=== PATIENT | female | born 1970 | race African-American/Black ===

== ENCOUNTER 2016-06-16 07:35 | Emergency (ER) | payer OTHER ==
[2016-06-16 07:47] VITALS: TEMP 98.5; BMI 29.7
[2016-06-16 08:53] LABS: BASOPHIL 0.6 % (0-2.0); EOSINOPHIL 6.8 % (0-4.5); MCH 28.5 pg (25.7-33.7); MCHC 32.6 g/dl (32.0-36.0); MEAN CELL VOLUME 87.4 fl (80-96); MEAN PLT VOLUME 9.8 fl (7.5-11.1); NEUTROPHILS 62.7 % (42.8-82.8); PLATELET COUNT 265 K/MM3 (134-434); RDW 14.1 % (11.6-15.6); WHITE BLOOD COUNT 5.2 K/mm3 (4.0-10.0)
[2016-06-16 09:22] LABS: URINE APPEARANCE CLEAR; URINE BILIRUBIN NEGATIVE (NEGATIVE); URINE BLOOD NEGATIVE (NEGATIVE); URINE COLOR STRAW; URINE GLUCOSE (UA) NEGATIVE (NEGATIVE); URINE KETONE NEGATIVE (NEGATIVE); URINE LEUK ESTERASE NEGATIVE (NEGATIVE); URINE NITRITE NEGATIVE (NEGATIVE); URINE PROTEIN NEGATIVE (NEGATIVE); URINE UROBILINOGEN NEGATIVE E.U./dl (0.2-1.0)
--- NOTE | 2016-06-16 09:42 | PDOC ---
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 States pain mostly located to R side w/ some swelling to R hand and R ankle. No sensory changes, focal weakness, PISANO, dizziness, visual changes, uri sxs, n/v/f/c, CP, SOB, change in BM or dysuria. Patient states around the time of her DVT diagnosis, she was told initially that she might have lupus based on blood results, but then later on told that she does not have lupus. States between 2005 and now, she has been healthy otherwise. Patient follows up with an outside PMD. Patient appears mildly uncomfortable, moving slowly in ED secondary to body aches. Stable vitals. Has minimal swelling to dorsum of right hand and right ankle. No signs of infection at this time. Unclear etiology of symptoms at this time, possibly rheumatological. Will get basic labs and rule out DVT to right leg Timing/Duration: other (this am) Severity: moderate Associated Symptoms: denies: chest pain, cough, diaphoresis, fever/chills, headaches, nausea/vomiting, shortness of breath, weakness Past History - Past Medical History Allergies/Adverse Reactions: Allergies Allergy/AdvReac Type Severity Reaction Status Date / Time aspirin Allergy Intermediate swelling/hi Verified 06/16/16 08:19 ves Sulfa (Sulfonamide Allergy Intermediate swelling/hi Verified 06/16/16 08:19 Antibiotics) ves Home Medications: Ambulatory Orders Budesonide/Formeterol Fumarate [SYMBICORT 80/4.5mcg -] 1 inh PO PRN PRN Montelukast Na [Singulair -] 10 mg PO HS 09/17/13 Tramadol HCl 50 mg PO Q6H #30 tablet MDD 200 mg 06/16/16 Asthma: Yes - Surgical History Abdominal Surgery: Yes (hysterectomy) - Psycho/Social/Smoking Cessation Hx Anxiety: No Suicidal Ideation: No Smoking Status: No Smoking History: Never smoked Have you smoked in the past 12 months: No Number of Cigarettes Smoked Daily: 0 Hx Alcohol Use: No Drug/Substance Use Hx: No Substance Use Type: None Review of Systems - Review of Systems Constitutional: No: Chills, Fever Respiratory: No: Cough, Shortness of Breath Cardiac (ROS): No: Chest Pain, Lightheadedness, Palpitations ABD/GI: No: Constipated, Diarrhea, Nausea, Vomiting : No: Dysuria *Physical Exam - Vital Signs Last Vital Signs Temp Pulse Resp BP Pulse Ox 98.5 F 83 18 133/84 99 06/16/16 07:44 06/16/16 07:44 06/16/16 07:44 06/16/16 07:44 06/16/16 07:44 - Physical Exam General Appearance: Yes: Appropriately Dressed, Mild Distress HEENT: positive: Normal Voice Neck: positive: Supple Respiratory/Chest: negative: Respiratory Distress Extremity: positive: Other (minimal swelling over dorsum of R hand and R ankle w / diffuse ttp to RLE) Integumentary: positive: Dry, Warm Neurologic: positive: Fully Oriented, Alert, Normal Mood/Affect ED Treatment Course - LABORATORY CBC & Chemistry Diagram: 06/16/16 08:35 06/16/16 11:25 - ADDITIONAL ORDERS Additional order review: Laboratory Results 06/16/16 06/16/16 09:10 08:35 Sodium Cancelled Potassium Cancelled Chloride Cancelled Carbon Dioxide Cancelled Anion Gap Cancelled BUN Cancelled Creatinine Cancelled Creat Clearance w eGFR Cancelled Random Glucose Cancelled Calcium Cancelled Total Bilirubin Cancelled AST Cancelled ALT Cancelled Alkaline Phosphatase Cancelled Total Protein Cancelled Albumin Cancelled Urine HCG, Qual Negative 06/16/16 08:35 RBC 4.38 MCV 87.4 MCHC 32.6 RDW 14.1 MPV 9.8 Neutrophils % 62.7 Lymphocytes % 22.6 D Monocytes % 7.3 Eosinophils % 6.8 H D Basophils % 0.6 - RADIOLOGY Radiology Studies Ordered: Category Date Time Status DUPLEX VASCUL US-1 LEG [US] Stat Ultrasound 06/16/16 08:39 Ordered Medical Decision Making - Medical Decision Making 06/16/16 11:47 45-year-old female history of DVT while on OCPs in 2005, not currently on anticoagulants, was diagnosed with lupus at some point, but then told she did not have lupus as per patient, and was in usual state of health until this morning when she woke up with diffuse body aches with pain and swelling to multiple joints. Denies fever, fatigue, rash or any other acute medical complaints at this time. Stable in ED w/ minimal swelling to R wrist/hand and R ankle, no e/o infxn at this time, rest of exam unremarkable. ?rheumatological source, will get labs and r/o DVT to RLE. Pain control in ED (allergic to nsaids ) 06/16/16 12:42 Labs and US neg. Pt stable for discharge w/ pain control and PMD and rheumatology referral *DC/Admit/Observation/Transfer Diagnosis at time of Disposition: Body aches Arthralgia Qualifiers: Joint pain location: ankle Laterality: right Qualified Code(s): M25.571 - Pain in right ankle and joints of right foot - Discharge Dispostion Disposition: HOME Condition at time of disposition: Good - Prescriptions Prescriptions: Tramadol HCl 50 mg PO Q6H #30 tablet MDD 200 mg - Referrals Referrals: Beti Jasso MD [Primary Care Provider] - Tien Wallis MD [Staff Physician] - - Patient Instructions Additional Instructions: The cause of your symptoms are unclear at this time. You will need further evaluation by a water resource manager - Post Discharge Activity Work/School Note: Back to Work
[2016-06-16] MEDS ORDERED: ACETAMINOPHEN 325 MG TABLET (FP) PO ONE (10:34)
[2016-06-16] MEDS ORDERED: ACETAMINOPHEN 325 MG TABLET (FP) ONE (11:28)
[2016-06-16 12:04] LABS: ALBUMIN 3.8 g/dl (3.4-5.0); ALK PHOS 66 U/L (45-117); ANION GAP 10 (8-16); BILIRUBIN,TOTAL 0.2 mg/dL (0.2-1.0); CALCIUM 9.3 mg/dL (8.5-10.1); CO2 25 mmol/L (21-32); CREATININE 0.9 mg/dL (0.55-1.02); GLUCOSE,RANDOM 74 mg/dL (74-106); SGOT/AST 24 U/L (15-37); SGPT/ALT 24 U/L (12-78); TOT PROT 7.6 g/dl (6.4-8.2)
[2016-06-16] MEDS ORDERED: traMADol HCL 50 MG TABLET PO ONE (12:37)
[2016-06-16] MEDS ORDERED: traMADol HCL 50 MG TABLET ONE (12:41)
[2016-06-16 12:54] VITALS: BP 131/74; PULSE 70
== END 2016-06-16 12:54 | disposition home or self-care (01) ==
LOC: JER 07:35
DX: M25.571 Pain in right ankle and joints of right foot (principal)
CPT/HCPCS: 36415; 80053; 81003; 84703; 85025; 93971-TC; 99282-25

== ENCOUNTER 2016-07-30 11:40 | Emergency (ER) | payer OTHER ==
[2016-07-30 11:59] VITALS: BP 134/90; PULSE 87; TEMP 97.7; BMI 31.3
[2016-07-30] MEDS ORDERED: ALBUTEROL SO4 2.5/IPRATROPIUM 0.5 INH SOL 3 ML VIAL.NEB. NEB ONE ×2 (13:15→13:18)
[2016-07-30] MEDS ORDERED: predniSONE 20 MG TABLET (UD) PO ONE (13:15)
[2016-07-30] MEDS ORDERED: predniSONE 20 MG TABLET (UD) ONE (13:17)
--- NOTE | 2016-07-30 13:32 | PDOC ---
History of Present Illness - General Chief Complaint: Asthma Stated Complaint: SOB Time Seen by Provider: 07/30/16 13:04 History Source: Patient Exam Limitations: No Limitations - History of Present Illness Initial Comments: 07/30/16 13:28 46 yr female with c/o wheezing coughing for 4 days exacerbated by her seasonal allergies. Pt denies fever, no chest pain. Pt taking flonase, symbicort, claritin and albuterol nebs at home with no relief. Pt denies productive cough. Pt able to speak full sentences no distress. Severity: reports: moderate Possible Cause: Yes: frequent episodes Associated Symptoms: reports: cough, nasal congestion, wheezing Past History - Past Medical History Allergies/Adverse Reactions: Allergies Allergy/AdvReac Type Severity Reaction Status Date / Time aspirin Allergy Intermediate swelling/hi Verified 07/30/16 11:53 ves Sulfa (Sulfonamide Allergy Intermediate swelling/hi Verified 07/30/16 11:53 Antibiotics) ves Home Medications: Ambulatory Orders Budesonide/Formeterol Fumarate [SYMBICORT 80/4.5mcg -] 1 inh PO PRN PRN Montelukast Na [Singulair -] 10 mg PO HS 09/17/13 Azithromycin [Zithromax 250mg Tablets -] 250 mg PO UTDICT #6 tab 07/30/16 Prednisone [Deltasone -] 40 mg PO DAILY #10 tablet 07/30/16 Asthma: Yes - Surgical History Abdominal Surgery: Yes (hysterectomy) - Psycho/Social/Smoking Cessation Hx Anxiety: No Suicidal Ideation: No Smoking Status: No Smoking History: Former smoker Have you smoked in the past 12 months: No Number of Cigarettes Smoked Daily: 0 Information on smoking cessation initiated: No Hx Alcohol Use: No Drug/Substance Use Hx: No Substance Use Type: None Respiratory Specific PMHX - Complaint Specific PMHX Angina: No Bronchitis: Yes Pneumonia: No Pulmonary Embolus: No TB (Tuberculosis): No Review of Systems - Review of Systems Able to Perform ROS?: Yes Is the patient limited Slovak proficient: No Constitutional: No: Symptoms Reported HEENTM: Yes: Symptoms Reported Respiratory: Yes: Symptoms reported *Physical Exam - Vital Signs Last Vital Signs Temp Pulse Resp BP Pulse Ox 97.7 F 87 24 134/90 100 07/30/16 11:53 07/30/16 11:53 07/30/16 11:53 07/30/16 11:53 07/30/16 11:53 - Physical Exam General Appearance: Yes: Nourished, Appropriately Dressed HEENT: positive: EOMI, HARLAN, Nasal Congestion Neck: positive: Supple. negative: Tender Respiratory/Chest: positive: Wheezing. negative: Chest Tender Cardiovascular: positive: Regular Rhythm, Regular Rate Gastrointestinal/Abdominal: positive: Soft Musculoskeletal: positive: Normal Inspection Extremity: positive: Normal Capillary Refill, Normal Inspection, Normal Range of Motion Integumentary: positive: Normal Color, Dry, Warm Neurologic: positive: Fully Oriented, Alert, Normal Mood/Affect, Normal Response , Motor Strength 08/01 ED Treatment Course - RADIOLOGY Radiology Studies Ordered: Category Date Time Status CHEST PA & LAT [RAD] Stat Radiology 07/30/16 13:19 Ordered - Medications Given in the ED: ED Medications Discontinued Medications Generic Name Dose Route Start Last Admin Trade Name Freq PRN Reason Stop Dose Admin Albuterol/Ipratropium 1 amp 07/30/16 13:15 07/30/16 13:20 Duoneb - NEB 07/30/16 13:16 1 amp ONCE ONE Administration Prednisone 60 mg 07/30/16 13:15 07/30/16 13:20 Deltasone - PO 07/30/16 13:16 60 mg ONCE ONE Administration Medical Decision Making - Medical Decision Making 07/30/16 13:32 cc: cough nasal congestion wheezing afebrile pulse ox 100% will give prednsione 60mg , duoneb , CXR and re-eval *DC/Admit/Observation/Transfer Diagnosis at time of Disposition: Bronchitis, Asthma attack - Discharge Dispostion Disposition: HOME Condition at time of disposition: Good - Prescriptions Prescriptions: Prednisone [Deltasone -] 40 mg PO DAILY #10 tablet Azithromycin [Zithromax 250mg Tablets -] 250 mg PO UTDICT #6 tab - Patient Instructions Additional Instructions: drink at least 3 liters of water a day next dose prednisone tomorrow morning take the antibiotic Zpack for bronchitis follow with your doctor in 1-2 days for follow up Return to ER if any worsening symptoms continue to take claritin and use nasocort spray avoid being outside as the pollen counts are very high making allergies and asthma worse
== END 2016-07-30 14:12 | disposition home or self-care (01) ==
LOC: JERFT 11:40
PROC: 3E0F7GC Introduction of Other Therapeutic Substance into Respiratory Tract, Via Natural or Artificial Opening (ICD-10-PCS; principal; 2016-07-30)
DX: J40 Bronchitis, not specified as acute or chronic (principal); Z87.891 Personal history of nicotine dependence
CPT/HCPCS: 71020-TC; 94640; 99281-25

== ENCOUNTER 2018-01-19 02:03 | Inpatient (IN) | payer OTHER ==
--- NOTE | 2018-01-19 02:51 | PDOC ---
History of Present Illness - General Stated Complaint: NAUSEA/VOMITING Time Seen by Provider: 01/19/18 02:43 - History of Present Illness Initial Comments: 01/19/18 03:33 The patient is a 47 year old female with a history of asthma who presents for evaluation of headache, dizziness, nausea, and vomiting. The patient is accompanied by family who assist in providing the history. They note that the patient awoke this morning just prior to presentation to the ED complaining of severe room-spinning dizziness with associated pounding headache, nausea, and multiple episodes of non-bilious, non-bloody vomiting. She denies similar symptoms in the past and notes that her symptoms worsen with movement of her head. She denies fevers, chills, SOB, chest pain, abdominal pain, numbness, tingling, weakness, or changes with urination or bowel movements. tPA Exclusion Checklist 0-3hr - Time Elapsed Date last known well: 01/18/18 Time last known well: 22:00 Elaspsed time: 1 Day(s) and 21 Hour(s) and 53 Minutes - Thrombolytic Therapy Candidate Is the patient eligible for Thrombolytic Therapy?: No - Ineligibility reason(s) Reasons No tPA given: Outside of window - delayed arrival NIH Stroke Scale - Last Known Well Date/Time & Onset Date Last Known Well: 01/18/18 Time Last Known Well: 22:00 - Initial Evaluation Level of consciousness: Alert Ask patient the month and their age: Answers both correctly Ask patient to open & close eyes; make fist and let go: Obeys both correctly Best gaze (horizontal eye movement): Normal Visual field testing: No visual field loss Facial paresis (Show teeth/raise eyebrows/close eyes tight): Normal symmetrical movement Motor Function: Left Arm: Normal Motor Function: Right Arm: Normal (extends arm 90 (or 45) degrees for 10 seconds without drift Motor Function: Left Leg: Normal (extends leg 30 degrees for 5 seconds without drift) Motor Function: Right Leg: Normal (extends leg 30 degrees for 5 seconds without drift) Limb Ataxia: No ataxia Sensory(Use pinprick test arms,legs,trunk,face/side to side): Normal Best language (Describe picture, name items, read sentences): No Aphasia Dysarthria (read several words): Normal articulation Extinction and Inattention: No abnormality - Total Score NIH Stroke Scale Score: 0 Past History - Past Medical History Allergies/Adverse Reactions: Allergies Allergy/AdvReac Type Severity Reaction Status Date / Time aspirin Allergy Intermediate swelling/hi Verified 01/19/18 02:25 ves Sulfa (Sulfonamide Allergy Intermediate swelling/hi Verified 01/19/18 02:25 Antibiotics) ves Home Medications: Ambulatory Orders Clopidogrel Bisulfate [Plavix -] 25 mg PO DAILY 01/19/18 Cyclobenzaprine HCl [Flexeril -] 10 mg PO HS 01/19/18 Asthma: Yes - Surgical History Abdominal Surgery: Yes (hysterectomy) - Suicide/Smoking/Psychosocial Hx Smoking Status: No Smoking History: Never smoked Have you smoked in the past 12 months: No Number of Cigarettes Smoked Daily: 0 Information on smoking cessation initiated: No Hx Alcohol Use: No Drug/Substance Use Hx: No Substance Use Type: None Review of Systems - Review of Systems Comments:: 01/19/18 03:36 Constitutional: No fevers, chills, fatigue, malaise HEENT: No Rhinorrhea, nasal congestion, visual changes Cardiovascular: No chest pain, syncope, palpitations, lightheadedness Respiratory: No Cough, SOB, Hemoptysis, Gastrointestinal: Nausea, vomiting. No Abdominal pain, Constipation, Diarrhea, Melena Genitourinary: No Dysuria, Frequency, Urgency, Hesitancy, Hematuria, Flank pain Musculoskeletal: No Myalgia, arthralgia Skin: No rashes, itching, bruising, pallor Neurologic: Headache, dizziness. No Numbness, Weakness, or Tingling Psychiatric: No Hallucinations. No SI or HI *Physical Exam - Vital Signs Last Vital Signs Temp Pulse Resp BP Pulse Ox 99.1 F 128 H 18 105/72 98 01/19/18 02:25 01/19/18 02:25 01/19/18 02:25 01/19/18 02:25 01/19/18 02:25 - Physical Exam Comments: 01/19/18 03:37 General Appearance: Nourished. In Mild Apparent Distress HEENT: EOMI, HARLAN. Nystagmus noted on exam. No Pharyngeal Erythema, Tonsillar Exudate, Tonsillar Erythema Neck: No Cervical Lymphadenopathy Respiratory/Chest: Lungs Clear, Normal Breath Sounds. No Crackles, Rales, Rhonchi, Wheezing Cardiovascular: Regular Rhythm, Regular Rate. No Murmur, Gallops, Rubs Gastrointestinal/Abdominal: Normal Bowel Sounds, Soft. No Guarding, Rebound, Tenderness Musculoskeletal: No CVA Tenderness Extremity: Normal Capillary Refill Integumentary: Normal Color, Dry, Warm Neurologic: demand manager II-XII NML intact, Fully Oriented, Alert, Normal Mood/Affect, Normal Response, Motor Strength 5/5. Normal Finger to Nose and Heel to [place] ED Treatment Course - LABORATORY CBC & Chemistry Diagram: 01/20/18 05:30 01/20/18 05:30 Medical Decision Making - Medical Decision Making 01/19/18 03:38 The patient is a 47 year old female with a history of asthma who presents for evaluation of headache, dizziness, nausea, and vomiting. Differential includes but is not limited to: Vertigo, Intracranial process, Infectious, Metabolic derangement. Given the patient's history and physical exam, we will obtain a cbc, cmp, troponin, ekg, head ct to evaluate further for possible etiologies. We will treat with iv fluids, reglan, valium, meclazine, tylenol and continue to monitor and reassess while here in the ED. 01/19/18 06:53 CBC demonstrates an elevated wbc. cmp, troponin is unremarkable. Head CT demonstrates a chronic lacunar infarct. Given the patient's history of an occluded left vetebral artery and new onset dizziness, we believe she requires admission for further work up and management. We discussed the case with Dr. Asher with neurology who will come evaluate the patient. We discussed the case with the admitting team who accepted the patient for admission. *DC/Admit/Observation/Transfer Diagnosis at time of Disposition: TIA (transient ischemic attack) - Discharge Dispostion Condition at time of disposition: Stable Decision to Admit order: Yes - Referrals - Patient Instructions - Post Discharge Activity
[2018-01-19] MEDS ORDERED: SODIUM CHLORIDE 1,000 ML IV STA (02:59)
[2018-01-19] MEDS ORDERED: MECLIZINE HCL 25 MG TABLET (FP) PO ONE (02:59)
[2018-01-19] MEDS ORDERED: METOCLOPRAMIDE HCL INJECTION 10 MG/2 ML VIAL IVPUSH ONE (03:00)
[2018-01-19] MEDS ORDERED: ACETAMINOPHEN 1000 MG/100 ML VIAL (NON FORMULARY) IVPB ONE (03:00)
[2018-01-19] MEDS ORDERED: diazePAM 2 MG TABLET PO ONE (03:17)
[2018-01-19] MEDS ORDERED: MECLIZINE HCL 25 MG TABLET (FP) ONE (03:18)
[2018-01-19] MEDS ORDERED: METOCLOPRAMIDE HCL INJECTION 10 MG/2 ML VIAL ONE (03:18)
[2018-01-19] MEDS ORDERED: diazePAM 2 MG TABLET ONE (03:18)
[2018-01-19] MEDS ORDERED: ACETAMINOPHEN INJECTION 100 ML IVPB ONE (03:18)
--- NOTE | 2018-01-19 03:18 | PDOC ---
Attending Attestation - Resident Resident Name: Rodolfo Pelayo - ED Attending Attestation I have performed the following: I have examined & evaluated the patient, The case was reviewed & discussed with the resident, I agree w/resident's findings & plan, Exceptions are as noted - HPI HPI: 01/19/18 02:14 47yo F hx asthma, vertebral artery stenosis? 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 Pt states symptoms woke her up as she felt nauseous. Last known normal 10pm when pt went to sleep. Dizziness is positional, worse with head movement No hx similar sxs. Pt is a poor historian. States she was admitted to [facility] a few weeks go after an episode of decreased vision. She followed up with her neurologist and had an MRI on 01/13. Does not know the results. Denies fevers, chills, cp, sob, palpitations, abd pain, n/v/d, urinary sxs, focal weakness/numbness, blurry vision. - Physicial Exam PE: 01/19/18 05:41 agree with resident exam - Medical Decision Making 01/19/18 05:41 47yo F hx vertebral artery occlusion (appears chronic on review of recent MRI) on plavix presents to the ED with sudden onset headache, N/V, vertiginous sxs. In light of vertebral artery stenosis, concern for central etiology of vertigo, ie posterior circulation stroke. LKN was 10pm, 4 hours prior to presentation to ED. Pt also on plavix and thus not a TPA candidate. CTH read by imaging customer service correspondence clerk with chronic appearing lacunar infarct in brainstem, but no acute findings. Dr. Asher (who pt has seen before) has been consulted, awaiting a call back. MRI/ MRA ordered. Vitals remarkable for fever to 101.3 and tachcyardia to 120s. Pt with no focal infectious symptoms, has no stiff neck, no evidence of meningismus, is not altered - low likelihood for meningitis. Pt also on plavix and not an LP candidate. 01/19/18 05:[address] Barker (by Dr. Pelayo), pt accepted for admission Case discussed in detail with admitting physician including history, physical exam and ancillary studies. Admitting physician has assumed care for the patient, will follow all pending diagnostics and will complete the evaluation and treatment. 01/19/18 06:[address] Asher by Dr. Pelayo. He will be here within the hour to evaluate pt. Heart Score/ECG Review #1 01/19/18 05:49 Twelve-lead EKG was performed and reviewed by me. Sinus tachycardia, rate 127. Normal axis. No ST elevations or T-wave inversions. +PVCs
[2018-01-19 04:59] LABS: BASO % 0.3 % (0-2.0); EOS % 0.2 % (0-4.5); HEMOGLOBIN 11.1 GM/dL (10.7-15.3); LYMPH % 5.5 % (8-40); MCH 26.5 pg (25.7-33.7); MCHC 31.7 g/dl (32.0-36.0); MEAN CELL VOLUME 83.6 fl (80-96); MEAN PLT VOLUME 9.3 fl (7.5-11.1); MONO % 0.4 % (3.8-10.2); NEUT % 93.6 % (42.8-82.8); PLATELET COUNT 170 K/MM3 (134-434); RBC 4.19 M/mm3 (3.60-5.2); RDW 14.9 % (11.6-15.6); WHITE BLOOD COUNT 2.1 K/mm3 (4.0-10.0)
[2018-01-19 05:21] LABS: ALBUMIN 3.1 g/dl (3.4-5.0); ALK PHOS 93 U/L (45-117); ANION GAP 7 MMOL/L (8-16); BILIRUBIN,TOTAL 0.4 mg/dL (0.2-1); BLOOD UREA NITROGEN 12 mg/dL (7-18); CALCIUM 7.9 mg/dL (8.5-10.1); CHLORIDE 109 mmol/L (98-107); CO2 22 mmol/L (21-32); CREATININE 1.1 mg/dL (0.55-1.3); GLUCOSE,RANDOM 103 mg/dL (74-106); POTASSIUM 3.9 mmol/L (3.5-5.1); SGOT/AST 64 U/L (15-37); SGPT/ALT 57 U/L (13-61); SODIUM 138 mmol/L (136-145); TOT PROT 6.6 g/dl (6.4-8.2)
[2018-01-19 05:55] LABS: INR 1.11 (0.83-1.09); PROTHROMBIN TIME (PATIENT) 13.1 SEC (9.7-13.0)
[2018-01-19 06:03] LABS: CHOLESTEROL 125 mg/dL (50-200); HDL CHOLESTEROL 52 mg/dL (40-60); TRIGLYCERIDES 62 mg/dL (0-150)
[2018-01-19] MEDS ORDERED: MECLIZINE HCL 12.5 MG TABLET PO PRN (06:20)
[2018-01-19] MEDS ORDERED: ACETAMINOPHEN 325 MG TABLET (FP) PO ONE (06:21)
--- NOTE | 2018-01-19 06:37 | HP ---
CHIEF COMPLAINT: nausea and dizziness PCP: HISTORY OF PRESENT ILLNESS: Patient is a 47 year old female with a past medical history of asthma, vertebral artery stenosis and DVT on plavix who presents for nausea and dizziness. At 9 pm last night she accidently took one of her daughters gabapentin pills. She also started taking miclinone for acne. Her symptoms began at about 11 pm last night, she felt very nauseous and dizzy. She reports she has not felt this before. One year ago in december she was diagnosed with Vertebral artery stenosis at [facility]. She was following up with Dr. Asher, but he stopped taking her insurance. She has not seen a neurologist recently. She also reports she was told she had cysts in her brain, she is unsure as to why. 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 She currently complains of still feeling dizzy and her head hurting. Patient reports she has not been sick recently. ER course was notable for: (1) meclizine (2) (3) Recent Travel: PAST MEDICAL HISTORY: pre diabetic, asthma, vertebral artery stenosis PAST SURGICAL HISTORY: Social History: Smoking: Alcohol: Drugs: Family History: Allergies aspirin Allergy (Intermediate, Verified 01/19/18 02:25) swelling/hives Sulfa (Sulfonamide Antibiotics) Allergy (Intermediate, Verified 01/19/18 02:25) swelling/hives HOME MEDICATIONS: Home Medications Medication Instructions Recorded Clopidogrel Bisulfate [Plavix -] 25 mg PO DAILY 01/19/18 Cyclobenzaprine HCl [Flexeril -] 10 mg PO HS 01/19/18 REVIEW OF SYSTEMS CONSTITUTIONAL: Absent: fever, chills, diaphoresis, generalized weakness, malaise, loss of appetite, weight change HEENT: Absent: rhinorrhea, nasal congestion, throat pain, throat swelling, difficulty swallowing, mouth swelling, ear pain, eye pain, visual changes CARDIOVASCULAR: Absent: chest pain, syncope, palpitations, irregular heart rate, lightheadedness , peripheral edema RESPIRATORY: Absent: cough, shortness of breath, dyspnea with exertion, orthopnea, wheezing, stridor, hemoptysis GASTROINTESTINAL: Absent: abdominal pain, abdominal distension, nausea, vomiting, diarrhea, constipation, melena, hematochezia GENITOURINARY: Absent: dysuria, frequency, urgency, hesitancy, hematuria, flank pain, genital pain MUSCULOSKELETAL: Absent: myalgia, arthralgia, joint swelling, back pain, neck pain SKIN: Absent: rash, itching, pallor HEMATOLOGIC/IMMUNOLOGIC: Absent: easy bleeding, easy bruising, lymphadenopathy, frequent infections ENDOCRINE: Absent: unexplained weight gain, unexplained weight loss, heat intolerance, cold intolerance NEUROLOGIC: dizziness, headache Absent: , focal weakness or paresthesias,unsteady gait, seizure, mental status changes, bladder or bowel incontinence PSYCHIATRIC: Absent: anxiety, depression, suicidal or homicidal ideation, hallucinations. PHYSICAL EXAMINATION Vital Signs - 24 hr 01/19/18 01/19/18 02:25 04:00 Temperature 99.1 F 101.3 F H Pulse Rate 128 H Respiratory 18 Rate Blood Pressure 105/72 O2 Sat by Pulse 98 Oximetry (%) GENERAL: Awake, alert, and fully oriented, in no acute distress. HEAD: Normal with no signs of trauma. EYES: Pupils equal, round and reactive to light, extraocular movements intact, sclera anicteric, conjunctiva clear. EARS, NOSE, THROAT: Ears normal, nares patent, oropharynx clear without exudates. Moist mucous membranes. NECK: Normal range of motion, supple without lymphadenopathy, JVD, or masses. LUNGS: Breath sounds equal, clear to auscultation bilaterally. No wheezes, and no crackles. No accessory muscle use. HEART: tachycardic ABDOMEN: Soft, nontender, not distended, normoactive bowel sounds, no guarding, no rebound, no masses. Midline scar MUSCULOSKELETAL: Normal range of motion at all joints. No CVA tenderness. LOWER EXTREMITIES: 2+ pulses, warm, well-perfused. No calf tenderness. No peripheral edema. NEUROLOGICAL: Cranial nerves II-XII intact. Normal speech. patient has a positive [place] with nystagmus when looking to the left, gait not observed PSYCHIATRIC: Cooperative. Good eye contact. Appropriate mood and affect. SKIN: Warm, dry, normal turgor, no rashes or lesions noted, normal capillary refill. CBC, BMP 01/19/18 04:37 01/19/18 04:37 ASSESSMENT/PLAN: Patient is a 47 year old female with a past medical history of asthma, vertebral artery stenosis and DVT on plavix who presents for vertigo. #Dizziness - liklely 2/2 to interosseous calcifications vertigo vs vertebral artery stenosis - begin meclizine 12.5 mg TID prn - acetaminophen 650 mg for headache - f/u neuro consult, ED reached out to Dr. 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 Head CT shows old lacunar infarct and old cerebellar infarct - continue Clopidogrel 75 mg - question of hypercoagulability, f/u ESR, CRP, MARGARITO, factor 5 #nausea/vomiting r/o sbo - hx of hysterectmy and Csection - f/u abd xray - continue LR @ 100 #MSK pain - continue flexaril 10 mg at night #sepsis: unknown source - leukopenia - fever - sinus tachycardia - f/u peripheral smear - f/u blood cx, f/u urine cx, f/u flu swab - LR 1L bolus, LR @ 100 #asthma: stable - no acute exacerbation Visit type - Emergency Visit Emergency Visit: Yes Care time: The patient presented to the Emergency Department on the above date and was hospitalized for further evaluation of their emergent condition. - New Patient This patient is new to me today: Yes Date on this admission: 01/19/18 - Critical Care Critical Care patient: No
[2018-01-19] MEDS ORDERED: LACTATED RINGERS SOLUTION 1,000 ML/1,000 ML INFUS.BAG IV SCH ×2 (06:45→10:59)
[2018-01-19] MEDS ORDERED: ACETAMINOPHEN 325 MG TABLET (FP) ONE (06:48)
[2018-01-19 06:52] LABS: ANISOCYTOSIS 1+; MACROCYTOSIS 0; PLATELET ESTIMATE NORMAL
--- NOTE | 2018-01-19 07:02 | PN ---
Teaching Attending Note Name of Resident: Caron Barker ATTENDING PHYSICIAN STATEMENT I saw and evaluated the patient. I reviewed the resident's note and discussed the case with the resident. I agree with the resident's findings and plan as documented. SUBJECTIVE: Seen and examined; she is a 47 y/o AAF with a PMH of vertebral A. stenosis, dysfunctional uterine bleeding, asthma who presents with nausea/vomitting and dizziness. She is hemodynamically stable but was slightly febrile on presentation. She had sx like this aprox. 1 month ago; she was diagnosed with V. A. Stenosis at [facility] last year and has been on plavix for this. Denies any history of neurologic issues or clotting issues. She was aparently worked up for this issue with a MRI that was done 01/13 which showed on MRA no flow in the L with patent R flow. She was woken by the aforementioned sx tonight and thus came to the ER. CT negative for acute findings but did show old stroke near brain stem. WBC found to be slightly low. No fall or LOC today. Vague abdominal pain PMH: Dysfunctional uterine bleeding, asthma PSH: No nsgy procedures FH: Denies clotting issues or neuro issues Social: Denies EtOH or illicit drug abuse OBJECTIVE: VSS, all labs and imaging reviewed NAD, AAOx3, resting comfortably in bed +L-sided Roscoe-Halpike, CN2-12 grossly intact, no focal neuro deficits, normal motion and sensorium. Normal muscle tone. No meningeal signs. RRR s1/2 no mgr Lungs CTAB with sym expansion NT ND +BS ASSESSMENT AND PLAN: 1) Dizziness, recurring -Likely with multiple components; I suspect that with the rotational component ( told to ER but denied to me) with +Joaquina-Halpike I am suspecting some BPV on top of the known vertebral A. stenosis. These should be treated separately. 2) Vertebral A. 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 Reconcile home meds -Given her history of stoke with now a no-flow in the VA, I suspect maybe some underlying disease driving the process. Check a rheum screening pannel and a factor V Leiden screen. 5) Leukopenia -WBC 2 range (lower limit normal is 4); unclear cause -Followup infectious workup 6) Nausea/Vomitting -Could have lead to fluid depletion -PRN management. 7) Fever -Unclear source; check blood cultures. Check UA. Benign abdominal exam and lung exam is nonrevealing. No meningeal signs. -Followup flu swab; monitor clinically. If persists can cover with abx 8) Sinus Tachycardia -Bolus 2L total NS and LR@100; monitor on tele, EKG NSR. -Could be fluid depletion from nausea and vomitting vs. infective process. If doesn't resolve consider alternative etiologies 9) Chronic Asthma -No acute exacerbation -Continue home meds and PRNs 10) Obesity -General Internist regarding weight loss prior to DC 11) Elevated CK -Trend Full Code
[2018-01-19] MEDS ORDERED: LACTATED RINGERS SOLUTION 1000 ML INFUS.BAG IV ONE (07:18)
[2018-01-19 08:44] LABS: URINE APPEARANCE CLEAR; URINE BILIRUBIN NEGATIVE (<2.0 mg/dL); URINE COLOR LTYELLOW; URINE GLUCOSE (UA) NEGATIVE (NEGATIVE); URINE KETONE NEGATIVE (NEGATIVE); URINE LEUK ESTERASE NEGATIVE (NEGATIVE); URINE NITRITE NEGATIVE (NEGATIVE); URINE PROTEIN NEGATIVE (NEGATIVE); URINE UROBILINOGEN NEGATIVE mg/dL (0.2-1.0)
[2018-01-19] MEDS ORDERED: CLOPIDOGREL BISULFATE 75 MG TABLET (FP) PO SCH (10:00)
[2018-01-19] MEDS ORDERED: MECLIZINE HCL 12.5 MG TABLET ONE (10:22)
--- NOTE | 2018-01-19 10:40 | CON.NEURO ---
Consult Consult Specialty:: [facility] Referred by:: ED Reason for Consultation:: PISANO - History of Present Illness History of Present Illness: 47 years old woman with PMh PISANO Anxiety ASA allergy and VA stenosis I so the patient in the emergency room at the request of the emergency room physician. Recently patient was referred for an MRI and MRA of the brain at [facility] which confirmed the presence of left vertebral artery stenosis that was detected in 2008. Patient is allergic again to aspirin patient is on Plavix. Neurologically patient NIH stroke scale was 0. - History Source History Provided By: Patient Limitations to Obtaining History: No Limitations - Past Medical History ...LMP: 04/12/13 - Alcohol/Substance Use Hx Alcohol Use: No - Smoking History Smoking history: Never smoked Have you smoked in the past 12 months: No Aproximately how many cigarettes per day: 0 Home Medications - Allergies Allergies/Adverse Reactions: Allergies Allergy/AdvReac Type Severity Reaction Status Date / Time aspirin Allergy Intermediate swelling/hi Verified 01/19/18 02:25 ves Sulfa (Sulfonamide Allergy Intermediate swelling/hi Verified 01/19/18 02:25 Antibiotics) ves - Home Medications Home Medications: Ambulatory Orders Clopidogrel Bisulfate [Plavix -] 25 mg PO DAILY 01/19/18 Cyclobenzaprine HCl [Flexeril -] 10 mg PO HS 01/19/18 Family Disease History - Family Disease History Family History: Denies Review of Systems - Review of Systems Constitutional: reports: No Symptoms Eyes: reports: No Symptoms Gastrointestinal: reports: Constipation, Diarrhea, Indigestion, Nausea Neurological: reports: Headache, Incoordination, Numbness, Parasthesia Physical Exam-Neuro Vital Signs: Vital Signs Temperature 99.8 F H 01/19/18 08:55 Pulse Rate 92 H 01/19/18 07:06 Respiratory Rate 18 01/19/18 07:06 Blood Pressure 117/68 01/19/18 07:06 O2 Sat by Pulse Oximetry (%) 99 01/19/18 07:06 Constitutional: Yes: Well Nourished Neck: Yes: WNL Labs: CBC, BMP 01/19/18 04:37 01/19/18 04:37 INR, PTT INR 1.11 (0.83-1.09) H 01/19/18 05:27 - Neuro Exam Level Of Consciousness: Yes: Oriented to Person, Oriented to Place, Oriented to Time Eyes: Yes: PERRLA Speech: WNL Dominant Hand: Right Cranial Nerves II-XII Intact: Yes Gag: Present Response to light touch: Normal Response to pain prick: Normal Response to temperature: Normal Problem List - Problems (1) TIA (transient ischemic attack) Assessment/Plan: patient was seen recently in my office Patient was complaining of episodes of loss of consciousness patient was being sent for questionable seizure workup CAT scan from today shows no evidence of acute stroke. This patient had an MRI MRA of the brain which showed no acute pathology. Patient is allergic to aspirin. Patient is on Plavix. No evidence of brainstem stroke acute on today's exam. Neurologically patient can go home Seizure precautions Continue Plavix Garland-3 fish oil Tight cholesterol control We'll arrange for EEG as an outpatient. Thank you for referring this patient Code(s): G45.9 - TRANSIENT CEREBRAL ISCHEMIC ATTACK, UNSPECIFIED
[2018-01-19] MEDS ORDERED: ONDANSETRON 4 MG/2 ML VIAL IVPUSH PRN (11:00)
--- NOTE | 2018-01-19 11:05 | PN ---
Progress Note, Physician Chief Complaint: Sepsis Dizziness History of Present Illness: Dizziness improved, described as light headedness when she gets up. Has Had similar episode 1 month ago but not as bad. C/O headache right now No recent travel No recent sick contacts Recently started on minocycline for acne Took her daughter's Gabapentin yesterday States she recieved a call from [facility] yesterday and was told that she has Polymyalgia Rheumatica? Takes Amitriptyline 25 mg po daily for Fibromylagia? Cultures pending WBC [id number] lactic acid-influenza swab negative-PERHAPS VIRAL SYNDROME? CT head from today, MRI/MRA from 01/13/18-negative - Current Medication List Current Medications: Active Medications Clopidogrel Bisulfate (Plavix -) 75 mg PO DAILY JOHNNY Last Admin: 01/19/18 10:00 Dose: 75 mg Cyclobenzaprine HCl (Flexeril -) 10 mg PO HS JOHNNY Lactated Ringer's (Lactated Ringers Solution) 1,000 ml in 1,000 mls @ 125 mls/ hr IV ASDIR JOHNNY Meclizine HCl (Antivert -) 12.5 mg PO Q8H PRN PRN Reason: VERTIGO Last Admin: 01/19/18 10:27 Dose: 12.5 mg Ondansetron HCl (Zofran Injection) 4 mg IVPUSH Q4H PRN PRN Reason: NAUSEA AND/OR VOMITING - Objective Vital Signs: Vital Signs Temperature 99.8 F H 01/19/18 08:55 Pulse Rate 92 H 01/19/18 07:06 Respiratory Rate 18 01/19/18 07:06 Blood Pressure 117/68 01/19/18 07:06 O2 Sat by Pulse Oximetry (%) 99 01/19/18 07:06 Constitutional: Yes: Well Nourished, No Distress, Calm Cardiovascular: Yes: Regular Rate and Rhythm Respiratory: Yes: Regular Gastrointestinal: Yes: Normal Bowel Sounds, Soft, Abdomen, Obese Musculoskeletal: Yes: Muscle Weakness Extremities: Yes: WNL Edema: No Peripheral Pulses WNL: Yes Neurological: Yes: Alert, Oriented Psychiatric: Yes: Alert, Oriented Labs: CBC, BMP 01/19/18 04:37 01/19/18 04:37 INR, PTT INR 1.11 (0.83-1.09) H 01/19/18 05:27 Problem List - Problems (1) Dizziness Assessment/Plan: -Orthostatic vitals -IVF -Cardiology consult -echo and carotid -CT head, MRI/MRA brain negative Code(s): R42 - DIZZINESS AND GIDDINESS (2) Sepsis Assessment/Plan: -IVF -Repeat LA in AM -Acetaminophen for fever >100.0F -ID consult -Will hold IV abx for now and monitor -Cultures pending -CXR ordered Code(s): A41.9 - SEPSIS, UNSPECIFIED ORGANISM (3) Elevated lactic acid level Assessment/Plan: -IVF -Repeat LA in AM -ID consult Code(s): R79.89 - OTHER SPECIFIED ABNORMAL FINDINGS OF BLOOD CHEMISTRY Assessment/Plan see problem list
[2018-01-19] MEDS ORDERED: ACETAMINOPHEN 325 MG TABLET (FP) PO PRN ×2 (11:41)
--- NOTE | 2018-01-19 12:27 | CON.CARD ---
Consult Consult Specialty:: Cardiology Referred by:: Magui Griffith Reason for Consultation:: dizziness - History of Present Illness Chief Complaint: dizziness, nausea, vomiting History of Present Illness: 47 year old woman with pmh vertebral artery stenosis, asthma, admitted with dizziness, nausea, vomiting, fever. pt seen and examined today in nad. feeling better currently. Pt is known to Dr. Asher as outpatient and known to have vertebral artery stenosis. Denies any chest pain, sob, palpitations, syncope. no pnd, orthopnea, or LE edema. - History Source History Provided By: Patient, Medical Record Limitations to Obtaining History: No Limitations - Past Medical History Cardio/Vascular: Yes: Other (vertebral artery stenosis) Pulmonary: Yes: Asthma ...LMP: 04/12/13 - Alcohol/Substance Use Hx Alcohol Use: No - Smoking History Smoking history: Never smoked Have you smoked in the past 12 months: No Aproximately how many cigarettes per day: 0 - Social History History of Recent Travel: No Home Medications - Allergies Allergies/Adverse Reactions: Allergies Allergy/AdvReac Type Severity Reaction Status Date / Time aspirin Allergy Intermediate swelling/hi Verified 01/19/18 02:25 ves Sulfa (Sulfonamide Allergy Intermediate swelling/hi Verified 01/19/18 02:25 Antibiotics) ves - Home Medications Home Medications: Ambulatory Orders Clopidogrel Bisulfate [Plavix -] 25 mg PO DAILY 01/19/18 Cyclobenzaprine HCl [Flexeril -] 10 mg PO HS 01/19/18 Family Disease History - Family Disease History Family History: Denies Review of Systems - Review of Systems Constitutional: reports: Fever, Malaise. denies: No Symptoms, Chills, Diaphoresis, Lethargy, Loss of Appetite, Night Sweats, Unintentional Wgt. Loss, Weakness, Other Eyes: denies: No Symptoms, Blind Spots, Blurred Vision, Double Vision, Eye Pain , Floaters, Photophobia, Recent Change in Vision, Other HENT: denies: No Symptoms, Difficult Swallowing, Ear Discharge, Ear Pain, Epistaxis, Gingival Bleeding, Hearing Loss, Mouth Swelling, Nasal Congestion, Ocular Prosthesis, Throat Pain, Toothache, Ringing in Ears, Other Neck: denies: No Symptoms, Decreased ROM, Lumps, Pain on Movement, Stiffness, Swollen Glands, Tenderness, Other Cardiovascular: denies: No Symptoms, Chest Pain, Edema, Palpitations, Shortness of Breath, Other Respiratory: denies: No Symptoms, Cough, Exercise Intolerance, Hemoptysis, Orthopnea, PND, Snoring, SOB, SOB on Exertion, Wheezing, Other Gastrointestinal: reports: Nausea, Vomiting. denies: No Symptoms, Abdominal Pain, Bloating, Constipation, Diarrhea, Dysphagia, Indigestion, Melena, Rectal Bleeding, Vomiting Blood, Other Genitourinary: denies: No Symptoms, Burning, Discharge, Dysuria, Flank Pain, Frequency, Hematuria, Incontinence, Lesions, Menses, Pain, Testicular Mass, Testicular Pain, Testicular Swelling, Urgency, Vaginal Bleeding, Other Breasts: denies: No Symptoms Reported, See HPI, Breast Implants, Discharge from Nipple, Lumps, Pain, Skin Changes, Other Musculoskeletal: denies: No Symptoms, Back Pain, Crepitus, Decreased ROM, Extremity Pain, Joint Pain, Joint Swelling, Muscle Pain, Muscle Cramps, Muscle Weakness, Other Integumentary: denies: No Symptoms, Blister, Bruising, Change in Color, Eczema, Erythema, Incision, Lesions, Lump, Pallor, Pruritis, Rash, Wound, Other Neurological: reports: Dizziness. denies: No Symptoms, Change in LOC, Change in Speech, Confusion, Headache, Incoordination, Numbness, Parasthesia, Pre- Existing Deficit, Seizure, Syncope, Tremors, Unsteady Gait, Weakness, Other Endocrine: denies: No Symptoms, Excessive Sweating, Flushing, Increased Hunger, Increased Thirst, Intolerance to Cold, Intolerance to Heat, Unexplained Weight Gain, Unexplained Weight Loss, Other Hematology/Lymphatic: denies: No Symptoms, Easily Bruised, Excessive Bleeding, Swollen Glands, Other Psychiatric: denies: No Symptoms, Altered Sleep Pattern, Anxiety, Depression, Hallucinations, Panic, Paranoia, Suicidal, Other Vital Signs: Vital Signs Temperature 99.8 F H 01/19/18 08:55 Pulse Rate 92 H 01/19/18 07:06 Respiratory Rate 18 01/19/18 07:06 Blood Pressure 117/68 01/19/18 07:06 O2 Sat by Pulse Oximetry (%) 99 01/19/18 07:06 Constitutional: Yes: Well Nourished, No Distress, Calm Eyes: Yes: WNL, Conjunctiva Clear, EOM Intact HENT: Yes: WNL, Atraumatic, Normocephalic Neck: Yes: WNL, Supple, Trachea Midline Respiratory: Yes: WNL, Regular, CTA Bilaterally. No: Rales, Rhonchi, SOB, Wheezes Gastrointestinal: Yes: WNL, Normal Bowel Sounds, Soft. No: Distention, Tenderness Renal/: Yes: WNL Cardiovascular: Yes: Regular Rate and Rhythm. No: Bradycardia, Tachycardia, Pulse Irregular, Gallop, Rub, Varicosities JVD: No Carotid Bruit: No PMI: Non-Displaced Heart Sounds: Yes: S1, S2. No: Split S2, S3, S4, Clicks, Gallop, Rub, Bruit Murmur: No: Systolic Murmur, Diastolic Murmur Musculoskeletal: Yes: WNL Extremities: Yes: WNL Edema: No Peripheral Pulses WNL: Yes Neurological: Yes: Alert, Oriented Psychiatric: Yes: Alert, Oriented - Other Data Labs, Other Data: CBC, BMP 01/19/18 04:37 01/19/18 04:37 INR, PTT INR 1.11 (0.83-1.09) H 01/19/18 05:27 Troponin, BNP 01/19/18 04:37 Troponin I < 0.02 Troponin, BNP 01/19/18 04:37 Troponin I < 0.02 not available currently in chart, reported as sinus tach 127bpm and pvcs with no sig ST abnl Imaging - Results Chest X-ray: Report Reviewed, Image Reviewed EKG: Report Reviewed Assessment/Plan 47 year old woman with pmh vertebral artery stenosis, asthma, admitted with dizziness, nausea, vomiting, fever. pt seen and examined today in nad. feeling better currently. Pt is known to Dr. Asher as outpatient and known to have vertebral artery stenosis. Dizziness-does not appear to be cardiac in origin -recent MRI/MRA showed occlusion of L vertebral but no acute pathology -currently febrile with low wbc, elevated lactate and esr/crp possible viral etiology possible sepsis -possible vertigo in setting of febrile illness -IVF hydration as needed -neurology saw pt -can check orthostatic bp -fup echo and carotid dopplers already ordered
--- NOTE | 2018-01-19 12:50 | EKG ---
Test Reason : Blood Pressure : / mmHG Vent. Rate : 127 BPM Atrial Rate : 127 BPM P-R Int : 158 ms QRS Dur : 074 ms QT Int : 282 ms P-R-T Axes : 055 077 004 degrees QTc Int : 409 ms SINUS TACHYCARDIA WITH PREMATURE VENTRICULAR OR ABERRANTLY CONDUCTED COMPLEXES CANNOT RULE OUT INFERIOR INFARCT , AGE UNDETERMINED NONSPECIFIC ST AND T WAVE ABNORMALITY ABNORMAL ECG Confirmed by MD RINA, DILLAN ([id number]) on 01/19/2018 12:49:52 PM Referred By: Confirmed By:DILLAN FLYNN MD
--- NOTE | 2018-01-19 16:49 | CON.ID ---
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 history of VA stenosis follows with Dr Asher has not had any more shaking chills but continues with headache no neck pain lights are bothering her eyes HIV negative 3 months ago - History Source History Provided By: Patient, Medical Record Limitations to Obtaining History: No Limitations - Past Medical History Cardio/Vascular: Yes: Other (vertebral artery stenosis) Pulmonary: Yes: Asthma ...LMP: 04/12/13 - Alcohol/Substance Use Hx Alcohol Use: No - Smoking History Smoking history: Never smoked Have you smoked in the past 12 months: No Aproximately how many cigarettes per day: 0 - Social History History of Recent Travel: No Home Medications - Allergies Allergies/Adverse Reactions: Allergies Allergy/AdvReac Type Severity Reaction Status Date / Time aspirin Allergy Intermediate swelling/hi Verified 01/19/18 02:25 ves Sulfa (Sulfonamide Allergy Intermediate swelling/hi Verified 01/19/18 02:25 Antibiotics) ves - Home Medications Home Medications: Ambulatory Orders Clopidogrel Bisulfate [Plavix -] 25 mg PO DAILY 01/19/18 Cyclobenzaprine HCl [Flexeril -] 10 mg PO HS 01/19/18 Physical Exam Vital Signs: Vital Signs Temperature 98.8 F 01/19/18 14:33 Pulse Rate 88 01/19/18 13:55 Respiratory Rate 18 01/19/18 12:22 Blood Pressure 113/74 01/19/18 13:55 O2 Sat by Pulse Oximetry (%) 99 01/19/18 07:06 Constitutional: Yes: Well Nourished, No Distress, Calm Eyes: Yes: Conjunctiva Clear, EOM Intact HENT: Yes: Atraumatic, Normocephalic. No: Pharyngeal Erythema, Thrush Neck: Yes: Supple, Trachea Midline. No: Rigid Cardiovascular: Yes: Regular Rate and Rhythm Respiratory: Yes: Regular, CTA Bilaterally Gastrointestinal: Yes: Normal Bowel Sounds, Soft ...Rectal Exam: Yes: Deferred Renal/: No: CVA Tenderness - Left, CVA Tenderness - Right Musculoskeletal: Yes: WNL Extremities: Yes: WNL Edema: No Peripheral Pulses WNL: Yes Integumentary: No: Rash Neurological: Yes: Alert, Oriented Labs: CBC, BMP 01/19/18 04:37 01/19/18 04:37 Microbiology 01/19/18 08:22 Urine For Antigen Detection Legionella Antigen - Final negative 01/19/18 08:22 Urine For Antigen Detection Streptococcus pneumoniae Antigen (M - Final-negative 01/19/18 08:18 Nasopharyngeal Swab Influenza Types A,B Antigen - Final- negative 01/19/18 08:18 Nasopharyngeal Swab - Final blood cultures pending UA negative Imaging - Results Chest X-ray: Report Reviewed, Image Reviewed Cat Scan: Report Reviewed Problem List - Problems (1) Fever Code(s): R50.9 - FEVER, UNSPECIFIED (2) Elevated lactic acid level Code(s): R79.89 - OTHER SPECIFIED ABNORMAL FINDINGS OF BLOOD CHEMISTRY Assessment/Plan concern for sepsis stat repeat labs and lactic acid empiric rocephin/vancomycin continue IVF orders d/w nurse in ED would have neurology re-evaluate given continued headache
[2018-01-19] MEDS ORDERED: CEFTRIAXONE 2 GM/100 ML BAG IVPB ONE (17:32)
[2018-01-19] MEDS: SODIUM CHLORIDE 1,000 ML IV SCH (17:43)
[2018-01-19] MEDS: traMADol HCL 50 MG TABLET PO PRN (17:48)
[2018-01-19] MEDS ORDERED: traMADol HCL 50 MG TABLET ONE (17:48)
[2018-01-19] MEDS: CEFTRIAXONE 2 GM in DEXTROSE 5%-WATER 100 ML IVPB SCH (17:51)
[2018-01-19 18:22] LABS: HEMATOCRIT 34.7 % (32.4-45.2); MCH 26.2 pg (25.7-33.7); MCHC 31.7 g/dl (32.0-36.0); MEAN CELL VOLUME 82.5 fl (80-96); MEAN PLT VOLUME 9.6 fl (7.5-11.1); PLATELET COUNT 192 K/MM3 (134-434); RBC 4.21 M/mm3 (3.60-5.2); RDW 15.2 % (11.6-15.6)
[2018-01-19 18:26] LABS: WHITE BLOOD COUNT 1.6 K/mm3 (4.0-10.0)
[2018-01-19] MEDS: VANCOMYCIN 1,250 MG in DEXTROSE 5%-WATER - 250 ML IVPB SCH (18:46)
[2018-01-19 18:48] LABS: ALBUMIN 3.1 g/dl (3.4-5.0); ALK PHOS 82 U/L (45-117); ANION GAP 4 MMOL/L (8-16); BILIRUBIN,TOTAL 0.5 mg/dL (0.2-1); BLOOD UREA NITROGEN 8 mg/dL (7-18); CALCIUM 8.5 mg/dL (8.5-10.1); CHLORIDE 112 mmol/L (98-107); CO2 24 mmol/L (21-32); CREATININE 0.8 mg/dL (0.55-1.3); GLUCOSE,RANDOM 92 mg/dL (74-106); POTASSIUM 3.8 mmol/L (3.5-5.1); SGOT/AST 42 U/L (15-37); SGPT/ALT 54 U/L (13-61); SODIUM 141 mmol/L (136-145); TOT PROT 6.8 g/dl (6.4-8.2)
[2018-01-19] MEDS: PIPERACILLIN/TAZOB 3.375 GM 3.375 GM in DEXTROSE 5%-WATER - 50 ML IVPB SCH (20:03)
[2018-01-19] MEDS ORDERED: PIPERACILLIN/TAZOB 3.375 GM 3.375 GM/50 ML BAG IVPB ONE (20:05)
[2018-01-19] MEDS: CYCLOBENZAPRINE HCL 10 MG TABLET (FP) PO SCH (22:05)
[2018-01-19] MEDS: AMITRIPTYLINE HCL 25 MG TABLET (FP) PO SCH (22:05)
[2018-01-19 23:31] VITALS: BMI 24.2
[2018-01-20] MEDS ORDERED: DEXTROSE 5%-WATER - 50 ML IVPB ONE (01:02)
[2018-01-20] MEDS ORDERED: PIPERACILLIN/TAZOBACTAM 3.375 GM VIAL IVPB ONE (01:02)
[2018-01-20] MEDS: PIPERACILLIN/TAZOB 3.375 GM 3.375 GM in DEXTROSE 5%-WATER - 50 ML IVPB SCH (01:08)
[2018-01-20] MEDS: VANCOMYCIN 1,250 MG in DEXTROSE 5%-WATER - 250 ML IVPB SCH ×2 (04:01→16:00)
[2018-01-20 06:18] LABS: BASO % 0.9 % (0-2.0); EOS % 5.2 % (0-4.5); HEMATOCRIT 35.5 % (32.4-45.2); LYMPH % 52.1 % (8-40); MCH 25.9 pg (25.7-33.7); MEAN CELL VOLUME 83.7 fl (80-96); MEAN PLT VOLUME 9.8 fl (7.5-11.1); MONO % 5.9 % (3.8-10.2); NEUT % 35.9 % (42.8-82.8); PLATELET COUNT 164 K/MM3 (134-434); RBC 4.24 M/mm3 (3.60-5.2)
[2018-01-20 07:42] LABS: ALBUMIN 2.9 g/dl (3.4-5.0); ALK PHOS 74 U/L (45-117); ANION GAP 6 MMOL/L (8-16); BILIRUBIN,TOTAL 0.4 mg/dL (0.2-1); BLOOD UREA NITROGEN 11 mg/dL (7-18); CALCIUM 7.9 mg/dL (8.5-10.1); CHLORIDE 111 mmol/L (98-107); CO2 23 mmol/L (21-32); CREATININE 0.9 mg/dL (0.55-1.3); GLUCOSE,RANDOM 109 mg/dL (74-106); POTASSIUM 4.2 mmol/L (3.5-5.1); SGOT/AST 34 U/L (15-37); SGPT/ALT 46 U/L (13-61); SODIUM 140 mmol/L (136-145); TOT PROT 6.5 g/dl (6.4-8.2)
[2018-01-20] MEDS ORDERED: DEXTROSE 5%-WATER 100 ML IVPB ONE (07:54)
[2018-01-20] MEDS: traMADol HCL 50 MG TABLET PO PRN (08:01)
--- NOTE | 2018-01-20 08:39 | PN ---
Progress Note, Physician History of Present Illness: events noted and chart reviewed patient was seen on telemetry patient was admitted to telemetry 34 questionable ischemic event! When I came this morning patient was in the bathroom patient still on the IV antibiotic I discussed the case with infectious disease specialist patient with a low white cell count complains of headache photophobia and claims that the headache as 9 out of 10 patient was in the process of eating breakfast patient lactic acid was high on admission now it normal. Patient claims that the headache is worse than the neck pain patient with no sign of meningitis. 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 I discussed the spinal tap with the patient and she agreed to go ahead with that - Current Medication List Current Medications: Active Medications Acetaminophen (Tylenol -) 650 mg PO Q4H PRN PRN Reason: PAIN LEVEL 1-5 Last Admin: 01/19/18 22:06 Dose: 650 mg Acetaminophen (Tylenol -) 650 mg PO Q4H PRN PRN Reason: FEVER Amitriptyline HCl (Elavil -) 25 mg PO HS JOHNNY Last Admin: 01/19/18 22:05 Dose: 25 mg Cyclobenzaprine HCl (Flexeril -) 10 mg PO HS JOHNNY Last Admin: 01/19/18 22:05 Dose: 10 mg Sodium Chloride (Normal Saline -) 1,000 mls @ 125 mls/hr IV ASDIR JOHNNY Last Admin: 01/19/18 17:43 Dose: 125 mls/hr Ceftriaxone Sodium 2 gm/ (Dextrose) 100 mls @ 100 mls/hr IVPB DAILY JOHNNY; Protocol Last Admin: 01/19/18 17:51 Dose: 100 mls/hr Vancomycin HCl 1,250 mg/ (Dextrose) 250 mls @ 166.667 mls/hr IVPB Q12H JOHNNY; Protocol Last Admin: 01/20/18 04:01 Dose: 166.667 mls/hr Loratadine (Claritin -) 10 mg PO DAILY JOHNNY Meclizine HCl (Antivert -) 12.5 mg PO Q8H PRN PRN Reason: VERTIGO Last Admin: 01/19/18 10:27 Dose: 12.5 mg Ondansetron HCl (Zofran Injection) 4 mg IVPUSH Q4H PRN PRN Reason: NAUSEA AND/OR VOMITING - Objective Vital Signs: Vital Signs Temperature 98.1 F 01/20/18 05:00 Pulse Rate 89 01/20/18 05:00 Respiratory Rate 19 01/20/18 05:00 Blood Pressure 110/63 01/20/18 05:00 O2 Sat by Pulse Oximetry (%) 97 01/20/18 06:00 Constitutional: Yes: Well Nourished Eyes: Yes: WNL HENT: Yes: WNL Neurological: Yes: Alert, Oriented, Babinski negative ...Motor Strength: WNL Labs: CBC, BMP 01/20/18 05:30 01/20/18 05:30 INR, PTT INR 1.11 (0.83-1.09) H 01/19/18 05:27 Problem List - Problems (1) Sepsis Assessment/Plan: headache and neck pain in the presence of photophobia low white count and temperature upon admission with a high lactic acid Questionable sepsis questionable viral syndrome Source is not clear yet We'll proceed with a spinal tap Hold off Plavix Stop tramadol Continue Reglan Trial of Fioricet Bedrest Move out of telemetry Case was discussed with the registered nurse. Code(s): A41.9 - SEPSIS, UNSPECIFIED ORGANISM
[2018-01-20] MEDS: ACETAMINOPHEN/CAFFEINE/BUTALBITAL 1 TAB PO PRN (09:15)
[2018-01-20] MEDS: LORATADINE 10 MG TABLET PO SCH (09:16)
[2018-01-20] MEDS: CEFTRIAXONE 2 GM in DEXTROSE 5%-WATER 100 ML IVPB SCH (09:17)
--- NOTE | 2018-01-20 10:38 | EKG ---
Test Reason : Blood Pressure : / mmHG Vent. Rate : 090 BPM Atrial Rate : 090 BPM P-R Int : 190 ms QRS Dur : 080 ms QT Int : 356 ms P-R-T Axes : 067 085 049 degrees QTc Int : 435 ms NORMAL SINUS RHYTHM NORMAL ECG WHEN COMPARED WITH ECG OF 19-JAN-2018 03:55, NONSPECIFIC T WAVE ABNORMALITY, IMPROVED IN INFERIOR LEADS NONSPECIFIC T WAVE ABNORMALITY NO LONGER EVIDENT IN ANTERIOR LEADS Confirmed by NATALEE WATERMAN, JAMIE ([id number]) on 01/20/2018 10:37:27 AM Referred By: Confirmed By:JAMIE ALBRIGHT MD
--- NOTE | 2018-01-20 11:42 | PROC ---
Lumbar Puncture Indication: Headache Risks and Benefits Explained: Yes Consent on Chart: Yes Sterile Technique: Yes Skin prep: Betadine Position: Sitting Site: L3-L4 Local Anesthesia: 2% Lidocaine w/ epi Opening Pressure(mmHg): nA CSF Color, Appearance: Clear Sterile Dressing Applied: Yes Remarks: Tolerated well Bed rest four hours flat
--- NOTE | 2018-01-20 12:33 | ECHO ---
Version: 1 Name: SKYLAR TERRAZAS Exam: Adult Echocardiogram Study Date: 01/20/2018, 8:53 AM Age: 47 Years MMode/2D Measurements & Calculations IVSd: 0.99 cm LVIDs: 2.10 cm LVIDd: 4.0 cm LVPWd: 0.89 cm ACS: 1.98 cm Ao root diam: 3.1 cm LA dimension: 3.1 cm Doppler Measurements & Calculations MV E max boris: 99.8 cm/sec Med E/e': 23.8 MV A max boris: 122.2 cm/sec Med Peak E' Boris: 4.2 cm/sec MV E/A: 0.82 Lat E/e': 23.8 Lat Peak E' Boris: 4.2 cm/sec Ao max P.8 mmHg Ao mean P.6 mmHg Ao V2 max: 148.6 cm/sec TR max brois: 265.5 cm/sec TR max P.2 mmHg Procedure A two-dimensional transthoracic echocardiogram with color flow and Doppler was performed. Left Ventricle The left ventricular size, thickness and function are normal. The left ventricular ejection fraction is normal. The left ventricular wall motion is normal. Right Ventricle The right ventricle is normal in size and function. Atria Normal left and right atrial size and function. 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 Mitral Valve There is mild mitral valve thickening. There is no mitral valve stenosis. There is trace to mild dev ral regurgitation. Tricuspid Valve There is mild tricuspid valve thickening. There is no tricuspid stenosis. There is mild tricuspid regurgitation. Right ventricular systolic pressure is elevated at 30-40mmHg. Aortic Valve The aortic valve is not well visualized. No hemodynamically significant valvular aortic stenosis. No aortic regurgitation is present. Pulmonic Valve The pulmonic valve is not well visualized. Great Vessels The aortic root is normal size. Pericardium/Pleura There is no pericardial effusion. Summary Statements The left ventricular size, thickness and function are normal The left ventricular ejection fraction is normal. The left ventricular wall motion is normal. There is trace to mild mitral regurgitation. The atrial septum is aneurysmal without evidence of shunting There is mild tricuspid valve thickening. There is mild tricuspid regurgitation. Right ventricular systolic pressure is elevated at 30-40mmHg. MD Abhi Amaya 01/20/2018, 12:33 PM Ordering Physician: Magui Griffith Referring Physician: Saulo Manning Performed By: Elaine Combs
[2018-01-20 15:01] LABS: CSF APPEARANCE CLEAR; CSF COLOR XANTHOCHROMIC
[2018-01-20 15:02] LABS: CSF WBC 0
--- NOTE | 2018-01-20 16:10 | PN ---
Progress Note, Physician History of Present Illness: seen and examined today. c/o headache. had LP today. - Current Medication List Current Medications: Active Medications Acetaminophen (Tylenol -) 650 mg PO Q4H PRN PRN Reason: PAIN LEVEL 1-5 Last Admin: 01/19/18 22:06 Dose: 650 mg Acetaminophen/Butalbital/Caffeine (Fioricet -) 1 tablet PO Q6H PRN PRN Reason: FEVER Stop: 01/23/18 08:36 Last Admin: 01/20/18 09:15 Dose: 1 tablet Amitriptyline HCl (Elavil -) 25 mg PO HS JOHNNY Last Admin: 01/19/18 22:05 Dose: 25 mg Cyclobenzaprine HCl (Flexeril -) 10 mg PO HS JOHNNY Last Admin: 01/19/18 22:05 Dose: 10 mg Sodium Chloride (Normal Saline -) 1,000 mls @ 125 mls/hr IV ASDIR JOHNNY Last Admin: 01/19/18 17:43 Dose: 125 mls/hr Ceftriaxone Sodium 2 gm/ (Dextrose) 100 mls @ 100 mls/hr IVPB DAILY J[facility]NN[facility]; Protocol Last Admin: 01/20/18 09:17 Dose: 100 mls/hr Vancomycin HCl 1,250 mg/ (Dextrose) 250 mls @ 166.667 mls/hr IVPB Q12H JOHNNY; Protocol Last Admin: 01/20/18 16:00 Dose: 166.667 mls/hr Loratadine (Claritin -) 10 mg PO DAILY JOHNNY Last Admin: 01/20/18 09:16 Dose: 10 mg Meclizine HCl (Antivert -) 12.5 mg PO Q8H PRN PRN Reason: VERTIGO Last Admin: 01/19/18 10:27 Dose: 12.5 mg Ondansetron HCl (Zofran Injection) 4 mg IVPUSH Q4H PRN PRN Reason: NAUSEA AND/OR VOMITING - Objective Vital Signs: Vital Signs Temperature 98.2 F 01/20/18 14:00 Pulse Rate 68 01/20/18 14:00 Respiratory Rate 18 01/20/18 14:00 Blood Pressure 112/72 01/20/18 14:00 O2 Sat by Pulse Oximetry (%) 97 01/20/18 08:44 Constitutional: Yes: No Distress, Moderate Distress Eyes: Yes: Conjunctiva Clear, EOM Intact HENT: Yes: Atraumatic, Normocephalic Neck: Yes: Supple, Trachea Midline Cardiovascular: Yes: Regular Rate and Rhythm, S1, S2. No: Bradycardia, Tachycardia, Pulse Irregular, Bruit, JVD, Gallop, Murmur, Rub, S3, S4, Varicosities Respiratory: Yes: Regular, CTA Bilaterally. No: Rales, Rhonchi, Wheezes Gastrointestinal: Yes: Normal Bowel Sounds, Soft Edema: No Peripheral Pulses WNL: Yes Integumentary: Yes: WNL Neurological: Yes: Alert, Oriented Psychiatric: Yes: Alert, Oriented Labs: CBC, BMP 01/20/18 05:30 01/20/18 05:30 INR, PTT INR 1.11 (0.83-1.09) H 01/19/18 05:27 - ....Imaging Chest X-ray: Report Reviewed, Image Reviewed EKG: Report Reviewed, Image Reviewed Other: Report Reviewed, Image Reviewed (tele-nsr, sinus tach, no arrhythmias) Assessment/Plan 47 year old woman with pmh vertebral artery stenosis, asthma, admitted with dizziness, nausea, vomiting, fever. pt seen and examined today in nad. feeling better currently. Pt is known to Dr. Asher as outpatient and known to have vertebral artery stenosis. Dizziness-does not appear to be cardiac in origin -recent MRI/MRA showed occlusion of L vertebral but no acute pathology -currently febrile with low wbc, elevated lactate and esr/crp possible viral etiology possible sepsis -possible vertigo in setting of febrile illness -IVF hydration as needed -fup LP -echo showed normal LV systolic function and no sig valvular abnl -carotid doppler showed no stenosis -no arrhythmias on tele No additional inpatient cardiac work up needed at this time. Can dc tele. Please call with any additional questions.
[2018-01-20] MEDS: SODIUM CHLORIDE 1,000 ML IV SCH (18:21)
--- NOTE | 2018-01-20 18:30 | PN ---
Progress Note (short form) - Note Progress Note: doing better no further fevers lactic acid normal had persistent headache - neuro did LP this am, no wbcs eating dinner feels better Vital Signs Period Temp Pulse Resp BP Sys/Mckenzie Pulse Ox Last 24 Hr 97.8 F-98.9 F 68-91 16-19 110-125/63-82 97-97 alert NAD cor-rrr lungs clear abd soft,nt ext no edema CBC, BMP 01/20/18 05:30 01/20/18 05:30 Microbiology 01/20/18 11:00 Cerebral Spinal Fluid - Lumbar Puncture Gram Stain - Final 01/19/18 08:22 Urine - Urine Clean Catch Urine Culture - Final 01/19/18 07:40 Blood - Peripheral Venous Blood Culture - Preliminary NO GROWTH OBTAINED AFTER 24 HOURS, INCUBATION TO CONTINUE FOR 4 DAYS. 01/19/18 07:45 Blood - Peripheral Venous Blood Culture - Preliminary NO GROWTH OBTAINED AFTER 24 HOURS, INCUBATION TO CONTINUE FOR 4 DAYS. 01/19/18 08:22 Urine For Antigen Detection Legionella Antigen - Final 01/19/18 08:22 Urine For Antigen Detection Streptococcus pneumoniae Antigen (M - Final 01/19/18 08:18 Nasopharyngeal Swab Influenza Types A,B Antigen - Final 01/19/18 08:18 Nasopharyngeal Swab - Final a/p fevers leukopenia ?viral syndrome d/c vancomycin continue rocephin another 24 hours Problem List - Problems (1) Fever Code(s): R50.9 - FEVER, UNSPECIFIED (2) Elevated lactic acid level Code(s): R79.89 - OTHER SPECIFIED ABNORMAL FINDINGS OF BLOOD CHEMISTRY
--- NOTE | 2018-01-20 18:56 | PN ---
Progress Note, Physician Chief Complaint: Sepsis Dizziness History of Present Illness: Dizziness improved, described as light headedness when she gets up. Has Had similar episode 1 month ago but not as bad. C/O headache right now No recent travel No recent sick contacts Recently started on minocycline for acne Took her daughter's Gabapentin yesterday States she recieved a call from [facility] yesterday and was told that she has Polymyalgia Rheumatica? Takes Amitriptyline 25 mg po daily for Fibromylagia? Cultures pending WBC [id number] lactic acid-influenza swab negative-PERHAPS VIRAL SYNDROME? CT head from today, MRI/MRA from 01/13/18-negative 01/20/18: Had spinal tap today by Neurology, pending results WBC 1.6 Seen by ID On IV abx Started on fioricet for headaches Other cultres: Microbiology 01/20/18 11:00 Cerebral Spinal Fluid - Lumbar Puncture Gram Stain - Final- no WBC Culture pending 01/19/18 08:22 Urine - Urine Clean Catch Urine Culture - Final-negative 01/19/18 07:40 Blood - Peripheral Venous Blood Culture - Preliminary NO GROWTH OBTAINED AFTER 24 HOURS, INCUBATION TO CONTINUE FOR 4 DAYS. 01/19/18 07:45 Blood - Peripheral Venous Blood Culture - Preliminary NO GROWTH OBTAINED AFTER 24 HOURS, INCUBATION TO CONTINUE FOR 4 DAYS. 01/19/18 08:22 Urine For Antigen Detection Legionella Antigen - Final- negative 01/19/18 08:22 Urine For Antigen Detection Streptococcus pneumoniae Antigen (M - Final-negative 01/19/18 08:18 Nasopharyngeal Swab Influenza Types A,B Antigen - Final- Negative 01/19/18 08:18 Nasopharyngeal Swab - Final - Current Medication List Current Medications: Active Medications Acetaminophen (Tylenol -) 650 mg PO Q4H PRN PRN Reason: PAIN LEVEL 1-5 Last Admin: 01/19/18 22:06 Dose: 650 mg Acetaminophen/Butalbital/Caffeine (Fioricet -) 1 tablet PO Q6H PRN PRN Reason: FEVER Stop: 01/23/18 08:36 Last Admin: 01/20/18 09:15 Dose: 1 tablet Amitriptyline HCl (Elavil -) 25 mg PO HS JOHNNY Last Admin: 01/19/18 22:05 Dose: 25 mg Cyclobenzaprine HCl (Flexeril -) 10 mg PO HS JOHNNY Last Admin: 01/19/18 22:05 Dose: 10 mg Sodium Chloride (Normal Saline -) 1,000 mls @ 125 mls/hr IV ASDIR JOHNNY Last Admin: 01/20/18 18:21 Dose: 125 mls/hr Ceftriaxone Sodium 2 gm/ (Dextrose) 100 mls @ 100 mls/hr IVPB DAILY JOHNNY; Protocol Last Admin: 01/20/18 09:17 Dose: 100 mls/hr Loratadine (Claritin -) 10 mg PO DAILY JOHNNY Last Admin: 01/20/18 09:16 Dose: 10 mg Meclizine HCl (Antivert -) 12.5 mg PO Q8H PRN PRN Reason: VERTIGO Last Admin: 01/19/18 10:27 Dose: 12.5 mg Ondansetron HCl (Zofran Injection) 4 mg IVPUSH Q4H PRN PRN Reason: NAUSEA AND/OR VOMITING - Objective Vital Signs: Vital Signs Temperature 98.2 F 01/20/18 14:00 Pulse Rate 68 01/20/18 14:00 Respiratory Rate 18 01/20/18 14:00 Blood Pressure 112/72 01/20/18 14:00 O2 Sat by Pulse Oximetry (%) 97 01/20/18 08:44 Constitutional: Yes: Well Nourished, No Distress, Calm Cardiovascular: Yes: Regular Rate and Rhythm Respiratory: Yes: Regular Gastrointestinal: Yes: Normal Bowel Sounds, Soft Musculoskeletal: Yes: WNL Extremities: Yes: WNL Edema: No Peripheral Pulses WNL: Yes Neurological: Yes: Alert, Oriented Psychiatric: Yes: Alert, Oriented Labs: CBC, BMP 01/20/18 05:30 01/20/18 05:30 INR, PTT INR 1.11 (0.83-1.09) H 01/19/18 05:27 Problem List - Problems (1) Dizziness Assessment/Plan: -Orthostatic vitals -IVF -Cardiology consult -echo and carotid unremarkable -CT head, MRI/MRA brain negative Code(s): R42 - DIZZINESS AND GIDDINESS (2) Sepsis Assessment/Plan: -IVF -Repeat LA normal -Acetaminophen for fever >100.0F -ID consult -on IV abx -Cultures pending -CXR unremarkable -Spinal tap today, await cultures Code(s): A41.9 - SEPSIS, UNSPECIFIED ORGANISM (3) Elevated lactic acid level Assessment/Plan: -IVF -Repeat LA normal -ID consult Code(s): R79.89 - OTHER SPECIFIED ABNORMAL FINDINGS OF BLOOD CHEMISTRY (4) Leukopenia Assessment/Plan: -Repeat labs in AM -Viral syndrome -CSF culture pending -ID on board -Hematology consult Code(s): D72.819 - DECREASED WHITE BLOOD CELL COUNT, UNSPECIFIED (5) Headache Assessment/Plan: -Started on Fioricet, feels better Code(s): R51 - HEADACHE Assessment/Plan see problem list
[2018-01-20] MEDS: AMITRIPTYLINE HCL 25 MG TABLET (FP) PO SCH (21:23)
[2018-01-20] MEDS: CYCLOBENZAPRINE HCL 10 MG TABLET (FP) PO SCH (21:23)
[2018-01-21] MEDS: SODIUM CHLORIDE 1,000 ML IV SCH ×3 (01:00→16:35)
[2018-01-21] MEDS: ACETAMINOPHEN/CAFFEINE/BUTALBITAL 1 TAB PO PRN ×2 (02:10→20:48)
[2018-01-21 06:10] LABS: BASO % 1.2 % (0-2.0); EOS % 12.7 % (0-4.5); HEMOGLOBIN 11.3 GM/dL (10.7-15.3); LYMPH % 57.9 % (8-40); MCH 26.2 pg (25.7-33.7); MCHC 31.5 g/dl (32.0-36.0); MEAN CELL VOLUME 83.3 fl (80-96); MEAN PLT VOLUME 9.4 fl (7.5-11.1); MONO % 2.8 % (3.8-10.2); NEUT % 25.4 % (42.8-82.8); PLATELET COUNT 171 K/MM3 (134-434); RBC 4.32 M/mm3 (3.60-5.2); RDW 14.6 % (11.6-15.6); WHITE BLOOD COUNT 2.6 K/mm3 (4.0-10.0)
[2018-01-21 07:07] LABS: ALBUMIN 3.1 g/dl (3.4-5.0); ALK PHOS 75 U/L (45-117); ANION GAP 7 MMOL/L (8-16); BILIRUBIN,TOTAL 0.4 mg/dL (0.2-1); BLOOD UREA NITROGEN 11 mg/dL (7-18); CALCIUM 8.3 mg/dL (8.5-10.1); CHLORIDE 109 mmol/L (98-107); CO2 27 mmol/L (21-32); CREATININE 0.9 mg/dL (0.55-1.3); GLUCOSE,RANDOM 79 mg/dL (74-106); POTASSIUM 4.3 mmol/L (3.5-5.1); SGOT/AST 29 U/L (15-37); SGPT/ALT 42 U/L (13-61); SODIUM 143 mmol/L (136-145); TOT PROT 6.9 g/dl (6.4-8.2)
[2018-01-21 08:14] LABS: GLUCOSE,CSF 63 mg/dL (40-70)
[2018-01-21] MEDS ORDERED: DEXTROSE 5%-WATER 100 ML IVPB ONE (08:33)
[2018-01-21] MEDS: LORATADINE 10 MG TABLET PO SCH (08:59)
[2018-01-21] MEDS: CEFTRIAXONE 2 GM in DEXTROSE 5%-WATER 100 ML IVPB SCH (09:00)
--- NOTE | 2018-01-21 11:24 | PN ---
Progress Note, Physician Chief Complaint: patient complaining of headache s/p spinal tap yesterday followed by ID and neurology - Current Medication List Current Medications: Active Medications Acetaminophen (Tylenol -) 650 mg PO Q4H PRN PRN Reason: PAIN LEVEL 1-5 Last Admin: 01/19/18 22:06 Dose: 650 mg Acetaminophen/Butalbital/Caffeine (Fioricet -) 1 tablet PO Q6H PRN PRN Reason: FEVER Stop: 01/23/18 08:36 Last Admin: 01/21/18 02:10 Dose: 1 tablet Amitriptyline HCl (Elavil -) 25 mg PO HS JOHNNY Last Admin: 01/20/18 21:23 Dose: 25 mg Cyclobenzaprine HCl (Flexeril -) 10 mg PO HS [facility] Last Admin: 01/20/18 21:23 Dose: 10 mg Sodium Chloride (Normal Saline -) 1,000 mls @ 125 mls/hr IV ASDIR JOHNNY Last Admin: 01/21/18 09:02 Dose: 125 mls/hr Ceftriaxone Sodium 2 gm/ (Dextrose) 100 mls @ 100 mls/hr IVPB DAILY [facility]; Protocol Last Admin: 01/21/18 09:00 Dose: 100 mls/hr Loratadine (Claritin -) 10 mg PO DAILY JOHNNY Last Admin: 01/21/18 08:59 Dose: 10 mg Meclizine HCl (Antivert -) 12.5 mg PO Q8H PRN PRN Reason: VERTIGO Last Admin: 01/19/18 10:27 Dose: 12.5 mg Ondansetron HCl (Zofran Injection) 4 mg IVPUSH Q4H PRN PRN Reason: NAUSEA AND/OR VOMITING - Objective Vital Signs: Vital Signs Temperature 97.5 F L 01/21/18 08:10 Pulse Rate 70 01/21/18 08:10 Respiratory Rate 20 01/21/18 08:10 Blood Pressure 108/77 01/21/18 08:10 O2 Sat by Pulse Oximetry (%) 98 01/21/18 07:54 Constitutional: Yes: Mild Distress Neck: Yes: Trachea Midline Cardiovascular: Yes: Regular Rate and Rhythm, S1, S2 Respiratory: Yes: CTA Bilaterally Gastrointestinal: Yes: Normal Bowel Sounds, Soft Labs: CBC, BMP 01/21/18 05:30 01/21/18 05:30 INR, PTT INR 1.11 (0.83-1.09) H 01/19/18 05:27 Problem List - Problems (1) Headache Assessment/Plan: s/p spinal tap- no wbc, no culture, many rbcs on fiorcet ID and neurology on board possible viral syndrome wbc count low but trending upwards iv rocephin for now lactic acid high 4.8 now has normalized can dc telemetry meclizine and zofran prn Code(s): R51 - HEADACHE (2) Dizziness Assessment/Plan: meclizine prn ct head no acute hemorrhage or acute ischemic changes Code(s): R42 - DIZZINESS AND GIDDINESS (3) Elevated lactic acid level Assessment/Plan: possible viral syndrome now normalized Code(s): R79.89 - OTHER SPECIFIED ABNORMAL FINDINGS OF BLOOD CHEMISTRY (4) Leukopenia Assessment/Plan: heme eval possible secondary to viral syndrome , still low but improving trending upwards Code(s): D72.819 - DECREASED WHITE BLOOD CELL COUNT, UNSPECIFIED
--- NOTE | 2018-01-21 11:38 | CONSULT ---
Consult Consult Specialty:: Heme/Onc Referred by:: MIGUELITO Griffith Reason for Consultation:: Leukopenia - History of Present Illness Chief Complaint: fever History of Present Illness: 47F with PMH of vertebral artery stenosis on plavix, dysfunctional uterine bleeding, asthma who presented with nausea vomiting and fever. States she was in her usual state of health until Thursday night when she woke up to use the restroom and started to having shaking chills and per her daughter her face was pale. Patient also endorses blue nails and lips with shortness of breath. She has been on amitryptiline since september of this year and was recently started on minocycline. She was febrile on presentation. On presentation WBC count was 2.1 and MCV was 836.. Neutrophils were 93.6%. WBC went down to 1.6 now 2.6 with 25% neutrophils. now ANC 0.7 Lymphocytosis to 58% and eosinophilia to 12.7% Patient showed me paper work from her clinci showing her diagnosis of polymyalgia rheumatica. She endorses in 2003 she had a DVT in her leg and she was seen by a "blood doctor" and they thought she had lupus at the time but that was ruled out per patient. - History Source History Provided By: Patient, Medical Record Limitations to Obtaining History: No Limitations - Past Medical History Cardio/Vascular: Yes: Other (vertebral artery stenosis on plavix) Pulmonary: Yes: Asthma ...LMP: 04/12/13 Additional Medical History: dysfunctional uterine bleeding. - Past Surgical History Additional Surgical History: partial hysterectomy per patient - Alcohol/Substance Use Hx Alcohol Use: No - Smoking History Smoking history: Never smoked Have you smoked in the past 12 months: No Aproximately how many cigarettes per day: 0 - Social History History of Recent Travel: No Home Medications - Allergies Allergies/Adverse Reactions: Allergies Allergy/AdvReac Type Severity Reaction Status Date / Time aspirin Allergy Intermediate swelling/hi Verified 01/19/18 02:25 ves Sulfa (Sulfonamide Allergy Intermediate swelling/hi Verified 01/19/18 02:25 Antibiotics) ves - Home Medications Home Medications: Ambulatory Orders Clopidogrel Bisulfate [Plavix -] 25 mg PO DAILY 01/19/18 Cyclobenzaprine HCl [Flexeril -] 10 mg PO HS 01/19/18 Family Disease History - Family Disease History Family Disease History: CA: Father (glioblastoma in brain) Review of Systems - Review of Systems Constitutional: reports: Chills, Fever Eyes: denies: No Symptoms, Blind Spots, Blurred Vision, Double Vision, Eye Pain , Floaters, Photophobia, Recent Change in Vision, Other HENT: denies: No Symptoms, Difficult Swallowing, Ear Discharge, Ear Pain, Epistaxis, Gingival Bleeding, Hearing Loss, Mouth Swelling, Nasal Congestion, Ocular Prosthesis, Throat Pain, Toothache, Ringing in Ears, Other Neck: denies: No Symptoms, Decreased ROM, Lumps, Pain on Movement, Stiffness, Swollen Glands, Tenderness, Other Cardiovascular: reports: Other (chest soreness) Respiratory: reports: SOB Gastrointestinal: denies: No Symptoms, Abdominal Pain, Bloating, Constipation, Diarrhea, Dysphagia, Indigestion, Melena, Nausea, Rectal Bleeding, Vomiting, Vomiting Blood, Other Genitourinary: denies: No Symptoms, Burning, Discharge, Dysuria, Flank Pain, Frequency, Hematuria, Incontinence, Lesions, Menses, Pain, Testicular Mass, Testicular Pain, Testicular Swelling, Urgency, Vaginal Bleeding, Other Breasts: denies: No Symptoms Reported, See HPI, Breast Implants, Discharge from Nipple, Lumps, Pain, Skin Changes, Other Hematology/Lymphatic: denies: No Symptoms, Easily Bruised, Excessive Bleeding, Swollen Glands, Other Physical Exam Vital Signs: Vital Signs Temperature 97.5 F L 01/21/18 08:10 Pulse Rate 70 01/21/18 08:10 Respiratory Rate 20 01/21/18 08:10 Blood Pressure 108/77 01/21/18 08:10 O2 Sat by Pulse Oximetry (%) 98 01/21/18 07:54 Constitutional: Yes: No Distress, Calm Eyes: Yes: EOM Intact, PERRL HENT: Yes: Atraumatic Neck: Yes: Supple. No: Lymphadenopathy Cardiovascular: Yes: Regular Rate and Rhythm, S1, S2 Respiratory: Yes: Regular, CTA Bilaterally Gastrointestinal: Yes: Normal Bowel Sounds, Soft, Abdomen, Obese Breast(s): Yes: WNL. No: Breast Implants, Dimpling, Discharge from Nipple, Mass , Nipple Inversion Extremities: Yes: Other (no lymphadenopathy) Neurological: Yes: Alert, Oriented, Cran Nerves II-XII Intact Psychiatric: Yes: Alert, Oriented Labs: CBC, BMP 01/21/18 05:30 01/21/18 05:30 Imaging - Results Chest X-ray: Report Reviewed, Image Reviewed X-ray: Report Reviewed, Image Reviewed (abdominal) Ultrasound: Report Reviewed (carotid) MRI: Report Reviewed, Image Reviewed (on previous admission last week) Assessment/Plan 47F with history of asthma DUB DVT Acne and vertebral artery stenosis presents to the ED with feevr chills nausea and vomiting which have since resolved complicated by leukopneia and neutropenia. Problem List: Neutropenia leukopenia eosinoiphilia Lymphocytosis Fever Asthma Dysfunctional uterine bleeding Obesity vertebral artery stenosis Plan: This is most likely secondary to a viral syndrome. seems like WBC count starting to recover Could be from from amitryptiline which has been known to cause agranulocytosis and luekopenia could also be from recent start of minocycline which has been known to cause neutropenia and pancytopenia Will send Cytogenic, FISH, and flow cytometry-Drawn and sent to pathology by me Continue trending CBC with diff Case discussed with Dr. Alonso
--- NOTE | 2018-01-21 13:45 | PN ---
Progress Note, Physician History of Present Illness: events noted Chart reviewed Patient was seen by hematology Neurologically stable Noble is helping Off tramadol CSF results noted - Current Medication List Current Medications: Active Medications Acetaminophen (Tylenol -) 650 mg PO Q4H PRN PRN Reason: PAIN LEVEL 1-5 Last Admin: 01/19/18 22:06 Dose: 650 mg Acetaminophen/Butalbital/Caffeine (Fioricet -) 1 tablet PO Q6H PRN PRN Reason: FEVER Stop: 01/23/18 08:36 Last Admin: 01/21/18 02:10 Dose: 1 tablet Amitriptyline HCl (Elavil -) 25 mg PO HS JOHNNY Last Admin: 01/20/18 21:23 Dose: 25 mg Cyclobenzaprine HCl (Flexeril -) 10 mg PO HS JOHNNY Last Admin: 01/20/18 21:23 Dose: 10 mg Sodium Chloride (Normal Saline -) 1,000 mls @ 125 mls/hr IV ASDIR JOHNNY Last Admin: 01/21/18 09:02 Dose: 125 mls/hr Ceftriaxone Sodium 2 gm/ (Dextrose) 100 mls @ 100 mls/hr IVPB DAILY [facility]; Protocol Last Admin: 01/21/18 09:00 Dose: 100 mls/hr Loratadine (Claritin -) 10 mg PO DAILY [facility] Last Admin: 01/21/18 08:59 Dose: 10 mg Meclizine HCl (Antivert -) 12.5 mg PO Q8H PRN PRN Reason: VERTIGO Last Admin: 01/19/18 10:27 Dose: 12.5 mg Ondansetron HCl (Zofran Injection) 4 mg IVPUSH Q4H PRN PRN Reason: NAUSEA AND/OR VOMITING Pantoprazole Sodium (Protonix -) 40 mg PO DAILY [facility] - Objective Vital Signs: Vital Signs Temperature 97.5 F L 01/21/18 08:10 Pulse Rate 70 01/21/18 08:10 Respiratory Rate 20 01/21/18 08:10 Blood Pressure 108/77 01/21/18 08:10 O2 Sat by Pulse Oximetry (%) 98 01/21/18 07:54 Constitutional: Yes: Well Nourished Eyes: Yes: WNL HENT: Yes: WNL Neurological: Yes: Alert, Oriented, Babinski negative ...Motor Strength: WNL Labs: CBC, BMP 01/21/18 05:30 01/21/18 05:30 INR, PTT INR 1.11 (0.83-1.09) H 01/19/18 05:27 Problem List - Problems (1) Sepsis Assessment/Plan: viral syndrome with headache and photophobia 1. Neurologically patient can be discharged 22. EEG as an outpatient 3. Seizure precaution 4. Resume Plavix 55. Follow-up with the inspector screen printing. Code(s): A41.9 - SEPSIS, UNSPECIFIED ORGANISM
[2018-01-21] MEDS: PANTOPRAZOLE 40 MG TABLET (FP) PO SCH (14:56)
--- NOTE | 2018-01-21 17:17 | PN ---
Progress Note (short form) - Note Progress Note: less headache sitting up at bedside no fever since admission Vital Signs Period Temp Pulse Resp BP Sys/Mckenzie Pulse Ox Last 24 Hr 97.5 F-98.1 F 70-88 18-20 108-149/65-83 97-98 cor-rrr lungs clear abd soft,nt ext no edema CBC, BMP 01/21/18 05:30 01/21/18 05:30 Microbiology 01/20/18 11:00 Cerebral Spinal Fluid - Lumbar Puncture Gram Stain - Final 01/20/18 11:00 Cerebral Spinal Fluid - Lumbar Puncture CSF Culture - Preliminary 01/19/18 07:45 Blood - Peripheral Venous Blood Culture - Preliminary NO GROWTH OBTAINED AFTER 48 HOURS, INCUBATION TO CONTINUE FOR 3 DAYS. 01/19/18 07:40 Blood - Peripheral Venous Blood Culture - Preliminary NO GROWTH OBTAINED AFTER 48 HOURS, INCUBATION TO CONTINUE FOR 3 DAYS. 01/19/18 08:22 Urine - Urine Clean Catch Urine Culture - Final 01/19/18 08:22 Urine For Antigen Detection Legionella Antigen - Final 01/19/18 08:22 Urine For Antigen Detection Streptococcus pneumoniae Antigen (M - Final 01/19/18 08:18 Nasopharyngeal Swab Influenza Types A,B Antigen - Final 01/19/18 08:18 Nasopharyngeal Swab - Final a/p fevers leukopenia ?viral syndrome check monospot f/u cbc in am hiv negative d/c rocephin Problem List - Problems (1) Fever Code(s): R50.9 - FEVER, UNSPECIFIED (2) Elevated lactic acid level Code(s): R79.89 - OTHER SPECIFIED ABNORMAL FINDINGS OF BLOOD CHEMISTRY
[2018-01-21 17:40] LABS: SERUM IRON SATURATION 28 % (15-55); TOTAL IRON BINDING CAPACITY 232 ug/dL (250-450); UIBC 168 ug/dL (131-425)
[2018-01-21] MEDS: CYCLOBENZAPRINE HCL 10 MG TABLET (FP) PO SCH (21:16)
[2018-01-21] MEDS: AMITRIPTYLINE HCL 25 MG TABLET (FP) PO SCH (21:16)
--- NOTE | 2018-01-21 23:28 | CONSULT ---
Consult - text type - Consultation Consultation Note: Patient seen and examined The patient is a 47 year old female with a history of asthma who presents for evaluation of headache, dizziness, nausea, and vomiting. They note that the patient woke this morning complaining of severe room-spinning dizziness with associated pounding headache, nausea, and multiple episodes of non-bilious, non- bloody vomiting. She denies similar symptoms in the past and notes that her symptoms worsen with movement of her head. She denies fevers, chills, SOB, chest pain, abdominal pain, numbness, tingling, weakness, or changes with urination or bowel movements. she had taken her daughters neurontin pills. Currently her symptoms have resolved and wants to go home PMH prediabetes vertebral artery stenosis ??? polymyalgiavs fibromyalgia acne Allergies/Adverse Reactions: Allergies Allergy/AdvReac Type Severity Reaction Status Date / Time aspirin Allergy Intermediate swelling/hi Verified 01/19/18 02:25 ves Sulfa (Sulfonamide Allergy Intermediate swelling/hi Verified 01/19/18 02:25 Antibiotics) ves Home Medications: Ambulatory Orders Clopidogrel Bisulfate [Plavix -] 25 mg PO DAILY 01/19/18 Cyclobenzaprine HCl [Flexeril -] 10 mg PO HS 01/19/18 Asthma: Yes - Surgical History Abdominal Surgery: Yes (hysterectomy) - Suicide/Smoking/Psychosocial Hx Smoking History: Never smoked - Vital Signs Last Vital Signs Temp Pulse Resp BP Pulse Ox 98 F 72 18 110/69 98 01/22/18 02:00 01/22/18 02:00 01/22/18 02:00 01/22/18 02:00 01/21/18 21:00 Cor: RSR, No murmurs, No gallops Lungs: Clear to P&A Abd: Soft, Normal bowel sounds, No organomegaly Ext:No significant edema Abnormal Lab Results 01/19/18 01/20/18 01/21/18 07:10 05:30 05:30 WBC 2.6 L MCHC 31.5 L Absolute Neuts (auto) 0.7 L Neutrophils % 25.4 L D Lymphocytes % 57.9 H Monocytes % 2.8 L Eosinophils % 12.7 H D Chloride Anion Gap Calcium TIBC 232 L Albumin MARGARITO Screen Positive H 01/21/18 05:30 WBC MCHC Absolute Neuts (auto) Neutrophils % Lymphocytes % Monocytes % Eosinophils % Chloride 109 H Anion Gap 7 L Calcium 8.3 L TIBC Albumin 3.1 L MARGARITO Screen Active Medications Generic Name Dose Route Start Last Admin Trade Name Freq PRN Reason Stop Dose Admin Acetaminophen 650 mg 01/19/18 11:41 01/19/18 22:06 Tylenol - PO 650 mg Q4H PRN Administration PAIN LEVEL 1-5 Acetaminophen/Butalbital/Caffeine 1 tablet 01/20/18 08:36 01/21/18 20:48 Fioricet - PO 01/23/18 08:36 1 tablet Q6H PRN Administration FEVER Amitriptyline HCl 25 mg 01/19/18 22:00 01/21/18 21:16 Elavil - PO 25 mg HS JOHNNY Administration Cyclobenzaprine HCl 10 mg 01/19/18 22:00 01/21/18 21:16 Flexeril - PO 10 mg HS JOHNNY Administration Sodium Chloride 1,000 mls @ 125 mls/hr 01/19/18 16:45 01/21/18 16:35 Normal Saline - IV Not Given ASDIR JOHNNY Loratadine 10 mg 01/20/18 10:00 01/21/18 08:59 Claritin - PO 10 mg DAILY JOHNNY Administration Meclizine HCl 12.5 mg 01/19/18 06:20 01/19/18 10:27 Antivert - PO 12.5 mg Q8H PRN Administration VERTIGO Ondansetron HCl 4 mg 01/19/18 11:00 Zofran Injection IVPUSH Q4H PRN NAUSEA AND/OR VOMITING Pantoprazole Sodium 40 mg 01/21/18 12:00 01/21/18 14:56 Protonix - PO Not Given DAILY JOHNNY A/P The patient is a 47 year old female with a history of asthma who presents for evaluation of headache, dizziness, nausea, and vomiting. HAd a fever in ER. h/o vertebral artery stenosis Being evaluated for polymyalgia vs fibromyalgia by her PMD as outpatient Leukopenia: ? viral syndrome ? autoimmune ? benign etnic ANC 700 HIV-/B12/ TSH--nl + MARGARITO Will check flowcytometry/cytogenetics/FISH will need close f/u of CBC as outpatient and further w/u based on CBC.
[2018-01-22 06:12] VITALS: TEMP 98.1
[2018-01-22 07:15] LABS: BASO % 0.9 % (0-2.0); EOS % 10.6 % (0-4.5); HEMATOCRIT 35.7 % (32.4-45.2); HEMOGLOBIN 11.3 GM/dL (10.7-15.3); LYMPH % 52.3 % (8-40); MCH 26.4 pg (25.7-33.7); MCHC 31.7 g/dl (32.0-36.0); MEAN CELL VOLUME 83.2 fl (80-96); MEAN PLT VOLUME 9.7 fl (7.5-11.1); MONO % 1.8 % (3.8-10.2); NEUT % 34.4 % (42.8-82.8); PLATELET COUNT 173 K/MM3 (134-434); RBC 4.29 M/mm3 (3.60-5.2); RDW 14.5 % (11.6-15.6); WHITE BLOOD COUNT 3.2 K/mm3 (4.0-10.0)
[2018-01-22 07:50] VITALS: BP 107/66; PULSE 75
[2018-01-22] MEDS: LORATADINE 10 MG TABLET PO SCH (09:17)
[2018-01-22] MEDS: ACETAMINOPHEN/CAFFEINE/BUTALBITAL 1 TAB PO PRN (09:17)
[2018-01-22] MEDS: PANTOPRAZOLE 40 MG TABLET (FP) PO SCH (09:18)
[2018-01-22] MEDS: SODIUM CHLORIDE 1,000 ML IV SCH (09:19)
--- NOTE | 2018-01-22 10:24 | DS ---
Physical Examination Vital Signs: Vital Signs Temperature 98.1 F 01/22/18 07:48 Pulse Rate 75 01/22/18 07:48 Respiratory Rate 18 01/22/18 07:50 Blood Pressure 107/66 01/22/18 07:48 O2 Sat by Pulse Oximetry (%) 98 01/22/18 07:50 Constitutional: Yes: Calm Neck: Yes: Trachea Midline Cardiovascular: Yes: Regular Rate and Rhythm, S1, S2 Respiratory: Yes: CTA Bilaterally Gastrointestinal: Yes: Normal Bowel Sounds, Soft Edema: No Neurological: Yes: Alert, Oriented Labs: CBC, BMP 01/22/18 05:30 01/21/18 05:30 Discharge Summary Reason For Visit: TRANSIENT ISCHEMIC ATTACK Current Active Problems Dizziness (Acute) Elevated lactic acid level (Acute) Fever (Acute) Headache (Acute) Leukopenia (Acute) Sepsis (Acute) TIA (transient ischemic attack) (Acute) Procedures: Principal: spinal tap. head ct and carotid doppler negative. echo normal LVF no valvular abnormality Hospital Course: Patient is a 47 year old female with a past medical history of asthma, vertebral artery stenosis and DVT on plavix who presents for nausea and dizziness. At 9 pm last night she accidently took one of her daughters gabapentin pills. She also started taking miclinone for acne. Her symptoms began at about 11 pm last night, she felt very nauseous and dizzy. She reports she has not felt this before. One year ago in december she was diagnosed with Vertebral artery stenosis at [facility]. She was following up with Dr. Asher, but he stopped taking her insurance. She has not seen a neurologist recently. She also reports she was told she had cysts in her brain, she is unsure as to why. 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 She currently complains of still feeling dizzy and her head hurting. Patient reports she has not been sick recently. ER course was notable for: (1) meclizine in hospital seen by Neurology: patient got Lumbar tap done - no wbc no growth started on fiorcet seen by cardiology- negative work up leukopenia trending upwards- needs FU of cbc as outpatient Condition: Stable - Instructions Referrals: Kalina Nuñez [Primary Care Provider] - 2 Weeks Celeste Daily MD [Staff Physician] - 2 Weeks (for blood work cbc) Disposition: HOME - Home Medications Comprehensive Discharge Medication List: Ambulatory Orders Clopidogrel Bisulfate [Plavix -] 25 mg PO DAILY 01/19/18 Cyclobenzaprine HCl [Flexeril -] 10 mg PO HS 01/19/18
--- NOTE | 2018-01-22 10:29 | PN ---
Progress Note (short form) - Note Progress Note: TO WHOM IT MAY CONCERN Ms Jayla Christensen has been in hospital from 01/19-01/22 for her complaints of headache and dizziness Problem List - Problems (1) Headache Code(s): R51 - HEADACHE (2) Dizziness Code(s): R42 - DIZZINESS AND GIDDINESS (3) Elevated lactic acid level Code(s): R79.89 - OTHER SPECIFIED ABNORMAL FINDINGS OF BLOOD CHEMISTRY (4) Leukopenia Code(s): D72.819 - DECREASED WHITE BLOOD CELL COUNT, UNSPECIFIED
--- NOTE | 2018-01-27 12:35 | PATH ---
Surgical Pathology Report Patient Name: SKYLAR TERRAZAS [facility]. Rec. #: [id number] /Age/Gender: 1970 (Age: 47) / F Account: [id number] Location: 4 W TELEMETRY U Taken: 01/21/2018 Received: 01/21/2018 Reported: 01/27/2018 Physicians: Mildred Buchanan M.D. Specimen(s) Received 2 GREEN TOP TUBES Clinical History 47 yr old female with fever, chills, nausea, vomiting, joint pain and swelling Leukopenia/pancytopenia Final Diagnosis COMPREHENSIVE FLOW PANEL performed and interpreted at [place], [place] ([id number]) shows the following: INTERPRETATION: GRANULOCYTOPENIA WITH NO DISCRETE ATYPICAL IMMUNOPHENOTYPIC FINDINGS SEEN. MYELODYSPLASIA FISH PANEL performed and interpreted at [place], [place] ([id number]) shows the following: INTERPRETATION: NO EVIDENCE OF DELETION 5q OR MONOSOMY 5 IS PRESENT. NO EVIDENCE OF DELETION 7q OR MONOSOMY 7 IS PRESENT. NO EVIDENCE OF TRISOMY 8 (+8) IS PRESENT. NO EVIDENCE OF DELETION 13q14.2 IS PRESENT. NO EVIDENCE OF REARRANGEMENT OF 11q23. NO EVIDENCE OF A DELETION OF THE p53 (17P13) LOCUS. NO EVIDENCE OF DELETION 20q12 IS PRESENT COMMENTS: The study is negative or many of the most common recurrent genetic abnormalities in Myelodysplastic Syndrome. Correlation with pending cytogenetics ([id number]) is recommended. See [facility] reports ([id number] and [id number]) for additional details. Electronically Signed Tae Khan M.D. Addendum Reported: 01/28/2018 Addendum Diagnosis CYTOGENETIC KARYOTYPE ANALYSIS performed and interpreted at [facility] ([id number]) shows the following: RESULTS: Tissue Culture Failure INTERPRETATION: This unstimulated peripheral blood specimen did not produce any analyzable metaphase cells and, therefore, chromosome analysis is not possible. A bone marrow aspirate, when clinically appropriate, is recommended. See [facility] report for additional details ([id number]). Tae Khan M.D. Gross Description Received are 2 green top tubes of blood which are sent to [facility]. 01/21/2018
== END 2018-01-22 11:08 | disposition home or self-care (01) | DRG 710 ==
LOC: JER 02:03 → JERBED 05:50 → UNDOADMOB 06:29 → JERBED 06:29 → OBSVTOIN 07:12 → J4W 21:28
PROVIDERS: ADMIT Internal Medicine; ATTEND Family Medicine
PROC: 00JU3ZZ Inspection of Spinal Canal, Percutaneous Approach (ICD-10-PCS; principal; 2018-01-20)
DX: B34.9 Viral infection, unspecified (principal); J45.909 Unspecified asthma, uncomplicated; G45.9 Transient cerebral ischemic attack, unspecified; R73.03 Prediabetes; R42 Dizziness and giddiness; R11.2 Nausea with vomiting, unspecified; E66.9 Obesity, unspecified; F41.9 Anxiety disorder, unspecified; R79.89 Other specified abnormal findings of blood chemistry; R51 Headache; N93.8 Other specified abnormal uterine and vaginal bleeding; L70.9 Acne, unspecified; Z68.33 Body mass index [BMI] 33.0-33.9, adult; M35.3 Polymyalgia rheumatica; I77.1 Stricture of artery; D70.9 Neutropenia, unspecified; D72.1 Eosinophilia
CPT/HCPCS: 36415; 70450-TC; 71045-TC-FY; 74019-TC-FY; 80053; 81003; 81241; 82465; 82550; 82553; 82607; 82728; 82945; 83540; 83550; 83605; 83718; 83721; 84157; 84439; 84443; 84478; 84484; 85025; 85027; 85610; 85651; 86038; 86140; 86308; 86431; 86850; 86900; 86901; 87040; 87070; 87086; 87205; 87389; 87802; 87804; 87899; 88300-TC; 93005; 93010; 93306-TC; 93880-TC; 99285-25; G0378; J0131; J7030

== ENCOUNTER 2018-02-07 16:41 | Inpatient (IN) | payer OTHER ==
[2018-02-07 16:51] VITALS: BMI 33.0
--- NOTE | 2018-02-07 17:10 | PDOC ---
History of Present Illness - General Chief Complaint: Pain Stated Complaint: CHEST PAIN Time Seen by Provider: 02/07/18 17:10 - History of Present Illness Initial Comments: 02/07/18 17:19 The patient is a 47 year old female with a history of Asthma, Dizziness, who presents for evaluation of chest pain. The patient reports a 3 day history of burning epigastric and substernal chest pain worse with lying flat and associated with some shortness of breath. She reports intermittent palpitations as well as worsening symptoms today prompting her presentation to the ED for further evaluation. She otherwise denies fevers, chills, nausea, vomiting, abdominal pain, or changes with urination or bowel movements. She denies similar symptoms in the past as well and does not know of any relieving factors. Past History - Past Medical History Allergies/Adverse Reactions: Allergies Allergy/AdvReac Type Severity Reaction Status Date / Time aspirin Allergy Intermediate swelling/hi Verified 02/07/18 16:52 ves Sulfa (Sulfonamide Allergy Intermediate swelling/hi Verified 02/07/18 16:52 Antibiotics) ves Home Medications: Ambulatory Orders Clopidogrel Bisulfate [Plavix -] 75 mg PO DAILY 01/19/18 Asthma: Yes COPD: No - Surgical History Abdominal Surgery: Yes (hysterectomy) - Suicide/Smoking/Psychosocial Hx Smoking Status: No Smoking History: Never smoked Have you smoked in the past 12 months: No Number of Cigarettes Smoked Daily: 0 Hx Alcohol Use: No Drug/Substance Use Hx: No Substance Use Type: None Review of Systems - Review of Systems Comments:: 02/07/18 17:22 Constitutional: No fevers, chills, fatigue, malaise HEENT: No Rhinorrhea, nasal congestion, visual changes Cardiovascular: Chest pain, Palpitations. No syncope, lightheadedness Respiratory: SOB. No Cough, Hemoptysis, Gastrointestinal: No Abdominal pain, Nausea, Vomiting, Constipation, Diarrhea, Melena Genitourinary: No Dysuria, Frequency, Urgency, Hesitancy, Hematuria, Flank pain Musculoskeletal: No Myalgia, arthralgia Skin: No rashes, itching, bruising, pallor Neurologic: No Headache, Dizziness, Numbness, Weakness, or Tingling Psychiatric: No Hallucinations. No SI or HI *Physical Exam - Vital Signs Last Vital Signs Temp Pulse Resp BP Pulse Ox 98.2 F 103 H 20 135/69 99 02/07/18 16:45 02/07/18 16:45 02/07/18 16:45 02/07/18 16:45 02/07/18 16:45 - Physical Exam Comments: 02/07/18 17:22 General Appearance: Nourished. No Apparent Distress HEENT: No Pharyngeal Erythema, Tonsillar Exudate, Tonsillar Erythema Neck: No Cervical Lymphadenopathy Respiratory/Chest: Lungs Clear, Normal Breath Sounds. No Crackles, Rales, Rhonchi, Wheezing Cardiovascular: Regular Rhythm, Tachycardic Rate. No Murmur, Gallops, Rubs Gastrointestinal/Abdominal: Normal Bowel Sounds, Soft. No Guarding, Rebound, Tenderness Musculoskeletal: No CVA Tenderness Extremity: Normal Capillary Refill Integumentary: Normal Color, Dry, Warm Neurologic: Fully Oriented, Alert, Normal Mood/Affect, Normal Response, Heart Score/ECG Review #1 ECG reviewed & interpreted by me at: 17:23 General ECG Interpretation: Sinus Rhythm, Normal Intervals, No acute ischemic changes 02/07/18 17:23 Sinus tachycardia Frequent PVCs Bigeminy Noted #2 ECG reviewed & interpreted by me at: 23:04 General ECG Interpretation: Sinus Rhythm, Normal Rate, Normal Intervals, No acute ischemic changes ED Treatment Course - LABORATORY CBC & Chemistry Diagram: 02/07/18 17:53 02/07/18 17:53 Medical Decision Making - Medical Decision Making 02/07/18 17:23 The patient is a 47 year old female with a history of Asthma, Dizziness, who presents for evaluation of chest pain. Differential includes but is not limited to: ACS, Arrhythmia, Gastritis, GERD, Thyroid dysfunction, Infectious, Metabolic Derangement. Given the patient's history and physical exam, we will obtain a cbc, cmp, troponin, tsh, chest plain film, ekg to evaluate further. We will treat the patient with iv fluids, pepcid, maalox in the meantime and continue to monitor and reassess while here in the ED. 02/07/18 19:20 CBC, cmp, troponin, tsh are unremarkable. Chest plain film is unremarkable. d- dimer is elevated to 880s. We will obtain a CTA to evaluate for PE and continue to monitor and reassess while here in the ED. 02/07/18 23:34 CTA is unremarkable as preliminarily read by our balloon tester radiologist. The patient reports continued symptoms including continued chest pain and dizziness. Given the patient was in bigeminy on initial presentation to the ED with persistent symptoms, we believe she requires observation admission for further monitor and management. *DC/Admit/Observation/Transfer Diagnosis at time of Disposition: Dizziness, Bigeminy - Discharge Dispostion Condition at time of disposition: Stable Decision to Admit order: Yes - Referrals Referrals: Jesenia Biswas MD [Primary Care Provider] - - Patient Instructions - Post Discharge Activity
[2018-02-07] MEDS ORDERED: SODIUM CHLORIDE 1,000 ML IV STA (17:16)
[2018-02-07] MEDS ORDERED: MAG HYDROX/AL HYDROX/SIMETH 30 ML UNIT-DOSE CUP PO ONE (17:17)
--- NOTE | 2018-02-07 17:17 | PDOC ---
Attending Attestation - Resident Resident Name: Rodolfo Pelayo - ED Attending Attestation I have performed the following: I have examined & evaluated the patient, The case was reviewed & discussed with the resident, I agree w/resident's findings & plan, Exceptions are as noted - Physicial Exam PE: 02/07/18 18:02 GENERAL: The patient is awake, alert, and fully oriented, Nontoxic - in no acute distress. HEAD: Normocephalic, atraumatic. EYES: extraocular movements intact, sclera anicteric, conjunctiva clear. ENT: Normal voice, Moist mucous membranes. NECK: Normal range of motion, supple LUNGS: Breath sounds equal, clear to auscultation bilaterally. No wheezes, no rhonchi, no rales. HEART: slightly tachy, no mrg ABDOMEN: Soft, nontender, normoactive bowel sounds. No guarding, no rebound. . No CVA tenderness EXTREMITIES: Normal range of motion, no edema. neg homans and neg calf tenderness NEUROLOGICAL: No facial assymetry, Normal speech, movinga ll 4 extremities spontaneously and symmetrically PSYCH: Normal mood, normal affect. SKIN: Warm, Dry, normal turgor, - Medical Decision Making 02/07/18 17:13 47y F of asthma, occluded vertebral artery, remote dvt (off ac), presents with complainting of burning cp worse when she is in reclined associated with palpitations and sob. Worsened today so presented for evaluation. worsened with reclined position. ddx - metabolic derangement, acs, pe, anemia will ck labs, inc trop, dimer ekg noted for bigeminy will give gentle fluids willreassess <Mahin,Link - Last Filed: 02/07/18 18:02> - HPI HPI: 02/07/18 18:18 The patient is a 47 year old female, with a significant past medical history of asthma, occluded vertebral artery, remote DVT (not on any anticoagulants), who presents to the emergency department with, 3 days of burning chest pain. She describes her chest pain as intermittent and worse today with associated mild palpitations, shortness of breath, and 1 episode of soft diarrhea. Patient endorses drinking approximately 7-8 bottles of water daily. She denies recent fevers, chills, headache or dizziness. She denies recent nausea, vomit, or constipation. She denies recent dysuria, frequency, urgency or hematuria. Allergies: Aspirin, Sulfa Past surgical history: Partial hysterectomy. Social history: Nonsmoker. Denies EtOH use and recreational drug use. <Kimberly Borja - Last Filed: 02/07/18 18:18> Heart Score/ECG Review - ECG Impressions Comment:: 02/07/18 17:18 Twelve-lead EKG was performed and reviewed by me. There is normal sinus rhythm with a rate 110 Frequent PVCs in a pattern of bigeminy No ST elevations or depression suggestive of acute ischemia when compared with her prior EKG the bigeminy is new <Link Stockton - Last Filed: 02/07/18 18:02> Attestations - Attestations 02/07/18 18:18 Documentation prepared by Kimberly Borja, acting as certified medical records coder for Link Stockton MD. <Kimberly Borja - Last Filed: 02/07/18 18:18>
[2018-02-07] MEDS ORDERED: MAG HYDROX/AL HYDROX/SIMETH 30 ML UNIT-DOSE CUP ONE (17:23)
[2018-02-07] MEDS ORDERED: FAMOTIDINE 20 MG/50 ML IVPB 20 MG/50 ML MG IVPB ONE ×2 (17:24→17:30)
[2018-02-07] MEDS ORDERED: SODIUM CHLORIDE 500 ML IV STA (18:04)
[2018-02-07 18:23] LABS: EOS % 4.8 % (0-4.5); HEMATOCRIT 38.5 % (32.4-45.2); HEMOGLOBIN 12.5 GM/dL (10.7-15.3); LYMPH % 38.8 % (8-40); MCHC 32.4 g/dl (32.0-36.0); MEAN CELL VOLUME 83.4 fl (80-96); MEAN PLT VOLUME 10.1 fl (7.5-11.1); MONO % 8.2 % (3.8-10.2); NEUT % 47.2 % (42.8-82.8); PLATELET COUNT 267 K/MM3 (134-434); RBC 4.62 M/mm3 (3.60-5.2); RDW 14.5 % (11.6-15.6); WHITE BLOOD COUNT 5.4 K/mm3 (4.0-10.0)
[2018-02-07 18:43] LABS: N-TERMINAL BNP 10.7 pg/ml (5-125)
[2018-02-07 18:57] LABS: ALBUMIN 3.8 g/dl (3.4-5.0); ALK PHOS 84 U/L (45-117); ANION GAP 9 MMOL/L (8-16); BILIRUBIN,TOTAL 0.2 mg/dL (0.2-1); BLOOD UREA NITROGEN 11 mg/dL (7-18); CALCIUM 8.8 mg/dL (8.5-10.1); CHLORIDE 106 mmol/L (98-107); CO2 23 mmol/L (21-32); CREATININE 0.9 mg/dL (0.55-1.3); GLUCOSE,RANDOM 79 mg/dL (74-106); SGPT/ALT 31 U/L (13-61); SODIUM 138 mmol/L (136-145); TOT PROT 7.9 g/dl (6.4-8.2)
[2018-02-07 18:58] LABS: POTASSIUM 4.5 mmol/L (3.5-5.1); SGOT/AST 31 U/L (15-37)
--- NOTE | 2018-02-07 19:41 | PDOC ---
*Physical Exam - Vital Signs Last Vital Signs Temp Pulse Resp BP Pulse Ox 98.2 F 103 H 20 135/69 99 02/07/18 16:45 02/07/18 16:45 02/07/18 16:45 02/07/18 16:45 02/07/18 16:45 ED Treatment Course - LABORATORY CBC & Chemistry Diagram: 02/07/18 17:53 02/07/18 17:53 - ADDITIONAL ORDERS Additional order review: Laboratory Results 02/07/18 02/07/18 02/07/18 18:51 17:53 17:53 D-Dimer 887 H Sodium 138 Potassium 4.5 Chloride 106 Carbon Dioxide 23 Anion Gap 9 BUN 11 Creatinine 0.9 Creat Clearance w eGFR > 60 Random Glucose 79 Calcium 8.8 Total Bilirubin 0.2 AST 31 ALT 31 Alkaline Phosphatase 84 Creatine Kinase 388 H Creatine Kinase Index 0.2 CK-MB (CK-2) < 1.0 Troponin I < 0.02 B-Natriuretic Peptide 10.7 Total Protein 7.9 Albumin 3.8 Lipase 193 TSH 1.22 02/07/18 17:53 RBC 4.62 MCV 83.4 MCHC 32.4 RDW 14.5 MPV 10.1 Neutrophils % 47.2 D Lymphocytes % 38.8 D Monocytes % 8.2 D Eosinophils % 4.8 H Basophils % 1.0 - RADIOLOGY Radiology Studies Ordered: Category Date Time Status CHEST CTA [CT] Stat CT Scan 02/07/18 19:14 Ordered - Medications Given in the ED: ED Medications Discontinued Medications Generic Name Dose Route Start Last Admin Trade Name Freq PRN Reason Stop Dose Admin Al Hydroxide/Mg Hydroxide 30 ml 02/07/18 17:17 02/07/18 17:38 Mylanta Oral Suspension - PO 02/07/18 17:18 30 ml ONCE ONE Administration Famotidine/Sodium Chloride 20 mg in 50 mls @ 100 mls/hr 02/07/18 17:30 18:04 Pepcid 20 Mg Premixed Ivpb - IVPB 02/07/18 17:59 100 mls/hr ONCE ONE Administration Sodium Chloride 1,000 mls @ 1,000 mls/hr 02/07/18 17:16 02/07/18 18:30 Normal Saline - IV 02/07/18 18:15 1,000 mls/hr ASDIR STA Administration Medical Decision Making - Medical Decision Making 02/07/18 19:40 I received pt on signout. She has elevated d-dimer, with CP presentation, and she has a hx of DVT for which she is on plavix. Pt will be sent for a CTA of the chest to r/o PE. 02/07/18 19:42 Pt has a very abnormal EKG; Sinus tachy with bigeminy pattern. She will be admitted to the telemetry unit. 02/07/18 20:12 I spoke to patient; she was here last week for nausea headache. She had a fever and a WBC that plummeted to 1.6 then slowly came up. Pt had an extensive workup, LP was normal; flu and legionealla, and strep pneumo cultures normal; She has a known hx of left vertebral artery complete occlusion. She was found to have a +MARGARITO. Today as well as last time TSH normal. Carorid doppler, CXR and Abd XR normal last week. 02/07/18 20:15 Today we're awaiting a CTA chest. 02/07/18 20:18 Pt states that she was at the grocery store today ane she felt like she was going to pass out. She came to the ER and she was tachycardic and in bigeminly. That resolved with fluid. She will require admission. 02/07/18 20:24 [address] a 20 guage IV to get the CTA study. However, multiple attempts by nurses and residents failed. If we are unable to place a larger IV then we will order a chest CT with IV contrast. 02/07/18 22:57 Patient Name: SKYLAR TERRAZAS THIS IS A PRELIMINARY REPORT FROM IMAGING CLINICAL TEAM MANAGER DATE OF SERVICE: 2018-02-07 21:46:44 IMAGES: [id number] EXAM: CHEST CTA HISTORY: Chest pain. Rule out PE. History of DVT COMPARISON: None. FINDINGS: There is no evidence of pulmonary embolism The thoracic aorta is normal in course and caliber without dissection The heart is not enlarged. There is no pericardial effusion The tracheobronchial tree is patent No airspace consolidation, infiltrates or pleural effusions There is a 2.3 cm hepatic cyst. Imaged portions of the upper abdomen are otherwise unremarkable One or more of the following dose reduction techniques were used: automated exposure control, adjustment of the mA and/or kV according to patient size, use of iterative reconstructive technique. THIS DOCUMENT HAS BEEN ELECTRONICALLY SIGNED 02/08/18 00:53 *DC/Admit/Observation/Transfer Diagnosis at time of Disposition: Dizziness, Bigeminy - Discharge Dispostion Condition at time of disposition: Stable - Referrals - Patient Instructions - Post Discharge Activity
[2018-02-07] MEDS ORDERED: ALBUTEROL SO4 2.5/IPRATROPIUM 0.5 INH SOL 3 ML VIAL.NEB. NEB ONE ×4 (22:48→23:17)
--- NOTE | 2018-02-07 23:18 | PN ---
Teaching Attending Note Name of Resident: Eagle Elizalde ATTENDING PHYSICIAN STATEMENT I saw and evaluated the patient. I reviewed the resident's note and discussed the case with the resident. I agree with the resident's findings and plan as documented. 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 The patient reports a 3 day history of burning epigastric and substernal chest pain worse with lying flat and associated with some SOB. She reports intermittent palpitations as well as worsening symptoms today. Has been on Augmentin, prescribed for 1 month duration by her Space Control Supervisor hank Falk. She denies fevers, chills, nausea, vomiting, or changes with urination or bowel movements. She denies similar symptoms in the past as well and does not know of any relieving factors. OBJECTIVE: Alert and obese; apprehensive, not orthostatic Vital Signs Period Temp Pulse Resp BP Sys/Mckenzie Pulse Ox Last 24 Hr 98.1 F-98.2 F 100-103 19-20 124-135/69-89 96-99 HEENT: No Jaundice, eye redness or discharge, PERRLA, EOMI. Normocephalic, atraumatic. External ears are normal and hearing is grossly intact. No nasal discharge. Neck: Supple, nontender. No palpable adenopathy or thyromegaly. No JVD Chest: Good effort. Clear to auscultation and percussion. Heart: Regular. No S3, rub or murmur Abdomen: Not distended, soft, nontender and no HSM. No rebound or guarding. Normoactive bowel sounds. Ext: Peripheral pulses intact. No leg edema. Skin: Warm and dry. No petechiae, rash or ecchymosis. Neuro: Alert. Oriented x3. CN 2-12 grossly intact. Sensation grossly intact in all four extremities and DTR are symmetric. Home Medications Medication Instructions Recorded Clopidogrel Bisulfate [Plavix -] 75 mg PO DAILY 01/19/18 Abnormal Lab Results 02/07/18 02/07/18 02/07/18 17:53 17:53 18:51 Eosinophils % 4.8 H D-Dimer 887 H Creatine Kinase 388 H Ur Specific [place] Ur Leukocyte Esterase 02/07/18 23:10 Eosinophils % D-Dimer Creatine Kinase Ur Specific [place] 1.058 H Ur Leukocyte Esterase 1+ H ASSESSMENT AND PLAN: 1. Chest pain/Dizziness - No PE on chest CTA and no acute pathology on CXR. Initial EKG showed tachycardia with bigeminy, but reverted to NSR with no ST-T wave changes after IV fluid. Initial troponin is negative. Will admit to telemetry to rule out ACS, get ECHO, urine toxicology, fasting lipids, TSH, phosphate/ magnesium levels, consult cardiology for stress test and possibly cardiac catheterization. If the latter is negative, then an outpatient EGD will be arranged. Asked to discontinue Augmentin. Dizziness may be related to vertebral artery stenosis and it has been recently investigated with MRI/MRA. Consult neurology and implement fall precautions. If dizziness persists, may benefit from outpatient holter monitoring. 2. Obesity - Will provide patient all the necessary assistance , counseling and positive reinforcement to facilitate weight loss. Consult emergency worker. 3. DVT prophylaxis - Lovenox 40 mg SQ q 24 hours. 4. Advance directives - Full code
[2018-02-07 23:25] LABS: URINE APPEARANCE CLEAR; URINE BILIRUBIN NEGATIVE (<2.0 mg/dL); URINE COLOR LTYELLOW; URINE GLUCOSE (UA) NEGATIVE (NEGATIVE); URINE KETONE NEGATIVE (NEGATIVE); URINE LEUK ESTERASE 1+ (NEGATIVE); URINE NITRITE NEGATIVE (NEGATIVE); URINE PROTEIN NEGATIVE (NEGATIVE); URINE UROBILINOGEN NEGATIVE mg/dL (0.2-1.0)
[2018-02-07 23:29] LABS: EPI CELLS MANY /HPF (FEW); URINE BACTERIA RARE /hpf (NONE SEEN); URINE MUCUS RARE
--- NOTE | 2018-02-08 01:40 | HP ---
CHIEF COMPLAINT: Chest pain PCP: Dr. Biswas HISTORY OF PRESENT ILLNESS: Patient is a 47 year old female with history of asthma, right lower extremity DVT, vertebral artery stenosis, old CVA, presents with complaint of burning retrosternal chest pain progressively worsening over the past three days. She states the pain began with sudden onset as she was sitting down in waiting room of her doctor's office. Burning was localized mid center of her chest, without movement or radiation. She endorses the burning was initially intermittent, however today has progressed to being continuous throughout the day. Endorses complaint of increased belching associated with the chest pain. Patient admits that drinking water has been mildly palliative. Denies clear provocative symptoms. At noon today she endorses lightheadedness lasting 15 minutes while at grocery store where she had to support herself holding on to the shopping cart. This episode was associated with palpitations. She denies fall, loss of consciousness, trauma to head or any part of body. Denies fevers, chills, abdominal pain, nausea, vomiting, diarrhea, constipation. Endorses two pillow orthopnea that has been ongoing since her recent discharge in 01/20/2018. ER course was notable for: (1) EKG: sinus tachycardia at 110bpm with PVCs in bigeminy pattern. Resolved to normal sinus rhythm at 85bpm with IV fluid hydration. (2) D-Dimer 887. CTA preliminary reading negative for pulmonary embolism, aortic dissection, pericardial effusion (3) Famotidine 20mg IV, Mylanta 30mL PO, Duonebs X2 amps Recent Travel: denies PAST MEDICAL HISTORY: asthma, right lower extremity DVT, vertebral artery stenosis, old CVA PAST SURGICAL HISTORY: 2x c-sections 1995, 2007, partial hysterectomy 2013 Social History: Smoking: former smoker of approx 8 cigarettes/ day for 1 years. Quit 1995. Alcohol: admits that she drank 1/5 bottle of anatoly on weekends with friend. Last drink was in 2017. Drugs: denies illicit drug use Family History: Father at 63 y/o due to glioblastoma Mother massed away in her sleep at 58 y/o due to [place] Allergies aspirin Allergy (Intermediate, Verified 02/07/18 16:52) swelling/hives Sulfa (Sulfonamide Antibiotics) Allergy (Intermediate, Verified 02/07/18 16:52) swelling/hives HOME MEDICATIONS: Home Medications Medication Instructions Recorded Clopidogrel Bisulfate [Plavix -] 75 mg PO DAILY 01/19/18 REVIEW OF SYSTEMS CONSTITUTIONAL: Absent: fever, chills, diaphoresis, generalized weakness, malaise, loss of appetite, weight change HEENT: Absent: rhinorrhea, nasal congestion, throat pain, throat swelling, difficulty swallowing, mouth swelling, ear pain, eye pain, visual changes CARDIOVASCULAR: Admits: chest pain, palpitations, lightheadedness. Absent: syncope, irregular heart rate, peripheral edema RESPIRATORY: Admits: orthopnea. Absent: cough, shortness of breath, dyspnea with exertion, wheezing, stridor, hemoptysis GASTROINTESTINAL: Absent: abdominal pain, abdominal distension, nausea, vomiting, diarrhea, constipation, melena, hematochezia GENITOURINARY: Absent: dysuria, frequency, urgency, hesitancy, hematuria, flank pain, genital pain MUSCULOSKELETAL: Absent: myalgia, arthralgia, joint swelling, back pain, neck pain SKIN: Absent: rash, itching, pallor HEMATOLOGIC/IMMUNOLOGIC: Absent: easy bleeding, easy bruising, lymphadenopathy, frequent infections ENDOCRINE: Absent: unexplained weight gain, unexplained weight loss, heat intolerance, cold intolerance NEUROLOGIC: Absent: headache, focal weakness or paresthesias, dizziness, unsteady gait, seizure, mental status changes, bladder or bowel incontinence PSYCHIATRIC: Absent: anxiety, depression, suicidal or homicidal ideation, hallucinations. PHYSICAL EXAMINATION Vital Signs - 24 hr 02/07/18 02/07/18 16:45 22:56 Temperature 98.2 F 98.1 F Pulse Rate 103 H Pulse Rate [ 100 H Apical] Respiratory 20 19 Rate Blood Pressure 135/69 Blood Pressure 124/89 [Right Arm] O2 Sat by Pulse 99 96 Oximetry (%) GENERAL: -[place] female, appears stated age. Awake, alert, and fully oriented, in no acute distress. HEAD: Normal with no signs of trauma. EYES: Pupils equal, round and reactive to light, extraocular movements intact without nystagmus, sclera anicteric, conjunctiva clear. EARS, NOSE, THROAT: Ears normal, nares patent, oropharynx clear without exudates. Moist mucous membranes. NECK: Normal range of motion, supple without lymphadenopathy, JVD, or masses. LUNGS: Breath sounds equal, clear to auscultation bilaterally. No wheezes, and no crackles. No accessory muscle use. HEART: Regular rate and rhythm, normal S1 and S2 without murmur, rub or gallop. CHEST: Pain not reproducible with palpation. ABDOMEN: Obese. Soft, nondistended, nontender to light and deep palpation X4 quadrants. Normoactive bowel sounds X4 quadrants. No guarding, no rebound tenderness. No hepatomegaly or splenomegaly appreciated. MUSCULOSKELETAL: Normal range of motion at all joints b/l upper and lower extremities. No bony deformities or tenderness. UPPER EXTREMITIES: 2+ radial pulses b/l, warm, well-perfused. LOWER EXTREMITIES: 2+ dorsalis pedis pulses b/l, warm, well-perfused. No peripheral edema b/l. NEUROLOGICAL: Cranial nerves II-XII intact. Normal speech. PSYCHIATRIC: Cooperative. Good eye contact. Appropriate mood and affect upon my encounter. SKIN: Warm, dry, normal turgor, no rashes or lesions noted, normal capillary refill. Laboratory Results - last 24 hr 02/07/18 02/07/18 02/07/18 17:53 17:53 17:53 WBC 5.4 RBC 4.62 Hgb 12.5 Hct 38.5 MCV 83.4 MCH 27.0 MCHC 32.4 RDW 14.5 Plt Count 267 D MPV 10.1 Absolute Neuts (auto) 2.5 Neutrophils % 47.2 D Lymphocytes % 38.8 D Monocytes % 8.2 D Eosinophils % 4.8 H Basophils % 1.0 Nucleated RBC % 0 D-Dimer Sodium 138 Potassium 4.5 Chloride 106 Carbon Dioxide 23 Anion Gap 9 BUN 11 Creatinine 0.9 Creat Clearance w eGFR > 60 Random Glucose 79 Calcium 8.8 Total Bilirubin 0.2 AST 31 ALT 31 Alkaline Phosphatase 84 Creatine Kinase 388 H Creatine Kinase Index 0.2 CK-MB (CK-2) < 1.0 Troponin I < 0.02 B-Natriuretic Peptide 10.7 Total Protein 7.9 Albumin 3.8 Lipase 193 TSH 1.22 Urine Color Urine Appearance Urine pH Ur Specific [place] Urine Protein Urine Glucose (UA) Urine Ketones Urine Blood Urine Nitrite Urine Bilirubin Urine Urobilinogen Ur Leukocyte Esterase Urine WBC (Auto) Urine RBC (Auto) Ur Epithelial Cells Urine Bacteria Urine Mucus Urine HCG, Qual 02/07/18 02/07/18 02/07/18 18:51 23:05 23:10 WBC RBC Hgb Hct MCV MCH MCHC RDW Plt Count MPV Absolute Neuts (auto) Neutrophils % Lymphocytes % Monocytes % Eosinophils % Basophils % Nucleated RBC % D-Dimer 887 H Sodium Potassium Chloride Carbon Dioxide Anion Gap BUN Creatinine Creat Clearance w eGFR Random Glucose Calcium Total Bilirubin AST ALT Alkaline Phosphatase Creatine Kinase 320 H Creatine Kinase Index 0.3 CK-MB (CK-2) < 1.0 Troponin I < 0.02 B-Natriuretic Peptide Total Protein Albumin Lipase TSH Urine Color Ltyellow Urine Appearance Clear Urine pH 6.0 Ur Specific [place] 1.058 H Urine Protein Negative Urine Glucose (UA) Negative Urine Ketones Negative Urine Blood Negative Urine Nitrite Negative Urine Bilirubin Negative Urine Urobilinogen Negative Ur Leukocyte Esterase 1+ H Urine WBC (Auto) 1 Urine RBC (Auto) 11 Ur Epithelial Cells Many Urine Bacteria Rare Urine Mucus Rare Urine HCG, Qual Cancelled ASSESSMENT/PLAN: Patient is a 47 year old female with history of asthma, right lower extremity DVT, vertebral artery stenosis, old CVA, presents with complaint of burning retrosternal chest pain progressively worsening over the past three days. Chest pain -Progressively worsening over the past three days, described as burning in nature. -EKG showed sinus tachycardia at 110bpm with PVCs in bigeminy pattern. Resolved to normal sinus rhythm at 85bpm with IV fluid hydration. -Troponin 0.02 x2 -CTA negative for pulmonary embolism upon preliminary read. Follow official reading. -Cardiac ECHO from prior admission (01/20/2018) shows LV size, thickness, function, and ejection fraction normal. Atrial septum aneurysmal, without evidence of shunting. Mild mitral and tricuspid regurgitation. Elevated right ventricular systolic pressure at 30-40mmHg. -Cardiac monitoring -Repeat troponin, ECG, cardiac ECHO -Cardiology consult Dr. Feliciano. Patient will likely require stress test. -F/U urine toxicology -Consider outpatient GI workup, if cardiac etiology of her chest pain not identified. Vertebral artery stenosis -May be contributing factor to her lightheadedness. -Fall precautions -Continue Plavix 75mg PO daily Asthma -Currently saturating 96% room air. Not in acute exacerbation. -Duonebs Q4H PRN Hepatic cyst -Noted incidentally upon CTA preliminary reading, 2.3cm. -Patient may follow up as outpatient with GI Obesity -BMI 33.1 -Counselled regarding healthy diet and exercise. 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 Will encourage judicious oral hydration -Within normal limits. Follow CMP -Regular diet Prophylaxis -Lovenox 40mg subq daily Disposition -Observe in Telemetry floor Visit type - Emergency Visit Emergency Visit: Yes ED Registration Date: 02/07/18 Care time: The patient presented to the Emergency Department on the above date and was hospitalized for further evaluation of their emergent condition. - New Patient This patient is new to me today: Yes Date on this admission: 02/08/18 - Critical Care Critical Care patient: No
[2018-02-08] MEDS ORDERED: ALBUTEROL SO4 2.5/IPRATROPIUM 0.5 INH SOL 3 ML VIAL.NEB. NEB ONE ×2 (02:46→15:26)
[2018-02-08] MEDS: ALBUTEROL SO4 2.5/IPRATROPIUM 0.5 INH SOL 3 ML VIAL.NEB. NEB PRN ×2 (02:53→15:40)
[2018-02-08] MEDS ORDERED: ACETAMINOPHEN 325 MG TABLET (FP) PO ONE (03:40)
[2018-02-08] MEDS ORDERED: ACETAMINOPHEN 325 MG TABLET (FP) ONE (03:43)
[2018-02-08 05:53] LABS: HEMATOCRIT 34.8 % (32.4-45.2); MCH 26.3 pg (25.7-33.7); MCHC 31.5 g/dl (32.0-36.0); MEAN CELL VOLUME 83.3 fl (80-96); MEAN PLT VOLUME 10.1 fl (7.5-11.1); PLATELET COUNT 222 K/MM3 (134-434); RBC 4.18 M/mm3 (3.60-5.2); RDW 14.4 % (11.6-15.6); WHITE BLOOD COUNT 5.6 K/mm3 (4.0-10.0)
[2018-02-08 06:27] LABS: ALBUMIN 3.4 g/dl (3.4-5.0); ALK PHOS 74 U/L (45-117); ANION GAP 8 MMOL/L (8-16); BILIRUBIN,TOTAL 0.2 mg/dL (0.2-1); BLOOD UREA NITROGEN 8 mg/dL (7-18); CALCIUM 8.5 mg/dL (8.5-10.1); CHLORIDE 108 mmol/L (98-107); CHOLESTEROL 129 mg/dL (50-200); CO2 22 mmol/L (21-32); CREATININE 0.8 mg/dL (0.55-1.3); GLUCOSE,RANDOM 81 mg/dL (74-106); HDL CHOLESTEROL 46 mg/dL (40-60); MAGNESIUM 2.3 mg/dL (1.8-2.4); PHOSPHOROUS 3.7 mg/dL (2.5-4.9); POTASSIUM 4.2 mmol/L (3.5-5.1); SGOT/AST 22 U/L (15-37); SGPT/ALT 26 U/L (13-61); SODIUM 138 mmol/L (136-145); TOT PROT 7.1 g/dl (6.4-8.2); TRIGLYCERIDES 61 mg/dL (0-150)
[2018-02-08] MEDS: ENOXAPARIN NA (PORCINE) 40 MG/0.4 ML DISP.SYRIN SQ SCH (10:07)
[2018-02-08] MEDS: CLOPIDOGREL BISULFATE 75 MG TABLET (FP) PO SCH (10:08)
--- NOTE | 2018-02-08 10:44 | EKG ---
Test Reason : Blood Pressure : / mmHG Vent. Rate : 083 BPM Atrial Rate : 083 BPM P-R Int : 192 ms QRS Dur : 080 ms QT Int : 366 ms P-R-T Axes : 050 063 036 degrees QTc Int : 430 ms NORMAL SINUS RHYTHM CANNOT RULE OUT ANTERIOR INFARCT , AGE UNDETERMINED ABNORMAL ECG WHEN COMPARED WITH ECG OF 07-FEB-2018 20:52, NO SIGNIFICANT CHANGE WAS FOUND Confirmed by ROSA MILLER MD ([id number]) on 02/08/2018 10:44:29 AM Referred By: Confirmed By:ROSA MILLER MD
--- NOTE | 2018-02-08 10:46 | EKG ---
Test Reason : Blood Pressure : / mmHG Vent. Rate : 085 BPM Atrial Rate : 085 BPM P-R Int : 176 ms QRS Dur : 076 ms QT Int : 352 ms P-R-T Axes : 072 082 065 degrees QTc Int : 418 ms NORMAL SINUS RHYTHM NORMAL ECG WHEN COMPARED WITH ECG OF 07-FEB-2018 16:49, PREMATURE VENTRICULAR COMPLEXES ARE NO LONGER PRESENT Confirmed by ROSA MILLER MD ([id number]) on 02/08/2018 10:45:57 AM Referred By: Confirmed By:ROSA MILLER MD
--- NOTE | 2018-02-08 10:47 | EKG ---
Test Reason : Blood Pressure : / mmHG Vent. Rate : 110 BPM Atrial Rate : 110 BPM P-R Int : 164 ms QRS Dur : 082 ms QT Int : 336 ms P-R-T Axes : 067 076 044 degrees QTc Int : 454 ms SINUS TACHYCARDIA WITH FREQUENT PREMATURE VENTRICULAR COMPLEXES IN A PATTERN OF BIGEMINY OTHERWISE NORMAL ECG WHEN COMPARED WITH ECG OF 19-JAN-2018 20:47, PREMATURE VENTRICULAR COMPLEXES ARE NOW PRESENT T WAVE VARIATION Confirmed by ANGELA WATERMAN, ROSA ([id number]) on 02/08/2018 10:46:47 AM Referred By: Confirmed By:ROSA MILLER MD
--- NOTE | 2018-02-08 14:09 | PN ---
Physical Exam: SUBJECTIVE: Patient seen and examined. Pt. feels like her pain has gotten worse and alisha she feels like she is coming down with the cold. Chest pain non- reproducible, localized. Pt. endorses palpitations and belching. OBJECTIVE: Vital Signs Period Temp Pulse Resp BP Sys/Mckenzie Pulse Ox Last 24 Hr 98.1 F-98.2 F 92-103 19-20 123-135/63-89 96-99 GENERAL: The patient is awake, alert, and fully oriented, in no acute distress. EYES: Sclera anicteric, conjunctiva clear. No ptosis. ENT: Ears normal, nares patent, moist mucous membranes. LUNGS: Breath sounds equal, clear to auscultation bilaterally, no wheezes, no crackles, no accessory muscle use. HEART: Regular rate and rhythm, S1, S2 without murmur. ABDOMEN: Soft, obese nontender, nondistended, normoactive bowel sounds, no guarding, no rebound EXTREMITIES: 2+ dorsal pedal pulses, warm, well-perfused, no calf tenderness no edema. NEUROLOGICAL: Normal speech, gait not observed. PSYCH: Normal mood, normal affect. SKIN: Warm, dry, normal turgor, no rashes or lesions noted Laboratory Results - last 24 hr 02/07/18 02/07/18 02/07/18 17:53 17:53 17:53 WBC 5.4 RBC 4.62 Hgb 12.5 Hct 38.5 MCV 83.4 MCH 27.0 MCHC 32.4 RDW 14.5 Plt Count 267 D MPV 10.1 Absolute Neuts (auto) 2.5 Neutrophils % 47.2 D Lymphocytes % 38.8 D Monocytes % 8.2 D Eosinophils % 4.8 H Basophils % 1.0 Nucleated RBC % 0 D-Dimer Sodium 138 Potassium 4.5 Chloride 106 Carbon Dioxide 23 Anion Gap 9 BUN 11 Creatinine 0.9 Creat Clearance w eGFR > 60 Random Glucose 79 Calcium 8.8 Phosphorus Magnesium Total Bilirubin 0.2 AST 31 ALT 31 Alkaline Phosphatase 84 Creatine Kinase 388 H Creatine Kinase Index 0.2 CK-MB (CK-2) < 1.0 Troponin I < 0.02 B-Natriuretic Peptide 10.7 Total Protein 7.9 Albumin 3.8 Triglycerides Cholesterol Total LDL Cholesterol HDL Cholesterol Lipase 193 TSH 1.22 Urine Color Urine Appearance Urine pH Ur Specific [place] Urine Protein Urine Glucose (UA) Urine Ketones Urine Blood Urine Nitrite Urine Bilirubin Urine Urobilinogen Ur Leukocyte Esterase Urine WBC (Auto) Urine RBC (Auto) Ur Epithelial Cells Urine Bacteria Urine Mucus Urine HCG, Qual 02/07/18 02/07/18 02/07/18 18:51 23:05 23:10 WBC RBC Hgb Hct MCV MCH MCHC RDW Plt Count MPV Absolute Neuts (auto) Neutrophils % Lymphocytes % Monocytes % Eosinophils % Basophils % Nucleated RBC % D-Dimer 887 H Sodium Potassium Chloride Carbon Dioxide Anion Gap BUN Creatinine Creat Clearance w eGFR Random Glucose Calcium Phosphorus Magnesium Total Bilirubin AST ALT Alkaline Phosphatase Creatine Kinase 320 H Creatine Kinase Index 0.3 CK-MB (CK-2) < 1.0 Troponin I < 0.02 B-Natriuretic Peptide Total Protein Albumin Triglycerides Cholesterol Total LDL Cholesterol HDL Cholesterol Lipase TSH Urine Color Ltyellow Urine Appearance Clear Urine pH 6.0 Ur Specific [place] 1.058 H Urine Protein Negative Urine Glucose (UA) Negative Urine Ketones Negative Urine Blood Negative Urine Nitrite Negative Urine Bilirubin Negative Urine Urobilinogen Negative Ur Leukocyte Esterase 1+ H Urine WBC (Auto) 1 Urine RBC (Auto) 11 Ur Epithelial Cells Many Urine Bacteria Rare Urine Mucus Rare Urine HCG, Qual Cancelled 02/08/18 02/08/18 05:00 05:00 WBC 5.6 RBC 4.18 Hgb 11.0 Hct 34.8 MCV 83.3 MCH 26.3 MCHC 31.5 L RDW 14.4 Plt Count 222 MPV 10.1 Absolute Neuts (auto) Neutrophils % Lymphocytes % Monocytes % Eosinophils % Basophils % Nucleated RBC % D-Dimer Sodium 138 Potassium 4.2 Chloride 108 H Carbon Dioxide 22 Anion Gap 8 BUN 8 Creatinine 0.8 Creat Clearance w eGFR > 60 Random Glucose 81 Calcium 8.5 Phosphorus 3.7 Magnesium 2.3 Total Bilirubin 0.2 AST 22 ALT 26 Alkaline Phosphatase 74 Creatine Kinase Creatine Kinase Index CK-MB (CK-2) Troponin I < 0.02 B-Natriuretic Peptide Total Protein 7.1 Albumin 3.4 Triglycerides 61 Cholesterol 129 Total LDL Cholesterol 78 HDL Cholesterol 46 Lipase TSH Urine Color Urine Appearance Urine pH Ur Specific Ru[place] Urine Protein Urine Glucose (UA) Urine Ketones Urine Blood Urine Nitrite Urine Bilirubin Urine Urobilinogen Ur Leukocyte Esterase Urine WBC (Auto) Urine RBC (Auto) Ur Epithelial Cells Urine Bacteria Urine Mucus Urine HCG, Qual Active Medications Current Medications Albuterol/Ipratropium (Duoneb -) 1 amp NEB Q4H PRN PRN Reason: SHORTNESS OF BREATH Last Admin: 02/08/18 02:53 Dose: 1 amp Clopidogrel Bisulfate (Plavix -) 75 mg PO DAILY [facility] Last Admin: 02/08/18 10:08 Dose: 75 mg Enoxaparin Sodium (Lovenox -) 40 mg SQ DAILY [facility] [place] Last Admin: 02/08/18 10:07 Dose: 40 mg Home Medications Medication Instructions Recorded Clopidogrel Bisulfate [Plavix -] 75 mg PO DAILY 01/19/18 Acetaminophen/Caffeine/Butalb 1 tab PO Q6H 02/08/18 [Fioricet -] Amitriptyline HCl 1 tab PO DAILY 02/08/18 Amoxicillin/Potassium Clav 1 tab PO DAILY 02/08/18 [Augmentin 875-125 Tablet] Cyclobenzaprine HCl [Flexeril -] 1 tab PO DAILY 02/08/18 Pantoprazole Sodium [Protonix] 1 tab PO DAILY 02/08/18 ASSESSMENT/PLAN: Patient is a 47 year old female with history of asthma, right lower extremity DVT, vertebral artery stenosis, old CVA, presents with complaint of burning retrosternal chest pain progressively worsening over the past three days. #Cardiology -R/o ACS Progressively worsening over the past three days, described as burning in nature. EKG showed sinus tachycardia at 110bpm with PVCs in bigeminy pattern. Resolved to normal sinus rhythm at 85bpm with IV fluid hydration. Troponin - x3 CTA - for PE Cardiac ECHO from prior admission (01/20/2018) shows LV size, thickness, function, and ejection fraction normal. Atrial septum aneurysmal, without evidence of shunting. Mild mitral and tricuspid regurgitation. Elevated right ventricular systolic pressure at 30-40mmHg. Rpt. Echo 02/08/18: Completely Normal, EF 65-70% Cardiac monitoring Repeat troponin, ECG, cardiac ECHO Cardiology consult (Dr. Feliciano) appreciated: will consider stress test if neurological work up - UTox - TSH: 1.22 #Neurology -Vertebral artery stenosis-stable? May be contributing factor to her lightheadedness. Fall precautions Continue Plavix 75mg PO daily F/u Neurology (Dr. Geiger) #Infectious Disease -Facial Acne/cellulitis- stable c/w Augmentin 875mg PO Daily Day 02/26 #Pulmonology -Asthma-stable Currently saturating 96% room air. Not in acute exacerbation. Duonebs Q4H PRN c/w Pulmicort CTA - for PE #Gastroenterology -Hepatic cyst- stable Noted incidentally upon CTA: 2.3cm. F/u outpatient with GI -GERD? outpatient w/u for chest pain 2/2 GI etiology if cardiac w/u negative -Obesity BMI 33.1 Counselled regarding healthy diet and exercise. 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 Encourage PO intake -Monitor electrolytes -Regular diet #DVT Ppx. -Lovenox 40mg SQ daily #Disposition -Observe in Telemetry floor Visit type - Emergency Visit Emergency Visit: Yes ED Registration Date: 02/07/18 Care time: The patient presented to the Emergency Department on the above date and was hospitalized for further evaluation of their emergent condition. - New Patient This patient is new to me today: Yes Date on this admission: 02/08/18 - Critical Care Critical Care patient: No - Discharge Referral Referred to [facility] Med P.C.: No
--- NOTE | 2018-02-08 14:51 | ECHO ---
Name: SKYLAR TERRAZAS Exam:Adult Echocardiogram Study Date: 02/08/2018 12:11 PM Age: 47 yrs Reason For Study: chest pain Height: 66 in Weight: 205 lb BSA: 2.0 m2 MMode/2D Measurements & Calculations IVSd: 0.90 cm Ao root diam: 3.1 cm LVIDd: 4.0 cm LA dimension: 2.6 cm LVIDs: 2.3 cm ACS: 1.9 cm LVPWd: 0.89 cm IVSs: 1.3 cm LVPWs: 1.2 cm EDV(Teich): 70.0 ml ESV(Teich): 18.2 ml Doppler Measurements & Calculations MV E max boris: 64.2 cm/sec Ao V2 max: 115.4 cm/sec MV A max boris: 73.9 cm/sec Ao max P.3 mmHg MV E/A: 0.87 Ao V2 mean: 90.1 cm/sec Ao mean P.5 mmHg Ao V2 VTI: 22.8 cm TR max boris: 213.8 cm/sec PI end-d boris: 99.1 cm/sec TR max P.3 mmHg Med Peak E' Boris: 7.6 cm/sec Med E/e': 8.4 Lat Peak E' Boris: 5.1 cm/sec Lat E/e': 12.7 Procedure A complete two-dimensional transthoracic echocardiogram was performed (2D, M-mode, Doppler and color flow Doppler). Left Ventricle The left ventricle is normal in size. Left ventricular systolic function is normal. Ejection Fraction = 65- 70%. No regional wall motion abnormalities noted. Right Ventricle The right ventricle is normal size. The right ventricular systolic function is normal. Atria The left atrial size is normal. Right atrial size is normal. Mitral Valve The mitral valve is normal in structure and function. There is no mitral regurgitation noted. Tricuspid Valve The tricuspid valve is normal in structure and function. No tricuspid regurgitation. Aortic Valve The aortic valve is normal in structure and function. No aortic regurgitation is present. Pulmonic Valve The pulmonic valve is not well visualized. Great Vessels The aortic root is normal size. Pericardium/Pleura There is no pericardial effusion. Interpretation Summary The left ventricle is normal in size. Left ventricular systolic function is normal. No regional wall motion abnormalities noted. Ejection Fraction = 65-70%. The right ventricular systolic function is normal. The left atrial size is normal. Right atrial size is normal. No significant valvular regurgitations There is no pericardial effusion. Madi Bonner MD 02/08/2018 02:50 PM
--- NOTE | 2018-02-08 15:58 | CON.CARD ---
Consult Consult Specialty:: Cardiology Referred by:: Palmer Reason for Consultation:: Dizziness - History of Present Illness Chief Complaint: Dizziness/sob History of Present Illness: 47 year old female with a pmhx of asthma, RLE DVT, vertebral artery stenosis, and old cva presenting with dizziness and sob. Says since recent discharge she has been dizzy whenever she gets up and walks. Also noted sob as well. Last 3- 4 days has had some mild central chest burning which has been persistent. Non radiating. Worsening palpitations this afternoon while shopping which lasted 15 minutes and associated with dizziness/lightheadedness. No falls or LOC. EKG: initial sinus with ventricular bigeminy. Repeat ekgs unremarkable after IVF's. CTA: no PE or dissection BNP normal CXR: unremarkable Echocardiogram unremarkable. - History Source History Provided By: Patient, Medical Record - Past Medical History Cardio/Vascular: Yes: Other (vertebral artery stenosis on plavix) Pulmonary: Yes: Asthma ...LMP: 04/12/13 Additional Medical History: dysfunctional uterine bleeding. - Alcohol/Substance Use Hx Alcohol Use: No - Smoking History Smoking history: Never smoked Have you smoked in the past 12 months: No Aproximately how many cigarettes per day: 0 - Social History History of Recent Travel: No Home Medications - Allergies Allergies/Adverse Reactions: Allergies Allergy/AdvReac Type Severity Reaction Status Date / Time aspirin Allergy Intermediate swelling/hi Verified 02/07/18 16:52 ves Sulfa (Sulfonamide Allergy Intermediate swelling/hi Verified 02/07/18 16:52 Antibiotics) ves - Home Medications Home Medications: Ambulatory Orders Clopidogrel Bisulfate [Plavix -] 75 mg PO DAILY 01/19/18 Acetaminophen/Caffeine/Butalb [Fioricet -] 1 tab PO Q6H 02/08/18 Albuterol Sulfate Inhaler - [Ventolin HFA Inhaler -] 2 puff IH Q6H 02/08/18 Amitriptyline HCl 1 tab PO DAILY 02/08/18 Amoxicillin/Potassium Clav [Augmentin 875-125 Tablet] 1 tab PO DAILY 02/08/18 Budesonide [Pulmicort Flexhaler] 2 puff IH BID 02/08/18 Cyclobenzaprine HCl [Flexeril -] 1 tab PO DAILY 02/08/18 Pantoprazole Sodium [Protonix] 1 tab PO DAILY 02/08/18 Family Disease History - Family Disease History Family Disease History: CA: Father (glioblastoma in brain) Vital Signs: Vital Signs Temperature 97.9 F 02/08/18 15:26 Pulse Rate 98 H 02/08/18 15:26 Respiratory Rate 19 02/07/18 22:56 Blood Pressure 116/77 02/08/18 15:26 O2 Sat by Pulse Oximetry (%) 100 02/08/18 15:26 Constitutional: Yes: No Distress Neck: Yes: Supple Respiratory: Yes: CTA Bilaterally Gastrointestinal: Yes: Soft Cardiovascular: Yes: Regular Rate and Rhythm JVD: No Carotid Bruit: No PMI: Non-Displaced Heart Sounds: Yes: S1, S2 Murmur: No: Systolic Murmur Edema: No - Other Data Labs, Other Data: CBC, BMP 02/08/18 05:00 02/08/18 05:00 Troponin, BNP 02/07/18 02/07/18 02/07/18 17:53 17:53 23:05 Troponin I < 0.02 < 0.02 B-Natriuretic Peptide 10.7 02/08/18 05:00 Troponin I < 0.02 B-Natriuretic Peptide Troponin, BNP 02/07/18 02/07/18 02/07/18 17:53 17:53 23:05 Troponin I < 0.02 < 0.02 B-Natriuretic Peptide 10.7 02/08/18 05:00 Troponin I < 0.02 B-Natriuretic Peptide Imaging - Results Chest X-ray: Report Reviewed EKG: Image Reviewed Assessment/Plan 47 year old female with a pmhx of asthma, RLE DVT, vertebral artery stenosis, and old cva presenting with dizziness and sob. Says since recent discharge she has been dizzy whenever she gets up and walks. Also noted sob as well. Last 3- 4 days has had some mild central chest burning which has been persistent. Non radiating. Worsening palpitations this afternoon while shopping which lasted 15 minutes and associated with dizziness/lightheadedness. No falls or LOC. EKG: initial sinus with ventricular bigeminy. Repeat ekgs unremarkable after IVF's. CTA: no PE or dissection BNP normal CXR: unremarkable Echocardiogram unremarkable. 1) Chest pain/sob/palpitations -May have been correlated to Ventricular bigeminy. TSH normal. Troponins neg. Lytes unremarkable CT no pe or dissection. -Admitted to [facility]. Monitor for degree of pvc's and if symptoms recur and correlate. -Echo unremarkable with no structural issues. F/u neurology regarding her vertebral stenosis. -Consider nuclear stress test if no other etiology noted.
[2018-02-08] MEDS ORDERED: AMOX TR/POT CLAV 875MG/125MG TABLETS (FP) ONE (16:55)
[2018-02-08] MEDS: AMOX TR/POT CLAV 875MG/125MG TABLETS (FP) PO SCH (17:10)
--- NOTE | 2018-02-08 18:17 | CON.NEURO ---
Consult Consult Specialty:: [place] Referred by:: ER - History of Present Illness History of Present Illness: 47 AA woman with PMH asthma, right lower extremity DVT, vertebral artery stenosis, old CVA presented again with cc of feeling dizzy Patient was also complaining of SOB and chest tighteners No fall No LOC no CP I sa wteh patient in [facility] ER Dizziness upon standing Lengthy conversation about her VA stenosis - History Source History Provided By: Patient Limitations to Obtaining History: No Limitations - Past Medical History Cardio/Vascular: Yes: Other (vertebral artery stenosis on plavix) Pulmonary: Yes: Asthma ...LMP: 04/12/13 Additional Medical History: dysfunctional uterine bleeding. - Alcohol/Substance Use Hx Alcohol Use: No - Smoking History Smoking history: Never smoked Have you smoked in the past 12 months: No Aproximately how many cigarettes per day: 0 - Social History History of Recent Travel: No Home Medications - Allergies Allergies/Adverse Reactions: Allergies Allergy/AdvReac Type Severity Reaction Status Date / Time aspirin Allergy Intermediate swelling/hi Verified 02/07/18 16:52 ves Sulfa (Sulfonamide Allergy Intermediate swelling/hi Verified 02/07/18 16:52 Antibiotics) ves - Home Medications Home Medications: Ambulatory Orders Clopidogrel Bisulfate [Plavix -] 75 mg PO DAILY 01/19/18 Acetaminophen/Caffeine/Butalb [Fioricet -] 1 tab PO Q6H 02/08/18 Albuterol Sulfate Inhaler - [Ventolin HFA Inhaler -] 2 puff IH Q6H 02/08/18 Amitriptyline HCl 1 tab PO DAILY 02/08/18 Amoxicillin/Potassium Clav [Augmentin 875-125 Tablet] 1 tab PO DAILY 02/08/18 Budesonide [Pulmicort Flexhaler] 2 puff IH BID 02/08/18 Cyclobenzaprine HCl [Flexeril -] 1 tab PO DAILY 02/08/18 Pantoprazole Sodium [Protonix] 1 tab PO DAILY 02/08/18 Family Disease History - Family Disease History Family Disease History: CA: Father (glioblastoma in brain) Review of Systems - Review of Systems Constitutional: reports: No Symptoms Eyes: reports: No Symptoms Neurological: reports: Headache, Incoordination, Numbness, Parasthesia Physical Exam-Neuro Vital Signs: Vital Signs Temperature 97.9 F 02/08/18 15:26 Pulse Rate 98 H 02/08/18 15:26 Respiratory Rate 19 02/07/18 22:56 Blood Pressure 116/77 02/08/18 15:26 O2 Sat by Pulse Oximetry (%) 100 02/08/18 15:26 Constitutional: Yes: Well Nourished, Pallor Neck: Yes: WNL Labs: CBC, BMP 02/08/18 05:00 02/08/18 05:00 - Neuro Exam Level Of Consciousness: Yes: Oriented to Person, Oriented to Place, Oriented to Time Eyes: Yes: PERRLA Speech: WNL Dominant Hand: Right Cranial Nerves II-XII Intact: Yes Gag: Present DTR's: 1+ Left Bicep, 1+ Right Bicep, 1+ Left Brachioradialis, 1+ Right Brachioradialis Response to pain prick: Normal Response to temperature: Normal Response to vibration: Normal Motor Strength: 4/5: Left Arm, Right Arm, Left Leg, Right Leg Gait: Deferred Problem List - Problems (1) Dizziness Assessment/Plan: ??? BPPV No evidence of TIA Doubt the VA stensis is cause of patient symptoms 1 .Neuro checks 2 .Neuro can go home 3. Meclizine 25mg po q12 4. Continue Plavix 6. Pls no order MRI or MRA Code(s): R42 - DIZZINESS AND GIDDINESS
[2018-02-08] MEDS ORDERED: ACETAMINOPHEN/CAFFEINE/BUTALBITAL 1 TAB ONE (18:56)
[2018-02-08] MEDS: ACETAMINOPHEN/CAFFEINE/BUTALBITAL 1 TAB PO SCH (18:58)
--- NOTE | 2018-02-08 19:38 | PN ---
Teaching Attending Note Name of Resident: Caesar Lacy ATTENDING PHYSICIAN STATEMENT I saw and evaluated the patient. I reviewed the resident's note and discussed the case with the resident. I agree with the resident's findings and plan as documented. SUBJECTIVE: Patient is feeling better now, no palpitations at this time. OBJECTIVE: Vital Signs Temperature 97.9 F 02/08/18 15:26 Pulse Rate 98 H 02/08/18 15:26 Respiratory Rate 19 02/07/18 22:56 Blood Pressure 116/77 02/08/18 15:26 O2 Sat by Pulse Oximetry (%) 100 02/08/18 15:26 GENERAL: The patient is awake, alert, and fully oriented, in no acute distress. EYES: Sclera anicteric, conjunctiva clear. ENT: Ears normal, moist mucous membranes. LUNGS: Breath sounds equal, clear to auscultation bilaterally, no wheezes, no crackles, no accessory muscle use. HEART: Regular rate and rhythm, S1, S2 without murmur. ABDOMEN: Soft, obese nontender, nondistended, normoactive bowel sounds, no guarding, no rebound EXTREMITIES: 2+ dorsal pedal pulses, warm, well-perfused, no calf tenderness no edema. NEUROLOGICAL: Normal speech, gait not observed. PSYCH: Normal mood, normal affect. SKIN: Warm, dry, normal turgor, no rashes or lesions noted CBCD WBC 5.6 K/mm3 (4.0-10.0) 02/08/18 05:00 RBC 4.18 M/mm3 (3.60-5.2) 02/08/18 05:00 Hgb 11.0 GM/dL (10.7-15.3) 02/08/18 05:00 Hct 34.8 % (32.4-45.2) 02/08/18 05:00 MCV 83.3 fl (80-96) 02/08/18 05:00 MCHC 31.5 g/dl (32.0-36.0) L 02/08/18 05:00 RDW 14.4 % (11.6-15.6) 02/08/18 05:00 Plt Count 222 K/MM3 (134-434) 02/08/18 05:00 MPV 10.1 fl (7.5-11.1) 02/08/18 05:00 CMP Sodium 138 mmol/L (136-145) 02/08/18 05:00 Potassium 4.2 mmol/L (3.5-5.1) 02/08/18 05:00 Chloride 108 mmol/L (98-107) H 02/08/18 05:00 Carbon Dioxide 22 mmol/L (21-32) 02/08/18 05:00 Anion Gap 8 MMOL/L (8-16) 02/08/18 05:00 BUN 8 mg/dL (7-18) 02/08/18 05:00 Creatinine 0.8 mg/dL (0.55-1.3) 02/08/18 05:00 Creat Clearance w eGFR > 60 (>60) 02/08/18 05:00 Random Glucose 81 mg/dL (74-106) 02/08/18 05:00 Calcium 8.5 mg/dL (8.5-10.1) 02/08/18 05:00 Total Bilirubin 0.2 mg/dL (0.2-1) 02/08/18 05:00 AST 22 U/L (15-37) 02/08/18 05:00 ALT 26 U/L (13-61) 02/08/18 05:00 Alkaline Phosphatase 74 U/L (45-117) 02/08/18 05:00 Total Protein 7.1 g/dl (6.4-8.2) 02/08/18 05:00 Albumin 3.4 g/dl (3.4-5.0) 02/08/18 05:00 CARDIAC ENZYMES Creatine Kinase 320 IU/L (26-192) H 02/07/18 23:05 Troponin I < 0.02 ng/ml (0.00-0.05) 02/08/18 05:00 Current Medications Generic Name Dose Route Start Last Admin Trade Name Freq PRN Reason Stop Dose Admin Acetaminophen/Butalbital/Caffeine 1 tablet 02/08/18 18:00 02/08/18 18:58 Fioricet - PO 1 tablet QID JOHNNY Administration Albuterol/Ipratropium 1 amp 02/08/18 01:58 02/08/18 15:40 Duoneb - NEB 1 amp Q4H PRN Administration SHORTNESS OF BREATH Amitriptyline HCl 25 mg 02/09/18 22:00 Elavil - PO HS JOHNNY Amoxicillin/Clavulanate Potassium 1 tab 02/08/18 16:15 02/08/18 17:10 Augmentin - 875mg Tablet PO Not Given DAILY@0800 [facility] Clopidogrel Bisulfate 75 mg 02/08/18 10:00 02/08/18 10:08 Plavix - PO 75 mg DAILY [facility] Administration Cyclobenzaprine HCl 10 mg 02/09/18 10:00 Flexeril - PO DAILY [facility] Enoxaparin Sodium 40 mg 02/08/18 10:00 02/08/18 10:07 Lovenox - SQ 40 mg DAILY [facility] Administration Mometasone Furoate 1 puff 02/08/18 22:00 Asmanex 220mcg - IH [facility] Pantoprazole Sodium 40 mg 02/09/18 10:00 Protonix - PO DAILY [facility] Home Medications Medication Instructions Recorded Clopidogrel Bisulfate [Plavix -] 75 mg PO DAILY 01/19/18 Acetaminophen/Caffeine/Butalb 1 tab PO Q6H 02/08/18 [Fioricet -] Albuterol Sulfate Inhaler - 2 puff IH Q6H 02/08/18 [Ventolin HFA Inhaler -] Amitriptyline HCl 1 tab PO DAILY 02/08/18 Amoxicillin/Potassium Clav 1 tab PO DAILY 02/08/18 [Augmentin 875-125 Tablet] Budesonide [Pulmicort Flexhaler] 2 puff IH BID 02/08/18 Cyclobenzaprine HCl [Flexeril -] 1 tab PO DAILY 02/08/18 Pantoprazole Sodium [Protonix] 1 tab PO DAILY 02/08/18 CTA: NO PE or dissection EKG: initial sinus with ventricular bigeminy. Repeat ekgs unremarkable after IVF's Echocardiogram unremarkable. ASSESSMENT AND PLAN: Patient is a 47 year old female with a pmhx of asthma, RLE DVT, vertebral artery stenosis, and old cva presenting with dizziness and sob. # Chest pain/sob/palpitations: possible Ventricular bigeminy. TSH normal. Troponins neg. Lytes unremarkable, frequent PVCs on tele. start bblocker Lopressor 12.5mg bid and titrate up as BP tolerates for PVC suppression then evaluate if symptoms improve Consider nuclear stress test if symptoms do not improve with suppression of PVCs # Dizziness : No evidence of TIA , as per neurologist the cause is not due to VA stenosis. # Obesity weight loss recommended DVT prophylaxis - Lovenox 40 mg SQ q 24 hours. Advance directives - Full code
[2018-02-09] MEDS: ACETAMINOPHEN/CAFFEINE/BUTALBITAL 1 TAB PO SCH ×6 (01:09→22:02)
[2018-02-09] MEDS: MOMETASONE FUROATE 220 MCG/IH INHALER IH SCH ×2 (01:15→23:30)
[2018-02-09 06:41] LABS: HEMATOCRIT 36.9 % (32.4-45.2); HEMOGLOBIN 11.7 GM/dL (10.7-15.3); MCH 26.1 pg (25.7-33.7); MCHC 31.6 g/dl (32.0-36.0); MEAN CELL VOLUME 82.8 fl (80-96); MEAN PLT VOLUME 10.2 fl (7.5-11.1); PLATELET COUNT 224 K/MM3 (134-434); RBC 4.46 M/mm3 (3.60-5.2); RDW 14.4 % (11.6-15.6); WHITE BLOOD COUNT 4.9 K/mm3 (4.0-10.0)
[2018-02-09 06:57] LABS: ANION GAP 8 MMOL/L (8-16); BLOOD UREA NITROGEN 11 mg/dL (7-18); CALCIUM 8.9 mg/dL (8.5-10.1); CHLORIDE 105 mmol/L (98-107); CO2 25 mmol/L (21-32); GLUCOSE,RANDOM 75 mg/dL (74-106); MAGNESIUM 2.2 mg/dL (1.8-2.4); PHOSPHOROUS 4.9 mg/dL (2.5-4.9); POTASSIUM 4.4 mmol/L (3.5-5.1); SODIUM 138 mmol/L (136-145)
[2018-02-09] MEDS: AMOX TR/POT CLAV 875MG/125MG TABLETS (FP) PO SCH (08:44)
[2018-02-09] MEDS ORDERED: PANTOPRAZOLE 40 MG TABLET (FP) PO SCH (10:00)
[2018-02-09] MEDS: ENOXAPARIN NA (PORCINE) 40 MG/0.4 ML DISP.SYRIN SQ SCH (10:19)
[2018-02-09] MEDS: CLOPIDOGREL BISULFATE 75 MG TABLET (FP) PO SCH (10:19)
[2018-02-09] MEDS: CYCLOBENZAPRINE HCL 10 MG TABLET (FP) PO SCH (10:20)
--- NOTE | 2018-02-09 10:44 | PN ---
Progress Note, Physician History of Present Illness: seen and examined today in [facility]. continues to feel dizziness when standing and walking. as well as frequent palpitations. - Current Medication List Current Medications: Active Medications Acetaminophen/Butalbital/Caffeine (Fioricet -) 1 tablet PO QID [facility] Last Admin: 02/09/18 10:19 Dose: 1 tablet Albuterol/Ipratropium (Duoneb -) 1 amp NEB Q4H PRN PRN Reason: SHORTNESS OF BREATH Last Admin: 02/08/18 15:40 Dose: 1 amp Amitriptyline HCl (Elavil -) 25 mg PO HS [facility] Amoxicillin/Clavulanate Potassium (Augmentin - 875mg Tablet) 1 tab PO DAILY@ 0800 [facility] Last Admin: 02/09/18 08:44 Dose: 1 tab Clopidogrel Bisulfate (Plavix -) 75 mg PO DAILY [facility] Last Admin: 02/09/18 10:19 Dose: 75 mg Cyclobenzaprine HCl (Flexeril -) 10 mg PO DAILY [facility] Last Admin: 02/09/18 10:20 Dose: 10 mg Enoxaparin Sodium (Lovenox -) 40 mg SQ DAILY [facility] Last Admin: 02/09/18 10:19 Dose: 40 mg Metoprolol Tartrate (Lopressor -) 12.5 mg PO BID [facility] Mometasone Furoate (Asmanex 220mcg -) 1 puff IH HS [facility] Last Admin: 02/09/18 01:15 Dose: Not Given Pantoprazole Sodium (Protonix -) 40 mg PO DAILY [facility] Last Admin: 02/09/18 10:19 Dose: 40 mg - Objective Vital Signs: Vital Signs Temperature 98.2 F 02/09/18 08:07 Pulse Rate 97 H 02/09/18 08:07 Respiratory Rate 20 02/09/18 10:00 Blood Pressure 139/65 02/09/18 08:07 O2 Sat by Pulse Oximetry (%) 97 02/09/18 10:00 Constitutional: Yes: No Distress, Calm Eyes: Yes: Conjunctiva Clear, EOM Intact HENT: Yes: Atraumatic, Normocephalic Neck: Yes: Supple, Trachea Midline Cardiovascular: Yes: Regular Rate and Rhythm, S1, S2. No: Bradycardia, Tachycardia, Pulse Irregular, Bruit, JVD, Gallop, Murmur, Rub, S3, S4, Varicosities Respiratory: Yes: Regular, CTA Bilaterally. No: Rales, Rhonchi, Wheezes Gastrointestinal: Yes: Normal Bowel Sounds, Soft. No: Distention, Tenderness Extremities: Yes: WNL Edema: No Peripheral Pulses WNL: Yes Peripheral Pulses: Left Doralis Pedis: 2+, Right Dorsalis Pedis: 2+ Neurological: Yes: Alert, Oriented Psychiatric: Yes: Alert, Oriented Labs: CBC, BMP 02/09/18 05:30 02/09/18 05:30 - ....Imaging Chest X-ray: Report Reviewed, Image Reviewed EKG: Report Reviewed, Image Reviewed Other: Report Reviewed, Image Reviewed (tele-nsr, frequent pvcs) Assessment/Plan 47 year old female with a pmhx of asthma, RLE DVT, vertebral artery stenosis, and old cva presenting with dizziness and sob. Says since recent discharge she has been dizzy whenever she gets up and walks. Also noted sob as well. Last 3- 4 days has had some mild central chest burning which has been persistent. Non radiating. Worsening palpitations this afternoon while shopping which lasted 15 minutes and associated with dizziness/lightheadedness. No falls or LOC. EKG: initial sinus with ventricular bigeminy. Repeat ekgs unremarkable after IVF's. CTA: no PE or dissection BNP normal CXR: unremarkable Echocardiogram unremarkable. 1) Chest pain/sob/palpitations -May have been correlated to Ventricular bigeminy. TSH normal. Troponins neg. -Lytes unremarkable -CT no pe or dissection. -frequent PVCs on tele -start bblocker Lopressor 12.5mg bid and titrate up as BP tolerates for PVC suppression then evaluate if symptoms improve -Echo unremarkable with no structural issues. -F/u neurology -Consider nuclear stress test if symptoms do not improve with suppression of PVCs
[2018-02-09] MEDS: METOPROLOL TARTRATE 25 MG TABLET (FP) PO SCH ×3 (10:58→22:07)
[2018-02-09 11:43] LABS: COCAINE, UR NEGATIVE ng/ml (CUTOFF=300); METHADONE, UR NEGATIVE ng/ml (CUTOFF=300); OPIATES, URI NEGATIVE ng/ml (CUTOFF=300); PHENCYCLIDINE,URINE NEGATIVE ng/ml (CUTOFF=25); URINE AMPHETAMINES NEGATIVE ng/ml (CUTOFF=500); URINE BENZODIAZEPINES NEGATIVE ng/ml (CUTOFF=200)
[2018-02-09 11:48] LABS: URINE BARBITURATES POSITIVE ng/ml (CUTOFF=200)
[2018-02-09] MEDS: RANITIDINE HCL 150 MG TABLET (FP) PO SCH ×2 (14:29→16:35)
--- NOTE | 2018-02-09 16:19 | PN ---
Physical Exam: SUBJECTIVE: Patient seen and examined. Pt. did not receive any albuterol treatments overnight. Pt. says that the Fiorcet did not help too much with headache. Pt. complaining of orthopnea and relief of symptoms after bed elevation. OBJECTIVE: Vital Signs Period Temp Pulse Resp BP Sys/Mckenzie Pulse Ox Last 24 Hr 97.5 F-98.6 F 64-97 18-20 95-139/52-76 97-98 GENERAL: The patient is awake, alert, and fully oriented, in mild distress 2/2 headache. EYES: Sclera anicteric, conjunctiva clear. No ptosis. ENT: Ears normal, nares patent, moist mucous membranes. LUNGS: Breath sounds equal, clear to auscultation bilaterally, no wheezes, no crackles, no accessory muscle use. HEART: Regular rate and rhythm, S1, S2 without murmur. ABDOMEN: Soft, obese tender to palpation in epigastrium, nondistended, normoactive bowel sounds, no guarding, no rebound EXTREMITIES: 2+ dorsal pedal pulses, warm, well-perfused, no calf tenderness no edema. NEUROLOGICAL: Normal speech, gait not observed. PSYCH: Normal mood, normal affect. SKIN: Warm, dry, normal turgor Laboratory Results - last 24 hr 02/09/18 02/09/18 02/09/18 05:30 05:30 10:25 WBC 4.9 RBC 4.46 Hgb 11.7 Hct 36.9 MCV 82.8 MCH 26.1 MCHC 31.6 L RDW 14.4 Plt Count 224 MPV 10.2 Sodium 138 Potassium 4.4 Chloride 105 Carbon Dioxide 25 Anion Gap 8 BUN 11 Creatinine 1.0 Creat Clearance w eGFR 59.69 Random Glucose 75 Calcium 8.9 Phosphorus 4.9 Magnesium 2.2 Opiates Screen Negative Methadone Screen Negative Barbiturate Screen Positive A* Phencyclidine Screen Negative Ur Amphetamines Screen Negative MDMA (Ecstasy) Screen Negative Benzodiazepines Screen Negative Cocaine Screen Negative U Marijuana (THC) Screen Negative Active Medications Current Medications Acetaminophen/Butalbital/Caffeine (Fioricet -) 1 tablet PO QID JOHNNY Last Admin: 02/09/18 14:29 Dose: Not Given Albuterol/Ipratropium (Duoneb -) 1 amp NEB Q4H PRN PRN Reason: SHORTNESS OF BREATH Last Admin: 02/08/18 15:40 Dose: 1 amp Amitriptyline HCl (Elavil -) 25 mg PO HS [facility] Amoxicillin/Clavulanate Potassium (Augmentin - 875mg Tablet) 1 tab PO DAILY@ 0800 [facility] Last Admin: 02/09/18 08:44 Dose: 1 tab Clopidogrel Bisulfate (Plavix -) 75 mg PO DAILY [facility] Last Admin: 02/09/18 10:19 Dose: 75 mg Cyclobenzaprine HCl (Flexeril -) 10 mg PO DAILY [facility] Last Admin: 02/09/18 10:20 Dose: 10 mg Enoxaparin Sodium (Lovenox -) 40 mg SQ DAILY [facility] Last Admin: 02/09/18 10:19 Dose: 40 mg Metoprolol Tartrate (Lopressor -) 12.5 mg PO BID [facility] Last Admin: 02/09/18 10:58 Dose: 12.5 mg Mometasone Furoate (Asmanex 220mcg -) 1 puff IH [facility] Last Admin: 02/09/18 01:15 Dose: Not Given Pantoprazole Sodium (Protonix -) 40 mg PO DAILY [facility] Last Admin: 02/09/18 10:19 Dose: 40 mg Ranitidine HCl (Zantac -) 300 mg PO DAILY [facility] Last Admin: 02/09/18 14:29 Dose: Not Given Home Medications Medication Instructions Recorded Clopidogrel Bisulfate [Plavix -] 75 mg PO DAILY 01/19/18 Acetaminophen/Caffeine/Butalb 1 tab PO Q6H 02/08/18 [Fioricet -] Albuterol Sulfate Inhaler - 2 puff IH Q6H 02/08/18 [Ventolin HFA Inhaler -] Amitriptyline HCl 1 tab PO DAILY 02/08/18 Amoxicillin/Potassium Clav 1 tab PO DAILY 02/08/18 [Augmentin 875-125 Tablet] Budesonide [Pulmicort Flexhaler] 2 puff IH BID 02/08/18 Cyclobenzaprine HCl [Flexeril -] 1 tab PO DAILY 02/08/18 Pantoprazole Sodium [Protonix] 1 tab PO DAILY 02/08/18 ASSESSMENT/PLAN: Patient is a 47 year old female with history of asthma, right lower extremity DVT, vertebral artery stenosis, old CVA, presents with complaint of burning retrosternal chest pain progressively worsening over the past three days. #Cardiology -Symptomatic PVCs start Lopressor 12.5mg BID- as this is a selective BB, should not cause asthma exacerbation. Can titrate as needed to resolve symptoms. -R/o ACS Progressively worsening over the past three days, described as burning in nature. EKG showed sinus tachycardia at 110bpm with PVCs in bigeminy pattern. Resolved to normal sinus rhythm at 85bpm with IV fluid hydration. Troponin - x3 CTA - for PE Cardiac ECHO from prior admission (01/20/2018) shows LV size, thickness, function, and ejection fraction normal. Atrial septum aneurysmal, without evidence of shunting. Mild mitral and tricuspid regurgitation. Elevated right ventricular systolic pressure at 30-40mmHg. Rpt. Echo 02/08/18: Completely Normal, EF: 65-70% Cardiac monitoring: showed Bigeminy, PVCs and Missed beats. Cardiology consult (Dr. Feliciano) appreciated: will consider stress test if neurological work up and GI workup negative UTox - TSH: 1.22 #Neurology -Vertebral artery stenosis-stable? Fall precautions Continue Plavix 75mg PO daily Neurology ([facility]) consult appreciated c/w Fiorcet Daily Not a contributing factor to her lightheadedness Does NOT recommend MRI or MRA Can discharge from neurological perspective #Infectious Disease -Facial Acne/cellulitis- stable c/w Augmentin 875mg PO Daily Day 02/26 #Pulmonology -Asthma-stable Currently saturating 96% room air. Not in acute exacerbation. Duonebs Q4H PRN c/w Pulmicort CTA - for PE #Gastroenterology -Hepatic cyst- stable Noted incidentally upon CTA: 2.3cm. F/u outpatient with GI -GERD outpatient w/u for chest pain 2/2 GI etiology if cardiac w/u negative starte Zantac 300mg PO Daily -Obesity BMI 33.1 Counselled regarding healthy diet and exercise. coding specialist evaluation #F/E/N -No IV fluids indicated. Encourage PO intake -Monitor electrolytes -Regular diet #DVT Ppx. -Lovenox 40mg SQ daily #Disposition -Observe in Telemetry floor Visit type - Emergency Visit Emergency Visit: Yes ED Registration Date: 02/09/18 Care time: The patient presented to the Emergency Department on the above date and was hospitalized for further evaluation of their emergent condition. - New Patient This patient is new to me today: No - Critical Care Critical Care patient: No - Discharge Referral Referred to [facility] No
--- NOTE | 2018-02-09 20:26 | PN ---
Teaching Attending Note Name of Resident: Caesar Lacy ATTENDING PHYSICIAN STATEMENT I saw and evaluated the patient. I reviewed the resident's note and discussed the case with the resident. I agree with the resident's findings and plan as documented. SUBJECTIVE: Patient feels better , started on Lopressor today due to having PVC and Bigeminy on the monitor. OBJECTIVE: Vital Signs Temperature 97.8 F 02/09/18 17:00 Pulse Rate 80 02/09/18 17:00 Respiratory Rate 20 02/09/18 17:00 Blood Pressure 105/72 02/09/18 17:00 O2 Sat by Pulse Oximetry (%) 97 02/09/18 10:00 GENERAL: The patient is awake, alert, and fully oriented, in no acute distress. EYES: Sclera anicteric, conjunctiva clear. ENT: Ears normal, moist mucous membranes. LUNGS: Breath sounds equal, clear to auscultation bilaterally, no wheezes, no crackles, no accessory muscle use. HEART: Regular rate and rhythm, S1, S2 without murmur. ABDOMEN: Soft, obese nontender, nondistended, normoactive bowel sounds, no guarding, no rebound EXTREMITIES: 2+ dorsal pedal pulses, warm, well-perfused, no calf tenderness no edema. NEUROLOGICAL: Normal speech, gait not observed. PSYCH: Normal mood, normal affect. SKIN: Warm, dry, normal turgor, no rashes or lesions noted CBCD WBC 4.9 K/mm3 (4.0-10.0) 02/09/18 05:30 RBC 4.46 M/mm3 (3.60-5.2) 02/09/18 05:30 Hgb 11.7 GM/dL (10.7-15.3) 02/09/18 05:30 Hct 36.9 % (32.4-45.2) 02/09/18 05:30 MCV 82.8 fl (80-96) 02/09/18 05:30 MCHC 31.6 g/dl (32.0-36.0) L 02/09/18 05:30 RDW 14.4 % (11.6-15.6) 02/09/18 05:30 Plt Count 224 K/MM3 (134-434) 02/09/18 05:30 MPV 10.2 fl (7.5-11.1) 02/09/18 05:30 CMP Sodium 138 mmol/L (136-145) 02/09/18 05:30 Potassium 4.4 mmol/L (3.5-5.1) 02/09/18 05:30 Chloride 105 mmol/L (98-107) 02/09/18 05:30 Carbon Dioxide 25 mmol/L (21-32) 02/09/18 05:30 Anion Gap 8 MMOL/L (8-16) 02/09/18 05:30 BUN 11 mg/dL (7-18) 02/09/18 05:30 Creatinine 1.0 mg/dL (0.55-1.3) 02/09/18 05:30 Creat Clearance w eGFR 59.69 (>60) 02/09/18 05:30 Random Glucose 75 mg/dL (74-106) 02/09/18 05:30 Calcium 8.9 mg/dL (8.5-10.1) 02/09/18 05:30 Total Bilirubin 0.2 mg/dL (0.2-1) 02/08/18 05:00 AST 22 U/L (15-37) 02/08/18 05:00 ALT 26 U/L (13-61) 02/08/18 05:00 Alkaline Phosphatase 74 U/L (45-117) 02/08/18 05:00 Total Protein 7.1 g/dl (6.4-8.2) 02/08/18 05:00 Albumin 3.4 g/dl (3.4-5.0) 02/08/18 05:00 CARDIAC ENZYMES Creatine Kinase 320 IU/L (26-192) H 02/07/18 23:05 Troponin I < 0.02 ng/ml (0.00-0.05) 02/08/18 05:00 Current Medications Generic Name Dose Route Start Last Admin Trade Name Freq PRN Reason Stop Dose Admin Acetaminophen/Butalbital/Caffeine 1 tablet 02/08/18 18:00 02/09/18 16:35 Fioricet - PO 1 tablet QID JOHNNY Administration Albuterol/Ipratropium 1 amp 02/08/18 01:58 02/08/18 15:40 Duoneb - NEB 1 amp Q4H PRN Administration SHORTNESS OF BREATH Amitriptyline HCl 25 mg 02/09/18 22:00 Elavil - PO HS JOHNNY Amoxicillin/Clavulanate Potassium 1 tab 02/08/18 16:15 02/09/18 08:44 Augmentin - 875mg Tablet PO 1 tab DAILY@0800 JOHNNY Administration Clopidogrel Bisulfate 75 mg 02/08/18 10:00 02/09/18 10:19 Plavix - PO 75 mg DAILY JOHNNY Administration Cyclobenzaprine HCl 10 mg 02/09/18 10:00 02/09/18 10:20 Flexeril - PO 10 mg DAILY JOHNNY Administration Enoxaparin Sodium 40 mg 02/08/18 10:00 02/09/18 10:19 Lovenox - SQ 40 mg DAILY JOHNNY Administration Metoprolol Tartrate 12.5 mg 02/09/18 10:45 02/09/18 10:58 Lopressor - PO 12.5 mg BID JOHNNY Administration Mometasone Furoate 1 puff 02/08/18 22:00 02/09/18 01:15 Asmanex 220mcg - IH Not Given HS JOHNNY Ranitidine HCl 300 mg 02/09/18 12:15 02/09/18 16:35 Zantac - PO 300 mg DAILY JOHNNY Administration Home Medications Medication Instructions Recorded Clopidogrel Bisulfate [Plavix -] 75 mg PO DAILY 01/19/18 Acetaminophen/Caffeine/Butalb 1 tab PO Q6H 02/08/18 [Fioricet -] Albuterol Sulfate Inhaler - 2 puff IH Q6H 02/08/18 [Ventolin HFA Inhaler -] Amitriptyline HCl 1 tab PO DAILY 02/08/18 Amoxicillin/Potassium Clav 1 tab PO DAILY 02/08/18 [Augmentin 875-125 Tablet] Budesonide [Pulmicort Flexhaler] 2 puff IH BID 02/08/18 Cyclobenzaprine HCl [Flexeril -] 1 tab PO DAILY 02/08/18 Pantoprazole Sodium [Protonix] 1 tab PO DAILY 02/08/18 CTA: NO PE or dissection EKG: initial sinus with ventricular bigeminy. Repeat ekgs unremarkable after IVF's Echocardiogram unremarkable. ASSESSMENT AND PLAN: Patient is a 47 year old female with a pmhx of asthma, RLE DVT, vertebral artery stenosis, and old cva presenting with dizziness and sob. # Chest pain/sob/palpitations: possible Ventricular bigeminy. TSH normal. per Cardio, patient was started on Lopressor as per split leather mosser. Troponins neg. Lopressor 12.5mg bid and titrate up as BP tolerates for PVC suppression then evaluate if symptoms improve; Consider nuclear stress test if symptoms do not improve with suppression of PVCs. # Dizziness : No evidence of TIA , as per neurologist the cause is not due to VA stenosis. # Obesity weight loss recommended DVT prophylaxis - Lovenox 40 mg SQ q 24 hours. Advance directives - Full code
[2018-02-09] MEDS: ALBUTEROL SO4 2.5/IPRATROPIUM 0.5 INH SOL 3 ML VIAL.NEB. NEB PRN (21:39)
[2018-02-09] MEDS ORDERED: AMITRIPTYLINE HCL 25 MG TABLET (FP) PO SCH (22:00)
[2018-02-10 07:20] LABS: HEMATOCRIT 35.9 % (32.4-45.2); HEMOGLOBIN 11.4 GM/dL (10.7-15.3); MCH 26.5 pg (25.7-33.7); MCHC 31.8 g/dl (32.0-36.0); MEAN CELL VOLUME 83.2 fl (80-96); PLATELET COUNT 230 K/MM3 (134-434); RBC 4.32 M/mm3 (3.60-5.2); RDW 14.4 % (11.6-15.6); WHITE BLOOD COUNT 4.7 K/mm3 (4.0-10.0)
[2018-02-10 08:15] LABS: ANION GAP 9 MMOL/L (8-16); BLOOD UREA NITROGEN 13 mg/dL (7-18); CALCIUM 8.4 mg/dL (8.5-10.1); CHLORIDE 108 mmol/L (98-107); CO2 22 mmol/L (21-32); CREATININE 0.9 mg/dL (0.55-1.3); GLUCOSE,RANDOM 72 mg/dL (74-106); MAGNESIUM 1.9 mg/dL (1.8-2.4); PHOSPHOROUS 4.1 mg/dL (2.5-4.9); POTASSIUM 4.3 mmol/L (3.5-5.1); SODIUM 139 mmol/L (136-145)
[2018-02-10] MEDS: CLOPIDOGREL BISULFATE 75 MG TABLET (FP) PO SCH (09:01)
[2018-02-10] MEDS: METOPROLOL TARTRATE 25 MG TABLET (FP) PO SCH (09:01)
[2018-02-10] MEDS: ENOXAPARIN NA (PORCINE) 40 MG/0.4 ML DISP.SYRIN SQ SCH (09:01)
[2018-02-10] MEDS: AMOX TR/POT CLAV 875MG/125MG TABLETS (FP) PO SCH (09:02)
[2018-02-10] MEDS: RANITIDINE HCL 150 MG TABLET (FP) PO SCH (09:02)
[2018-02-10] MEDS: CYCLOBENZAPRINE HCL 10 MG TABLET (FP) PO SCH (09:02)
[2018-02-10 10:06] VITALS: TEMP 97.8
--- NOTE | 2018-02-10 10:33 | PN ---
Physical Exam: SUBJECTIVE: Patient seen and examined. Pt. states that burnin sensation has gone away from epigastrium, instead she has this needle prick sensation that is constant on the same location and is worse with deep inspiration. Pt. is worried about thickened blood and points to multiple sites where IV were unsuccesfully attempted. Pt. states that in the past there was some discussion with a doctor about having lupus but this was never confirmed. Pt. refused Lopressor last night because of orthopnea which she attributed to the the new medication. Of note Pt. endorses inability to lie flat and states that she uses multiple pillow at home to sleep. Pt. states that she need an albuterol treatment yesterday evening because of wheezing. Pt. states that she does not normally need breathing treatments and had not needed ay for the last year prior to coming to the hospital. She states that after getting a CT w/ contrast she felt SOB and needed 2 breathing treatments. OBJECTIVE: Vital Signs Period Temp Pulse Resp BP Sys/Mckenzie Pulse Ox Last 24 Hr 97.8 F-98.6 F 65-89 18-20 101-123/61-81 98-100 GENERAL: The patient is awake, alert, and fully oriented, in mild distress 2/2 headache. EYES: Sclera anicteric, conjunctiva clear. No ptosis. ENT: Ears normal, nares patent, moist mucous membranes. LUNGS: Breath sounds equal, clear to auscultation bilaterally, no wheezes, no crackles, no accessory muscle use. HEART: Regular rate and rhythm, S1, S2 without murmur. ABDOMEN: Soft, obese, mild tenderness to palpation in epigastrium, nondistended , normoactive bowel sounds, no guarding, no rebound EXTREMITIES: 2+ dorsal pedal pulses, warm, well-perfused, no calf tenderness no edema. NEUROLOGICAL: Normal speech, gait not observed. PSYCH: Normal mood, normal affect. SKIN: Warm, dry, normal turgor Laboratory Results - last 24 hr 02/09/18 02/10/18 02/10/18 10:25 05:30 05:30 WBC 4.7 RBC 4.32 Hgb 11.4 Hct 35.9 MCV 83.2 MCH 26.5 MCHC 31.8 L RDW 14.4 Plt Count 230 MPV 10.0 Sodium 139 Potassium 4.3 Chloride 108 H Carbon Dioxide 22 Anion Gap 9 BUN 13 Creatinine 0.9 Creat Clearance w eGFR > 60 Random Glucose 72 L Calcium 8.4 L Phosphorus 4.1 Magnesium 1.9 Opiates Screen Negative Methadone Screen Negative Barbiturate Screen Positive A* Phencyclidine Screen Negative Ur Amphetamines Screen Negative MDMA (Ecstasy) Screen Negative Benzodiazepines Screen Negative Cocaine Screen Negative U Marijuana (THC) Screen Negative Active Medications Current Medications Acetaminophen/Butalbital/Caffeine (Fioricet -) 1 tablet PO QID [facility] Last Admin: 02/09/18 22:02 Dose: 1 tablet Albuterol/Ipratropium (Duoneb -) 1 amp NEB Q4H PRN PRN Reason: SHORTNESS OF BREATH Last Admin: 02/09/18 21:39 Dose: 1 amp Amitriptyline HCl (Elavil -) 25 mg PO [facility] Last Admin: 02/09/18 22:03 Dose: 25 mg Amoxicillin/Clavulanate Potassium (Augmentin - 875mg Tablet) 1 tab PO DAILY@ 0800 [facility] Last Admin: 02/10/18 09:02 Dose: 1 tab Clopidogrel Bisulfate (Plavix -) 75 mg PO DAILY [facility] Last Admin: 02/10/18 09:01 Dose: 75 mg Cyclobenzaprine HCl (Flexeril -) 10 mg PO DAILY [facility] Last Admin: 02/10/18 09:02 Dose: 10 mg Enoxaparin Sodium (Lovenox -) 40 mg SQ DAILY [facility] Last Admin: 02/10/18 09:01 Dose: 40 mg Metoprolol Tartrate (Lopressor -) 12.5 mg PO BID [facility] Last Admin: 02/10/18 09:01 Dose: 12.5 mg Mometasone Furoate (Asmanex 220mcg -) 1 puff IH [facility] Last Admin: 02/09/18 23:30 Dose: Not Given Ranitidine HCl (Zantac -) 300 mg PO DAILY [facility] Last Admin: 02/10/18 09:02 Dose: 300 mg Home Medications Medication Instructions Recorded Clopidogrel Bisulfate [Plavix -] 75 mg PO DAILY 01/19/18 Acetaminophen/Caffeine/Butalb 1 tab PO Q6H 02/08/18 [Fioricet -] Albuterol Sulfate Inhaler - 2 puff IH Q6H 02/08/18 [Ventolin HFA Inhaler -] Amitriptyline HCl 1 tab PO DAILY 02/08/18 Amoxicillin/Potassium Clav 1 tab PO DAILY 02/08/18 [Augmentin 875-125 Tablet] Budesonide [Pulmicort Flexhaler] 2 puff IH BID 02/08/18 Cyclobenzaprine HCl [Flexeril -] 1 tab PO DAILY 02/08/18 Pantoprazole Sodium [Protonix] 1 tab PO DAILY 02/08/18 ASSESSMENT/PLAN: Patient is a 47 year old female with history of asthma, right lower extremity DVT, vertebral artery stenosis, old CVA, presents with complaint of burning retrosternal chest pain progressively worsening over the past three days. #Cardiology -Symptomatic PVCs start Lopressor 12.5mg BID- as this is a selective BB, should not cause asthma exacerbation. Can titrate as needed to resolve symptoms. -R/o ACS Progressively worsening over the past three days, described as burning in nature. EKG showed sinus tachycardia at 110bpm with PVCs in bigeminy pattern. Resolved to normal sinus rhythm at 85bpm with IV fluid hydration. Troponin - x3 CTA - for PE Cardiac ECHO from prior admission (01/20/2018) shows LV size, thickness, function, and ejection fraction normal. Atrial septum aneurysmal, without evidence of shunting. Mild mitral and tricuspid regurgitation. Elevated right ventricular systolic pressure at 30-40mmHg. Rpt. Echo 02/08/18: Completely Normal, EF: 65-70% Cardiac monitoring: showed Bigeminy, PVCs and Missed beats. Cardiology consult (Dr. Feliciano) appreciated: will consider stress test if neurological work up and GI workup negative UTox - TSH: 1.22 #Neurology -Vertebral artery stenosis-stable? Fall precautions Continue Plavix 75mg PO daily Neurology (Lakeshia) consult appreciated c/w Fiorcet Daily Not a contributing factor to her lightheadedness Does NOT recommend MRI or MRA Can discharge from neurological perspective #Infectious Disease -Facial Acne/cellulitis- stable c/w Augmentin 875mg PO Daily Day 02/26 #Pulmonology -Asthma-stable Currently saturating 96% room air. Not in acute exacerbation. Duonebs Q4H PRN c/w Pulmicort CTA - for PE #Gastroenterology -Hepatic cyst- stable Noted incidentally upon CTA: 2.3cm. F/u outpatient with GI -GERD outpatient w/u for chest pain 2/2 GI etiology if cardiac w/u negative starte Zantac 300mg PO Daily -Obesity BMI 33.1 Counselled regarding healthy diet and exercise. rheostat assembler evaluation #F/E/N -No IV fluids indicated. Encourage PO intake -Monitor electrolytes -Regular diet #DVT Ppx. -Lovenox 40mg SQ daily #Disposition -Observe in Telemetry floor
[2018-02-10] MEDS: ACETAMINOPHEN/CAFFEINE/BUTALBITAL 1 TAB PO SCH ×2 (11:56→15:34)
--- NOTE | 2018-02-10 14:33 | DS ---
Physical Exam: SUBJECTIVE: Patient seen and examined. Pt. states that burnin sensation has gone away from epigastrium, instead she has this needle prick sensation that is constant on the same location and is worse with deep inspiration. Pt. is worried about thickened blood and points to multiple sites where IV were unsuccesfully attempted. Pt. states that in the past there was some discussion with a doctor about having lupus but this was never confirmed. Pt. refused Lopressor last night because of orthopnea which she attributed to the the new medication. Of note Pt. endorses inability to lie flat and states that she uses multiple pillow at home to sleep. Pt. states that she need an albuterol treatment yesterday evening because of wheezing. Pt. states that she does not normally need breathing treatments and had not needed ay for the last year prior to coming to the hospital. She states that after getting a CT w/ contrast she felt SOB and needed 2 breathing treatments. OBJECTIVE: Vital Signs Period Temp Pulse Resp BP Sys/Mckenzie Pulse Ox Last 24 Hr 97.8 F-98.6 F 74-89 18-20 101-123/61-81 98-100 PHYSICAL EXAM GENERAL: The patient is awake, alert, and fully oriented, in mild distress 2/2 headache. EYES: Sclera anicteric, conjunctiva clear. No ptosis. ENT: Ears normal, nares patent, moist mucous membranes. LUNGS: Breath sounds equal, clear to auscultation bilaterally, no wheezes, no crackles, no accessory muscle use. HEART: Regular rate and rhythm, S1, S2 without murmur. ABDOMEN: Soft, obese, mild tenderness to palpation in epigastrium, nondistended , normoactive bowel sounds, no guarding, no rebound EXTREMITIES: 2+ dorsal pedal pulses, warm, well-perfused, no calf tenderness no edema. NEUROLOGICAL: Normal speech, gait not observed. PSYCH: Normal mood, normal affect. SKIN: Warm, dry, normal turgor LABS Laboratory Results - last 24 hr 02/10/18 02/10/18 05:30 05:30 WBC 4.7 RBC 4.32 Hgb 11.4 Hct 35.9 MCV 83.2 MCH 26.5 MCHC 31.8 L RDW 14.4 Plt Count 230 MPV 10.0 Sodium 139 Potassium 4.3 Chloride 108 H Carbon Dioxide 22 Anion Gap 9 BUN 13 Creatinine 0.9 Creat Clearance w eGFR > 60 Random Glucose 72 L Calcium 8.4 L Phosphorus 4.1 Magnesium 1.9 HOSPITAL COURSE: Date of Admission:02/09/18 Date of Discharge: 02/10/18 Pt. observed for chest pain. Pain reproducible on palpation in epigastrium. EKG showed Bigeminy and PVCs. Pt. monitored on telemetry. Echo was benign, EF: 65- 70. Pt. started on Lopressor 12.5mg BID. Pt. given Zantac for Dyspepsia. CTA negative for PE. Pt. given Albuterol Tx. for wheezing and treated with home meds. Cardiology and Neurology consults appreciated. Hospital course discussed and agreed upon with Pt. and medical staff. Minutes to complete discharge: 32 Discharge Summary Reason For Visit: DIZZINESS,VENTRICULAR BIGEMINY, CHEST PAIN Current Active Problems Acid reflux (Acute) Asthma (Acute) Bigeminy (Acute) Cellulitis (Acute) Dizziness (Acute) Headache (Acute) Hepatic cyst (Chronic) Obesity (Chronic) Vertebral artery stenosis (Chronic) Condition: Improved - Instructions Diet, Activity, Other Instructions: You came in for chest pain. We did an evaluation and found that your heart beats a little out of rhythm ( Bigeminy ) . We have started you on Metoprolol 12.5mg TWICE a day. Please take as prescribed We have found that you have chest pain that may be from acid reflux. Please do not eat any food 3 hours before going to bed. Please sit up-right while eating and for at least 3 hours after eating. Please monitor what you eat and if it gives you chest pain, avoid those foods. Please follow up with your primary care physician within 1 week. Please follow up with your Location Worker(Dr. Feliciano) within 1 week. Please follow up with your Neurologist (Dr. Asher) within 1 week to discuss management of your headaches. Please return to the ED if you are experiencing worsening chest pain, worsening shortness of breath, worsening dizziness, vomiting blood or worsening abdominal pain. Referrals: Jesenia Biswas MD [Primary Care Provider] - Brigido Feliciano MD [Staff Physician] - Laila Asher MD [Staff Physician] - Disposition: HOME - Home Medications Comprehensive Discharge Medication List: Ambulatory Orders Clopidogrel Bisulfate [Plavix -] 75 mg PO DAILY 01/19/18 Acetaminophen/Caffeine/Butalb [Fioricet -] 1 tab PO Q6H 02/08/18 Albuterol Sulfate Inhaler - [Ventolin HFA Inhaler -] 2 puff IH Q6H 02/08/18 Amitriptyline HCl 1 tab PO DAILY 02/08/18 Amoxicillin/Potassium Clav [Augmentin 875-125 Tablet] 1 tab PO DAILY 02/08/18 Budesonide [Pulmicort Flexhaler] 2 puff IH BID 02/08/18 Cyclobenzaprine HCl [Flexeril -] 1 tab PO DAILY 02/08/18 Pantoprazole Sodium [Protonix] 1 tab PO DAILY 02/08/18 Metoprolol Tartrate [Lopressor -] 12.5 mg PO BID #60 tablet 02/10/18 This patient is new to me today: No Emergency Visit: Yes ED Registration Date: 02/09/18 Care time: The patient presented to the Emergency Department on the above date and was hospitalized for further evaluation of their emergent condition. Critical Care patient: No - Discharge Referral Referred to [facility] Med [facility].: No
--- NOTE | 2018-02-10 14:56 | PN ---
Teaching Attending Note Name of Resident: Caesar Lacy ATTENDING PHYSICIAN STATEMENT I saw and evaluated the patient. I reviewed the resident's note and discussed the case with the resident. I agree with the resident's findings and plan as documented. SUBJECTIVE: No fever or chills. mild PISANO typical for her migraine. lower abd discomfort . constipated OBJECTIVE: NAD Cv : RRR. Lungs: CTAB Ext : no edema Abd: soft, Nd, minimal discomfort in suprapubic area. no rebound tenderness or guarding . ASSESSMENT AND PLAN: 47 y/o lady with h/o vertebral artery stenosis, CVA, RLE DVT, who presneted with dizziness and SOB/CP 1- SOB/CP. 2- Bigeminy 3- Migraines PISANO 4- Dizziness plan : - fioricet for PISANO - Echo reviewed . - card and neuto notes reviewed. - f/u as ou tpt - cont BB dc home
[2018-02-10 15:08] VITALS: BP 110/67; PULSE 74
--- NOTE | 2018-02-10 16:14 | PN ---
Progress Note, Physician History of Present Illness: seen and examined today in nad. states she wants to go home. states her palpitations and chest tightness have resolved. only rare palpitations now. took metoprolol yesterday am but refused last night as it had made her drowsy after am dose. took it this am and no drowsiness, states she will continue it. - Objective Vital Signs: Vital Signs Temperature 97.8 F 02/10/18 15:07 Pulse Rate 74 02/10/18 15:07 Respiratory Rate 18 02/10/18 15:07 Blood Pressure 110/67 02/10/18 15:07 O2 Sat by Pulse Oximetry (%) 100 02/10/18 09:00 Constitutional: Yes: No Distress, Calm Eyes: Yes: Conjunctiva Clear, EOM Intact HENT: Yes: Atraumatic, Normocephalic Neck: Yes: Supple, Trachea Midline Cardiovascular: Yes: Regular Rate and Rhythm, S1, S2. No: Bradycardia, Tachycardia, Pulse Irregular, Bruit, JVD, Gallop, Murmur, Rub, S3, S4, Varicosities Respiratory: Yes: Regular, CTA Bilaterally. No: Rales, Rhonchi, Wheezes Gastrointestinal: Yes: Normal Bowel Sounds, Soft. No: Distention, Tenderness Extremities: Yes: WNL Edema: No Peripheral Pulses WNL: Yes Peripheral Pulses: Left Doralis Pedis: 2+, Right Dorsalis Pedis: 2+ Neurological: Yes: Alert, Oriented Psychiatric: Yes: Alert, Oriented Labs: CBC, BMP 02/10/18 05:30 02/10/18 05:30 - ....Imaging Chest X-ray: Report Reviewed, Image Reviewed EKG: Report Reviewed, Image Reviewed Other: Report Reviewed, Image Reviewed (tele-nsr, sinus tach, PVCs less frequent ) Assessment/Plan 47 year old female with a pmhx of asthma, RLE DVT, vertebral artery stenosis, and old cva presenting with dizziness and sob. Says since recent discharge she has been dizzy whenever she gets up and walks. Also noted sob as well. Last 3- 4 days has had some mild central chest burning which has been persistent. Non radiating. Worsening palpitations this afternoon while shopping which lasted 15 minutes and associated with dizziness/lightheadedness. No falls or LOC. EKG: initial sinus with ventricular bigeminy. Repeat ekgs unremarkable after IVF's. CTA: no PE or dissection BNP normal CXR: unremarkable Echocardiogram unremarkable. 1) Chest pain/sob/palpitations -May have been correlated to Ventricular bigeminy. TSH normal. Troponins neg. -Lytes unremarkable -CT no pe or dissection. -frequent PVCs on tele -started bblocker Lopressor 12.5mg bid for PVC suppression -PVCs improved and symptoms improved -Echo unremarkable with no structural issues. -ok for dc from cardiac standpoint -in future can consider nuclear stress test if symptoms recur
== END 2018-02-10 15:42 | disposition home or self-care (01) | DRG 207 ==
LOC: JER 16:41 → JERBED 23:32 → J4W 02-09 00:45 → OBSVTOIN 02-09 12:10
PROVIDERS: ADMIT Internal Medicine; ATTEND Internal Medicine
DX: R00.8 Other abnormalities of heart beat (principal); R07.89 Other chest pain; R42 Dizziness and giddiness; E66.9 Obesity, unspecified; Z68.33 Body mass index [BMI] 33.0-33.9, adult; I65.09 Occlusion and stenosis of unspecified vertebral artery; K76.89 Other specified diseases of liver; J45.909 Unspecified asthma, uncomplicated; R00.2 Palpitations; G43.909 Migraine, unspecified, not intractable, without status migrainosus; R00.0 Tachycardia, unspecified; Z86.718 Personal history of other venous thrombosis and embolism
CPT/HCPCS: 36415; 71045-TC-FY; 71275-TC; 80048; 80053; 80061; 80307; 81003; 81015; 82550; 82553; 83690; 83721; 83735; 83880; 84100; 84443; 84484; 85025; 85027; 85379; 87804; 93005; 93010; 93306-TC; 94640; 99285-25; G0378; J7030

== ENCOUNTER 2018-06-30 14:40 | Emergency (ER) | payer OTHER ==
--- NOTE | 2018-06-30 14:55 | PDOC ---
Rapid Medical Evaluation Time Seen by Provider: 06/30/18 14:54 Medical Evaluation: Allergies Allergy/AdvReac Type Severity Reaction Status Date / Time aspirin Allergy Intermediate swelling/hi Verified 02/07/18 16:52 ves Sulfa (Sulfonamide Allergy Intermediate swelling/hi Verified 02/07/18 16:52 Antibiotics) ves 06/30/18 14:54 I have performed a brief in-person evaluation of this patient. The patient presents with a chief complaint of: sinus congestion and post nasal drip since this am Pertinent physical exam findings: NAD I have ordered the following:nothing The patient will proceed to the ED for further evaluation. Discharge Disposition - Diagnosis Upper respiratory infection - Referrals - Patient Instructions - Post Discharge Activity
[2018-06-30 14:58] VITALS: BP 142/70; PULSE 92; TEMP 98; BMI 35.0
--- NOTE | 2018-06-30 15:44 | PDOC ---
History of Present Illness - General Chief Complaint: Sore Throat Stated Complaint: SPITTING BLOOD / THROAT DISCOMFORT Time Seen by Provider: 06/30/18 14:54 History Source: Patient Exam Limitations: No Limitations - History of Present Illness Initial Comments: 06/30/18 15:44 Patient here with multiple complaints including right ear pain and reports of discharge yesterday. States pain radiates down her jaw and into her neck and also complaints of sore throat pain. Has some sputum that states appears bright red/questionably blood but has had no recent trauma, and is not coughing. Denies fever, denies purulent drainage from nose however has congestion and frontal/sinus headache pain . Son was diagnosed by swab with strep throat 2 days ago. Timing/Duration: reports: just prior to arrival Severity: reports: moderate Possible Cause: Yes: allergen exposure Associated Symptoms: reports: earache, facial pain, nasal congestion, sore throat. denies: wheezing Past History - Travel Traveled outside of the country in the last 30 days: No Close contact w/someone who was outside of country & ill: No - Past Medical History Allergies/Adverse Reactions: Allergies Allergy/AdvReac Type Severity Reaction Status Date / Time aspirin Allergy Intermediate swelling/hi Verified 02/07/18 16:52 ves Sulfa (Sulfonamide Allergy Intermediate swelling/hi Verified 02/07/18 16:52 Antibiotics) ves Home Medications: Ambulatory Orders Clopidogrel Bisulfate [Plavix -] 75 mg PO DAILY 01/19/18 Acetaminophen/Caffeine/Butalb [Fioricet -] 1 tab PO Q6H 02/08/18 Albuterol Sulfate Inhaler - [Ventolin HFA Inhaler -] 2 puff IH Q6H 02/08/18 Amitriptyline HCl 1 tab PO DAILY 02/08/18 Amoxicillin/Potassium Clav [Augmentin 875-125 Tablet] 1 tab PO DAILY 02/08/18 Budesonide [Pulmicort Flexhaler] 2 puff IH BID 02/08/18 Cyclobenzaprine HCl [Flexeril -] 1 tab PO DAILY 02/08/18 Pantoprazole Sodium [Protonix] 1 tab PO DAILY 02/08/18 Metoprolol Tartrate [Lopressor -] 12.5 mg PO BID #60 tablet 02/10/18 Cetirizine HCl [Zyrtec -] 10 mg PO DAILY #30 tablet 06/30/18 Asthma: Yes CVA: Yes (TIA) COPD: No DVT: Yes - Surgical History Abdominal Surgery: Yes (hysterectomy) - Suicide/Smoking/Psychosocial Hx Smoking Status: No Smoking History: Never smoked Have you smoked in the past 12 months: No Number of Cigarettes Smoked Daily: 0 Information on smoking cessation initiated: No Hx Alcohol Use: No Drug/Substance Use Hx: No Substance Use Type: None Respiratory Specific PMHX - Complaint Specific PMHX Angina: No Bronchitis: Yes Pneumonia: No Pulmonary Embolus: No TB (Tuberculosis): No Review of Systems - Review of Systems Able to Perform ROS?: Yes Is the patient limited Estonian proficient: Yes Constitutional: Yes: Symptoms Reported, See HPI, Malaise. No: Fever HEENTM: Yes: Symptoms Reported, See HPI, Ear Pain, Nose Congestion, Other Respiratory: Yes: See HPI. No: Symptoms reported, Cough, Wheezing Musculoskeletal: Yes: Symptoms Reported Integumentary: Yes: See HPI. No: Symptoms Reported Neurological: Yes: See HPI, Headache (frontal / sinus pain ) All Other Systems: Reviewed and Negative *Physical Exam - Vital Signs Last Vital Signs Temp Pulse Resp BP Pulse Ox 98 F 92 H 18 142/70 100 06/30/18 14:56 06/30/18 14:56 06/30/18 14:56 06/30/18 14:56 06/30/18 14:56 - Physical Exam General Appearance: Yes: Nourished, Appropriately Dressed, Apparent Distress, Mild Distress HEENT: positive: EOMI, HARLAN, Rhinorrhea, Sinus Tenderness. negative: TMs Normal (congested but landmarks visualized bilaterally. Right is worse than left ), Pharynx Normal (some redness, but no exudate noted. Has posterior sinus drainage noted that's thick clear/white) Neck: positive: Supple, Lymphadenopathy (R), Lymphadenopathy (L) Respiratory/Chest: positive: Lungs Clear, Normal Breath Sounds. 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: catholic priest II-XII NML intact, Fully Oriented, Alert, Normal Mood/ Affect, Normal Response, Motor Strength 5/5 *DC/Admit/Observation/Transfer Diagnosis at time of Disposition: Allergic rhinitis Qualifiers: Allergic rhinitis trigger: unspecified Allergic rhinitis seasonality: seasonal Qualified Code(s): J30.2 - Other seasonal allergic rhinitis - Discharge Dispostion Disposition: HOME Condition at time of disposition: Stable Decision to Admit order: No - Prescriptions Prescriptions: Cetirizine HCl [Zyrtec -] 10 mg PO DAILY #30 tablet - Referrals - Patient Instructions Printed Discharge Instructions: DI for Allergic Rhinitis Additional Instructions: Rest, drink lots of fluids: Teas, water, soups Saltwater gargles. Consider humidifier in room at night Steamy showers/seem to face break up mucus Avoid contact with allergens, exposure to pollens, close windows on a windy day Lots of handwashing and good hygiene Continue [id number] medications for symptomatic relief- may use allergic eyedrops for itching I Continue antihistamines daily until pollen season is over; Zyrtec, Claritin, Farheen during the daytime and Benadryl at nighttime as will make sleepy Tylenol or Motrin for fever and pain Followup with private physician in one to 2 days as needed Consider following up with an retail account specialist/damascener for skin testing and possible allergy shots Return to emergency department for worsened symptoms, fevers, dehydration - Post Discharge Activity Forms/Work/School Notes: Back to Work
== END 2018-06-30 16:53 | disposition home or self-care (01) ==
LOC: JERFT 14:40
DX: J30.2 Other seasonal allergic rhinitis (principal); Z86.718 Personal history of other venous thrombosis and embolism; J45.909 Unspecified asthma, uncomplicated
CPT/HCPCS: 87070; 87880; 99281-25

== ENCOUNTER 2018-07-29 08:14 | Emergency (ER) | payer OTHER ==
[2018-07-29 08:26] VITALS: BP 107/70; PULSE 86; TEMP 97.7; BMI 34.8
[2018-07-29] MEDS ORDERED: CYCLOBENZAPRINE HCL 10 MG TABLET (FP) PO ONE (08:55)
[2018-07-29] MEDS ORDERED: KETOROLAC TROMETHAMINE 60 MG/2 ML VIAL IM ONE (08:59)
[2018-07-29] MEDS ORDERED: KETOROLAC TROMETHAMINE 30 MG/1 ML VIAL ONE (09:04)
[2018-07-29] MEDS ORDERED: CYCLOBENZAPRINE HCL 10 MG TABLET (FP) ONE (09:04)
--- NOTE | 2018-07-29 09:31 | PDOC ---
History of Present Illness - General Chief Complaint: Nausea/Vomiting Stated Complaint: COUGHING / CONGESTED Time Seen by Provider: 07/29/18 08:54 History Source: Patient Exam Limitations: No Limitations - History of Present Illness Initial Comments: 07/29/18 09:06 48-year-old female presents the emergency room with complaints of moist congestive cough for the past 3 days associated with nasal congestion and sore throat without fever or chills. Patient states now has upper back and neck pain secondary to coughing and has vomited 3 times after coughing episodes which consisted of mucousy bile.patient denies recent travel recent illness but states son had strep last week. Patient denies chest pain, difficulty breathing , abdominal pain, urinary or bowel complaints. Timing/Duration: constant Severity: mild, moderate Associated Symptoms: reports: cough, nausea/vomiting, other (myalgia) Past History - Travel Traveled outside of the country in the last 30 days: No Close contact w/someone who was outside of country & ill: No - Past Medical History Allergies/Adverse Reactions: Allergies Allergy/AdvReac Type Severity Reaction Status Date / Time aspirin Allergy Intermediate swelling/hi Verified 02/07/18 16:52 ves Sulfa (Sulfonamide Allergy Intermediate swelling/hi Verified 02/07/18 16:52 Antibiotics) ves Home Medications: Ambulatory Orders Clopidogrel Bisulfate [Plavix -] 75 mg PO DAILY 01/19/18 Acetaminophen/Caffeine/Butalb [Fioricet -] 1 tab PO Q6H 02/08/18 Albuterol Sulfate Inhaler - [Ventolin HFA Inhaler -] 2 puff IH Q6H 02/08/18 Amitriptyline HCl 1 tab PO DAILY 02/08/18 Amoxicillin/Potassium Clav [Augmentin 875-125 Tablet] 1 tab PO DAILY 02/08/18 Budesonide [Pulmicort Flexhaler] 2 puff IH BID 02/08/18 Cyclobenzaprine HCl [Flexeril -] 1 tab PO DAILY 02/08/18 Pantoprazole Sodium [Protonix] 1 tab PO DAILY 02/08/18 Metoprolol Tartrate [Lopressor -] 12.5 mg PO BID #60 tablet 02/10/18 Cetirizine HCl [Zyrtec -] 10 mg PO DAILY #30 tablet 06/30/18 Asthma: Yes CVA: Yes (TIA) COPD: No DVT: Yes - Surgical History Abdominal Surgery: Yes (hysterectomy) - Immunization History Immunization Up to Date: No - Suicide/Smoking/Psychosocial Hx Smoking Status: No Smoking History: Never smoked Have you smoked in the past 12 months: No Number of Cigarettes Smoked Daily: 0 Information on smoking cessation initiated: No Hx Alcohol Use: No Drug/Substance Use Hx: No Substance Use Type: None Patient Lives Alone: No Lives with/in: spouse/SO Review of Systems - Review of Systems Able to Perform ROS?: Yes Constitutional: Yes: Symptoms Reported, Loss of Appetite, Weakness ( mild generalized) HEENTM: Yes: Nose Congestion, Throat Pain Respiratory: Yes: Cough, Productive cough. No: Shortness of Breath Cardiac (ROS): No: Symptoms Reported ABD/GI: Yes: Vomiting : No: Symptoms Reported Musculoskeletal: Yes: Symptoms Reported Integumentary: No: Symptoms Reported Neurological: No: Symptoms reported *Physical Exam - Vital Signs Last Vital Signs Temp Pulse Resp BP Pulse Ox 97.7 F 86 18 107/70 100 07/29/18 08:23 07/29/18 08:23 07/29/18 08:23 07/29/18 08:23 07/29/18 08:23 - Physical Exam General Appearance: Yes: Nourished, Appropriately Dressed. No: Apparent Distress HEENT: positive: EOMI, HARLAN, TMs Normal, Pharyngeal Erythema, Nasal Congestion ( beige secretions ). negative: Pale Conjunctivae Neck: positive: Supple Respiratory/Chest: positive: Rhonchi (right base). negative: Respiratory Distress, Accessory Muscle Use Cardiovascular: positive: Regular Rhythm, Regular Rate. negative: Murmur Gastrointestinal/Abdominal: positive: Soft. negative: Tenderness Integumentary: positive: Normal Color, Warm, Moist Neurologic: positive: Motor Strength 5/5 (ambulatory) ED Treatment Course - RADIOLOGY Radiology Studies Ordered: Category Date Time Status CHEST PA & LAT [RAD] Stat Radiology 07/29/18 08:55 Taken SPINE-CERVICAL [RAD] Stat Radiology 07/29/18 08:55 Taken - Medications Given in the ED: ED Medications Discontinued Medications Generic Name Dose Route Start Last Admin Trade Name Freq PRN Reason Stop Dose Admin Cyclobenzaprine HCl 5 mg 07/29/18 08:55 07/29/18 09:05 Flexeril - PO 07/29/18 08:56 5 mg ONCE ONE Administration Ketorolac Tromethamine 60 mg 07/29/18 08:59 07/29/18 09:05 Toradol Injection - IM 07/29/18 09:00 60 mg ONCE ONE Administration Medical Decision Making - Medical Decision Making 07/29/18 09:33 CC: cough 4 days now with upper back pain nasal congestion and sore throat. Patient also with posttussis vomiting 2 exam: Patient with noted coarse breath sounds of right base, erythema to posterior pharynx and nasal congestion Plan: Rapid strep, influenza, Toradol and Flexeril along with chest x-ray 07/29/18 09:42 Laboratory Tests 07/29/18 07/29/18 09:00 09:00 Influenza A (Rapid) Negative Influenza B (Rapid) Negative Group A Strep Rapid Negative 07/29/18 10:18 Patient states feeling much better after receiving the medication. Cervical x-ray negative chest x-ray shows no infiltrate or effusion. Patient will be given Motrin, Flexeril and azithromycin for treatment of bronchitis 07/29/18 10:26 *DC/Admit/Observation/Transfer Diagnosis at time of Disposition: Bronchitis - Discharge Dispostion Disposition: HOME Condition at time of disposition: Improved - Referrals - Patient Instructions Printed Discharge Instructions: DI for Acute Bronchitis Additional Instructions: Take the medication for discomfort as prescribed. Next line please take antibiotics as prescribed until completed. Please follow-up with your doctor as needed and return to emergency room if symptoms worsen. - Post Discharge Activity
--- NOTE | 2018-07-29 09:54 | PDOC ---
*Physical Exam - Vital Signs Last Vital Signs Temp Pulse Resp BP Pulse Ox 97.7 F 86 18 107/70 100 07/29/18 08:23 07/29/18 08:23 07/29/18 08:23 07/29/18 08:23 07/29/18 08:23 ED Treatment Course - Medications Given in the ED: ED Medications Discontinued Medications Generic Name Dose Route Start Last Admin Trade Name Freq PRN Reason Stop Dose Admin Cyclobenzaprine HCl 5 mg 07/29/18 08:55 07/29/18 09:05 Flexeril - PO 07/29/18 08:56 5 mg ONCE ONE Administration Ketorolac Tromethamine 60 mg 07/29/18 08:59 07/29/18 09:05 Toradol Injection - IM 07/29/18 09:00 60 mg ONCE ONE Administration Medical Decision Making - Medical Decision Making 07/29/18 09:53 Mr Christensen is a 48 yo F c/o congestive cough, nasal congestion, and throat pain (+) chest wall tenderness (+) post tussive emesis Agree with plan per MIGUELITO Montgomery *DC/Admit/Observation/Transfer Diagnosis at time of Disposition: Bronchitis - Discharge Dispostion Disposition: HOME Condition at time of disposition: Improved - Prescriptions Prescriptions: Azithromycin [Zithromax Tri-Olvin (3 DAYS) -] 500 mg PO DAILY #3 tablet Cyclobenzaprine HCl [Flexeril -] 5 mg PO TID PRN #12 tablet PRN Reason: Back Pain Ibuprofen [Motrin -] 600 mg PO TID PRN #21 tablet PRN Reason: Pain - Referrals Referrals: Kalina Nuñez [Primary Care Provider] - - Patient Instructions Printed Discharge Instructions: DI for Acute Bronchitis Additional Instructions: Take the medication for discomfort as prescribed. Next line please take antibiotics as prescribed until completed. Please follow-up with your doctor as needed and return to emergency room if symptoms worsen. - Post Discharge Activity Forms/Work/School Notes: Back to Work
== END 2018-07-29 10:44 | disposition home or self-care (01) ==
LOC: JER 08:14
PROC: 3E0233Z Introduction of Anti-inflammatory into Muscle, Percutaneous Approach (ICD-10-PCS; principal; 2018-07-29)
DX: J40 Bronchitis, not specified as acute or chronic (principal); Z86.73 Personal history of transient ischemic attack (TIA), and cerebral infarction without residual deficits; Z86.718 Personal history of other venous thrombosis and embolism
CPT/HCPCS: 71046-TC-FY; 72050-TC-FY; 87070; 87804; 87880; 99282-25

== ENCOUNTER 2018-10-03 11:04 | Emergency (ER) | payer OTHER ==
[2018-10-03 11:17] VITALS: BP 126/84; TEMP 98.3; BMI 35.8
--- NOTE | 2018-10-03 11:50 | PDOC ---
History of Present Illness - General Chief Complaint: Pain Stated Complaint: FEET PAIN History Source: Patient Exam Limitations: No Limitations - History of Present Illness Initial Comments: 10/03/18 11:50 Chief complaint: Leg swelling History of present illness: This is a 48-year-old female with a history of asthma, right lower extremity DVT no longer on anticoagulation (believed to be related to oral contraceptives which she has discontinued), vertebral artery stenosis, CVA without residual deficits on Plavix who presents to the ED today complaining of worsening lower extremity edema for one week. Patient presents pictures of significant pitting edema in both feet in the morning, which resolved somewhat with elevation. She reports some pain in the feet without calf pain. She denies shortness of breath, but does complain of some chest pain which started today. Of note, patient is currently wearing a Holter monitor for evaluation of palpitations. Surgical hx: c/s x 2, hysterectomy Social History: Smoking: former smoker of approx 8 cigarettes/ day for 1 years. Quit 1995. Alcohol: admits that she drank 1/5 bottle of anatoly on weekends with friend. Last drink was in 2017. Drugs: denies illicit drug use Family History: Father at 63 y/o due to glioblastoma Mother massed away in her sleep at 58 y/o due to MS PCP: Fabien Carusoway manjit Past History - Past Medical History Allergies/Adverse Reactions: Allergies Allergy/AdvReac Type Severity Reaction Status Date / Time aspirin Allergy Intermediate swelling/hi Verified 10/03/18 11:17 ves Sulfa (Sulfonamide Allergy Intermediate swelling/hi Verified 10/03/18 11:17 Antibiotics) ves Home Medications: Ambulatory Orders Clopidogrel Bisulfate [Plavix -] 75 mg PO DAILY 01/19/18 Acetaminophen/Caffeine/Butalb [Fioricet -] 1 tab PO Q6H 02/08/18 Albuterol Sulfate Inhaler - [Ventolin HFA Inhaler -] 2 puff IH Q6H 02/08/18 Amitriptyline HCl 1 tab PO DAILY 02/08/18 Amoxicillin/Potassium Clav [Augmentin 875-125 Tablet] 1 tab PO DAILY 02/08/18 Budesonide [Pulmicort Flexhaler] 2 puff IH BID 02/08/18 Cyclobenzaprine HCl [Flexeril -] 1 tab PO DAILY 02/08/18 Pantoprazole Sodium [Protonix] 1 tab PO DAILY 02/08/18 Metoprolol Tartrate [Lopressor -] 12.5 mg PO BID #60 tablet 02/10/18 Cetirizine HCl [Zyrtec -] 10 mg PO DAILY #30 tablet 06/30/18 Azithromycin [Zithromax Tri-Olvin (3 DAYS) -] 500 mg PO DAILY #3 tablet 07/29/18 Cyclobenzaprine HCl [Flexeril -] 5 mg PO TID PRN #12 tablet 07/29/18 Ibuprofen [Motrin -] 600 mg PO TID PRN #21 tablet 07/29/18 Asthma: Yes CVA: Yes (TIA) COPD: No DVT: Yes Other medical history: DVT 2005 right leg - Surgical History Abdominal Surgery: Yes (hysterectomy) - Immunization History Immunization Up to Date: No - Suicide/Smoking/Psychosocial Hx Smoking Status: No Smoking History: Never smoked Have you smoked in the past 12 months: No Number of Cigarettes Smoked Daily: 0 Hx Alcohol Use: No Drug/Substance Use Hx: No Substance Use Type: None *Physical Exam - Vital Signs Last Vital Signs Temp Pulse Resp BP Pulse Ox 98.3 F 118 H 20 126/84 100 10/03/18 11:14 10/03/18 11:14 10/03/18 11:14 10/03/18 11:14 10/03/18 11:14 ED Treatment Course - LABORATORY CBC & Chemistry Diagram: 10/03/18 12:30 10/03/18 14:26 Medical Decision Making - Medical Decision Making 10/03/18 14:35 A/P: 48-year-old female with bilateral lower extremity edema. 1. EKG (complaining of chest pain, palpitations close ( 2. Labs including CBC, CMP, BNP, troponin 3. UA, urine 4. Bilateral lower extremity ultrasound rule out DVT 5. Chest x-ray 6. Reevaluate 10/03/18 15:49 Ultrasound negative for DVT bilaterally BNP within normal limits Troponin negative Chest x-ray without evidence of pulmonary vascular congestion Renal and hepatic function are normal Patient has been taking 20 mg of Lasix daily (despite reported sulfa allergy has not had a reaction). We'll try 1 dose of 40 mg by mouth here. Have advised patient that if this is helpful for her, her PCP or movie shot camera operator may wish to increase the daily dose. She is amenable to this plan. Follow-up instructions and return precautions reviewed. *DC/Admit/Observation/Transfer Diagnosis at time of Disposition: Edema - Discharge Dispostion Disposition: HOME Condition at time of disposition: Stable Decision to Admit order: No - Referrals Referrals: Brigido Feliciano MD [Staff Physician] - - Patient Instructions Printed Discharge Instructions: DI for Dependent Edema Additional Instructions: Your workup today did not reveal any specific cause for your foot swelling Continue to elevate her legs You were given a dose of Lasix 40 mg today-if this works well, then your primary care doctor or movie shot camera operator may wish to increase her dose at home Return here for shortness of breath, chest pain, or any other worsening symptoms - Post Discharge Activity
[2018-10-03 12:49] LABS: HCG,QUALITATIVE URINE Negative
[2018-10-03 13:14] LABS: HEMOGLOBIN 12.4 GM/dL (10.7-15.3); MEAN PLT VOLUME 10.2 fl (7.5-11.1)
[2018-10-03 13:22] LABS: INR 1.06 (0.83-1.09); PROTHROMBIN TIME (PATIENT) 12.5 SEC (9.7-13.0)
[2018-10-03 13:23] LABS: BASO % 0.7 % (0-2.0); HEMATOCRIT 39.3 % (32.4-45.2); LYMPH % 34.2 % (8-40); MCHC 31.6 g/dl (32.0-36.0); MEAN CELL VOLUME 85.4 fl (80-96); MONO % 5.4 % (3.8-10.2); NEUT % 55.7 % (42.8-82.8); RDW 14.7 % (11.6-15.6); WHITE BLOOD COUNT 6.6 K/mm3 (4.0-10.0)
[2018-10-03 13:45] LABS: PLATELET COUNT 263 K/MM3 (134-434)
--- NOTE | 2018-10-03 13:45 | EKG ---
Test Reason : Blood Pressure : / mmHG Vent. Rate : 095 BPM Atrial Rate : 095 BPM P-R Int : 176 ms QRS Dur : 080 ms QT Int : 338 ms P-R-T Axes : 058 068 027 degrees QTc Int : 424 ms NORMAL SINUS RHYTHM CANNOT RULE OUT INFERIOR INFARCT , AGE UNDETERMINED ABNORMAL ECG WHEN COMPARED WITH ECG OF 08-FEB-2018 05:08, NO SIGNIFICANT CHANGE WAS FOUND Confirmed by MD IVETH, ROME ([id number]) on 10/03/2018 1:45:14 PM Referred By: Confirmed By:ROME ALZARO MD
[2018-10-03 14:04] LABS: PH,URINE 6.5 (5.0-8.0); URINE APPEARANCE CLEAR; URINE BILIRUBIN NEGATIVE (NEGATIVE); URINE COLOR YELLOW; URINE GLUCOSE (UA) NEGATIVE (NEGATIVE); URINE KETONE TRACE (NEGATIVE); URINE LEUK ESTERASE NEGATIVE (NEGATIVE); URINE NITRITE NEGATIVE (NEGATIVE); URINE PROTEIN NEGATIVE (NEGATIVE); URINE UROBILINOGEN 0.2 mg/dL (0.2-1.0)
[2018-10-03 14:58] LABS: ALBUMIN 4.3 g/dl (3.4-5.0); ALK PHOS 91 U/L (45-117); ANION GAP 6 MMOL/L (8-16); BILIRUBIN,TOTAL 0.3 mg/dL (0.2-1); BLOOD UREA NITROGEN 6.8 mg/dL (7-18); CALCIUM 9.5 mg/dL (8.5-10.1); CHLORIDE 105 mmol/L (98-107); CO2 27 mmol/L (21-32); GLUCOSE,RANDOM 87 mg/dL (74-106); N-TERMINAL BNP 10.9 pg/ml (5-125); POTASSIUM 4.2 mmol/L (3.5-5.1); SGOT/AST 24 U/L (15-37); SGPT/ALT 31 U/L (13-61); SODIUM 138 mmol/L (136-145); TOT PROT 8.4 g/dl (6.4-8.2)
[2018-10-03] MEDS ORDERED: FUROSEMIDE 40 MG TABLET (FP) PO ONE (15:17)
[2018-10-03] MEDS ORDERED: FUROSEMIDE 40 MG TABLET (FP) ONE (15:42)
[2018-10-03 15:53] VITALS: PULSE 86
== END 2018-10-03 15:53 | disposition home or self-care (01) ==
LOC: JER 11:04
DX: M79.89 Other specified soft tissue disorders (principal); Z86.718 Personal history of other venous thrombosis and embolism; J45.909 Unspecified asthma, uncomplicated; Z86.73 Personal history of transient ischemic attack (TIA), and cerebral infarction without residual deficits
CPT/HCPCS: 36415; 71046-TC-FY; 80053; 81003; 82550; 82553; 83880; 84443; 84484; 84703; 85025; 85610; 93005; 93010; 93970-TC; 99282-25

== ENCOUNTER 2018-12-12 10:35 | Emergency (ER) | payer OTHER ==
[2018-12-12 10:40] VITALS: BP 129/71; PULSE 78; TEMP 98.3; BMI 35.2
[2018-12-12] MEDS ORDERED: KETOROLAC TROMETHAMINE 60 MG/2 ML VIAL IM ONE (10:51)
[2018-12-12] MEDS ORDERED: KETOROLAC TROMETHAMINE 60 MG/2 ML VIAL ONE (10:53)
--- NOTE | 2018-12-12 10:56 | PDOC ---
History of Present Illness - General Chief Complaint: Pain Stated Complaint: RT SIDE PAIN Time Seen by Provider: 12/12/18 10:45 History Source: Patient ( R side pain X 1.5wk) Exam Limitations: No Limitations - History of Present Illness Associated Symptoms: denies: chest pain, cough, fever/chills, loss of appetite, rash, shortness of breath, weakness Past History - Travel Traveled outside of the country in the last 30 days: No Close contact w/someone who was outside of country & ill: No - Past Medical History Allergies/Adverse Reactions: Allergies Allergy/AdvReac Type Severity Reaction Status Date / Time aspirin Allergy Intermediate swelling/hi Verified 12/12/18 10:40 ves Sulfa (Sulfonamide Allergy Intermediate swelling/hi Verified 12/12/18 10:40 Antibiotics) ves doxycycline Allergy Verified 12/12/18 10:40 Home Medications: Ambulatory Orders Clopidogrel Bisulfate [Plavix -] 75 mg PO DAILY 01/19/18 Acetaminophen/Caffeine/Butalb [Fioricet -] 1 tab PO Q6H 02/08/18 Albuterol Sulfate Inhaler - [Ventolin HFA Inhaler -] 2 puff IH Q6H 02/08/18 Amitriptyline HCl 1 tab PO DAILY 02/08/18 Amoxicillin/Potassium Clav [Augmentin 875-125 Tablet] 1 tab PO DAILY 02/08/18 Budesonide [Pulmicort Flexhaler] 2 puff IH BID 02/08/18 Cyclobenzaprine HCl [Flexeril -] 1 tab PO DAILY 02/08/18 Pantoprazole Sodium [Protonix] 1 tab PO DAILY 02/08/18 Metoprolol Tartrate [Lopressor -] 12.5 mg PO BID #60 tablet 02/10/18 Cetirizine HCl [Zyrtec -] 10 mg PO DAILY #30 tablet 06/30/18 Azithromycin [Zithromax Tri-Olvin (3 DAYS) -] 500 mg PO DAILY #3 tablet 07/29/18 Cyclobenzaprine HCl [Flexeril -] 5 mg PO TID PRN #12 tablet 07/29/18 Ibuprofen [Motrin -] 600 mg PO TID PRN #21 tablet 07/29/18 Asthma: Yes CVA: Yes (TIA) COPD: No DVT: Yes (ON PLAVIX) - Surgical History Abdominal Surgery: Yes (hysterectomy) - Immunization History Immunization Up to Date: No - Suicide/Smoking/Psychosocial Hx Smoking Status: No Smoking History: Never smoked Have you smoked in the past 12 months: No Number of Cigarettes Smoked Daily: 0 Information on smoking cessation initiated: No Hx Alcohol Use: No Drug/Substance Use Hx: No Substance Use Type: None Review of Systems - Review of Systems Constitutional: No: Chills, Fever Respiratory: No: Cough, Shortness of Breath, Productive cough Cardiac (ROS): No: Chest Pain, Lightheadedness Musculoskeletal: Yes: Muscle Pain. No: Back Pain, Muscle Weakness, Neck Pain Neurological: No: Headache, Numbness, Dizziness *Physical Exam - Vital Signs Last Vital Signs Temp Pulse Resp BP Pulse Ox 98.3 F 78 18 129/71 99 12/12/18 10:37 12/12/18 10:37 12/12/18 10:37 12/12/18 10:37 12/12/18 10:37 - Physical Exam General Appearance: Yes: Nourished Respiratory/Chest: positive: Lungs Clear, Normal Breath Sounds, Other ( tenderness on palpation along ribs 6 and 7 no visible rash or ecchymosis, + pain also noted when pt turned from side to side) Cardiovascular: positive: Regular Rhythm, Regular Rate, S1, S2 Integumentary: positive: Normal Color Neurologic: positive: drafter civil II-XII NML intact, Fully Oriented, Alert, Normal Mood/ Affect, Normal Response, Motor Strength 5/5 ED Treatment Course - RADIOLOGY Radiology Studies Ordered: Category Date Time Status CHEST PA & LAT [RAD] Stat Radiology 12/12/18 10:52 Ordered Medical Decision Making - Medical Decision Making 12/12/18 10:53 48y/o Female with history of asthma presents with right mid back pain that is worsening with deep breath for the past 1-1/2 week. Patient denies any cough shortness of breath recent travel, UTI sx, chest pain pain. Pain is worse when she turns from side to side. On examination there is no rash noted patient is tender along ribs 6 and 7 on the right side pain is reproducible when palpated when pt turned from side to side she does have clear breath sounds bilateral her vital signs are stable. + R CVA Plan is to do a chest x-ray to rule out any pulmonary pathology Pain control for now urine and urinalysis to rule out any urinary component 12/12/18 10:59 12/12/18 12:05 CXR neg pt reassessed after toradol felt much better UA wnl offered Rx for nsaids and muscle relaxant, pt reports she has plenty at home strict return instructions given *DC/Admit/Observation/Transfer Diagnosis at time of Disposition: Pleurisy - Discharge Dispostion Disposition: HOME Condition at time of disposition: Stable Decision to Admit order: No - Referrals Referrals: Kalina Nuñez [Primary Care Provider] - - Patient Instructions Printed Discharge Instructions: Pleurisy Additional Instructions: Your chest xray was negative for infection today please take naproxen as discussed continue to move despite pain please follow up with your primary care doctor Please return to the ER if worsening symptoms occurs - Post Discharge Activity Forms/Work/School Notes: Back to Work
[2018-12-12 11:22] LABS: URINE APPEARANCE CLEAR; URINE BILIRUBIN NEGATIVE (NEGATIVE); URINE COLOR YELLOW; URINE GLUCOSE (UA) NEGATIVE (NEGATIVE); URINE KETONE NEGATIVE (NEGATIVE); URINE LEUK ESTERASE NEGATIVE (NEGATIVE); URINE NITRITE NEGATIVE (NEGATIVE); URINE PROTEIN NEGATIVE (NEGATIVE); URINE UROBILINOGEN 0.2 mg/dL (0.2-1.0)
== END 2018-12-12 11:36 | disposition home or self-care (01) ==
LOC: JERFT 10:35
PROC: 3E0233Z Introduction of Anti-inflammatory into Muscle, Percutaneous Approach (ICD-10-PCS; principal; 2018-12-12)
DX: R09.1 Pleurisy (principal); J45.909 Unspecified asthma, uncomplicated; Z86.73 Personal history of transient ischemic attack (TIA), and cerebral infarction without residual deficits; Z86.718 Personal history of other venous thrombosis and embolism; Z79.01 Long term (current) use of anticoagulants
CPT/HCPCS: 71046-TC-FY; 81003; 87086; 96372; 99282-25

== ENCOUNTER 2019-03-19 14:38 | Emergency (ER) | payer OTHER ==
[2019-03-19 15:07] VITALS: BP 128/72; PULSE 88; TEMP 98.3; BMI 35.0
--- NOTE | 2019-03-19 16:22 | PDOC ---
History of Present Illness - General Chief Complaint: Pain Stated Complaint: RT.SIDE PAIN/ BACK PAIN Time Seen by Provider: 03/19/19 15:12 History Source: Patient Exam Limitations: No Limitations - History of Present Illness Initial Comments: 03/19/19 16:17 48-year-old female with history of asthma, fibromyalgia presents complaining of right upper quadrant pain radiating to the mid back with nausea x1 month worsening this morning. Patient states she followed up with her PMD who did an ultrasound and "found a small liver mass ". Patient denies chills, fever, vomiting, diarrhea, chest pain, shortness of breath, urinary complaints. Has not taken anything for pain. ROS: GENERAL/CONSTITUTIONAL: No fever, chills, weakness, dizziness HEAD, EYES, EARS, NOSE AND THROAT: No changes in vision, No ear pain or discharge, No sore throat CARDIOVASCULAR: No chest pain RESPIRATORY: No shortness of breath or cough GASTROINTESTINAL: Right upper quadrant pain with nausea, denies vomiting, diarrhea or constipation GENITOURINARY: No dysuria MUSCULOSKELETAL: No neck or back pain SKIN: No rash NEUROLOGIC: No headache, vertigo, loss of consciousness, or loss of sensation PE: GENERAL: well-appearing, NAD HEAD: NCAT EYES: Pupils equal, round and reactive to light, sclera anicteric, conjunctiva clear ENT: pharynx: no erythema, no exudate, uvula midline NECK: supple CHEST: nontender RESP: clear, no w/r/r CARDIO: rrr, no m/g/r ABD: +BS, soft, right upper quadrant tenderness to palpation, no rebound no guarding BACK: no midline spinal ttp, no CVAT EXTREMITIES: Normal range of motion, no edema NEUROLOGICAL: Normal speech, normal gait SKIN: Warm, Dry Past History - Past Medical History Allergies/Adverse Reactions: Allergies Allergy/AdvReac Type Severity Reaction Status Date / Time aspirin Allergy Intermediate swelling/hi Verified 03/19/19 15:05 ves Sulfa (Sulfonamide Allergy Intermediate swelling/hi Verified 03/19/19 15:05 Antibiotics) ves doxycycline Allergy Verified 03/19/19 15:05 minocycline Allergy Verified 03/19/19 15:05 Home Medications: Ambulatory Orders Clopidogrel Bisulfate [Plavix -] 75 mg PO DAILY 01/19/18 Acetaminophen/Caffeine/Butalb [Fioricet -] 1 tab PO Q6H 02/08/18 Albuterol Sulfate Inhaler - [Ventolin HFA Inhaler -] 2 puff IH Q6H 02/08/18 Amitriptyline HCl 1 tab PO DAILY 02/08/18 Cyclobenzaprine HCl [Flexeril -] 1 tab PO DAILY 02/08/18 Pantoprazole Sodium [Protonix] 1 tab PO DAILY 02/08/18 Metoprolol Tartrate [Lopressor -] 25 mg PO BID 12/27/18 Asthma: Yes CVA: Yes (TIA) COPD: No DVT: Yes (ON PLAVIX) - Surgical History Abdominal Surgery: Yes (hysterectomy) - Immunization History Immunization Up to Date: No - Psycho Social/Smoking Cessation Hx Smoking Status: No Smoking History: Never smoked Have you smoked in the past 12 months: No Number of Cigarettes Smoked Daily: 0 Hx Alcohol Use: No Drug/Substance Use Hx: No Substance Use Type: None *Physical Exam - Vital Signs Last Vital Signs Temp Pulse Resp BP Pulse Ox 98.3 F 88 16 128/72 99 03/19/19 15:05 03/19/19 15:05 03/19/19 15:05 03/19/19 15:05 03/19/19 15:05 ED Treatment Course - RADIOLOGY Radiology Studies Ordered: Category Date Time Status ABDOMEN & PELVIS CT WITH CONTR [CT] Stat CT Scan 03/19/19 15:50 Ordered Medical Decision Making - Medical Decision Making 03/19/19 16:21 48-year-old female with history of asthma, fibromyalgia complaining of right upper quadrant pain x1 month with nausea. Right upper quadrant tenderness to palpation on abdominal exam Will order labs CTAP w/con IVF Declined antiemetic at this time re assess signed out to [facility] provider 03/19/19 16:23 Discharge - Discharge Information Problems reviewed: Yes Clinical Impression/Diagnosis: Abdominal pain Qualifiers: Abdominal location: right upper quadrant Qualified Code(s): R10.11 - Right upper quadrant pain Condition: Stable - Follow up/Referral - Patient Discharge Instructions - Post Discharge Activity
[2019-03-19] MEDS ORDERED: SODIUM CHLORIDE 0.9% 500 ML INFUS.BAG IV ONE (16:23)
[2019-03-19 16:51] LABS: BASO % 0.4 % (0-2.0); EOS % 3.1 % (0-4.5); HEMOGLOBIN 12.9 GM/dL (10.7-15.3); LYMPH % 36.2 % (8-40); MCH 26.7 pg (25.7-33.7); MCHC 31.5 g/dl (32.0-36.0); MEAN CELL VOLUME 84.8 fl (80-96); MEAN PLT VOLUME 10.2 fl (7.5-11.1); MONO % 7.2 % (3.8-10.2); NEUT % 53.1 % (42.8-82.8); PLATELET COUNT 254 K/MM3 (134-434); RBC 4.84 M/mm3 (3.60-5.2); RDW 14.1 % (11.6-15.6); WHITE BLOOD COUNT 5.4 K/mm3 (4.0-10.0)
[2019-03-19 17:12] LABS: ALBUMIN 4.1 g/dl (3.4-5.0); ALK PHOS 101 U/L (45-117); ANION GAP 5 MMOL/L (8-16); BILIRUBIN,TOTAL 0.2 mg/dL (0.2-1); CALCIUM 9.3 mg/dL (8.5-10.1); CHLORIDE 106 mmol/L (98-107); CO2 27 mmol/L (21-32); GLUCOSE,RANDOM 77 mg/dL (74-106); MAGNESIUM 2.3 mg/dL (1.8-2.4); SGOT/AST 20 U/L (15-37); SGPT/ALT 30 U/L (13-61); SODIUM 138 mmol/L (136-145); TOT PROT 8.4 g/dl (6.4-8.2)
--- NOTE | 2019-03-19 17:33 | PDOC ---
*Physical Exam - Vital Signs Last Vital Signs Temp Pulse Resp BP Pulse Ox 98.3 F 88 16 128/72 99 03/19/19 15:05 03/19/19 15:05 03/19/19 15:05 03/19/19 15:05 03/19/19 15:05 ED Treatment Course - LABORATORY CBC & Chemistry Diagram: 03/19/19 16:00 03/19/19 16:00 - ADDITIONAL ORDERS Additional order review: Laboratory Results 03/19/19 03/19/19 16:00 16:00 Sodium 138 Potassium 4.0 Chloride 106 Carbon Dioxide 27 Anion Gap 5 L BUN 9.0 Creatinine 1.0 Est GFR (CKD-EPI)AfAm 77.69 Est GFR (CKD-EPI)NonAf 67.04 Random Glucose 77 Calcium 9.3 Magnesium 2.3 Total Bilirubin 0.2 AST 20 ALT 30 Alkaline Phosphatase 101 Total Protein 8.4 H Albumin 4.1 Lipase 164 Beta HCG, Quant < 1.0 03/19/19 16:00 RBC 4.84 MCV 84.8 MCHC 31.5 L RDW 14.1 MPV 10.2 Neutrophils % 53.1 Lymphocytes % 36.2 Monocytes % 7.2 Eosinophils % 3.1 Basophils % 0.4 - Medications Given in the ED: ED Medications Discontinued Medications Generic Name Dose Route Start Last Admin Trade Name Freq PRN Reason Stop Dose Admin Sodium Chloride 1,000 ml 03/19/19 16:23 03/19/19 16:26 Normal Saline - IV 03/19/19 16:24 1,000 ml ONCE ONE Administration Medical Decision Making - Medical Decision Making 03/19/19 17:32 Patient endorsed to me to follow labs and CT scan of abdomen for right upper quadrant abdominal pain rule out liver mass. Labs reviewed noted no acute findings Patient is in CT scan. 03/19/19 18:53 Patient Full Name: MK CHENG Patient Accession No: [id number] Patient : [id number] Reason for Exam: RUQ PAIN Referring Physician: AZ SHEIKH Patient Name: SKYLAR TERRAZAS THIS IS A PRELIMINARY REPORT FROM [facility] DATE OF SERVICE: 2019-03-19 17:49:55 IMAGES: [id number] EXAM: CT ABDOMEN AND PELVIS WITH IV CONTRAST HISTORY: Right upper quadrant pain. COMPARISON: None available FINDINGS: Lower Chest: Subsegmental atelectasis in the lower lung hammonds. Abdomen: Liver:: Hepatomegaly with steatosis. Incidental note is made of a 1.6 cm hepatic cyst. Bile Ducts: Within normal limits. Gallbladder:: Within normal limits. Pancreas:: Within normal limits. Spleen:: Within normal limits. Adrenals: Within normal limits. Kidneys: No evidence of hydronephrosis or nephrolithiasis. Stomach:: Small sliding hiatal hernia. Bowel:: No evidence of small bowel obstruction or mass. Moderate degree stool burden throughout the colon compatible with constipation. Normal appendix is identified. Pelvis: Reproductive Organs: Within normal limits. Bladde: Moderate distention of the bladder. Vessels: Aorta: Within the normal limits without aneurysm or dissection. Retroperitoneum: Within normal limits. Bones: : No suspicious osseous lesions. IMPRESSION: 1. No evidence of small bowel obstruction or mass. Moderate degree stool burden throughout the colon compatible with constipation. Normal appendix is identified. One or more of the following dose reduction techniques were used: automated exposure control, adjustment of the mA and/or kV according to patient size, use of iterative reconstructive technique. THIS DOCUMENT HAS BEEN ELECTRONICALLY SIGNED Rodolfo Leggett MD 03/19/2019 18:48 EST M.D. Please call [facility] [phone] ([phone]) with questions. INTERPRETING RADIOLOGIST: Rodolfo Leggett MD Electronically Signed: Mar 19, 2019 06:48PM EST. Patient has been comfortable sitting in the vertical area. She is in no acute distress. No complaints at this time. Labs and CAT scan with no acute findings will discharge patient and instruct to follow-up with dressing machine operator. I discussed the physical exam findings, ancillary test results and final diagnoses with the patient. I answered all of the patient's questions. The patient was satisfied with the care received and felt comfortable with the discharge plan and treatment plan. The Patient agrees to follow up with the primary care physician within 24-72 hours. Discharge - Discharge Information Problems reviewed: Yes Clinical Impression/Diagnosis: Abdominal pain Qualifiers: Abdominal location: right upper quadrant Qualified Code(s): R10.11 - Right upper quadrant pain Condition: Stable - Follow up/Referral - Patient Discharge Instructions Additional Instructions: Your Discharge Instructions: You must call primary care physician within 24 hours to arrange follow-up. Return to the Emergency Department with any new, persistent or worsening symptoms, for fever, chills, SOB, dizziness or any other concerning changes that may occur. You must follow-up with Dr. Verma, your dressing machine operator. - Post Discharge Activity
== END 2019-03-19 19:21 | disposition home or self-care (01) ==
LOC: JERFT 14:38 → JER 14:38
DX: R10.11 Right upper quadrant pain (principal); J45.909 Unspecified asthma, uncomplicated; M79.7 Fibromyalgia; Z86.73 Personal history of transient ischemic attack (TIA), and cerebral infarction without residual deficits; Z86.718 Personal history of other venous thrombosis and embolism; Z79.01 Long term (current) use of anticoagulants
CPT/HCPCS: 36415; 74177-TC; 80053; 83690; 83735; 84702; 85025; 99283-25; Q9967

== ENCOUNTER 2019-06-05 16:57 | Emergency (ER) | payer OTHER ==
[2019-06-05 17:02] VITALS: BMI 34.5
[2019-06-05] MEDS ORDERED: diazePAM 5 MG TABLET PO ONE (18:20)
[2019-06-05] MEDS ORDERED: NAPROXEN 500 MG TABLET PO ONE (18:20)
--- NOTE | 2019-06-05 18:20 | PDOC ---
History of Present Illness - General Chief Complaint: Injury Stated Complaint: FALL/PAIN Time Seen by Provider: 06/05/19 17:46 History Source: Patient Exam Limitations: No Limitations - History of Present Illness Initial Comments: 06/05/19 18:07 Patient is a 48 year old female with h/o fibromyalgia, asthma, C/S x 2, hysterectomy, DVT not on AC, vestibular artery stenosis, c/o upper and lower back radiates to the arms. States that yesterday she fell into her couch, her head was in the couch and her leg were on the floor. She stayed in bed due to the soreness but today is more sore/achy. States the pain is 8/10 which is worse with movement. States she has been taking Flexeril with minimal relief. She has been using bengay as well. No bowel or bladder incontinence. PMD: Dr. Bang PMHX: as above PSOCHX: neg etoh, drug, cig ALL: ASA, sulfa, (hives) minocycline, doxycycline (anaphylaxis) GENERAL/CONSTITUTIONAL: [No fever or chills. No weakness. No weight change.] HEAD, EYES, EARS, NOSE AND THROAT: [No change in vision. No ear pain or discharge. No sore throat.] CARDIOVASCULAR: [No chest pain or shortness of breath.] RESPIRATORY: [No cough, wheezing, or hemoptysis.] GASTROINTESTINAL: [No nausea, vomiting, diarrhea or constipation. No rectal bleeding.] GENITOURINARY: [No dysuria, frequency, or change in urination.] MUSCULOSKELETAL: [(+) joint or muscle swelling or pain. No neck (+) back pain.] SKIN AND BREASTS: [No rash or easy bruising.] NEUROLOGIC: [No headache, vertigo, loss of consciousness, or loss of sensation.] PSYCHIATRIC: [No depression or anxiety.] ENDOCRINE: [No increased thirst. No abnormal weight change.] HEMATOLOGIC/LYMPHATIC: [No anemia, easy bleeding, or history of blood clots.] ALLERGIC/IMMUNOLOGIC: [No hives or skin allergy. No latex allergy.] GENERAL: [The patient is awake, alert, and fully oriented, in mild painful distress.] HEAD: [Normal with no signs of trauma.] EYES: [Pupils equal, round and reactive to light, extraocular movements intact, sclera anicteric, conjunctiva clear.] ENT: [Ears normal, nares patent, oropharynx clear without exudates. Moist mucous membranes.] NECK: [Normal range of motion, supple without lymphadenopathy, JVD, or masses.] BACK: (+) tenderness to palpation paraspinal thoracic and lumbar, no bruising noted LUNGS: [Breath sounds equal, clear to auscultation bilaterally. No wheezes, and no crackles.] HEART: [Regular rate and rhythm, normal S1 and S2 without murmur, rub.] ABDOMEN: [Soft, nontender, normoactive bowel sounds. No guarding, no rebound. No masses.] EXTREMITIES: [Normal range of motion, no edema. No clubbing or cyanosis. No cords, erythema, or tenderness.] NEUROLOGICAL: [Cranial nerves II through XII grossly intact. Normal speech, normal gait.] PSYCH: [Normal mood, normal affect.] SKIN: [Warm, Dry, normal turgor, no rashes or lesions noted.] Past History - Past Medical History Allergies/Adverse Reactions: Allergies Allergy/AdvReac Type Severity Reaction Status Date / Time aspirin Allergy Intermediate swelling/hi Verified 06/05/19 17:03 ves Sulfa (Sulfonamide Allergy Intermediate swelling/hi Verified 06/05/19 17:03 Antibiotics) ves doxycycline Allergy Verified 06/05/19 17:03 minocycline Allergy Verified 06/05/19 17:03 Home Medications: Ambulatory Orders Clopidogrel Bisulfate [Plavix -] 75 mg PO DAILY 01/19/18 Acetaminophen/Caffeine/Butalb [Fioricet Tablets] 1 tab PO Q6H 02/08/18 Albuterol Sulfate Inhaler - [Ventolin HFA Inhaler -] 2 puff IH Q6H 02/08/18 Amitriptyline HCl 1 tab PO DAILY 02/08/18 Cyclobenzaprine HCl [Flexeril -] 1 tab PO DAILY 02/08/18 Pantoprazole Sodium [Protonix] 1 tab PO DAILY 02/08/18 Metoprolol Tartrate [Lopressor -] 25 mg PO BID 12/27/18 Asthma: Yes CVA: Yes (TIA) COPD: No DVT: Yes (ON PLAVIX) Other medical history: fibromyalgia - Surgical History Abdominal Surgery: Yes (hysterectomy) - Immunization History Immunization Up to Date: No - Psycho Social/Smoking Cessation Hx Smoking Status: No Smoking History: Never smoked Have you smoked in the past 12 months: No Number of Cigarettes Smoked Daily: 0 Hx Alcohol Use: No Drug/Substance Use Hx: No Substance Use Type: None *Physical Exam - Vital Signs Last Vital Signs Temp Pulse Resp BP Pulse Ox 98.5 F 114 H 18 107/73 99 06/05/19 16:59 06/05/19 16:59 06/05/19 16:59 06/05/19 16:59 06/05/19 16:59 Medical Decision Making - Medical Decision Making 06/05/19 18:07 Patient is a 48 year old female with h/o fibromyalgia, asthma, C/S x 2, hysterectomy, c/o upper and lower back radiates to the arms. States that yesterday she fell into her couch, her head was in the couch and her leg were on the floor. She stayed in bed due to the soreness but today is more sore/achy. States the pain is 8/10 which is worse with movement. States she has been taking Flexeril with minimal relief. She has been using bengay as well. No bowel or bladder incontinence. Patient with generalized pain will treat with Tylenol and Valium. No need for imaging currently. Reassess 06/05/19 19:45 Patient continues to be in pain despite Tylenol and Valium we will give 1 Percocet. Patient requesting to be discharged. Selected Entries 06/05/19 20:01 Temperature 97.0 F L Pulse Rate [ 93 H Left] Respiratory 20 Rate Blood Pressure 112/73 [Left Arm] O2 Sat by Pulse 100 Oximetry (%) I discussed the physical exam findings, ancillary test results and final diagnoses with the patient. I answered all of the patient's questions. The patient was satisfied with the care received and felt comfortable with the discharge plan and treatment plan. The Patient agrees to follow up with the primary care Discharge - Discharge Information Problems reviewed: Yes Clinical Impression/Diagnosis: Muscle pain, fibromyalgia Condition: Stable Disposition: HOME - Follow up/Referral Referrals: Khari Bang MD [Primary Care Provider] - - Patient Discharge Instructions Patient Printed Discharge Instructions: DI for Low Back Pain, DI for Thoracic Back Pain Additional Instructions: Your Discharge Instructions: You must call primary care physician within 24 hours to arrange follow-up. Return to the Emergency Department with any new, persistent or worsening symptoms, for fever, chills, SOB, dizziness or any other concerning changes that may occur. Continue your pain meds as prescribed by your doctor you may take some Tylenol in addition to the muscle relaxant. - Post Discharge Activity
[2019-06-05] MEDS ORDERED: ACETAMINOPHEN 500 MG TABLET (FP) PO ONE (18:21)
[2019-06-05] MEDS ORDERED: ACETAMINOPHEN 325 MG TABLET (FP) ONE (18:43)
[2019-06-05] MEDS ORDERED: diazePAM 5 MG TABLET ONE (18:43)
[2019-06-05 20:03] VITALS: BP 112/73; PULSE 93; TEMP 97
== END 2019-06-05 20:03 | disposition home or self-care (01) ==
LOC: JER 16:57
DX: M79.10 Myalgia, unspecified site (principal); M79.7 Fibromyalgia; Z88.8 Allergy status to other drugs, medicaments and biological substances; Z88.2 Allergy status to sulfonamides
CPT/HCPCS: 99283-25

== ENCOUNTER 2019-11-18 16:44 | Emergency (ER) | payer OTHER ==
[2019-11-18 17:05] VITALS: BP 110/62; PULSE 94; TEMP 98.3; BMI 34.9
--- NOTE | 2019-11-18 17:07 | PDOC ---
History of Present Illness - General Chief Complaint: Chest Pain Stated Complaint: CHEST PAIN Time Seen by Provider: 11/18/19 17:04 History Source: Patient Exam Limitations: No Limitations - History of Present Illness Initial Comments: 11/18/19 17:05 HPI: This is a 49 y/o female with a PMH of hiatal hernia, fibromyalgia, asthma, DVT in 2005, vertebral artery stenosis on plavix presenting to the ED because of sternal chest tightness radiating to her back and left jaw that began earlier while she was sitting on the couch. She denied any accompanying symptoms at the time. She denies N/V, SOB, diaphoresis. Pain is non-exertional . She reports that the pain subsided on its own after one hour. She does have a history of DVT over 10 years ago presumably because of control, and she is no longer on anticoagulation. ROS: GENERAL/CONSTITUTIONAL: No fever/chills. No weakness. CARDIOVASCULAR: Yes chest tightness. No shortness of breath. RESPIRATORY: No coughor hemoptysis. GASTROINTESTINAL: No nausea, vomiting GENITOURINARY: No dysuria, frequency MUSCULOSKELETAL: No joint or muscle swelling or pain. No neck or back pain. SKIN: No rash NEUROLOGIC: No headache, vertigo, loss of consciousness, or change in strength/sensation. ENDOCRINE: No increased thirst. No abnormal weight change. HEMATOLOGIC/LYMPHATIC: No anemia. Yes history of DVT in 2008 provoked by control. PMH: hiatal hernia, fibromyalgia, asthma, DVT in 2005, vertebral artery stenosis on plavix Social Hx: Denies tobacco and etoh Meds: See nurse note Allergies: ASA, sulfa, doxycycline, minocycline PE: GENERAL: Awake, alert, and fully oriented, in no acute distress. Sitting up in bed, non-toxic appearing. HEAD: No signs of trauma EYES: PERRLA, EOMI NECK: Normal ROM, supple, no lymphadenopathy, JVD, or masses LUNGS: Breath sounds equal, clear to auscultation bilaterally. No wheezes, and no crackles HEART: Regular rate and rhythm, normal S1 and S2, no murmurs, rubs or gallops. Pain is non-reproducible with palpation. ABDOMEN: Soft, nontender, normoactive bowel sounds. No guarding, no rebound. No masses EXTREMITIES: Normal range of motion, no edema. NEUROLOGICAL: Normal speech, normal gait MDM: 11/18/19 19:21 This is a 49 y/o female with a PMH of hiatal hernia, fibromyalgia, asthma, DVT in 2005, vertebral artery stenosis on plavix presenting to the ED because of sternal chest tightness radiating to her back and left jaw that began earlier while she was sitting on the couch. She denied any accompanying symptoms at the time. She denies N/V, SOB, diaphoresis. Pain is non-exertional . She reports that the pain subsided on its own after one hour. She does have a history of DVT over 10 years ago presumably because of control, and she is no longer anticoagulated for it. - Patient's pain does not sound like cardiac pain, especially given history of hernia. Not worse with exertion. Given patient's DVT and stenosis will not rule out acs as a cause. - Patient not complaining of SOB, not tachycardic, no immobilization, recent travel, cancer, or hormone use. Doubt PE ddx: acs, GERD, asthma exacerbation, MSK pain - CBC, CMP, troponin, EKG, CXR - All labs WNL - Troponin neg - EKG with non-specific t wave changes - CXR with no acute abnormalities Will repeat EKG and troponin 11/18/19 20:40 - Repeat EKG with no ST elevations or dynamic changes. - Repeat troponin neg - Patient has HEART score of 2 - Patient has remained asymptomatic throughout her hospital stay - she will follow-up with her cadiologist in the next few days - Stable to d/c with return precautions Past History - Medical History Allergies/Adverse Reactions: Allergies Allergy/AdvReac Type Severity Reaction Status Date / Time aspirin Allergy Intermediate swelling/hi Verified 11/18/19 16:49 ves Sulfa (Sulfonamide Allergy Intermediate swelling/hi Verified 11/18/19 16:49 Antibiotics) ves doxycycline Allergy Verified 11/18/19 16:49 minocycline Allergy Verified 11/18/19 16:49 Home Medications: Ambulatory Orders Clopidogrel Bisulfate [Plavix -] 75 mg PO DAILY 01/19/18 Acetaminophen/Caffeine/Butalb [Fioricet Tablets] 1 tab PO Q6H 02/08/18 Albuterol Sulfate Inhaler - [Ventolin HFA Inhaler -] 2 puff IH Q6H 02/08/18 Amitriptyline HCl 1 tab PO DAILY 02/08/18 Cyclobenzaprine HCl [Flexeril -] 1 tab PO DAILY 02/08/18 Pantoprazole Sodium [Protonix] 1 tab PO DAILY 02/08/18 Metoprolol Tartrate [Lopressor -] 25 mg PO BID 12/27/18 Asthma: Yes CVA: Yes (TIA) COPD: No DVT: Yes (ON PLAVIX) - Surgical History Abdominal Surgery: Yes (hysterectomy) - Reproductive History Is Patient Now?: No - Immunization History Immunization Up to Date: No - Psycho-Social/Smoking History Smoking Status: No Smoking History: Never smoked Have you smoked in the past 12 months: No Number of Cigarettes Smoked Daily: 0 - Substance Abuse Hx (Audit-C & DAST Scrn) How often the patient has a drink containing alcohol: Never Score: In Men: 4 or > Positive; In Women: 3 or > Positive: 0 Screen Result (Pos requires Nsg. Audit-10AR): Negative *Physical Exam - Vital Signs Last Vital Signs Temp Pulse Resp BP Pulse Ox 98.3 F 94 H 18 110/62 99 11/18/19 16:52 11/18/19 16:52 11/18/19 16:52 11/18/19 16:52 11/18/19 16:52 Heart Score/ECG Review - History History: Slightly suspicious - Electrocardiogram EKG: Non specific repolarization disturbance - Age Age: 45-65 - Risk Factors Based on the list above the patient has:: No risk factors known - Troponin Troponin: </= normal limit - Score Heart Score - Total: 2 ED Treatment Course - LABORATORY CBC & Chemistry Diagram: 11/18/19 17:30 11/18/19 17:30 Discharge - Discharge Information Problems reviewed: Yes Clinical Impression/Diagnosis: Chest pain Qualifiers: Chest pain type: unspecified Qualified Code(s): R07.9 - Chest pain, unspecified Condition: Stable Disposition: HOME - Admission No - Follow up/Referral Referrals: Khari Bang [facility] [Primary Care Provider] - - Patient Discharge Instructions Patient Printed Discharge Instructions: DI for Chest Pain Additional Instructions: You were seen in the ED today because you were having chest pain. We checked labs and an EKG and they were normal. Please follow-up with your osteopathy doctor in the next week. Please return to the ED with any new or concerning symptoms. Please return if your chest pain changes or gets worse, or is accompanied by Shortness of breath. - Post Discharge Activity
--- NOTE | 2019-11-18 17:54 | PDOC ---
Attending Attestation - Resident Resident Name: Marion Flynn - ED Attending Attestation I have performed the following: I have examined & evaluated the patient, The case was reviewed & discussed with the resident, I agree w/resident's findings & plan - HPI HPI: 11/18/19 17:55 49-year-old female with a history of asthma, right lower extremity DVT no longer on anticoagulation (believed to be related to oral contraceptives which she has discontinued), vertebral artery stenosis, CVA without residual deficits, GERD, hiatal hernia, presenting with substeral chest pain up to her jaw at rest [employer]; nonexertional. no n/v/dizziness, sob, sweats. no numbness or tingling. 11/18/19 19:09 - Physicial Exam PE: 11/18/19 17:53 Agree with the resident's HPI and PE as documented in the electronic medical rec ord. NAD, well appearing, EOMI, PERRL, nl conjunctiva, anicteric; neck supple. lungs clear, RRR, abdomen soft nontender. no rebound, guarding. Back nontender. JENSEN x4, no focal neuro deficits. No peripheral edema. normal color for ethnicity, WWP. - Medical Decision Making 11/18/19 17:53 Vital Signs Temp Pulse Resp BP Pulse Ox 98.3 F 94 H 18 110/62 99 11/18/19 16:52 11/18/19 16:52 11/18/19 16:52 11/18/19 16:52 11/18/19 17:41 DDx chest pain: ACS, coronary vasospasm, NSTEMI, arrhythmia, unstable angina, PE, dissection, PUD, esophageal spasm, GERD, gastritis, costochondritis, pneumonia, pleurisy, pericarditis/myocarditis. dehydration, electrolyte/metabolic derangements. Considered but clinically doubt based on HPI and PE: Low suspicion for pulmonary embolism or dissection. Interpreted by ED Physician: CXR (2 view): no acute abnormality: no infiltrates, bones appear intact and structures normal alignment, cardiac silhouette within normal limits. no free air under diaphragm, no pneumothorax. EKG normal sinus rhythm, no interval abnormalities, narrow QRS, ST and T wave segments and morphology normal. Nonspecific T wave abnormalities, unchanged from prior Chest pain HEART score 3 which denotes Low risk and probability for ACS, less than 1.7% risk for MACE at 4-6 wks 11/18/19 19:23 initial trop neg, ekg is nonspecific T wave abnormalities repeat trop/ekg remainder labs and lytes wnl. no cp or sob. No evidence of ACS, pericarditis, myocarditis, pulmonary embolism, pneumothorax, pneumonia, Zoster, or esophageal perforation. Historically not abrupt in onset, tearing or ripping, pulses symmetric, no evidence of aortic dissection. s/o Dr Cotto pending reeval, ultimate dispo Heart Score/ECG Review - History History: Slightly suspicious - Electrocardiogram EKG: Non specific repolarization disturbance - Age Age: 45-65 - Risk Factors Risk Factors Heart Score: Yes Hx Obesity Based on the list above the patient has:: 1-2 risk factors - Troponin Troponin: </= normal limit - Score Heart Score - Total: 3 #1 ECG reviewed & interpreted by me at: 17:00 General ECG Interpretation: Sinus Rhythm, Normal Rate, Normal Intervals 11/18/19 17:53 EKG normal sinus rhythm 88 bpm, no interval abnormalities, narrow QRS, ST and T wave segments and morphology normal. Nonspecific T wave abnormalities Discharge - Discharge Information Problems reviewed: Yes Clinical Impression/Diagnosis: Chest pain - Follow up/Referral Referrals: [facility] [Primary Care Provider] - - Patient Discharge Instructions - Post Discharge Activity
[2019-11-18 17:55] LABS: BASO % 1.2 % (0-2.0); EOS % 3.1 % (0-4.5); HEMATOCRIT 37.3 % (32.4-45.2); HEMOGLOBIN 11.8 GM/dL (10.7-15.3); LYMPH % 32.1 % (8-40); MCH 26.8 pg (25.7-33.7); MCHC 31.7 g/dl (32.0-36.0); MEAN CELL VOLUME 84.7 fl (80-96); MEAN PLT VOLUME 9.6 fl (7.5-11.1); MONO % 7.3 % (3.8-10.2); NEUT % 56.3 % (42.8-82.8); PLATELET COUNT 232 K/MM3 (134-434); RDW 14.1 % (11.6-15.6); WHITE BLOOD COUNT 6.1 K/mm3 (4.0-10.0)
[2019-11-18 18:50] LABS: ALK PHOS 92 U/L (45-117); ANION GAP 7 MMOL/L (8-16); BILIRUBIN,TOTAL 0.5 mg/dL (0.2-1); BLOOD UREA NITROGEN 11.3 mg/dL (7-18); CALCIUM 9.3 mg/dL (8.5-10.1); CHLORIDE 104 mmol/L (98-107); CO2 25 mmol/L (21-32); CREATININE 1.1 mg/dL (0.55-1.3); GLUCOSE,RANDOM 85 mg/dL (74-106); POTASSIUM 4.1 mmol/L (3.5-5.1); SGOT/AST 21 U/L (15-37); SGPT/ALT 30 U/L (13-61); SODIUM 136 mmol/L (136-145); TOT PROT 8.1 g/dl (6.4-8.2)
--- NOTE | 2019-11-21 21:58 | EKG ---
Test Reason : Blood Pressure : / mmHG Vent. Rate : 086 BPM Atrial Rate : 086 BPM P-R Int : 176 ms QRS Dur : 082 ms QT Int : 336 ms P-R-T Axes : 048 054 021 degrees QTc Int : 402 ms NORMAL SINUS RHYTHM CANNOT RULE OUT ANTERIOR INFARCT , AGE UNDETERMINED ABNORMAL ECG WHEN COMPARED WITH ECG OF 03-OCT-2018 12:32, NO SIGNIFICANT CHANGE WAS FOUND Confirmed by ROSA MILLER MD ([id number]) on 11/21/2019 9:58:10 PM Referred By: Confirmed By:ROSA MILLER MD
--- NOTE | 2019-11-21 22:01 | EKG ---
Test Reason : Blood Pressure : / mmHG Vent. Rate : 088 BPM Atrial Rate : 088 BPM P-R Int : 182 ms QRS Dur : 082 ms QT Int : 322 ms P-R-T Axes : 066 067 017 degrees QTc Int : 389 ms NORMAL SINUS RHYTHM POSSIBLE LEFT ATRIAL ENLARGEMENT NONSPECIFIC T WAVE ABNORMALITY ABNORMAL ECG WHEN COMPARED WITH ECG OF 03-OCT-2018 12:32, NO SIGNIFICANT CHANGE WAS FOUND Confirmed by ROSA MILLER MD ([id number]) on 11/21/2019 10:00:35 PM Referred By: Confirmed By:ROSA MILLER MD
== END 2019-11-18 21:51 | disposition home or self-care (01) ==
LOC: JER 16:44
DX: R07.9 Chest pain, unspecified (principal)
CPT/HCPCS: 36415; 71046-TC-FY; 80053; 82550; 82553; 84484; 85025; 93005; 93010; 99285-25

== ENCOUNTER 2020-01-06 08:47 | Emergency (ER) | payer OTHER ==
[2020-01-06 08:55] VITALS: TEMP 98.4; BMI 37.1
--- OUTSIDE RECORDS SUMMARY | 2020-01-06 09:26 | XMS ---
:1970 Author Organization [facility] Care Team Providers Name Role Phone Goode, Kristen Unavailable Unavailable Goode, Kristen Unavailable Unavailable Goode, Kristen Unavailable Unavailable Goode, Kristen Unavailable Unavailable Goode, Kristen Unavailable Unavailable Goode, Kristen Unavailable Unavailable Goode, Kristen Unavailable Unavailable Goode, Kristen Unavailable Unavailable Goode, Kristen Unavailable Unavailable Goode, Kristen Unavailable Unavailable TIESHA GALEANA Unavailable Unavailable Siria Verma Unavailable [phone] Shu Verma Unavailable [phone] Shu Verma Unavailable [phone] Coloka-Kump, DO Unavailable Unavailable Coloka-Kump, DO Unavailable Unavailable Coloka-Kump, DO Unavailable Unavailable Coloka-Kump, DO Unavailable Unavailable Coloka-Kump, DO Unavailable Unavailable Coloka-Kump, DO Unavailable Unavailable Coloka-Kump, DO Unavailable Unavailable Coloka-Kump, DO Unavailable Unavailable Coloka-Kump, DO Unavailable Unavailable Coloka-Kump, DO Unavailable Unavailable Coloka-Kump, DO Unavailable Unavailable Coloka-Kump, DO Unavailable Unavailable Coloka-Kump, DO Unavailable Unavailable Coloka-Kump, DO Unavailable Unavailable Coloka-Kump, DO Unavailable Unavailable Coloka-Kump, DO Unavailable Unavailable Coloka-Kump, DO Unavailable Unavailable Coon Unavailable Unavailable Coon Unavailable Unavailable Coon Unavailable Unavailable Coon Unavailable Unavailable Coon Unavailable Unavailable Coon Unavailable Unavailable Merritt WATERMAN MD Unavailable [phone] Merritt WATERMAN MD Unavailable [phone] ADIEL [place] Unavailable Unavailable [place] Unavailable Unavailable [place] Unavailable Unavailable [place] Unavailable Unavailable [place]stad Unavailable Unavailable [place] Unavailable Unavailable [place] Unavailable Unavailable [place] Unavailable Unavailable [place] Unavailable Unavailable [place] Unavailable Unavailable [place] Unavailable Unavailable [place] Unavailable Unavailable Hao Unavailable Unavailable Hao Unavailable Unavailable Hao Unavailable Unavailable Ekechukwu Unavailable [phone] Ekechukwu Unavailable [phone] Aszalos, Khalida Unavailable Unavailable Aszalos, Khalida Unavailable Unavailable Aszalos, Khalida Unavailable Unavailable Aszalos, Khalida Unavailable Unavailable Aszalos, Khalida Unavailable Unavailable Aszalos, Khalida Unavailable Unavailable Aszalos, Khalida Unavailable Unavailable Aszalos, Khalida Unavailable Unavailable Aszalos, Khalida Unavailable Unavailable Aszalos, Khalida Unavailable Unavailable Aszalos, Khalida Unavailable Unavailable Aszalos, Khalida Unavailable Unavailable Aszalos, Khalida Unavailable Unavailable Aszalos, Khalida Unavailable Unavailable Aszalos, Khalida Unavailable Unavailable Aszalos, Khalida Unavailable Unavailable Aszalos, Khalida Unavailable Unavailable Aszalos, Khalida Unavailable Unavailable Callie Rosario MD Unavailable Unavailable Callie Rosario MD Unavailable Unavailable Callie Rosario MD Unavailable Unavailable Callie Rosario MD Unavailable Unavailable Callie Rosario MD Unavailable Unavailable Callie Rosario MD Unavailable Unavailable Callie Rosario MD Unavailable Unavailable Callie Rosario MD Unavailable Unavailable Callie Rosario MD Unavailable Unavailable Callie Rosario MD Unavailable Unavailable Callie Rosario MD Unavailable Unavailable Callie Rosario MD Unavailable Unavailable Callie Rosario MD Unavailable Unavailable Callie Rosario MD Unavailable Unavailable Callie Rosario MD Unavailable Unavailable ZUNASSIGNED Unavailable Unavailable Henrry, J MD Unavailable Unavailable Henrry, J MD Unavailable Unavailable Henrry, J MD Unavailable Unavailable Henrry, J MD Unavailable Unavailable Henrry, J MD Unavailable Unavailable Henrry, J MD Unavailable Unavailable Henrry, J MD Unavailable Unavailable Henrry, J MD Unavailable Unavailable Henrry, J MD Unavailable Unavailable Henrry, J MD Unavailable Unavailable Henrry, J MD Unavailable Unavailable Henrry, J MD Unavailable Unavailable Henrry, J MD Unavailable Unavailable Henrry, J MD Unavailable Unavailable Henrry, J MD Unavailable Unavailable Henrry, J MD Unavailable Unavailable Henrry, J MD Unavailable Unavailable Henrry, J MD Unavailable Unavailable Henrry, J MD Unavailable Unavailable Henrry, J MD Unavailable Unavailable Henrry, J MD Unavailable Unavailable Henrry, J MD Unavailable Unavailable Bonita WATERMAN MD Unavailable [phone] Bonita WATERMAN MD Unavailable [phone] [email or web address]@, Unavailable Unavailable Re-disclosure Warning The records that you are about to access may contain information from federally- assisted alcohol or drug abuse programs. If such information is present, then the following federally mandated warning applies: This information has been disclosed to you from records protected by federal confidentiality rules (42 CFR part 2). The federal rules prohibit you from making any further disclosure of this information unless further disclosure is expressly permitted by the written consent of the person to whom it pertains or as otherwise permitted by 42 CFR part 2. A general authorization for the release of medical or other information is NOT sufficient for this purpose. The Federal rules restrict any use of the information to criminally investigate or prosecute any alcohol or drug abuse patient.The records that you are about to access may contain highly sensitive health information, the redisclosure of which is protected by Article 27-F of the [facility] Public Health law. If you continue you may haveaccess to information: Regarding HIV / AIDS; Provided by facilities licensed or operated by the [facility] Office of Mental Health; or Provided by the [facility] Office for People With Developmental Disabilities. If such information is present, then the following [facility] mandated warning applies: This information has been disclosed to you from confidential records which are protected by state law. State law prohibits you from making any further disclosure of this information without the specific written consent of the person to whom it pertains, or as otherwise permitted by law. Any unauthorized further disclosure in violation of state law may result in a fine or longterm sentence or both. A general authorization for the release of medical or other information is NOT sufficient authorization for further disclosure. Allergies and Adverse Reactions Type Description Substance Reaction Status Data Source(s ) Drug allergy Aspirin Aspirin hives Active [facility]CW2 ([facility] [place] [facility]) Drug allergy Minocycline HCl Minocycline Unknown Active eCW2 ( [facility] [place] [facility]) Drug allergy Sulfur Drug allergy hives Active eCW2 ([facility] [place] [facility]) Family History Family Member Family Member Family Member Date of Description Data Source(s) Name Gender Status Status Unknown Male Problem 03/26/2016 NEXTGEN ([facility] (finding) 12:00:00 AM [facility] EST [place]) Unknown Male Problem 06/12/2015 NEXTGEN ([facility] (finding) 12:00:00 AM [facility] EDT [place]) Encounters Encounter Providers Location Date Indications Data Source(s ) Outpatient Attender: 01/11/2020 [facility] ZUNASSIGNEDAdmi 03:56:00 Medical C enter tter: PM EDT ZUNASSIGNEDRefe rrer: [id number] [email or web address]@, Outpatient Admitter: 01/11/2020 [facility] [id number] 12:00:00 Medical [place] ZUNASSIGNED@,Re AM EDT mcneill: [id number] [email or web address]@, Outpatient Attender: 12/23/2019 [facility] ZUNASSIGNEDAdmi 03:57:00 Medical C enter tter: PM EDT ZUNASSIGNEDRefe rrer: [id number] [email or web address]@, Outpatient Admitter: 12/23/2019 [facility] [id number] 12:00:00 Medical Center ZUNASSIGNED@,Re AM EDT mcneill: [id number] [email or web address]@, Outpatient Attender: Kalina Acuna 12/07/2019 [facility] AszalosAitter 03:01:00 Medical C enter : Kalina PM EDT AszalosReferrer : Kalina Nuñez OutpatientOFFICE Attender: [facility] 12/07/2019 CARMEN NGUYEN [facility] 03:01:00 [facility] dical VISIT, JOSE WATERMAN PM EDT - Center) 12/07/2019 03:01:00 PM EDT Outpatient 12/07/2019 [facility] 12:11:00 Medical Center PM EDT Outpatient 12/07/2019 [facility] 12:00:00 Medical Center AM EDT (TEL) [facility] 11/24/[facility] 12[facility] [place] [facility] Attender: Joceline [facility] 11/21/2019 NEXTELIZA N ([facility] Abraham [facility] 11:23:00 Gaye Medica l AM EDT - Center) 11/21/2019 11:23:00 AM EDT Attender: [facility] 11/15/2019 JACQUI ( [facility] 12:53:00 Gaye Med dayday WATERMAN PM EDT - Center) 11/15/2019 12:53:00 PM EDT Attender: [facility] 10/28/2019 NEXTGEN ([facility] 03:05:00 Gaye Medica l [place] PM EDT - Center) 10/28/2019 03:05:00 PM EDT Attender: [facility] 10/17/2019 NEXTGEN ([facility] Center 01:11:00 Gaye Medica l [place] PM EDT - Center) 10/17/2019 01:11:00 PM EDT Planned [facility] 10/12/2019 eCW2 ([facility] 12:00:00 [facility] - [place] Tomasz AM EDT [facility] [place] [facility]) [facility] 10/05/2019 eCW2 ([facility] 12:00:00 Pa[facility]o [facility] - [place] Tomasz AM EDT [facility] [place] [facility]) Outpatient 09/29/2019 [facility] 11:24:00 Medical Center AM EDT Outpatient 09/29/2019 [facility] 12:00:00 Medical Center AM EDT Attender: Kalina [facility] 09/28/2019 DENZEL Rowe ([facility] 11:48:00 Gaye Medica l AM EDT - Center) 09/28/2019 11:48:00 AM EDT Attender: [facility] 09/27/2019 JACQUI ( [facility] 04:12:00 Gaye Med ical MD PM EDT - Center) 09/27/2019 04:12:00 PM EDT Attender: Kalina [facility] 09/26/2019 DENZEL Rowe ([facility] 03:17:00 [facility] Ofelia lopez PM EDT - Center) 09/26/2019 03:17:00 PM EDT Outpatient 09/20/2019 [facility] 03:24:00 Medical Center PM EDT Outpatient Attender: H 09/20/2019 [facility] Jose Eliasika 10:33:00 [facility] Coloka-Kump AM EDT DOAdmitter: Rodashley Coloka-Kump DOReferrer: Rodashley Coloka-Kump DO OutpatientOFFICE Attender: [facility] 09/20/2019 CARMEN NGUYEN ([facility] 10:33:00 [facility] dical VISIT, JOSE WATERMAN AM EDT - Center) 09/20/2019 10:33:00 AM EDT Outpatient 09/20/2019 [facility] 12:00:00 [facility] AM EDT Attender: [facility] 09/19/2019 JACQUI ( [facility] 10:25:00 [facility] Alonso naylor MD AM EDT - Center) 09/19/2019 10:25:00 AM EDT [facility] 08/25/2019 eCW2 ([facility] 12:00:00 [facility] - [place] Tomasz AM EDT [facility] [place] [facility]) [facility] 08/18/2019 eCW2 ([facility] 12:00:00 [facility]o [facility] - [place] Tomasz AM EDT [facility] [place] [facility]) [facility] 08/18/2019 eCW2 ([facility] 12:00:00 Pa[facility]o [facility] - [place] Tomasz AM EDT [facility] [place] [facility]) Outpatient Attender: KERVIN 08/08/2019 HERMINIA [place] JINAdmitter: 10:59:00 [facility] TIESHA GALEANA AM EDT [facility] [employer] [facility] [place] Attender: Joceline [facility] 08/04/2019 DENZEL Rosario [facility] 11:22:00 AM EDT - ([facility] 08/04/2019 [facility] 11:22:00 AM EDT Medical Center) Attender: Merna Arreguin 07/29/2019 CARMEN NGUYEN [facility] 04:25:00 PM EDT - ([facility] 07/29/2019 [facility] 04:25:00 PM EDT Medical Center) Attender: [facility] 07/12/2019 CARMEN [facility] 04:19:00 PM EDT - ([facility] 07/12/2019 [facility] 04:19:00 PM EDT Medical Center) Outpatient 07/07/2019 [facility] 03:41:00 PM EDT Medical Center Outpatient 07/07/2019 [facility] 12:00:00 AM EDT Medical Center Outpatient Attender: Zoila Acuna 07/06/2019 [facility] MDAdmitter: 02:34:00 PM EDT Med ical Zoila Sales [place] MDReferrer: Zoila Sales MD Attender: [facility] 07/06/2019 [facility] Gilberto Mesa MD [place] 02:34:00 PM EDT - (S aint 07/06/2019 [facility] 02:34:00 PM EDT Medical Center) Outpatient 07/06/2019 [facility] 02:30:00 PM EDT Medical Center Outpatient 07/06/2019 [facility] 12:00:00 AM EDT Medical Center Outpatient 07/04/2019 [facility] 02:46:00 PM EDT Medical Center Outpatient 07/04/2019 [facility] 12:00:00 AM EDT Medical Center Attender: [facility] 06/21/2019 CARMEN [facility] 03:44:00 PM EDT - ([facility] 06/21/2019 [facility] 03:44:00 PM EDT Medical Center) Outpatient Attender: Kristen Acuna 06/07/2019 [facility] VelezAdmitter: 10:29:00 AM EDT Medic al Kristen [place] VelezReferrer: Kristen Goode OutpatientOFFICE/ Attender: [facility] 10:[facility] AM EDT - ([facility] 06/07/2019 [facility] 10:29:00 AM EDT Medical Center) Outpatient 06/07/2019 [facility] 10:28:00 AM EDT Medical Center Outpatient 06/07/2019 [facility] 12:00:00 AM EDT Medical Center Attender: [facility] 06/03/2019 DENZEL Nuñez [place] 11:11:00 AM EST - ([facility] 06/03/2019 [facility] 11:11:00 AM EST Medical Center) Outpatient 06/02/2019 [facility] 03:57:00 PM EST Medical Center Outpatient 06/02/2019 [facility] 12:00:00 AM EST Medical Center Attender: [facility] 05/31/2019 NEXTGEN Khari Bang MD [place] 03:34:00 PM EST - ( [facility] 05/31/2019 [facility] 03:34:00 PM [facility] Medical Center) Outpatient 05/04/2019 [facility] 12:09:00 PM [facility] Medical Center Outpatient Attender: Kristen Acuna 05/04/2019 [facility] VelezAdmitter: 10:53:00 AM EST Medic al Kristen [place] VelezReferrer: Kristen Goode OutpatientOFFICE/ Attender: Vaibhav [facility]04[facility]2019 [facility], Hao [place] 10:53:00 AM EST - ([facility] 05/04/2019 [facility] 10:53:00 AM [facility] Medical Center) Outpatient 05/04/2019 [facility] 12:00:00 AM [facility] Medical Center Attender: [facility] 04/21/2019 DENZEL Rsoario MD [place] 04:00:00 PM EST - ([facility] 04/21/2019 [facility] 04:00:00 PM [facility] Medical Center) Attender: [facility] 04/13/2019 CARMEN NGUYEN [facility] 12:13:00 PM EST - ([facility] 04/13/2019 [facility] 12:13:00 PM [facility] Medical Center) Outpatient Attender: Kristen Acuna 03/29/2019 [facility] VelezAdmitter: 09:50:00 AM EST Medic al [facility] VelezReferrer: Kristen Goode OutpatientOFFICE/ Attender: [facility] 03/29/2019 TATA XT OUTPATIENT VISIT, Khari Bang MD [place] 09:50:00 AM EST - ([facility] 03/29/2019 [facility] 09:50:00 AM [facility] Medical Center) Outpatient 03/29/2019 [facility] 09:47:00 AM [facility] Medical Center Outpatient 03/29/2019 [facility] 12:00:00 AM [facility] Medical Center Outpatient 03/10/2019 [facility] 04:34:00 PM EST Medical Center Outpatient Attender: Kristen Acuna 03/10/2019 [facility] VelezAdmitter: 09:14:00 AM EST Medic al [facility] VelezReferrer: Kristen Goode OutpatientOFFICE/ Attender: [facility] 03/10/2019 NE XTGEN OUTPATIENT VISIT, Khari Bang MD [place] 09:14:00 AM EST - ([facility] 03/10/2019 [facility] 09:14:00 AM EST Medical [place]) Outpatient 03/10/2019 [facility] 12:00:00 AM EST Medical Center Attender: [facility] 03/08/2019 JACQUI Bang MD [place] 03:14:00 PM EST - ( [facility] 03/08/2019 [facility] 03:14:00 PM [facility] Medical [place]) Outpatient Attender: SIRIA Acuna 02/14/2019 [facility] 09:08:00 AM EST - Medica jessica [facility]: [facility]/14/2019 [place] 01:27:00 PM [facility] MReferrer: [facility] [place] Attender: Siria 02/14/2019 [facility] 09:08:00 AM EST - ([facility] 02/14/2019 [facility] 09:08:00 AM [facility] Medical [place]) Attender: Joceline [facility] 02/09/2019 DENZEL Rosario MD [place] 09:44:00 AM EST - ([facility] 02/09/2019 [facility] 09:44:00 AM [facility] Medical [place]) Attender: [facility]/07/2019 [facility] 12:31[facility] PM EST - ([facility] 02/07/2019 [facility] 12:31:00 PM [facility] Medical [place]) Outpatient 12/31/2018 [facility] 01:43:00 PM ED Medical Center Outpatient Attender: Kristen Acuna 12/31/2018 [facility] VelezAdmitter: 08:32:00 AM EDT Medic al [facility] VelezReferrer: Kristen Goode OutpatientOFFICE/ Attender: [facility] 12/31/2018 NE XTGEN OUTPATIENT VISIT, Khari Bang MD [place] 08:32:00 AM EDT - ([facility] 12/31/2018 [facility] 08:32:00 AM EDT Medical [place]) Outpatient 12/31/2018 [facility] 12:00:00 AM EDT Medical Center Attender: [facility] 12/29/2018 JACQUI Bang MD [place] 11:51:00 AM EDT - ( [facility] 12/29/2018 [facility] 11:51:00 AM EDT [facility]) Outpatient Attender: Lety Acuna 12/14/2018 [facility] Saundra govindmichelle WilkinsRussell 10:05:00 AM EDT Medical DOAdmitter: [facility] DOReferrer: Lety HilarioSharp [facility] Centerjeff DO OutpatientOFFICE/ Attender: [facility] 12/14/2018 NE XTGEN OUTPATIENT VISIT, Khari Bang MD [place] 10:05:00 AM EDT - ([facility] 12/14/2018 [facility] 10:05:00 AM EDT [facility]) Outpatient 12/14/2018 [facility] 09:09:00 AM EDT Medical Center Outpatient 12/14/2018 [facility] 12:00:00 AM EDT Medical Center Attender: Joceline [facility] 12/07/2018 DENZEL Rosario MD [place] 11:56:00 AM EDT - ([facility] 12/07/2018 [facility] 11:56:00 AM EDT [facility] Center) Immunizations Vaccine Date Status Description Data Source(s) New in 2011. IIV4 12/31/2018 completed Influenza, Injectable, NEXTGEN ([facility] 12:00:00 AM EDT Quadrivalent [facility]) Source: New Immunization Record Medications Medication Brand Start Product Dose Route Administrative Pharmacy [facility] Indications Reaction Description Data Name Date Form Instructions Instructions Source(s) clopidogrel Plavix . ORAL active clopido grel NEXTGEN 75 MG Oral 75 mg 2019 {tabl 75 MG Oral ( [facility] Tablet tablet 12:00: et} Tablet Gaye [Plavix] 00 AM [Plavix] Medica l Plavix 75 T [place]) mg tablet 60 ACTUAT Pulmic .00 RESPIR active 60 ACTU AT NEXTGEN Budesonide ort 2019 {puff ATORY budesonide ( [facility] 0.08 Flexha 12:00: } (INHAL 0.09 Gaye MG/ACTUAT ler 90 00 AM ATION) MG/ACTUAT Medical Dry Powder mcg/ac EDT Dry Powder C enter) Inhaler tuatio Inhaler [Pulmicort] n [Pulmicort] Pulmicort breath Flexhaler activa 90 zurdo mcg/actuati on breath activated pantoprazol pantop 10/16/ 1.00 ORAL active take 1 NEXTGEN e 40 MG razole 2019 {tabl tablet by ([place] nt Delayed 40 mg 12:00: et} oral route Martin ephs Release tablet 00 AM every day Medi chong Oral Tablet ,delay EDT Center ) pantoprazol ed e 40 mg releas tablet,pina e yed release 200 ACTUAT Ventol active [id number] NEXTGEN Albuterol in HFA 2019 200 ACTUAT (S aint 0.09 90 12:00: albuterol Gaye MG/ACTUAT mcg/ac 00 AM 0.09 Medical Metered tuatio EDT MG/ACTUAT Cente r) Dose n Metered Dose Inhaler aeroso Inhaler [Ventolin] l [Ventolin] Ventolin inhale HFA 90 r mcg/actuati on aerosol inhaler NITROFURANT Macrob .0 active Macrobi d 100 eCW2 OIN, id 100 2019 {caps MG ([facility] MACROCRYSTA MG 12:00: ule_w Paren thood LS 25 MG / 00 AM ith_f - Hudso n Nitrofurant EDT ood} [place] [facility] Monohydrate ed) 75 MG Oral Capsule [Macrobid] Macrobid 100 MG Fluconazole Difluc active 1 table t eCW2 150 MG Oral an 2019 ([facility]anned Tablet 150MG 12:00: Parenthood [Diflucan] 00 AM - [facility] Diflucan EDT [place] 150[employer] ed) Fluconazole Difluc .0 active Difluca n eCW2 150 MG Oral an 2019 {tabl 150MG (Plann ed Tablet 150MG 12:00: et} [facility] [Diflucan] 00 AM - [facility] Diflucan EDT [place] [employer] ed) NITROFURANT Macrob active 1 capsu le eCW2 OIN, id 100 2019 with food ([facility] MACROCRYSTA MG 12:00: Parent olguin LS 25 MG / 00 AM - [facility] Nitrofurant EDT [place] oin, [employer] Monohydrate ed) 75 MG Oral Capsule [Macrobid] Macrobid 100 MG Metronidazo Metron active 1 table t eCW2 le 500 MG idazol 2019 (Planned Oral Tablet e 500 12:00: Paren thood MG 00 AM - [facility] EDT [place] [facility] ed) Metronidazo Metron 08/17/ active 1 table t eCW2 le 500 MG idazol 2019 (Planned Oral Tablet e 500 12:00: Paren thood MG 00 AM - Edge EDT [place] [facility] ed) Metronidazo Metron .0 active Metroni dazol eCW2 le 500 MG idazol 2019 {tabl e 500 MG (Pl anned Oral Tablet e 500 12:00: et} Paren thood MG 00 AM - Edge EDT [place] [facility] ed) clopidogrel Plavix .00 ORAL complet clopid ogrel NEXTGEN 75 MG Oral 75 mg 2019 {tabl ed 75 MG Oral ( [facility] Tablet tablet 12:00: et} Tablet Gaye [Plavix] 00 AM [Plavix] Medica l Plavix 75 EDT Center) mg tablet Cyclobenzap cyclob ORAL active take 1 NEXTGEN rine enzapr 2019 {tabl tablet by ([facility] hydrochlori ine 5 12:00: et} oral route Gaye de 5 MG mg 00 AM every day Medica l Oral Tablet tablet EDT Center ) cyclobenzap rine 5 mg tablet cetirizine cetiri .00 ORAL active chew 1 N EXTGEN hydrochlori zine 2019 {tabl tablet by (S aint de 10 MG 10 mg 12:00: et} oral route Saundra sephs Chewable chewab 00 AM every day Med ical Tablet le EDT Center) cetirizine tablet 10 mg chewable tablet Flonase flutic 07/11/ NASAL active fluticason e NEXTGEN Allergy asone 2019 propionate ([place] t Relief 50 propio 12:00: 0.05 Isr[place] s mcg/actuati anali 00 AM MG/ACTUAT Me dical on nasal 0.05 EDT Metered Dose Ric[address] ter) spray,suspe MG/ACT Nasal [place] nsion UAT [Flonase] Metere d Dose Nasal [place] Tretinoin tretin 06/21/ active apply by NEXTGEN 0.25 MG/ML oin 2019 topical ([facility] Topical 0.025 12:00: route every J osephs Cream % 00 AM day to the Medical tretinoin topica EDT affected Cent er) 0.025 % l area(s) topical cream cream mometasone mometa 06/21/ TOPICA active apply by NEXTGEN furoate 1 2019 L topical (Saint MG/ML 0.1 % 12:00: route every [place] ephs Topical topica 00 AM day a thin Med ical Cream l EDT layer to the Center ) mometasone cream affected 0.1 % area(s) topical cream Pt needs appt for additional refills Metronidazole metronidazole 06/22/2019 TOPICAL complete d apply by NEXTGEN 7.5 MG/ML 0.75 % topical 12:00:00 AM topical ([facility] Topical Cream cream EDT route 2 Saundra sephs metronidazole times Medic al 0.75 % topical every day Center) cream a thin layer to the affected area(s) in the morning and evening clopidogrel 75 Plavix 75 mg 06/07/2019 1. ORAL completed clopidogre NEXTGEN MG Oral Tablet tablet 12:00:00 AM 00 l 75 MG ( [Plavix] Plavix EDT {t Oral Conrad phs 75 mg tablet bl Tablet Medic al } [Plavix] Center) Naproxen 500 MG Naprosyn 500 mg 06/07/2019 1. ORAL active naproxen NEXTGEN Oral Tablet tablet 12:00:00 AM 00 500 MG ( [Naprosyn] EDT {t Oral Gaye Naprosyn 500 mg ab Tablet Me dical tablet le [Naprosyn] Center) t} 60 ACTUAT Pulmicort 04/13/2019 2. RESPIRATO completed 60 ACTUAT NEXTGEN Budesonide 0.08 Flexhaler 90 12:00:00 AM 00 RY Budesonide (Saint MG/ACTUAT Dry mcg/actuation EST {p (INHALATI 0.09 Gaye Powder Inhaler breath uf ON) MG/ACTUA T Medical [Pulmicort] activated f} Dry Powd er Center) Pulmicort Inhaler Flexhaler 90 [Pulmicort mcg/actuation ] breath activated Flonase Allergy Fluticasone 03/10/2019 NASAL completed Fluticason NEXTGEN Relief 50 propionate 0.05 12:00:00 AM e ([facility] mcg/actuation MG/ACTUAT EST propio anali Gaye nasal Metered Dose 0.05 Medica l spray,suspensio Nasal [place] MG /ACTUAT Center) n Metered Dose Nasal [place] [Flonase] Metoprolol metoprolol 02/07/2019 active TAKE 1 NEXTGEN Tartrate 25 MG tartrate 25 mg 12:00:00 AM TABLET BY ([facility] Oral Tablet tablet EST ORAL ROUTE Gaye metoprolol TWO TIMES Medi chong tartrate 25 mg EVERY DAY Center) tablet pantoprazole 40 pantoprazole 40 12/14/2018 1. ORAL complet ed take 1 NEXTGEN MG Delayed mg 12:00:00 AM 00 tablet by ([facility] Release Oral tablet,delayed EDT {t or al route Gaye Tablet release bl every day Medi chong pantoprazole 40 } Cent er) mg tablet,delayed release cetirizine cetirizine 10 11/02/2018 1. ORAL completed chew 1 NEXTGEN hydrochloride mg chewable 12:00:00 AM 00 tablet by (Saint 10 MG Chewable tablet EDT {t oral rou te Gaye Tablet bl every day Medical cetirizine 10 } Center ) mg chewable tablet 60 ACTUAT Pulmicort 11/02/2018 2. RESPIRATO completed 60 ACTUAT NEXTGEN Budesonide 0.08 Flexhaler 90 12:00:00 AM 00 RY Budesonide ([facility] MG/ACTUAT Dry mcg/actuation EDT {p (INHALATI 0.09 Gaye Powder Inhaler breath uf ON) MG/ACTUA T Medical [Pulmicort] activated f} Dry Powd er Center) Pulmicort Inhaler Flexhaler 90 [Pulmicort mcg/actuation ] breath activated Metoprolol METOPROLOL 11/01/2018 completed TAKE 1 NEXTGEN Tartrate 25 MG TARTRATE 25MG 12:00:00 AM TABLET BY ([facility] Oral Tablet TAB EDT ORAL ROUTE Saundra sephs METOPROLOL TWO TIMES Medi chong TARTRATE 25MG EVERY DAY C enter) TAB 200 ACTUAT Ventolin HFA 90 09/09/2018 completed [id number] NEXTGEN Albuterol 0.09 mcg/actuation 12:00:00 AM 200 ACTUAT (Saint MG/ACTUAT aerosol inhaler EDT Albu terol Gaye Metered Dose 0.09 Medical Inhaler MG/ACTUAT Center) [Ventolin] Metered Ventolin HFA 90 Dose mcg/actuation Inhaler aerosol inhaler [Ventolin ] Futvikram corral.stockin 06/03/2018 completed wear for NEXTGEN Anti-Embolism g,thigh,reg,med 12:00:00 AM at least 6 ([facility] Stockings EST -8 hours a Conrad [facility] day Medical Center) Aspirin 325 MG Fiorinal-Codein 1. ORAL completed aspirin NEXTGEN / butalbital 50 e #3 30 mg-50 00 325 MG / (Saint MG / Caffeine mg-325 mg-40 mg {c butalbital Gaye 40 MG / Codeine capsule ap 50 MG / Medical Phosphate 30 MG crespo caffeine Center) Oral Capsule le 40 MG / [Fiorinal with } codeine Codeine] phosphate Fiorinal-Codein 30 MG Ora l e #3 30 mg-50 Capsule mg-325 mg-40 mg [Fiorinal capsule with Codeine] Amitriptyline amitriptyline 1. ORAL completed take 1 NEXTGEN Hydrochloride 25 mg tablet 00 tab let by (Saint 25 MG Oral {t oral route Martin ephs Tablet ab every day Medical amitriptyline le at bedtime Center) 25 mg tablet t} Cyclobenzaprine cyclobenzaprine 1 ORAL completed take 1 NEXTGEN hydrochloride 5 5 mg tablet {t ta blet by (Saint MG Oral Tablet bl oral route Gaye cyclobenzaprine } every da y Medical 5 mg tablet Center) Furosemide 40 Lasix 40 mg 1. ORAL completed Furosemide NEXTGEN MG Oral Tablet tablet 00 40 MG Or al (Saint [Lasix] Lasix {t Tablet Conrad phs 40 mg tablet bl [Lasix] Medi chong } Center) Insurance Providers Payer name Policy type Policy ID Covered Covered libertarian's Policy P sandoval / Coverage libertarian ID relationship to Nicole Inf ormation type nicole [facility] MEDICAID [id number] SP [id number] [facility]/P O [id number] 01 [id number] [facility]/P [id number] self [id number] MEDICAID [id number] SP [id number] [facility] MEDICAID [id number] SP [id number] [facility] [id number] self [id number] [facility] [id number] self [id number] [facility] [id number] PT [id number] [facility] MEDICAID [id number] SP [id number] [facility] Problems, Conditions, and Diagnoses Code Display Name Description Problem Type Effective Data Dates Source(s) 22191598 Nonruptured cerebral Nonruptured Problem 05/13/2019 NEX TGEN aneurysm cerebral aneurysm 12:00:00 AM ([facility]) [id number] Gastroesophageal Gastroesophageal Problem 02/15/2019 NE XTGEN reflux disease with reflux disease with 12:00:0 0 AM ([facility] hiatal hernia hiatal hernia [facility]) G43.109 Migraine with aura, MIGRAINE WITH AURA, Diagnosis 020 [facility] not intractable, NOT INTRACTABLE, 03:01:00 PM J osep without status W/O STATUS EDT Medical migrainosus MIGRAINOSUS Center I67.1 Cerebral aneurysm, CEREBRAL ANEURYSM, Diagnosis 0 [facility] nonruptured NONRUPTURED 03:01:00 PM [facility] Z71.89 Other specified OTHER SPECIFIED Diagnosis 09/20/2019 [place] t counseling COUNSELING 10:33:00 AM [facility] K44.9 Diaphragmatic hernia DIAPHRAGMATIC Diagnosis 09/20/2019 S aint without obstruction HERNIA WITHOUT 10:33:00 AM [facility] or gangrene OBSTRUCTION OR EDT Medical GANGRENE Center Z02.9 Encounter for ENCOUNTER FOR Diagnosis 09/20/2019 [facility] administrative ADMINISTRATIVE 10:33:00 AM Jose examinations, EXAMINATIONS, EDT Medical unspecified UNSPECIFIED Center Z71.9 Counseling, COUNSELING, Diagnosis 06/07/2019 [facility] unspecified UNSPECIFIED 10:29:00 AM [facility] S39.012A Strain of muscle, STRAIN OF MUSCLE, Diagnosis 06/07/2019 fascia and tendon of FASCIA AND TENDON 10:29:00 AM Gaye lower back, initial OF LOWER BACK, INIT ED Medical encounter Center R10.10 Upper abdominal UPPER ABDOMINAL Diagnosis 05/04/2019 [place] acharya pain, unspecified PAIN, UNSPECIFIED 10:53:00 AM [facility] A08.39 Other viral OTHER VIRAL Diagnosis 03/29/2019 [facility] enteritis ENTERITIS 09:50:00 AM [facility] Z68.35 Body mass index BODY MASS INDEX Diagnosis 03/10/2019 [place] t (BMI) 35.0-35.9, (BMI) 35.0-35.9, 09:14:00 AM [facility] AD[facility] Z12.4 Encounter for ENCOUNTER FOR Diagnosis 03/10/2019 screening for SCREENING FOR 09:14:00 AM [facility] malignant neoplasm MALIGNANT NEOPLASM EST Medical of cervix OF CERVIX Center J30.9 Allergic rhinitis, ALLERGIC RHINITIS, Diagnosis 9 [facility] unspecified UNSPECIFIED 09:14:00 AM [facility] R10.9 Unspecified UNSPECIFIED Diagnosis 03/10/2019 [facility] abdominal pain ABDOMINAL PAIN 09:14:00 AM [facility] R10.84 Generalized GENERALIZED Diagnosis 02/14/2019 [facility] abdominal pain ABDOMINAL PAIN 09:08:00 AM [facility] Z23 Encounter for ENCOUNTER FOR Diagnosis 12/31/2018 [facility] immunization IMMUNIZATION 08:32:00 AM [facility] Z12.31 Encounter for ENCNTR SCREEN Diagnosis 12/31/2018 [facility] screening mammogram MAMMOGRAM FOR 08:32:00 AM Mily osephs for malignant MALIGNANT NEOPLASM EDT Med ical neoplasm of breast OF BREAST [place] Surgeries/Procedures Procedure Description Date Indications Data Source(s) OFFICE/OUTPATIENT VISIT, 12/07/2019 NEX TGEN ([facility] 12:00:00 AM EDT [facility] - 12/07/2019 Center) 12:00:00 AM EDT Urinalysis Dip 10/05/2019 eCW2 (Planned 12:00:00 AM EDT [facility] rated) HIV Rapid Test INSTI 10/05/2019 eCW2 (P lanned 12:00:00 AM EDT [facility]) URINE CULTURE/COLONY 10/05/2019 eCW2 (P lanned COUNT 12:00:00 AM EDT [facility] rated) OFFICE/OUTPATIENT VISIT, 09/20/2019 NEX TGEN ([facility] 12:00:00 AM EDT [facility] - 09/20/2019 Center) 12:00:00 AM EDT [place] 08/18/2019 eCW2 (Planned 12:00:00 AM EDT [facility]) CHLAMYDIA, SHIVANI 08/18/2019 eCW2 (Planned 12:00:00 AM EDT [facility]) GONORRHEA, SHIVANI 08/18/2019 eCW2 (Planned 12:00:00 AM EDT [facility]) SPECIMEN HANDLING 08/18/2019 eCW2 (Plan greg 12:00:00 AM EDT [facility] rated) OFFICE/OUTPATIENT VISIT, 06/07/2019 NEX TGEN ([facility] EST 12:00:00 AM EDT [facility] - 06/07/2019 [place]) 12:00:00 AM EDT OFFICE/OUTPATIENT VISIT, 05/04/2019 NEX TGEN ([facility] EST 12:00:00 AM [facility] - 05/04/2019 [place]) 12:00:00 AM EST OFFICE/OUTPATIENT VISIT, 03/29/2019 NEX TGEN ([facility] EST 12:00:00 AM EST [facility] - 03/29/2019 Center) 12:00:00 AM EST OFFICE/OUTPATIENT VISIT, 03/10/2019 NEX TGEN ([facility] EST 12:00:00 AM [facility] - 03/10/2019 [place]) 12:00:00 AM EST OFFICE/OUTPATIENT VISIT, 12/31/2018 NEX TGEN ([facility] EST 12:00:00 AM EDT [facility] - 12/31/2018 [place]) 12:00:00 AM EDT Influenza, Injectable, 3 12/31/2018 NEX TGEN ([facility] Yrs Or Older 12:00:00 AM EDT [facility] - 12/31/2018 [place]) 12:00:00 AM EDT Immunization 12/31/2018 NEXTGEN ([facility] Administration 12:00:00 AM EDT [facility] dical - 12/31/2018 [place]) 12:00:00 AM EDT OFFICE/OUTPATIENT VISIT, 12/14/2018 NEX TGEN ([facility] EST 12:00:00 AM EDT [facility] - 12/14/2018 [place]) 12:00:00 AM EDT Results ID Date Data Source Liver 09/20/2019 12:36:00 PM EDT [facility] Profile.[id number] Name Value Range Interpretation Description Data Sup porting Code Source(s) Document(s ) Aspartate 14-36 Above high <content [facility] aminotransferase normal styleCode="Bold"> Jose hs [Enzymatic Aspartate Medical activity/volume] Aminotransferase Center in Serum or Plasma (AST) </content>46 IU/L H<content styleCode="Italic s"> (14-36 IU/L)</content> Bilirubin.total 0.2-1.3 <content [facility] [Mass/volume] in styleCode="Bold"> Jose hs Serum or Plasma Bilirubin Total Medical </content>0.3 Center MG/DL<content styleCode="Italic s"> (0.2-1.3 MG/DL)</content> Albumin 3.5-5.0 <content [facility] [Mass/volume] in styleCode="Bold"> Jose hs Serum or Plasma Albumin Medical </content>4.1 Center G/DL<content styleCode="Italic s"> (3.5-5.0 G/DL)</content> Alkaline 38-126 <content [facility] phosphatase styleCode="Bold"> Gaye [Enzymatic Alkaline Medical activity/volume] Phosphatase (ALP) Cente r in Serum or Plasma </content>92 IU/L<content styleCode="Italic s"> (38-126 IU/L)</content> Alanine 7-30 Above high <content [facility] aminotransferase normal styleCode="Bold"> Jose hs [Enzymatic Alanine Medical activity/volume] Aminotransferase Center in Serum or Plasma (ALT) </content>38 IU/L H<content styleCode="Italic s"> (7-30 IU/L)</content> ID Date Data Source Hormones.[id number] 09/20/2019 12:36:00 PM EDT [place] [facility] Name Value Range Interpretation Description Data Sup porting Code Source(s) Document(s ) Thyroxine (T4) 0.78-2.1 <content [facility] free 9 styleCode="Nikki Gaye [Mass/volume] d">T4 Free Medical in Serum or </content>1.12 Center Plasma NG/DL<content styleCode="Radha lics"> (0.78-2.19 NG/DL)</conten t> Thyrotropin 0.465-4. <content [facility] [Units/volume] 68 styleCode="Nikki Gaye in Serum or d">Thyroid Medical Plasma by Stimulating Center Detection Hormone limit <= 0.05 </content>2.14 mIU/L MIU/L<content styleCode="Radha lics"> (0.465-4.68 MIU/L)</conten t> ID Date Data Source HematologyRou.[id number] 09/20/2019 12:36:00 PM EDT [facility] 0400 Name Value Range Interpretation Description Data Sup porting Code Source(s) Document(s ) Leukocytes 4.4-11.0 <content [facility] [#/volume] in styleCode="Bold Gaye Blood by ">White Blood Medical Automated count Cell Count Center </content>5.55 KCUMM<content styleCode="Ital ics"> (4.4-11.0 KCUMM)</content > Erythrocytes 4.0-5.1 <content [facility] [#/volume] in styleCode="Bold Gaye Blood by ">Red Blood Medical Automated count Cell Count Center </content>4.23 MCUMM<content styleCode="Ital ics"> (4.0-5.1 MCUMM)</content > Hematocrit 36.0-46. <content [facility] [Volume 0 styleCode="Bold Gaye Fraction] of ">Hematocrit Medical Blood by </content>37.4 Center Automated count %<content styleCode="Ital ics"> (36.0-46.0 %)</content> Hemoglobin 12.3-16. Below low normal <content Saint [Mass/volume] in 0 styleCode="Bold Gaye Blood ">Hemoglobin Medical </content>11.4 Center G/DL L<content styleCode="Ital ics"> (12.3-16.0 G/DL)</content> Erythrocyte mean 32.0-37. Below low normal <content [facility] corpuscular 0 styleCode="Bold Gaye hemoglobin ">Mean Corpus. Medical concentration Hgb Center [Mass/volume] by Concentration Automated count (MCHC) </content>30.5 G/DL L<content styleCode="Ital ics"> (32.0-37.0 G/DL)</content> Erythrocyte mean 80.0-100 <content [facility] corpuscular .0 styleCode="Bold Gaye volume [Entitic ">Mean Medical volume] by Corpuscular Center Automated count Volume </content>88.4 FL<content styleCode="Ital ics"> (80.0-100.0 FL)</content> Erythrocyte mean 26.0-34. <content [facility] corpuscular 0 styleCode="Bold Gaye hemoglobin ">Mean Medical [Entitic mass] Corposcular Center by Automated Hemoglobin count </content>27.0 PG<content styleCode="Ital ics"> (26.0-34.0 PG)</content> Platelet mean 8.0-11.0 Above high <content Saint volume [Entitic normal styleCode="Bold Gaye volume] in Blood ">Mean Platelet Medical by Automated Volume Center count </content>11.2 FL H<content styleCode="Ital ics"> (8.0-11.0 FL)</content> Neutrophils 36-66 <content Saint [#/volume] in styleCode="Bold Gaye Blood by ">Neutrophil Medical Automated count </content>50.1 Center %<content styleCode="Ital ics"> (36-66 %)</content> Lymphocytes 24.0-44. <content Saint [#/volume] in 0 styleCode="Bold Gaye Blood by ">Lymphocyte Medical Automated count </content>37.1 Center %<content styleCode="Ital ics"> (24.0-44.0 %)</content> Erythrocyte 11.5-14. <content [facility] distribution 5 styleCode="Bold Gaye width [Ratio] by ">Red Cell Medical Automated count Distribution Center Width </content>14.3 %<content styleCode="Ital ics"> (11.5-14.5 %)</content> Platelets 130-400 <content Saint [#/volume] in styleCode="Bold Gaye Blood by ">Platelet Medical Automated count Count Center </content>220 KCUMM<content styleCode="Ital ics"> (130-400 KCUMM)</content > UNK 1.6-7.3 <content Saint styleCode="Bold Gaye ">Neutrophil Medical Count Center </content>2.78 KCUMM<content styleCode="Ital ics"> (1.6-7.3 KCUMM)</content > Eosinophils 0-5.0 <content Saint [#/volume] in styleCode="Bold Gaye Blood by ">Eosinophil Medical Automated count </content>3.6 Center %<content styleCode="Ital ics"> (0-5.0 %)</content> UNK 0.0-0.6 <content Saint styleCode="Bold Gaye ">Eosinophil Medical Count Center </content>0.20 KCUMM<content styleCode="Ital ics"> (0.0-0.6 KCUMM)</content > UNK 0.2-0.9 <content Saint styleCode="Bold Gaye ">Monocyte Medical Count Center </content>0.47 KCUMM<content styleCode="Ital ics"> (0.2-0.9 KCUMM)</content > UNK 1.0-4.8 <content Saint styleCode="Bold Gaye ">Lymphocyte Medical Count Center </content>2.06 KCUMM<content styleCode="Ital ics"> (1.0-4.8 KCUMM)</content > Monocytes 3.0-10.0 <content Saint [#/volume] in styleCode="Bold Gaye Blood by ">Monocyte Medical Automated count </content>8.5 Center %<content styleCode="Ital ics"> (3.0-10.0 %)</content> UNK 0 <content Saint styleCode="Bold Gaye ">Nucleated Red Medical Blood Cell Center </content>0.0 /100<content styleCode="Ital ics"> (0 /100)</content> UNK 0.0 <content Saint styleCode="Bold Gaye ">Nucleated Red Medical Blood Cell Center Count </content>0.00 KCUMM<content styleCode="Ital ics"> (0.0 KCUMM)</content > UNK 0-0.1 <content Saint styleCode="Bold Gaye ">Immature Medical Granulocyte Center Count </content>0.01 KCUMM<content styleCode="Ital ics"> (0-0.1 KCUMM)</content > UNK 0.0-0.3 <content Saint styleCode="Bold Gaye ">Basophil Medical Count Center </content>0.03 KCUMM<content styleCode="Ital ics"> (0.0-0.3 KCUMM)</content > Basophils 0.0-1.0 <content Saint [#/volume] in styleCode="Bold Gaye Blood by ">Basophil Medical Automated count </content>0.5 Center %<content styleCode="Ital ics"> (0.0-1.0 %)</content> UNK < 1 <content Saint styleCode="Bold Gaye ">Immature Medical Granulocyte Center Ratio </content>0.2 %<content styleCode="Ital ics"> (< 1 %)</content> ID Date Data Source GFR(Creatinine).[id number] 09/20/2019 12:36:00 PM EDT [facility] 0-0400 Name Value Range Interpretation Code Description Data Joanne rce(s) Supporting Document(s ) UNK > 60 <content [facility] styleCode="Bold"> Medical Cent er EGFR </content>98 GFR<content styleCode="Italic s"> (> 60 GFR)</content> ID Date Data Source Coagulation 09/20/2019 12:36:00 PM [facility] ical Center Rout.[id number] EDT Name Value Range Interpretation Description Data Sup porting Code Source(s) Document(s ) INR in 0.80-1.2 <content Saint Platelet poor 0 styleCode="Bold" Gaye plasma by >INR Medical Coagulation </content>1.07 Center assay #<content styleCode="Itali cs"> (0.80-1.20 #)</content> UNK 9.0-13.0 <content Saint styleCode="Bold" Gaye >Protime Medical </content>11.9 Center SEC<content styleCode="Itali cs"> (9.0-13.0 SEC)</content> aPTT in 25.1-36. <content [facility] Platelet poor 5 styleCode="Bold" Gaye plasma by >Partial Medical Coagulation Thromboplastin Center assay Time </content>29.3 SEC<content styleCode="Itali cs"> (25.1-36.5 SEC)</content> ID Date Data Source MROUTINECCDA.[id number] 09/20/2019 12:36:00 PM EDT [facility] -0400 Name Value Range Interpretation Description Data Sup porting Code Source(s) Document(s ) Protein 6.3-8.2 <content Saint [Mass/volume] styleCode="Nikki Gaye in Serum or d">Total Medical Plasma Protein Center </content>7.6 G/DL<content styleCode="Radha lics"> (6.3-8.2 G/DL)</content > Magnesium 1.6-2.3 <content Saint [Mass/volume] styleCode="Nikki Gaye in Serum or d">Magnesium Medical Plasma </content>1.8 Center MG/DL<content styleCode="Radha lics"> (1.6-2.3 MG/DL)</conten t> UNK >= 1.0 <content Saint styleCode="Nikki Gaye d">AG Ratio Medical </content>1.2 Center <content styleCode="Radha lics"> (>= 1.0 )</content> UNK 2.3-3.5 <content Saint styleCode="Nikki Gaye d">Globulin Medical </content>3.5 Center G/DL<content styleCode="Radha lics"> (2.3-3.5 G/DL)</content > ID Date Data Source [facility].[id number] 09/20/2019 12:36:00 PM EDT [facility] Name Value Range Interpretation Description Data Sup porting Code Source(s) Document(s ) Sodium 137-145 Below low <content Saint [Moles/volume] in normal styleCode="Bold"> Conrad phs Serum or Plasma Sodium Medical </content>135 Center MEQ/L L<content styleCode="Italic s"> (137-145 MEQ/L)</content> UNK 7-17 <content Saint styleCode="Bold"> Gaye BUN </content>12 Medical MG/DL<content Center styleCode="Italic s"> (7-17 MG/DL)</content> Carbon dioxide, 22-30 Below low <content Saint total normal styleCode="Bold"> Gaye [Moles/volume] in Carbon Dioxide Medical Serum or Plasma </content>21 Center MEQ/L L<content styleCode="Italic s"> (22-30 MEQ/L)</content> Potassium 3.5-5.3 <content Saint [Moles/volume] in styleCode="Bold"> Conrad phs Serum or Plasma Potassium Medical </content>4.7 Center MEQ/L<content styleCode="Italic s"> (3.5-5.3 MEQ/L)</content> Chloride 98-107 <content Saint [Moles/volume] in styleCode="Bold"> Conrad phs Serum or Plasma Chloride Medical </content>105 Center MEQ/L<content styleCode="Italic s"> (98-107 MEQ/L)</content> Creatinine 0.5-1.3 <content Saint [Mass/volume] in styleCode="Bold"> Jose hs Serum or Plasma Creatinine Medical </content>0.8 Center MG/DL<content styleCode="Italic s"> (0.5-1.3 MG/DL)</content> Glucose 74-106 <content Saint [Mass/volume] in styleCode="Bold"> Jose hs Serum or Plasma Glucose Medical </content>82 Center MG/DL<content styleCode="Italic s"> (74-106 MG/DL)</content> Aspartate 14-36 Above high <content Saint aminotransferase normal styleCode="Bold"> Jose hs [Enzymatic Aspartate Medical activity/volume] Aminotransferase Center in Serum or Plasma (AST) </content>46 IU/L H<content styleCode="Italic s"> (14-36 IU/L)</content> Calcium 8.4-10. <content Saint [Mass/volume] in 2 styleCode="Bold"> Jose hs Serum or Plasma Calcium Medical </content>9.5 Center MG/DL<content styleCode="Italic s"> (8.4-10.2 MG/DL)</content> UNK > 60 <content Saint styleCode="Bold"> Gaye EGFR </content>98 Medical GFR<content Center styleCode="Italic s"> (> 60 GFR)</content> Alanine 7-30 Above high <content Saint aminotransferase normal styleCode="Bold"> Jose hs [Enzymatic Alanine Medical activity/volume] Aminotransferase Center in Serum or Plasma (ALT) </content>38 IU/L H<content styleCode="Italic s"> (7-30 IU/L)</content> Bilirubin.total 0.2-1.3 <content Saint [Mass/volume] in styleCode="Bold"> Jose hs Serum or Plasma Bilirubin Total Medical </content>0.3 Center MG/DL<content styleCode="Italic s"> (0.2-1.3 MG/DL)</content> Alkaline 38-126 <content Saint phosphatase styleCode="Bold"> Gaye [Enzymatic Alkaline Medical activity/volume] Phosphatase (ALP) Cente r in Serum or Plasma </content>92 IU/L<content styleCode="Italic s"> (38-126 IU/L)</content> Albumin 3.5-5.0 <content Saint [Mass/volume] in styleCode="Bold"> Jose hs Serum or Plasma Albumin Medical </content>4.1 Center G/DL<content styleCode="Italic s"> (3.5-5.0 G/DL)</content> ID Date Data Source [id number] 09/20/2019 12:36:00 PM EDT NEXTG EN ([facility] [id number] [place]) Name Value Range Interpretation Code Description Data Joanne rce(s) Supporting Document(s ) 4.23 MCUMM 4.0-5.1 RBC NEXTGEN ([facility]) 5.55 KCUMM 4.4-11.0 WBC NEXTGEN ([facility]) 88.4 FL 80.0-100.0 MCV [facility] ([facility]) 37.4 % 36.0-46.0 HCT [facility] 11.4 G/DL 12.3-16.0 Below low normal HGB [facility] 14.3 % 11.5-14.5 RDW [facility] ([facility]) 30.5 G/DL 32.0-37.0 Below low normal MCHC [facility] ([facility]) 27.0 PG 26.0-34.0 MCH [facility] ([facility]) 0.0 /100 0 NRBC% [facility] ([facility]) New parameters included in the report o f automated CBCNRBC(%/#) Is a direct count of Nucleated Red Blood cell, and will b ereported with every CBC count. WBC will automatically be corrected withthe prese nce of NRBC.

220 KCUMM 130-400 PLT [facility] ([facility]) 11.2 FL 8.0-11.0 Above high normal MPV [facility] ([facility]) 50.1 % 36-66 NEUTROPHIL % [facility] ([facility]) 0.00 KCUMM 0.0 NRBC ABS# [facility] ([facility]) 37.1 % 24.0-44.0 LYMPHOCYTE % [facility] ([facility]) 3.6 % 0-5.0 EOSINOPHIL % [facility] ([facility]) 0.5 % 0.0-1.0 BASOPHIL % [facility] ([facility]) 2.78 KCUMM 1.6-7.3 NEUTROPHIL ABS# [facility] ([facility]) 8.5 % 3.0-10.0 MONOCYTE % [facility] ([facility]) 0.20 KCUMM 0.0-0.6 EOSINOPHIL ABS# [facility] ([facility]) 0.47 KCUMM 0.2-0.9 MONOCYTE ABS# [facility] ([facility]) 2.06 KCUMM 1.0-4.8 LYMPHOCYTE ABS# [facility] ([facility]) 0.01 KCUMM 0-0.1 IG ABS# [facility] ([facility]) New parameters included in the report o f automated CBC/DIFF.IG:(%/#) Immature Granulocytes ,includes the presence of ( Metamyelocyte,Myelocyte,and Promyelocyte)

0.03 KCUMM 0.0-0.3 BASOPHIL ABS# [facility] ([facility]) 0.2 % < 1 IG% [facility] ([facility]) ID Date Data Source [id number] 09/20/2019 12:36:00 PM EDT [facility] ([facility] [id number] [place]) Name Value Range Interpretation Code Description Data Joanne rce(s) Supporting Document(s ) 11.9 SEC 9.0-13.0 PT [facility] ([facility]) 1.07 # 0.80-1.20 INR [facility] ([facility]) MONEGASQUE [employer] REC OMMENDS USE OF THE INR FORMONITORING ORAL ANTICOAGULANT THERAPY. INR OF 2.0 - 3.0 IS RECOMMENDEDFOR ALL CONDITIONS WITH THE EXEPTION OF PATIENTS ANTICOAGULATED FOR THROMBOTIC COMPLICATIONS OF MECHANICAL HEART VALVE FOR WHICH AN INR OF2.5 - 3.5 IS RE COMMENDED.

ID Date Data Source [id number] 09/20/2019 12:36:00 PM EDT [facility] ([facility] [id number] [place]) Name Value Range Interpretation Code Description Data Joanne rce(s) Supporting Document(s ) 29.3 SEC 25.1-36.5 PTT [facility]) Heparin therapeutic range is 55 sec to 87 secReccommended therapeutic range for Argatroban is 1.5 to 3 times base lineAP TT,and for Refludan is 1.5 TO 2.5 times baseline APTT.

ID Date Data Source [id number] 09/20/2019 12:36:00 PM EDT [facility] ([facility] [id number] [place]) Name Value Range Interpretation Code Description Data Supporting Source(s) Document(s ) 4.7 MEQ/L 3.5-5.3 POTASSIUM [facility] ([facility]) 135 MEQ/L 137-145 Below low normal SODIUM [facility]) 105 MEQ/L 98-107 CHLORIDE [facility] ([facility]) 7.6 G/DL 6.3-8.2 TOTAL PROTEIN [facility] ([facility]) 21 MEQ/L 22-30 Below low normal CARBON DIOXIDE [facility] ([facility]) 1.2 >= 1.0 AG RATIO [facility] ([facility]) 3.5 G/DL 2.3-3.5 GLOBULIN [facility] ([facility]) 4.1 G/DL 3.5-5.0 ALBUMIN [facility] ([facility]) 92 IU/L 38-126 ALP [facility] ([facility]) 46 IU/L 14-36 Above high normal AST (GOT) [facility] ([facility]) 38 IU/L 7-30 Above high normal ALT [facility] ([facility]) 98 GFR > 60 eGFR [facility]) Estimated GFR is calculated using the Mo dification of Diet in RenalDisease (MDRD) Study equation, and normalized to 1.73m2 body surfce area.The MDRD study equation should only be used in individuals age 1 8 orolder. It has not been validated for the following: women,patients with serious comorbid conditions, or on certain medications, orpersons with extremes of body size, muscle mass, or nutritional status.

9.5 MG/DL 8.4-10.2 CALCIUM [facility] ([facility]) 12 MG/DL 7-17 BUN [facility] ([facility]) 0.8 MG/DL 0.5-1.3 CREATININE [facility]) 82 MG/DL 74-106 GLUCOSE [facility] ([facility]) 0.3 MG/DL 0.2-1.3 BILI, TOTAL [facility] ([facility]) ID Date Data Source [id number] 09/20/2019 12:36:00 PM EDT [facility] ([facility] [id number] [place]) Name Value Range Interpretation Code Description Data Joanne rce(s) Supporting Document(s ) 1.8 MG/DL 1.6-2.3 MAGNESIUM [facility] ([facility]) ID Date Data Source [id number] 09/20/2019 12:36:00 PM EDT [facility] ([facility] [id number] [place]) Name Value Range Interpretation Code Description Data Joanne rce(s) Supporting Document(s ) 1.12 NG/DL 0.78-2.19 FREE T4 [facility] ([facility]) ID Date Data Source [id number] 09/20/2019 12:36:00 PM EDT [facility] EN ([facility] [id number] [place]) Name Value Range Interpretation Code Description Data Joanne rce(s) Supporting Document(s ) 2.14 MIU/L 0.465-4.68 TSH [facility] ([facility]) ID Date Data Source Liver 12/14/2018 11:48:00 AM EDT [facility] Profile.[id number] Name Value Range Interpretation Description Data Sup porting Code Source(s) Document(s ) Aspartate 14-36 <content [facility] aminotransferase styleCode="Bold"> Jose hs [Enzymatic Aspartate Medical activity/volume] Aminotransferase Center in Serum or Plasma (AST) </content>30 IU/L<content styleCode="Italic s"> (14-36 IU/L)</content> Alanine 7-30 <content [facility] aminotransferase styleCode="Bold"> Jose hs [Enzymatic Alanine Medical activity/volume] Aminotransferase Center in Serum or Plasma (ALT) </content>25 IU/L<content styleCode="Italic s"> (7-30 IU/L)</content> Alkaline 38-126 <content [facility] phosphatase styleCode="Bold"> Gaye [Enzymatic Alkaline Medical activity/volume] Phosphatase (ALP) Cente r in Serum or Plasma </content>78 IU/L<content styleCode="Italic s"> (38-126 IU/L)</content> Bilirubin.total 0.2-1.3 <content [facility] [Mass/volume] in styleCode="Bold"> Jose hs Serum or Plasma Bilirubin Total Medical </content>0.2 Center MG/DL<content styleCode="Italic s"> (0.2-1.3 MG/DL)</content> Albumin 3.5-5.0 <content [facility] [Mass/volume] in styleCode="Bold"> Jose hs Serum or Plasma Albumin Medical </content>4.2 Center G/DL<content styleCode="Italic s"> (3.5-5.0 G/DL)</content> ID Date Data Source HematologyRou.[id number] 12/14/2018 11:48:00 AM EDT [facility] Name Value Range Interpretation Description Data Sup porting Code Source(s) Document(s ) Leukocytes 4.4-11.0 <content [facility] [#/volume] in styleCode="Bold Gaye Blood by ">White Blood Medical Automated count Cell Count Center </content>4.95 KCUMM<content styleCode="Ital ics"> (4.4-11.0 KCUMM)</content > Erythrocyte mean 80.0-100 <content [facility] corpuscular .0 styleCode="Bold Gaye volume [Entitic ">Mean Medical volume] by Corpuscular Center Automated count Volume </content>89.1 FL<content styleCode="Ital ics"> (80.0-100.0 FL)</content> Hematocrit 36.0-46. <content [facility] [Volume 0 styleCode="Bold Gaye Fraction] of ">Hematocrit Medical Blood by </content>41.6 Center Automated count %<content styleCode="Ital ics"> (36.0-46.0 %)</content> Erythrocytes 4.0-5.1 <content [facility] [#/volume] in styleCode="Bold Gaye Blood by ">Red Blood Medical Automated count Cell Count Center </content>4.67 MCUMM<content styleCode="Ital ics"> (4.0-5.1 MCUMM)</content > Hemoglobin 12.3-16. <content [facility] [Mass/volume] in 0 styleCode="Bold Gaye Blood ">Hemoglobin Medical </content>12.5 Center G/DL<content styleCode="Ital ics"> (12.3-16.0 G/DL)</content> Erythrocyte mean 26.0-34. <content [facility] corpuscular 0 styleCode="Bold Gaye hemoglobin ">Mean Medical [Entitic mass] Corposcular Center by Automated Hemoglobin count </content>26.8 PG<content styleCode="Ital ics"> (26.0-34.0 PG)</content> Erythrocyte mean 32.0-37. Below low normal <content [facility] corpuscular 0 styleCode="Bold Gaye hemoglobin ">Mean Corpus. Medical concentration Hgb Center [Mass/volume] by Concentration Automated count (MCHC) </content>30.0 G/DL L<content styleCode="Ital ics"> (32.0-37.0 G/DL)</content> Platelet mean 8.0-11.0 Above high <content [facility] volume [Entitic normal styleCode="Bold Gaye volume] in Blood ">Mean Platelet Medical by Automated Volume Center count </content>11.5 FL H<content styleCode="Ital ics"> (8.0-11.0 FL)</content> Erythrocyte 11.5-14. <content [facility] distribution 5 styleCode="Bold Gaye width [Ratio] by ">Red Cell Medical Automated count Distribution Center Width </content>13.9 %<content styleCode="Ital ics"> (11.5-14.5 %)</content> Platelets 130-400 <content Saint [#/volume] in styleCode="Bold Gaye Blood by ">Platelet Medical Automated count Count Center </content>244 KCUMM<content styleCode="Ital ics"> (130-400 KCUMM)</content > UNK 1.6-7.3 <content [facility] styleCode="Bold Gaye ">Neutrophil Medical Count Center </content>2.51 KCUMM<content styleCode="Ital ics"> (1.6-7.3 KCUMM)</content > Lymphocytes 24.0-44. <content [facility] [#/volume] in 0 styleCode="Bold Gaye Blood by ">Lymphocyte Medical Automated count </content>38.6 Center %<content styleCode="Ital ics"> (24.0-44.0 %)</content> UNK 1.0-4.8 <content [facility] styleCode="Bold Gaye ">Lymphocyte Medical Count Center </content>1.91 KCUMM<content styleCode="Ital ics"> (1.0-4.8 KCUMM)</content > Neutrophils 36-66 <content [facility] [#/volume] in styleCode="Bold Gaye Blood by ">Neutrophil Medical Automated count </content>50.7 Center %<content styleCode="Ital ics"> (36-66 %)</content> UNK 0.2-0.9 <content [facility] styleCode="Bold Gaye ">Monocyte Medical Count Center </content>0.32 KCUMM<content styleCode="Ital ics"> (0.2-0.9 KCUMM)</content > Monocytes 3.0-10.0 <content Saint [#/volume] in styleCode="Bold Gaye Blood by ">Monocyte Medical Automated count </content>6.5 Center %<content styleCode="Ital ics"> (3.0-10.0 %)</content> Eosinophils 0-5.0 <content Saint [#/volume] in styleCode="Bold Gaye Blood by ">Eosinophil Medical Automated count </content>3.2 Center %<content styleCode="Ital ics"> (0-5.0 %)</content> Basophils 0.0-1.0 <content Saint [#/volume] in styleCode="Bold Gaye Blood by ">Basophil Medical Automated count </content>0.8 Center %<content styleCode="Ital ics"> (0.0-1.0 %)</content> UNK 0.0-0.6 <content Saint styleCode="Bold Gaye ">Eosinophil Medical Count Center </content>0.16 KCUMM<content styleCode="Ital ics"> (0.0-0.6 KCUMM)</content > UNK 0.0-0.3 <content [facility] styleCode="Bold Gaye ">Basophil Medical Count Center </content>0.04 KCUMM<content styleCode="Ital ics"> (0.0-0.3 KCUMM)</content > UNK 0-0.1 <content [facility] styleCode="Bold Gaye ">Immature Medical Granulocyte Center Count </content>0.01 KCUMM<content styleCode="Ital ics"> (0-0.1 KCUMM)</content > UNK 0 <content [facility] styleCode="Bold Gaye ">Nucleated Red Medical Blood Cell Center </content>0.0 /100<content styleCode="Ital ics"> (0 /100)</content> UNK 0.0 <content [facility] styleCode="Bold Gaye ">Nucleated Red Medical Blood Cell Center Count </content>0.00 KCUMM<content styleCode="Ital ics"> (0.0 KCUMM)</content > UNK < 1 <content [facility] styleCode="Bold Gaye ">Immature Medical Granulocyte Center Ratio </content>0.2 %<content styleCode="Ital ics"> (< 1 %)</content> ID Date Data Source GFR(Creatinine).[id number] 12/14/2018 11:48:00 AM EDT [facility] 0-0400 Name Value Range Interpretation Code Description Data Joanne rce(s) Supporting Document(s ) UNK > 60 <content [facility] styleCode="Bold"> Medical Cent er EGFR </content>115 GFR<content styleCode="Italic s"> (> 60 GFR)</content> ID Date Data Source CHMROUTINECCDA.[id number] 12/14/2018 11:48:00 AM EDT [facility] -0400 Name Value Range Interpretation Description Data Sup porting Code Source(s) Document(s ) UNK >= 1.0 <content [facility] styleCode="Bold Medical ">AG Ratio Center </content>1.2 <content styleCode="Ital ics"> (>= 1.0 )</content> UNK 30-110 <content [facility] styleCode="Bold Medical ">Amylase Center </content>56 IU/L<content styleCode="Ital ics"> (30-110 IU/L)</content> Lipase 23-300 <content [facility] [Enzymatic styleCode="Bold Medical activity/vo ">Lipase Center lume] in </content>67 Serum or IU/L<content Plasma styleCode="Ital ics"> (23-300 IU/L)</content> UNK 2.3-3.5 <content [facility] styleCode="Bold Medical ">Globulin Center </content>3.4 G/DL<content styleCode="Ital ics"> (2.3-3.5 G/DL)</content> Protein 6.3-8.2 <content [facility] [Mass/volum styleCode="Bold Medical e] in Serum ">Total Protein Center or Plasma </content>7.6 G/DL<content styleCode="Ital ics"> (6.3-8.2 G/DL)</content> ID Date Data Source [id number] 12/14/2018 11:48:00 AM EDT [facility] Center Name Value Range Interpretation Description Data Sup porting Code Source(s) Document(s ) Sodium 137-145 <content [facility] [Moles/volume] in styleCode="Bold"> [facility] Serum or Plasma Sodium Medical </content>140 Center MEQ/L<content styleCode="Italic s"> (137-145 MEQ/L)</content> Chloride 98-107 <content [facility] [Moles/volume] in styleCode="Bold"> [facility] Serum or Plasma Chloride Medical </content>103 Center MEQ/L<content styleCode="Italic s"> (98-107 MEQ/L)</content> Potassium 3.5-5.3 <content [facility] [Moles/volume] in styleCode="Bold"> [facility] Serum or Plasma Potassium Medical </content>4.3 Center MEQ/L<content styleCode="Italic s"> (3.5-5.3 MEQ/L)</content> Glucose 74-106 Above high <content [facility] [Mass/volume] in normal styleCode="Bold"> Jose hs Serum or Plasma Glucose Medical </content>117 Center MG/DL H<content styleCode="Italic s"> (74-106 MG/DL)</content> Carbon dioxide, 22-30 <content [facility] total styleCode="Bold"> Gaye [Moles/volume] in Carbon Dioxide Medical Serum or Plasma </content>26 Center MEQ/L<content styleCode="Italic s"> (22-30 MEQ/L)</content> Creatinine 0.5-1.3 <content [facility] [Mass/volume] in styleCode="Bold"> Jose hs Serum or Plasma Creatinine Medical </content>0.7 Center MG/DL<content styleCode="Italic s"> (0.5-1.3 MG/DL)</content> Calcium 8.4-10. <content [facility] [Mass/volume] in 2 styleCode="Bold"> Jose hs Serum or Plasma Calcium Medical </content>9.6 Center MG/DL<content styleCode="Italic s"> (8.4-10.2 MG/DL)</content> UNK 7-17 <content [facility] styleCode="Bold"> Gaye BUN </content>9 Medical MG/DL<content Center styleCode="Italic s"> (7-17 MG/DL)</content> Aspartate 14-36 <content [facility] aminotransferase styleCode="Bold"> Jose hs [Enzymatic Aspartate Medical activity/volume] Aminotransferase Center in Serum or Plasma (AST) </content>30 IU/L<content styleCode="Italic s"> (14-36 IU/L)</content> Alanine 7-30 <content [facility] aminotransferase styleCode="Bold"> Jose hs [Enzymatic Alanine Medical activity/volume] Aminotransferase Center in Serum or Plasma (ALT) </content>25 IU/L<content styleCode="Italic s"> (7-30 IU/L)</content> UNK > 60 <content [facility] styleCode="Bold"> Gaye EGFR Medical </content>115 Center GFR<content styleCode="Italic s"> (> 60 GFR)</content> Bilirubin.total 0.2-1.3 <content [facility] [Mass/volume] in styleCode="Bold"> Jose hs Serum or Plasma Bilirubin Total Medical </content>0.2 Center MG/DL<content styleCode="Italic s"> (0.2-1.3 MG/DL)</content> Albumin 3.5-5.0 <content [facility] [Mass/volume] in styleCode="Bold"> Jose hs Serum or Plasma Albumin Medical </content>4.2 Center G/DL<content styleCode="Italic s"> (3.5-5.0 G/DL)</content> Alkaline 38-126 <content [facility] phosphatase styleCode="Bold"> Gaye [Enzymatic Alkaline Medical activity/volume] Phosphatase (ALP) Cente r in Serum or Plasma </content>78 IU/L<content styleCode="Italic s"> (38-126 IU/L)</content> ID Date Data Source [id number] 12/14/2018 11:48:00 AM EDT [facility] EN ([facility] [id number]) Name Value Range Interpretation Description Data Sup porting Code Source(s) Document(s ) 4.3 MEQ/L 3.5-5.3 POTASSIUM [facility] ([facility]) 103 MEQ/L 98-107 CHLORIDE [facility]) 140 MEQ/L 137-145 SODIUM [facility] ([facility]) 26 MEQ/L 22-30 CARBON DIOXIDE [facility] ([facility]) 7.6 G/DL 6.3-8.2 TOTAL PROTEIN [facility]) 3.4 G/DL 2.3-3.5 GLOBULIN [facility] ([facility]) 4.2 G/DL 3.5-5.0 ALBUMIN [facility] ([facility]) 25 IU/L 7-30 ALT [facility] ([facility]) 78 IU/L 38-126 ALP [facility] ([facility]) 30 IU/L 14-36 AST (GOT) [facility] ([facility]) 1.2 >= 1.0 AG RATIO [facility] ([facility]) 9 MG/DL 7-17 BUN [facility] ([facility]) 9.6 MG/DL 8.4-10.2 CALCIUM [facility] ([facility]) 115 GFR > 60 eGFR [facility] ([facility]) Estimated GFR is calculated using the Mo dification of Diet in RenalDisease (MDRD) Study equation, and normalized to 1.73m2 body surfce area.The MDRD study equation should only be used in individuals age 18 orolder. It has not been validated f or the following: women,patients with serious comorbid conditions, or on certain medications, orpersons with extremes of body size, muscle mass, or nutritional status. 0.7 MG/DL 0.5-1.3 CREATININE [facility] ([facility]) 117 MG/DL 74-106 Above high normal GLUCOSE [facility] ([facility]) 0.2 MG/DL 0.2-1.3 BILI, TOTAL [facility] ([facility]) ID Date Data Source [id number] 12/14/2018 11:48:00 AM EDT [facility] EN ([facility] [id number] [place]) Name Value Range Interpretation Code Description Data Joanne rce(s) Supporting Document(s ) 56 IU/L 30-110 AMYLASE [facility]) ID Date Data Source [id number] 12/14/2018 11:48:00 AM EDT [facility] EN ([facility] [id number] [place]) Name Value Range Interpretation Code Description Data Joanne rce(s) Supporting Document(s ) 67 IU/L 23-300 LIPASE [facility]) ID Date Data Source [id number] 12/14/2018 11:48:00 AM EDT [facility] EN ([facility] [id number] [place]) Name Value Range Interpretation Description Data Sup porting Code Source(s) Document(s ) 26 MEQ/L 22-30 CARBON DIOXIDE [facility] ([facility]) 140 MEQ/L 137-145 SODIUM [facility] ([facility]) 103 MEQ/L 98-107 CHLORIDE [facility] ([facility]) 7.6 G/DL 6.3-8.2 TOTAL PROTEIN [facility] ([facility]) 4.2 G/DL 3.5-5.0 ALBUMIN [facility] ([facility]) 30 IU/L 14-36 AST (GOT) [facility] ([facility]) 9 MG/DL 7-17 BUN [facility] ([facility]) 78 IU/L 38-126 ALP [facility] ([facility]) 25 IU/L 7-30 ALT [facility] ([facility]) 9.6 MG/DL 8.4-10.2 CALCIUM [facility] ([facility]) 0.2 MG/DL 0.2-1.3 BILI, TOTAL [facility] ([facility]) ID Date Data Source [id number] 12/14/2018 11:48:00 AM EDT [facility] EN ([facility] [id number] [place]) Name Value Range Interpretation Code Description Data Joanne rce(s) Supporting Document(s ) 4.67 MCUMM 4.0-5.1 RBC [facility] ([facility]) 12.5 G/DL 12.3-16.0 HGB [facility] ([facility]) 4.95 KCUMM 4.4-11.0 WBC [facility] ([facility]) 41.6 % 36.0-46.0 HCT [facility] ([facility]) 89.1 FL 80.0-100.0 MCV [facility] ([facility]) 30.0 G/DL 32.0-37.0 Below low normal MCHC [facility] ([facility]) 26.8 PG 26.0-34.0 MCH [facility]) 13.9 % 11.5-14.5 RDW [facility] ([facility]) 11.5 FL 8.0-11.0 Above high normal MPV [facility] ([facility]) 0.0 /100 0 NRBC% [facility] ([facility]) New parameters included in the report o f automated CBCNRBC(%/#) Is a direct count of Nucleated Red Blood cell, and will bereported with every CBC count. WBC will automatically be corrected withthe presence of NRBC. 244 KCUMM 130-400 PLT [facility] ([facility]) 0.00 KCUMM 0.0 NRBC ABS# [facility] ([facility]) 50.7 % 36-66 NEUTROPHIL % [facility] ([facility]) 38.6 % 24.0-44.0 LYMPHOCYTE % [facility] ([facility]) 6.5 % 3.0-10.0 MONOCYTE % [facility] ([facility]) 3.2 % 0-5.0 EOSINOPHIL % [facility] ([facility]) 0.8 % 0.0-1.0 BASOPHIL % [facility] ([facility]) 0.32 KCUMM 0.2-0.9 MONOCYTE ABS# [facility] ([facility]) 1.91 KCUMM 1.0-4.8 LYMPHOCYTE ABS# [facility] ([facility]) 2.51 KCUMM 1.6-7.3 NEUTROPHIL ABS# [facility] ([facility]) 0.04 KCUMM 0.0-0.3 BASOPHIL ABS# [facility] ([facility]) 0.16 KCUMM 0.0-0.6 EOSINOPHIL ABS# [facility] ([facility]) 0.2 % < 1 IG% [facility] ([facility]) 0.01 KCUMM 0-0.1 IG ABS# [facility] ([facility]) New parameters included in the report o f automated CBC/DIFF.IG:(%/#) Immature Granulocytes ,includes the presence of (Metamyelocyte,Myelocyte,and Promyelocyte) Procedure Social History Code Duration Value Status Description Data Source(s ) Caffeine Use 12/07/2019 coffee, 1 cup completed coffee, 1 cup q2 NEX TGEN ([facility] 12:00:00 AM q2 weeks weeks [facility]) 12/07/2019 Cigarette completed Cigarette smoker [facility] ([facility] 12:00:00 AM smoker [facility]) Smoking 12/07/2019 Unknown if ever completed Unknown if ever [facility] ([facility] 12:00:00 AM smoked smoked [facility]) Caffeine Use 10/28/2019 completed coffee, 1 cup q2 NEXTGE N ([facility] 12:00:00 AM weeks [facility]) Smoking 10/05/2019 Never Smoker completed Never Smoker eCW2 ([facility] 12:00:00 AM [facility] - EDT [facility]) Vital Signs ID Date Data Source UNK Name Value Range Interpretation Code Description Data Source(s) Oxygen saturation 98 % 98 % [facility] ([facility] in Arterial blood [facility] by Pulse oximetry Center) Body mass index 37.67 kg/m2 Overweight 37.67 kg/m2 [facility] ([facility] (BMI) [Ratio] [facility]) Respiratory rate 18 /min 18 /min [facility] ([facility]) Body temperature 36.44 Christine 36.44 Christine [facility] ([facility]) Heart rate 83 /min 83 /[facility]) Diastolic blood 73 mm[Hg] 73 mm[Hg] [facility] ( [facility]) Systolic blood 108 mm[Hg] 108 mm[Hg] [facility] ( [facility] Body weight 105.868 kg 105.868 kg [facility] ([facility]) Body height 167.64 cm 167.64 cm [facility] ([facility]) Diastolic blood 90 mm[Hg] 90 mm[Hg] eCW2 (Jeanine nned pressure [facility]) Systolic blood 128 mm[Hg] 128 mm[Hg] eCW2 (Plan greg pressure [facility]) Body mass index 36.63 kg/m2 36.63 kg/m2 eCW2 (P lanned (BMI) [Ratio] [facility] [place] [facility]) Body weight 227 [lb_av] 227 [lb_av] eCW2 (Plann ed [facility] [place] [facility]) Body height 66 [in_us] 66 [in_us] eCW2 (Planned [facility] [employer] [facility]) Oxygen saturation 100 % 100 % NEXTGEN ([facility] in Arterial blood [facility] by Pulse oximetry Center) Body mass index 37.67 kg/m2 Overweight 37.67 kg/m2 NEXTGEN ([facility] (BMI) [Ratio] [facility]) Respiratory rate 18 /min 18 /min [facility]) Body temperature 36.56 Christine 36.56 Christine NEXTGEN ([facility]) Heart rate 70 /min 70 /min [facility]) Diastolic blood 75 mm[Hg] 75 mm[Hg] NEXTGEN ( [facility]) Systolic blood 112 mm[Hg] 112 mm[Hg] NEXTGEN (S nt pressure [facility]) Body weight 105.868 kg 105.868 kg NEXTGEN ([facility]) Body height 167.64 cm 167.64 cm NEXTGEN ([facility]) Diastolic blood 92 mm[Hg] 92 mm[Hg] eCW2 (Jeanine nned pressure [facility]) Systolic blood 125 mm[Hg] 125 mm[Hg] eCW2 (Plan greg pressure [facility]) Body mass index 36.31 kg/m2 36.31 kg/m2 eCW2 (P lanned (BMI) [Ratio] [facility]) Body weight 225 [lb_av] 225 [lb_av] eCW2 ([facility]ann ed [facility]) Body height 66 [in_us] 66 [in_us] eCW2 (Planned [facility]) Oxygen saturation 98 % 98 % NEXTGEN ([facility] in Arterial blood [facility] by Pulse oximetry Center) Body mass index 34.86 kg/m2 Overweight 34.86 kg/m2 NEXTGEN ([facility] (BMI) [Ratio] [facility]) Respiratory rate 18 /min 18 /min [facility] ([facility]) Body temperature 37.17 Christien 37.17 Christine [facility]) Heart rate 76 /min 76 /min [facility] ([facility]) Diastolic blood 80 mm[Hg] 80 mm[Hg] NEXTGEN ( [facility]) Systolic blood 119 mm[Hg] 119 mm[Hg] NEXTGEN (S aint pressure [facility]) Body weight 97.976 kg 97.976 kg NEXTGEN ([facility]) Body height 167.64 cm 167.64 cm [facility] ([facility]) Oxygen saturation 98 % 98 % NEXTGEN ([facility] in Arterial blood [facility] by Pulse oximetry Center) Body mass index 34.99 kg/m2 Overweight 34.99 kg/m2 NEXTGEN ([facility] (BMI) [Ratio] [facility]) Respiratory rate 18 /min 18 /min NEXTGEN ([facility]) Body temperature 36.61 Christine 36.61 Christine NEXTGEN ([facility]) Heart rate 92 /min 92 /min NEXTGEN ([facility]) Diastolic blood 77 mm[Hg] 77 mm[Hg] NEXTGEN ( [facility]) Systolic blood 121 mm[Hg] 121 mm[Hg] NEXTGEN ([facility]) Body weight 98.339 kg 98.339 kg NEXTGEN ([facility]) Body height 167.64 cm 167.64 cm [facility] ([facility]) Oxygen saturation 97 % 97 % NEXTGEN ([facility] in Arterial blood [facility] by Pulse o[facility]) Body mass index 34.54 kg/m2 Overweight 34.54 kg/m2 NEXTGEN ([facility] (BMI) [Ratio] [facility]) Respiratory rate 20 /min 20 /min NEXTGEN ([facility]) Body temperature 36.83 Christine 36.83 Christine [facility] ([facility]) Heart rate 75 /min 75 /min NEXTGEN ([facility]) Diastolic blood 77 mm[Hg] 77 mm[Hg] [facility] ( [facility]) Systolic blood 120 mm[Hg] 120 mm[Hg] [facility] ([facility]) Body weight 97.069 kg 97.069 kg [facility] ([facility]) Body height 167.64 cm 167.64 cm [facility] ([facility]) Oxygen saturation 98 % 98 % NEXTGEN ([facility] in Arterial [facility] by Pulse oximetry Center) Body mass index 35.02 kg/m2 Overweight 35.02 kg/m2 NEXTGEN ([facility] (BMI) [Ratio] [facility]) Respiratory rate 19 /min 19 /min NEXTGEN ([facility]) Body temperature 36.72 Christine 36.72 Christine [facility] ([facility]) Heart rate 77 /min 77 /min NEXTGEN ([facility]) Diastolic blood 72 mm[Hg] 72 mm[Hg] NEXTGEN ( [facility]) Systolic blood 108 mm[Hg] 108 mm[Hg] NEXTGEN ([facility]) Body weight 98.430 kg 98.430 kg [facility] ([facility]) Body height 167.64 cm 167.64 cm [facility] ([facility]) Oxygen saturation 98 % 98 % NEXTGEN ([facility] in Arterial blood [facility] by Pulse [facility]ximetry Center) Body mass index 35.70 kg/m2 Overweight 35.70 kg/m2 NEXTGEN ([facility] (BMI) [Ratio] [facility]) Respiratory rate 20 /min 20 /min [facility] ([facility]) Body temperature 36.61 Christine 36.61 Christine [facility] ([facility]) Heart rate 80 /min 80 /min [facility] ([facility]) Diastolic blood 77 mm[Hg] 77 mm[Hg] [facility] ( [facility]) Systolic blood 111 mm[Hg] 111 mm[Hg] [facility] ([facility]) Body weight 100.335 kg 100.335 kg [facility] ([facility]) Body height 167.64 cm 167.64 cm [facility] ([facility]) Oxygen saturation 97 % 97 % NEXTGEN ([facility] in Arterial [facility] by Pulse oximetry Center) Body mass index 36.57 kg/m2 Overweight 36.57 kg/m2 NEXTGEN ([facility] (BMI) [Ratio] [facility]) Respiratory rate 20 /min 20 /min [facility] ([facility]) Body temperature 36.61 Christine 36.61 Christine [facility] ([facility]) Heart rate 77 /min 77 /min [facility] ([facility]) Diastolic blood 64 mm[Hg] 64 mm[Hg] [facility] ( [facility]) Systolic blood 102 mm[Hg] 102 mm[Hg] [facility] (S nt [facility]) Body weight 102.784 kg 102.784 kg [facility] ([facility] Body height 167.64 cm 167.64 cm [facility] ([facility]) Patient Treatment Plan of Care Planned Activity Planned Date Details Description Data Source (s) clopidogrel 75 MG Oral 12/07/2019 NEXTG EN ([facility] Tablet [Plavix] 12:00:00 AM EDT [facility]) 60 ACTUAT Budesonide 0.08 10/28/2019 NE XTGEN (Saint MG/ACTUAT Dry Powder 12:00:00 AM EDT [facility] Inhaler [Pulmicort] Center) 200 ACTUAT Albuterol 0.09 10/17/2019 NE XTGEN ([facility] MG/ACTUAT Metered Dose 12:00:00 AM EDT [facility] Inhaler [Ventolin] [place]) pantoprazole 40 MG Delayed 10/17/2019 N EXTGEN ([facility] Release Oral Tablet 12:00:00 AM EDT [facility]) Fluconazole 150 MG Oral 10/05/2019 eCW2 (Planned Tablet [Diflucan] 12:00:00 AM EDT [facility] [place] [employer] rated) NITROFURANTOIN, 10/05/2019 eCW2 (Planne d MACROCRYSTALS 25 MG / 12:00:00 AM EDT [facility] Nitrofurantoin, [place] [employer] [facility]) Monohydrate 75 MG Oral Capsule [Macrobid] Fluconazole 150 MG Oral 10/05/2019 eCW2 (Planned Tablet [Diflucan] 12:00:00 AM EDT [facility] [place] [employer] [facility]) NITROFURANTOIN, 10/05/2019 eCW2 (Planne d MACROCRYSTALS 25 MG / 12:00:00 AM EDT [facility] Nitrofurantoin, [place] [employer]ated) Monohydrate 75 MG Oral Capsule [Macrobid] Metronidazole 500 MG Oral 08/18/2019 eC W2 (Planned Table[facility]:00:00 [facility]) clopidogrel 75 MG Oral 08/04/2019 NEXTG EN ([facility] Tablet [Plavix] 12:00:00 AM EDT [facility]) Cyclobenzaprine 08/04/2019 NEXTGEN ([facility] [facility] hydrochloride 5 MG Oral 12:00:00 AM EDT [facility] Tablet Center) Flonase Allergy Relief 50 07/12/2019 NE XTGEN (Saint mcg/actuation nasal 12:00:00 AM [facility] Medical spray,suspension Center) cetirizine hydrochloride 07/12/2019 NEX TGEN ([facility] 10 MG Chewable Tablet 12:00:00 AM [facility]) Metronidazole 7.5 MG/ML 06/22/2019 NEXT GEN ([facility] Topical Cream 12:00:00 AM [facility]) Tretinoin 0.25 MG/ML 06/22/2019 NEXTGEN ([facility] Topical Cream 12:00:00 AM [facility]) mometasone furoate 1 MG/ML 06/22/2019 N EXTGEN ([facility] Topical Cream 12:00:00 AM [facility]) Naproxen 500 MG Oral 06/07/2019 NEXTGEN ([facility] Tablet [Naprosyn] 12:00:00 AM [facility]) clopidogrel 75 MG Oral 06/07/2019 NEXTG EN ([facility] Tablet [Plavix] 12:00:00 AM [facility]) 60 ACTUAT Budesonide 0.08 04/13/2019 NE XTGEN ([facility] MG/ACTUAT Dry Powder 12:00:00 AM [facility] Medical Inhaler [Pulmicort] [place]) Flonase Allergy Relief 50 03/10/2019 NE XTGEN ([facility] mcg/actuation nasal 12:00:00 AM [facility] Medical spray,suspension Center) Metoprolol Tartrate 25 MG 02/07/2019 NE XTGEN ([facility] Oral Tablet 12:00:[address] [facility]) pantoprazole 40 MG Delayed 12/14/2018 N EXTGEN ([facility] Release Oral Tablet 12:00:00 AM [facility]) cetirizine hydrochloride 11/02/2018 NEX TGEN ([facility] 10 MG Chewable Tablet 12:00:00 AM [facility]) 60 ACTUAT Budesonide 0.08 11/02/2018 NE XTGEN ([facility] MG/ACTUAT Dry Powder 12:00:00 AM [facility] Medical Inhaler [Pulmicort] [place]) Metoprolol Tartrate 25 MG 11/01/2018 NE XTGEN ([facility] Oral Tablet 12:00:00 AM [facility]) 200 ACTUAT Albuterol 0.09 09/09/2018 NE XTGEN ([facility] MG/ACTUAT Metered Dose 12:00:00 AM EDT [facility] Medical Inhaler [Ventolin] Center) Futuro Anti-Embolism 06/03/2018 NEXTGEN ([facility] Stockings 12:00:00 AM EST [facility]) Amitriptyline NEXTGEN ([facility] Hydrochloride 25 MG Oral [facility] Medical Tablet Center) Aspirin 325 MG / NEXTGEN (Sa int butalbital 50 MG / Gaye [place] edical Caffeine 40 MG / Codeine Ricardo ter) Phosphate 30 MG Oral Capsule [Fiorinal with Codeine] Cyclobenzaprine NEXTGEN ([facility] [facility] hydrochloride 5 MG Oral [facility] Medical Tablet Center) Furosemide 40 MG Oral NEXTGE N ([facility] Tablet [Lasix] [facility])
[2020-01-06] MEDS ORDERED: SODIUM CHLORIDE 1,000 ML IV STA (09:28)
[2020-01-06] MEDS ORDERED: ONDANSETRON 4 MG/2 ML VIAL IVPUSH ONE (09:31)
[2020-01-06] MEDS ORDERED: morphine CARPU-JECT 4 MG/1 ML DISP.SYRIN IVPUSH ONE (09:31)
--- NOTE | 2020-01-06 09:35 | PDOC ---
History of Present Illness <Rickey Falcon - Last Filed: 01/06/20 16:07> - General History Source: Patient Exam Limitations: No Limitations - History of Present Illness Initial Comments: 01/06/20 09:32 Patient is a 49-year-old female with a history of asthma who presents to the ED with complaint of right upper quadrant abdominal pain that radiates to her back since waking this morning. She states the pain is crampy in nature. She admits to nausea without vomiting. She states she has not had a bowel movement today but previous bowel movements have been within normal limits. She denies any fevers or chills. She has never had a pain like this before. She denies any dysuria, hematuria, frequency or urgency. She has not taken anything for her symptoms. She denies any shortness of breath or chest pain. The patient has a history of 2 C-sections and a partial hysterectomy. <Cathy Nelson - Last Filed: 01/06/20 16:21> - General Chief Complaint: Pain Stated Complaint: ABD PAIN Time Seen by Provider: 01/06/20 09:02 Past History <Rickey Falcon - Last Filed: 01/06/20 16:07> - Medical History Asthma: Yes CVA: Yes (TIA) COPD: No DVT: Yes (ON PLAVIX) - Surgical History Abdominal Surgery: Yes (hysterectomy) - Reproductive History Is Patient Now?: No - Immunization History Immunization Up to Date: No - Psycho-Social/Smoking History Smoking Status: No Smoking History: Never smoked Have you smoked in the past 12 months: No Number of Cigarettes Smoked Daily: 0 - Substance Abuse Hx (Audit-C & DAST Scrn) How often the patient has a drink containing alcohol: Never Score: In Men: 4 or > Positive; In Women: 3 or > Positive: 0 Screen Result (Pos requires Nsg. Audit-10AR): Negative In the last yr the pt used illegal drug/Rx for NonMed reason: No Score: Yes response is considered Positive: 0 Screen Result (Positive result requires Nsg. DAST-10): Negative <Cathy Nelson - Last Filed: 01/06/20 16:21> - Medical History Allergies/Adverse Reactions: Allergies Allergy/AdvReac Type Severity Reaction Status Date / Time aspirin Allergy Intermediate swelling/hi Verified 01/06/20 08:49 ves Sulfa (Sulfonamide Allergy Intermediate swelling/hi Verified 01/06/20 08:49 Antibiotics) ves doxycycline Allergy Verified 01/06/20 08:49 minocycline Allergy Verified 01/06/20 08:49 Home Medications: Ambulatory Orders Clopidogrel Bisulfate [Plavix -] 75 mg PO DAILY 01/19/18 Acetaminophen/Caffeine/Butalb [Fioricet Tablets] 1 tab PO Q6H 02/08/18 Albuterol Sulfate Inhaler - [Ventolin HFA Inhaler -] 2 puff IH Q6H 02/08/18 Amitriptyline HCl 1 tab PO DAILY 02/08/18 Cyclobenzaprine HCl [Flexeril -] 1 tab PO DAILY 02/08/18 Pantoprazole Sodium [Protonix] 1 tab PO DAILY 02/08/18 Metoprolol Tartrate [Lopressor -] 25 mg PO BID 12/27/18 Review of Systems - Review of Systems Comments:: 01/06/20 09:33 - Review of Systems Able to Perform ROS?: Yes Constitutional: No: Fever, Chills, Loss of Appetite, Night Sweats, Weakness HEENTM: No: Eye Pain, Vision changes, Ear Pain, Throat Pain, Throat Swelling, Mouth Pain, Difficulty Swallowing Respiratory: No: Cough, Shortness of Breath, Wheezing, Sputum Production Cardiac (ROS): No: Chest Pain, Chest Tightness, Palpitations, Irregular Heart Beat, Edema ABD/GI: No: Vomiting, Diarrhea; positive: Right upper quadrant abdominal pain, nausea : No Dysuria, No Hematuria, No Frequency, No Urgency, No Vaginal Discharge/Pain Musculoskeletal: No: Muscle Pain, Back Pain, Joint Pain, Muscle Weakness, Neck Pain Integumentary: No: Lesions, Rash Neurological: No: Headache, Numbness, Tingling, Weakness, Speech Difficulties <Cathy Nelson - Last Filed: 01/06/20 16:21> *Physical Exam - Vital Signs Last Vital Signs Temp Pulse Resp BP Pulse Ox 98.4 F 88 18 115/73 99 01/06/20 08:52 01/06/20 08:52 01/06/20 08:52 01/06/20 08:52 01/06/20 08:52 <Rickey Falcon - Last Filed: 01/06/20 16:07> - Vital Signs Last Vital Signs Temp Pulse Resp BP Pulse Ox 98.4 F 88 18 115/73 99 01/06/20 08:52 01/06/20 08:52 01/06/20 08:52 01/06/20 08:52 01/06/20 08:52 - Physical Exam 01/06/20 09:34 - Physical Exam General Appearance: Nourished, Appropriately Dressed, No Distress HEENT: EOMI, Normal Voice, Hearing Grossly Normal Neck: Supple, No Lymphadenopathy (R), No Lymphadenopathy (L), No Rigidity, No Decreased range of motion Respiratory/Chest: Lungs Clear, Normal Breath Sounds. No Respiratory Distress, No Accessory Muscle Use Cardiovascular: Regular Rhythm, Regular Rate, S1, S2 Gastrointestinal/Abdominal: Normal Bowel Sounds, Soft. Significant right upper quadrant abdominal pain to palpation. Positive Celeste sign. Positive CVA tenderness on the right. Remainder of the abdomen soft and nontender. No tenderness over McBurney's point. Musculoskeletal: Normal Inspection. No Decreased Range of Motion Extremity: Normal Capillary Refill, Normal Inspection Integumentary: Normal Color, Dry. 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 intact, Fully Oriented, Alert, Normal Mood/Affect, Normal Response <Cathy Nelson - Last Filed: 01/06/20 16:21> Heart Score/ECG Review #1 ECG reviewed & interpreted by me at: 15:33 General ECG Interpretation: Sinus Rhythm, Normal Rate (83), Normal Intervals (qtc 465), No acute ischemic changes <Rickey Falcon - Last Filed: 01/06/20 16:07> ED Treatment Course - LABORATORY CBC & Chemistry Diagram: 01/06/20 10:25 01/06/20 10:25 - ADDITIONAL ORDERS Additional order review: Laboratory Results 01/06/20 01/06/20 11:19 10:25 Sodium 136 Potassium 4.8 Chloride 104 Carbon Dioxide 26 Anion Gap 6 L BUN 7.1 Creatinine 0.8 Est GFR (CKD-EPI)AfAm 101.04 Est GFR (CKD-EPI)NonAf 87.18 Random Glucose 101 Calcium 9.1 Total Bilirubin 0.4 AST 56 H ALT 43 Alkaline Phosphatase 87 Total Protein 7.9 Albumin 3.6 Lipase 67 L Urine Color Yellow Urine Appearance Clear Urine pH 6.5 Ur Specific [place] 1.014 Urine Protein Negative Urine Glucose (UA) Negative Urine Ketones Negative Urine Blood Negative Urine Nitrite Negative Urine Bilirubin Negative Urine Urobilinogen 0.2 Ur Leukocyte Esterase Negative Urine HCG, Qual Negative 01/06/20 10:25 RBC 4.32 MCV 83.1 MCHC 31.9 L RDW 14.8 MPV 9.4 Neutrophils % 72.9 D Lymphocytes % 20.4 D Monocytes % 4.3 Eosinophils % 1.4 Basophils % 1.0 - Medications Given in the ED: ED Medications Discontinued Medications Generic Name Dose Route Start Last Admin Trade Name Freq PRN Reason Stop Dose Admin Acetaminophen 1,000 mg 01/06/20 10:10 01/06/20 10:38 Ofirmev Injection - IVPB 01/06/20 10:11 1,000 mg ONCE ONE Administration Sodium Chloride 1,000 mls @ 1,000 mls/hr 01/06/20 09:28 01/06/20 10:37 Normal Saline - IV 01/06/20 10:27 1,000 mls/hr ASDIR STA Administration Ketorolac Tromethamine 15 mg 01/06/20 13:14 01/06/20 15:04 Toradol Injection - IVPUSH 01/06/20 13:15 15 mg ONCE ONE Administration Morphine Sulfate 4 mg 01/06/20 09:31 01/06/20 10:38 Morphine Injection - IVPUSH 01/06/20 09:32 Not Given ONCE ONE Ondansetron HCl 4 mg 01/06/20 09:31 01/06/20 10:38 Zofran Injection IVPUSH 01/06/20 09:32 4 mg ONCE ONE Administration <Rickey Falcon - Last Filed: 01/06/20 16:07> - LABORATORY CBC & Chemistry Diagram: 01/06/20 10:25 01/06/20 10:25 - RADIOLOGY Radiology Studies Ordered: Category Date Time Status GALLBLADDER US [US] Stat Ultrasound 01/06/20 09:31 Ordered <Cathy Nelson - Last Filed: 01/06/20 16:21> Medical Decision Making - Medical Decision Making 01/06/20 09:34 Assessment: Patient is a 49-year-old female with right upper quadrant abdominal pain that radiates to her right flank since waking this morning. Plan: -Saline lock and 1 L of NS -Labs ordered -Right upper quadrant ultrasound ordered to assess for cholecystitis versus chol elithiasis -If RUQ US is negative will consider a spiral CT -4 mg of morphine, 4 mg of Zofran ordered -Will reassess 01/06/20 10:19 Patient states that she is very sensitive to morphine and will be sleeping all day and prefers not to take it. IV Tylenol ordered. 01/06/20 12:46 Patient is currently at ultrasound. 01/06/20 13:18 Patient made aware that the ultrasound has been read by radiology and shows gallbladder sludge without stones. Her labs are all within normal limits except for a mildly elevated AST. She had no sonographic evidence of a Celeste sign. Will order a spiral CT to rule out kidney stone. Will order 1 dose of Toradol, patient confirms that she takes NSAIDs at home without allergy 01/06/20 16:15 The patient has been made aware that her CT scan does not show any renal pathology including kidney stones or hydronephrosis. There is a mild fatty infiltration of the liver which will need further evaluation. We will refer the patient to GI for further evaluation and treatment. She states the Toradol did help her tremendously. We will discharge the patient with follow-up to GI. She understands and agrees with this treatment plan and she is stable for discharge. <Cathy Nelson - Last Filed: 01/06/20 16:21> Discharge <Rickey Falcon - Last Filed: 01/06/20 16:07> - Discharge Information Problems reviewed: Yes <Cathy Nelson - Last Filed: 01/06/20 16:21> - Discharge Information Clinical Impression/Diagnosis: Right upper quadrant abdominal pain, Biliary sludge determined by ultrasound Condition: Stable Disposition: HOME - Follow up/Referral Referrals: Khari Bang [facility] OB [Primary Care Provider] - 24 hours Gage Richardson DO [Staff Physician] - - Patient Discharge Instructions Patient Printed Discharge Instructions: DI for Nonalcoholic Fatty Liver Disease, DI for Biliary Colic Additional Instructions: Eat a bland diet and avoid fatty, fried, greasy, spicy foods as this can cause increasing pain. Follow-up with GI for further evaluation and treatment. If your symptoms persist you may be required to follow-up with a general surgeon. Drink plenty of fluids and get plenty of rest. Take Tylenol ibuprofen for pain. - Post Discharge Activity Work/Back to School Note: Back to Work
[2020-01-06] MEDS ORDERED: morphine SULFATE 4 MG/ML VIAL ONE (09:49)
[2020-01-06] MEDS ORDERED: ACETAMINOPHEN 1000 MG/100 ML VIAL (NON FORMULARY) IVPB ONE (10:10)
[2020-01-06] MEDS ORDERED: ACETAMINOPHEN INJECTION 100 ML IVPB ONE (10:11)
[2020-01-06 10:37] LABS: EOS % 1.4 % (0-4.5); HEMATOCRIT 35.9 % (32.4-45.2); HEMOGLOBIN 11.4 GM/dL (10.7-15.3); LYMPH % 20.4 % (8-40); MCH 26.5 pg (25.7-33.7); MCHC 31.9 g/dl (32.0-36.0); MEAN CELL VOLUME 83.1 fl (80-96); MEAN PLT VOLUME 9.4 fl (7.5-11.1); MONO % 4.3 % (3.8-10.2); NEUT % 72.9 % (42.8-82.8); PLATELET COUNT 243 K/MM3 (134-434); RBC 4.32 M/mm3 (3.60-5.2); RDW 14.8 % (11.6-15.6); WHITE BLOOD COUNT 7.7 K/mm3 (4.0-10.0)
[2020-01-06 11:15] LABS: ALBUMIN 3.6 g/dl (3.4-5.0); BILIRUBIN,TOTAL 0.4 mg/dL (0.2-1); BLOOD UREA NITROGEN 7.1 mg/dL (7-18); CALCIUM 9.1 mg/dL (8.5-10.1); CREATININE 0.8 mg/dL (0.55-1.3); POTASSIUM 4.8 mmol/L (3.5-5.1); TOT PROT 7.9 g/dl (6.4-8.2)
[2020-01-06 11:50] LABS: PH,URINE 6.5 (5.0-8.0); URINE APPEARANCE CLEAR; URINE BILIRUBIN NEGATIVE (NEGATIVE); URINE COLOR YELLOW; URINE GLUCOSE (UA) NEGATIVE (NEGATIVE); URINE KETONE NEGATIVE (NEGATIVE); URINE LEUK ESTERASE NEGATIVE (NEGATIVE); URINE NITRITE NEGATIVE (NEGATIVE); URINE PROTEIN NEGATIVE (NEGATIVE); URINE UROBILINOGEN 0.2 mg/dL (0.2-1.0)
[2020-01-06 12:12] LABS: HCG,QUALITATIVE URINE Negative
[2020-01-06] MEDS ORDERED: KETOROLAC TROMETHAMINE 15 MG/ML VIAL IVPUSH ONE (13:14)
[2020-01-06] MEDS ORDERED: KETOROLAC TROMETHAMINE 15 MG/ML VIAL ONE (14:24)
[2020-01-06 16:39] VITALS: BP 119/73; PULSE 76
--- NOTE | 2020-01-07 08:15 | EKG ---
Test Reason : Blood Pressure : / mmHG Vent. Rate : 083 BPM Atrial Rate : 083 BPM P-R Int : 186 ms QRS Dur : 084 ms QT Int : 396 ms P-R-T Axes : 054 061 040 degrees QTc Int : 465 ms NORMAL SINUS RHYTHM CANNOT RULE OUT ANTERIOR INFARCT (CITED ON OR BEFORE 18-NOV-2019) ABNORMAL ECG WHEN COMPARED WITH ECG OF 18-NOV-2019 20:26, QT HAS LENGTHENED Confirmed by Rina Rueda ([id number]) on 01/07/2020 8:14:57 AM Referred By: Confirmed By:Rina Rueda
== END 2020-01-06 16:39 | disposition home or self-care (01) ==
LOC: JER 08:47
PROC: 3E0333Z Introduction of Anti-inflammatory into Peripheral Vein, Percutaneous Approach (ICD-10-PCS; principal; 2020-01-06)
PROC: 3E033GC Introduction of Other Therapeutic Substance into Peripheral Vein, Percutaneous Approach (ICD-10-PCS; 2020-01-06)
PROC: 3E0337Z Introduction of Electrolytic and Water Balance Substance into Peripheral Vein, Percutaneous Approach (ICD-10-PCS; 2020-01-06)
DX: R10.11 Right upper quadrant pain (principal); K83.9 Disease of biliary tract, unspecified
CPT/HCPCS: 36415; 74176-TC; 76705-TC; 80053; 81003; 83690; 84703; 85025; 87086; 93005; 93010; 99285-25; J0131

== ENCOUNTER 2021-05-08 13:46 | Emergency (ER) | payer OTHER ==
[2021-05-08 13:56] VITALS: BP 122/83; TEMP 98; BMI 37.8
[2021-05-08] MEDS ORDERED: ACETAMINOPHEN 500 MG TABLET (FP) PO ONE (15:07)
[2021-05-08] MEDS ORDERED: ACETAMINOPHEN 325 MG TABLET (FP) ONE (15:45)
[2021-05-08 16:53] VITALS: PULSE 77
== END 2021-05-08 16:53 | disposition home or self-care (01) ==
LOC: JER 13:46
DX: S16.1XXA Strain of muscle, fascia and tendon at neck level, initial encounter (principal); R51.9 Headache, unspecified; M54.9 Dorsalgia, unspecified
CPT/HCPCS: 70450-TC; 99284-25

== ENCOUNTER 2021-05-28 10:08 | Emergency (ER) | payer OTHER ==
[2021-05-28 10:20] VITALS: BMI 37.1
[2021-05-28] MEDS ORDERED: ACETAMINOPHEN 1000 MG/100 ML BAG IVPB ONE (11:36)
[2021-05-28] MEDS ORDERED: SODIUM CHLORIDE 1,000 ML IV STA (11:36)
[2021-05-28] MEDS ORDERED: ACETAMINOPHEN INJECTION 100 ML IVPB ONE ×2 (11:56→12:48)
[2021-05-28 12:10] LABS: HEMOGLOBIN 11.7 GM/dL (10.7-15.3); MCH 26.9 pg (25.7-33.7); MCHC 32.4 g/dl (32.0-36.0); MEAN CELL VOLUME 83.1 fl (80-96); MEAN PLT VOLUME 8.9 fl (7.5-11.1); RBC 4.33 M/mm3 (3.60-5.2); RDW 14.8 % (11.6-15.6)
[2021-05-28 12:15] LABS: WHITE BLOOD COUNT 9.3 K/mm3 (4.0-10.0)
[2021-05-28 12:16] LABS: PLATELET COUNT 217 10^3/uL (134-434)
[2021-05-28 12:41] LABS: CALCIUM 9.2 mg/dL (8.5-10.1)
[2021-05-28 12:42] LABS: ALBUMIN 3.7 g/dl (3.4-5.0); BLOOD UREA NITROGEN 12.1 mg/dL (7-18)
[2021-05-28 12:46] LABS: BILIRUBIN,TOTAL 0.2 mg/dL (0.2-1); TOT PROT 7.6 g/dl (6.4-8.2)
[2021-05-28 13:51] LABS: ANISOCYTOSIS 0; MACROCYTOSIS 0
[2021-05-28 13:53] LABS: PLATELET ESTIMATE ADEQUATE
[2021-05-28 14:28] LABS: PH,URINE 5.5 (5.0-8.0); URINE APPEARANCE CLEAR; URINE BILIRUBIN NEGATIVE (NEGATIVE); URINE COLOR YELLOW; URINE GLUCOSE (UA) NEGATIVE (NEGATIVE); URINE KETONE NEGATIVE (NEGATIVE); URINE LEUK ESTERASE NEGATIVE (NEGATIVE); URINE NITRITE NEGATIVE (NEGATIVE); URINE PROTEIN NEGATIVE (NEGATIVE); URINE UROBILINOGEN 0.2 mg/dL (0.2-1.0)
[2021-05-28 14:30] LABS: HCG,QUALITATIVE URINE Negative
[2021-05-28 18:23] VITALS: BP 136/78; PULSE 76; TEMP 98.6
== END 2021-05-28 18:23 | disposition home or self-care (01) ==
LOC: JER 10:08
PROC: 3E0333Z Introduction of Anti-inflammatory into Peripheral Vein, Percutaneous Approach (ICD-10-PCS; principal; 2021-05-28)
PROC: 3E0337Z Introduction of Electrolytic and Water Balance Substance into Peripheral Vein, Percutaneous Approach (ICD-10-PCS; 2021-05-28)
DX: J06.9 Acute upper respiratory infection, unspecified (principal); M54.9 Dorsalgia, unspecified
CPT/HCPCS: 36415; 71046-TC-FY; 71275-TC; 80053; 81003; 84703; 85025; 87086; 96361; 96374; 99285-25; Q9967

== ENCOUNTER 2021-12-20 15:31 | Inpatient (IN) | payer OTHER ==
[2021-12-20 18:06] LABS: EPI CELLS 31 /uL (0-25.1); HYALINE CASTS 0 /uL (0-3.1); URINE APPEARANCE CLEAR; URINE BACTERIA 58 /uL (0-1359); URINE BILIRUBIN NEGATIVE (NEGATIVE); URINE COLOR YELLOW; URINE GLUCOSE (UA) NEGATIVE (NEGATIVE); URINE KETONE NEGATIVE (NEGATIVE); URINE LEUK ESTERASE 3+ (NEGATIVE); URINE NITRITE NEGATIVE (NEGATIVE); URINE PROTEIN NEGATIVE (NEGATIVE); URINE RBC 54 /uL (0-23.9); URINE UROBILINOGEN 0.2 mg/dL (0.2-1.0); URINE WBC 141 /uL (0-25.8)
[2021-12-20 19:02] LABS: BASO % 0.4 % (0-2.0); EOS % 2.8 % (0-4.5); HEMATOCRIT 37.3 % (32.4-45.2); LYMPH % 37.1 % (8-40); MCHC 32.3 g/dl (32.0-36.0); MEAN CELL VOLUME 83.6 fl (80-96); NEUT % 53.7 % (42.8-82.8); PLATELET COUNT 237 10^3/uL (134-434); RBC 4.46 M/mm3 (3.60-5.2); WHITE BLOOD COUNT 5.6 K/mm3 (4.0-10.0)
[2021-12-20 19:06] LABS: INR 1.11 (0.83-1.09); PROTHROMBIN TIME (PATIENT) 12.8 SEC (9.7-13.0)
[2021-12-20 19:09] LABS: ACTIVATED PTT 33.2 SECONDS (25.2-36.5)
[2021-12-20 19:24] LABS: ALBUMIN 3.8 g/dl (3.4-5.0); BLOOD UREA NITROGEN 10.6 mg/dL (7-18); CALCIUM 9.3 mg/dL (8.5-10.1)
[2021-12-20 19:29] LABS: BILIRUBIN,TOTAL 0.3 mg/dL (0.2-1)
[2021-12-20 19:32] LABS: N-TERMINAL BNP 43.3 pg/ml (5-125)
[2021-12-21] MEDS ORDERED: FUROSEMIDE 40 MG/4 ML INJECTABLE VIAL IVPUSH ONE (04:03)
[2021-12-21] MEDS ORDERED: CEFTRIAXONE 1 GM/50 ML BAG ONE ×2 (05:44→09:25)
[2021-12-21] MEDS ORDERED: FUROSEMIDE 40 MG/4 ML INJECTABLE VIAL ONE (05:44)
[2021-12-21] MEDS: CEFTRIAXONE 1 GM in DEXTROSE 5%-WATER - 50 ML IVPB SCH ×2 (06:04→09:29)
[2021-12-21 08:12] LABS: BASO % 0.4 % (0-2.0); EOS % 4.2 % (0-4.5); HEMOGLOBIN 11.7 GM/dL (10.7-15.3); LYMPH % 39.5 % (8-40); MCH 26.3 pg (25.7-33.7); MCHC 31.5 g/dl (32.0-36.0); MEAN CELL VOLUME 83.4 fl (80-96); MONO % 6.7 % (3.8-10.2); NEUT % 49.2 % (42.8-82.8); PLATELET COUNT 247 10^3/uL (134-434); RBC 4.44 M/mm3 (3.60-5.2); WHITE BLOOD COUNT 5.2 K/mm3 (4.0-10.0)
[2021-12-21 08:22] LABS: CALCIUM 8.8 mg/dL (8.5-10.1)
[2021-12-21 08:23] LABS: ALBUMIN 3.4 g/dl (3.4-5.0); BLOOD UREA NITROGEN 11.1 mg/dL (7-18)
[2021-12-21 08:26] LABS: CREATININE 0.9 mg/dL (0.55-1.3); PHOSPHOROUS 4.1 mg/dL (2.5-4.9)
[2021-12-21 08:28] LABS: BILIRUBIN,TOTAL 0.7 mg/dL (0.2-1); TOT PROT 7.6 g/dl (6.4-8.2)
[2021-12-21] MEDS ORDERED: ENOXAPARIN NA (PORCINE) 40 MG/0.4 ML DISP.SYRIN SQ ONE (09:09)
[2021-12-21] MEDS: ENOXAPARIN NA (PORCINE) 40 MG/0.4 ML DISP.SYRIN SQ SCH (09:24)
[2021-12-21] MEDS: FUROSEMIDE 40 MG/4 ML INJECTABLE VIAL IVPUSH SCH (09:24)
[2021-12-21] MEDS ORDERED: LIDOCAINE 5% TOPICAL PATCH TP ONE (12:06)
[2021-12-21] MEDS: ESCITALOPRAM OXALATE 10 MG TABLET PO SCH (12:40)
[2021-12-21] MEDS: CLOPIDOGREL BISULFATE 75 MG TABLET (FP) PO SCH (12:40)
[2021-12-21] MEDS: METOPROLOL TARTRATE 25 MG TABLET (FP) PO SCH ×2 (12:40→21:40)
[2021-12-21] MEDS ORDERED: ACETAMINOPHEN 1000 MG/100 ML BAG IVPB PRN (20:36)
[2021-12-21] MEDS: LIDOCAINE PATCH REMOVAL MC SCH (21:40)
[2021-12-21] MEDS ORDERED: ALBUTEROL SO4 HFA INHALER IH PRN (22:40)
[2021-12-21 23:46] LABS: PH,URINE 5.5 (5.0-8.0); URINE APPEARANCE CLEAR; URINE BILIRUBIN NEGATIVE (NEGATIVE); URINE COLOR YELLOW; URINE GLUCOSE (UA) NEGATIVE (NEGATIVE); URINE KETONE NEGATIVE (NEGATIVE); URINE LEUK ESTERASE NEGATIVE (NEGATIVE); URINE NITRITE NEGATIVE (NEGATIVE); URINE PROTEIN NEGATIVE (NEGATIVE); URINE UROBILINOGEN 0.2 mg/dL (0.2-1.0)
[2021-12-22 08:09] LABS: HEMATOCRIT 38.1 % (32.4-45.2); HEMOGLOBIN 12.2 GM/dL (10.7-15.3); MCH 26.9 pg (25.7-33.7); MCHC 32.1 g/dl (32.0-36.0); MEAN CELL VOLUME 83.9 fl (80-96); MEAN PLT VOLUME 9.1 fl (7.5-11.1); PLATELET COUNT 248 10^3/uL (134-434); RBC 4.55 M/mm3 (3.60-5.2); RDW 15.2 % (11.6-15.6); WHITE BLOOD COUNT 4.7 K/mm3 (4.0-10.0)
[2021-12-22 08:32] LABS: BLOOD UREA NITROGEN 12.5 mg/dL (7-18)
[2021-12-22 08:33] LABS: ALBUMIN 3.4 g/dl (3.4-5.0); CALCIUM 8.8 mg/dL (8.5-10.1); MAGNESIUM 1.9 mg/dL (1.8-2.4)
[2021-12-22 08:35] LABS: PHOSPHOROUS 3.9 mg/dL (2.5-4.9)
[2021-12-22 08:37] LABS: BILIRUBIN,TOTAL 0.3 mg/dL (0.2-1); TOT PROT 7.4 g/dl (6.4-8.2)
[2021-12-22] MEDS: ENOXAPARIN NA (PORCINE) 40 MG/0.4 ML DISP.SYRIN SQ SCH (09:03)
[2021-12-22] MEDS: FUROSEMIDE 40 MG/4 ML INJECTABLE VIAL IVPUSH SCH (09:04)
[2021-12-22] MEDS: ESCITALOPRAM OXALATE 10 MG TABLET PO SCH (09:04)
[2021-12-22] MEDS: CLOPIDOGREL BISULFATE 75 MG TABLET (FP) PO SCH (09:04)
[2021-12-22] MEDS: METOPROLOL TARTRATE 25 MG TABLET (FP) PO SCH ×2 (09:04→21:24)
[2021-12-22] MEDS: CEFTRIAXONE 1 GM in DEXTROSE 5%-WATER - 50 ML IVPB SCH (09:04)
[2021-12-22] MEDS: AMITRIPTYLINE HCL 75 MG TABLET PO SCH (11:30)
[2021-12-22 12:50] VITALS: BMI 38.7
[2021-12-22] MEDS: POLYETHYLENE GLYCOL (HEALTHYLAX) 3350 17 GM PACKET PO SCH (18:11)
[2021-12-22] MEDS: FLUTICASONE/UMECLIDIN/VILANTER(200-62.5-25 TRELEGY ELLIPTA) INAHLER IH SCH (21:24)
[2021-12-22] MEDS: LIDOCAINE PATCH REMOVAL MC SCH (21:27)
[2021-12-23 08:22] LABS: HEMATOCRIT 39.8 % (32.4-45.2); HEMOGLOBIN 12.6 GM/dL (10.7-15.3); MCH 26.5 pg (25.7-33.7); MCHC 31.7 g/dl (32.0-36.0); MEAN CELL VOLUME 83.8 fl (80-96); MEAN PLT VOLUME 9.5 fl (7.5-11.1); PLATELET COUNT 273 10^3/uL (134-434); RBC 4.76 M/mm3 (3.60-5.2); WHITE BLOOD COUNT 5.9 K/mm3 (4.0-10.0)
[2021-12-23 08:42] LABS: CALCIUM 9.1 mg/dL (8.5-10.1)
[2021-12-23 08:43] LABS: ALBUMIN 3.7 g/dl (3.4-5.0)
[2021-12-23 08:48] LABS: BILIRUBIN,TOTAL 0.6 mg/dL (0.2-1)
[2021-12-23] MEDS: FUROSEMIDE 40 MG/4 ML INJECTABLE VIAL IVPUSH SCH (10:39)
[2021-12-23] MEDS: AMITRIPTYLINE HCL 75 MG TABLET PO SCH (10:39)
[2021-12-23] MEDS: CLOPIDOGREL BISULFATE 75 MG TABLET (FP) PO SCH (10:39)
[2021-12-23] MEDS: POLYETHYLENE GLYCOL (HEALTHYLAX) 3350 17 GM PACKET PO SCH (10:39)
[2021-12-23] MEDS: ESCITALOPRAM OXALATE 10 MG TABLET PO SCH (10:39)
[2021-12-23] MEDS: CEFTRIAXONE 1 GM in DEXTROSE 5%-WATER - 50 ML IVPB SCH (10:39)
[2021-12-23] MEDS: ENOXAPARIN NA (PORCINE) 40 MG/0.4 ML DISP.SYRIN SQ SCH (10:39)
[2021-12-23] MEDS: METOPROLOL TARTRATE 25 MG TABLET (FP) PO SCH ×2 (10:41→21:09)
[2021-12-23] MEDS: FLUTICASONE/UMECLIDIN/VILANTER(200-62.5-25 TRELEGY ELLIPTA) INAHLER IH SCH (10:42)
[2021-12-23] MEDS: LIDOCAINE PATCH REMOVAL MC SCH (21:11)
[2021-12-24] MEDS ORDERED: cefTRIAXone SODIUM 1 GM VIAL ONE (08:37)
[2021-12-24 08:56] LABS: HEMATOCRIT 40.7 % (32.4-45.2); HEMOGLOBIN 12.8 GM/dL (10.7-15.3); MCH 26.7 pg (25.7-33.7); MCHC 31.4 g/dl (32.0-36.0); MEAN PLT VOLUME 9.2 fl (7.5-11.1); PLATELET COUNT 249 10^3/uL (134-434); RBC 4.79 M/mm3 (3.60-5.2); RDW 14.9 % (11.6-15.6); WHITE BLOOD COUNT 6.2 K/mm3 (4.0-10.0)
[2021-12-24 09:23] LABS: ALBUMIN 3.6 g/dl (3.4-5.0); BLOOD UREA NITROGEN 14.1 mg/dL (7-18); CALCIUM 9.4 mg/dL (8.5-10.1)
[2021-12-24 09:27] LABS: BILIRUBIN,TOTAL 0.3 mg/dL (0.2-1)
[2021-12-24 09:28] LABS: TOT PROT 7.6 g/dl (6.4-8.2)
[2021-12-24] MEDS: FUROSEMIDE 40 MG/4 ML INJECTABLE VIAL IVPUSH SCH (09:34)
[2021-12-24] MEDS: POLYETHYLENE GLYCOL (HEALTHYLAX) 3350 17 GM PACKET PO SCH (09:34)
[2021-12-24] MEDS: ENOXAPARIN NA (PORCINE) 40 MG/0.4 ML DISP.SYRIN SQ SCH (09:34)
[2021-12-24] MEDS: FLUTICASONE/UMECLIDIN/VILANTER(200-62.5-25 TRELEGY ELLIPTA) INAHLER IH SCH (09:34)
[2021-12-24] MEDS: ESCITALOPRAM OXALATE 10 MG TABLET PO SCH (09:34)
[2021-12-24] MEDS: CLOPIDOGREL BISULFATE 75 MG TABLET (FP) PO SCH (09:34)
[2021-12-24] MEDS: METOPROLOL TARTRATE 25 MG TABLET (FP) PO SCH (09:36)
[2021-12-24] MEDS: AMITRIPTYLINE HCL 75 MG TABLET PO SCH (09:38)
[2021-12-24 15:08] VITALS: BP 122/71; PULSE 82; RESP 18; TEMP 98.5
== END 2021-12-24 15:16 | disposition home or self-care (01) | DRG 143 ==
LOC: JER 15:31 → JERBED 17:11 → J4W 12-21 09:39
PROVIDERS: ADMIT Internal Medicine; ATTEND Internal Medicine
DX: E66.2 Morbid (severe) obesity with alveolar hypoventilation (principal); I11.0 Hypertensive heart disease with heart failure; I50.9 Heart failure, unspecified; E87.70 Fluid overload, unspecified; J45.909 Unspecified asthma, uncomplicated; N39.0 Urinary tract infection, site not specified; R06.09 Other forms of dyspnea; Z68.38 Body mass index [BMI] 38.0-38.9, adult
CPT/HCPCS: 0241U-QW; 36415; 71045-TC-FY; 71046-TC-FY; 71275-TC; 80053; 80061; 81003; 83735; 83880; 84100; 84443; 84484; 85025; 85027; 85379; 85610; 85730; 87086; 93005; 93010; 93306-TC; 93970-TC; 94761; 99291; C9803-CS; U0003; U0005

== ENCOUNTER 2022-08-16 13:23 | Emergency (ER) | payer OTHER ==
[2022-08-16 13:27] VITALS: BP 127/78; PULSE 87; RESP 18; TEMP 97; BMI 38.4
[2022-08-16] MEDS ORDERED: KETOROLAC TROMETHAMINE 30 MG/1 ML VIAL IM ONE (14:09)
[2022-08-16] MEDS ORDERED: ALBUTEROL SO4 2.5/IPRATROPIUM 0.5 INH SOL 3 ML VIAL.NEB. NEB ONE ×2 (14:09→15:02)
[2022-08-16] MEDS ORDERED: ACETAMINOPHEN 500 MG TABLET (FP) PO ONE (14:09)
[2022-08-16] MEDS ORDERED: METHOCARBAMOL 500 MG TABLET PO ONE (14:09)
[2022-08-16] MEDS ORDERED: LIDOCAINE 5% TOPICAL PATCH TP ONE (14:09)
[2022-08-16] MEDS ORDERED: LIDOCAINE 5% TOPICAL PATCH ONE (15:02)
[2022-08-16] MEDS ORDERED: KETOROLAC TROMETHAMINE 30 MG/1 ML VIAL ONE (15:02)
[2022-08-16] MEDS ORDERED: ACETAMINOPHEN 500 MG TABLET (FP) ONE (15:03)
[2022-08-16] MEDS ORDERED: LIDOCAINE PATCH REMOVAL MC SCH (22:00)
== END 2022-08-16 15:52 | disposition home or self-care (01) ==
LOC: JER 13:23 → JERFT 13:23
PROC: 3E0233Z Introduction of Anti-inflammatory into Muscle, Percutaneous Approach (ICD-10-PCS; principal; 2022-08-16)
DX: M54.9 Dorsalgia, unspecified (principal); M25.512 Pain in left shoulder
CPT/HCPCS: 71046-TC-FY; 73030-TC-LT-FY; 93005; 93010; 99284-25

== ENCOUNTER 2022-11-28 04:18 | Day surgery (SDC) | payer OTHER ==
[2022-11-27 09:04] VITALS: BMI 37.8
[2022-11-28] MEDS ORDERED: BUPIVACAINE HCL/PF 0.75% 10 ML VIAL ONE (07:47)
[2022-11-28] MEDS ORDERED: DEXAMETHASONE SOD PHOSPHATE 10 MG/1 ML VIAL ONE (07:48)
[2022-11-28] MEDS ORDERED: LIDOCAINE HCL/PF 1% SDV 5ML VIAL ONE (07:48)
[2022-11-28] MEDS ORDERED: LIDOCAINE HCL 1% PRESERVATIVE FREE - 30ML VIAL INF ONE ×2 (10:08→10:29)
[2022-11-28] MEDS ORDERED: BUPIVACAINE HCL/PF 0.75% 10 ML VIAL NR ONE ×2 (10:08→10:29)
[2022-11-28 12:05] VITALS: BP 109/64; PULSE 82; RESP 16; TEMP 96.4
[2022-11-28] MEDS ORDERED: ACETAMINOPHEN 500 MG TABLET (FP) PO PRN (16:14)
== END 2022-11-28 11:17 | disposition home or self-care (01) ==
LOC: JASU-SURG 04:18
PROVIDERS: ATTEND Pain Medicine Pain Medicine
PROC: 3E0T3BZ Introduction of Anesthetic Agent into Peripheral Nerves and Plexi, Percutaneous Approach (ICD-10-PCS; principal; 2022-11-28 10:15)
DX: M47.816 Spondylosis without myelopathy or radiculopathy, lumbar region (principal)
CPT/HCPCS: 76000-TC-FY; J1100

== ENCOUNTER 2023-01-20 04:58 | Day surgery (SDC) | payer OTHER ==
[2023-01-16 13:06] VITALS: BMI 39.4
[~2023-01-20 04:58] MED LIST: BUPIVACAINE HCL/PF 0.75% 10 ML VIAL NR ONE; LIDOCAINE HCL 1% PRESERVATIVE FREE - 30ML VIAL IJ ONE
[2023-01-20] MEDS ORDERED: LIDOCAINE HCL/PF 1% SDV 5ML VIAL ONE (07:30)
[2023-01-20 09:54] VITALS: RESP 20
[2023-01-20] MEDS ORDERED: BUPIVACAINE HCL/PF 0.75% 10 ML VIAL NR ONE (12:09)
[2023-01-20] MEDS ORDERED: LIDOCAINE HCL 1% PRESERVATIVE FREE - 30ML VIAL IJ ONE (12:09)
[2023-01-20 13:05] VITALS: TEMP 97.8
[2023-01-20 13:31] VITALS: BP 120/76; PULSE 70
[2023-01-20] MEDS ORDERED: ACETAMINOPHEN 500 MG TABLET (FP) PO PRN (15:30)
== END 2023-01-20 13:20 | disposition home or self-care (01) ==
LOC: JASU-SURG 04:58
PROVIDERS: ATTEND Pain Medicine Pain Medicine
PROC: 3E0T33Z Introduction of Anti-inflammatory into Peripheral Nerves and Plexi, Percutaneous Approach (ICD-10-PCS; 2023-01-20)
PROC: 3E0T3BZ Introduction of Anesthetic Agent into Peripheral Nerves and Plexi, Percutaneous Approach (ICD-10-PCS; principal; 2023-01-20 12:00)
DX: M47.816 Spondylosis without myelopathy or radiculopathy, lumbar region (principal)
CPT/HCPCS: 76000-TC-FY

== ENCOUNTER 2023-02-27 14:07 | Inpatient (IN) | payer OTHER ==
[2023-02-27] MEDS ORDERED: SODIUM CHLORIDE 0.9% 500 ML INFUS.BAG IV ONE (15:40)
[2023-02-27] MEDS ORDERED: ACETAMINOPHEN 1000 MG/100 ML BAG IVPB ONE (15:40)
[2023-02-27] MEDS ORDERED: METOCLOPRAMIDE HCL INJECTION 10 MG/2 ML VIAL IVPUSH ONE (15:40)
[2023-02-27] MEDS ORDERED: METOCLOPRAMIDE HCL INJECTION 10 MG/2 ML VIAL ONE (16:28)
[2023-02-27] MEDS ORDERED: ACETAMINOPHEN INJECTION 100 ML IVPB ONE (16:28)
[2023-02-27 16:56] LABS: BASO % 0.4 % (0-2.0); EOS % 0.1 % (0-4.5); HEMOGLOBIN 11.8 GM/dL (10.7-15.3); LYMPH % 12.3 % (8-40); MCH 25.8 pg (25.7-33.7); MCHC 31.8 g/dl (32.0-36.0); MEAN CELL VOLUME 80.9 fl (80-96); MEAN PLT VOLUME 9.1 fl (7.5-11.1); MONO % 8.3 % (3.8-10.2); NEUT % 78.9 % (42.8-82.8); PLATELET COUNT 202 10^3/uL (134-434); RBC 4.58 M/mm3 (3.60-5.2); WHITE BLOOD COUNT 15.4 K/mm3 (4.0-10.0)
[2023-02-27 17:20] LABS: CHLORIDE 100 mmol/L (98-107); POTASSIUM 5.9 mmol/L (3.5-5.1); SODIUM 133 mmol/L (136-145)
[2023-02-27 17:22] LABS: CALCIUM 8.7 mg/dL (8.5-10.1); GLUCOSE,RANDOM 141 mg/dL (74-106)
[2023-02-27 17:23] LABS: ALBUMIN 3.3 g/dl (3.4-5.0); ANION GAP 6 mmol/L (4-13); BLOOD UREA NITROGEN 13.1 mg/dL (7-18); CO2 27 mmol/L (21-32); MAGNESIUM 1.9 mg/dL (1.8-2.4)
[2023-02-27 17:24] LABS: LIPASE 27 U/L (73-393)
[2023-02-27 17:26] LABS: CREATININE 1.4 mg/dL (0.55-1.3); SGOT/AST 73 U/L (15-37); SGPT/ALT 35 U/L (13-61)
[2023-02-27 17:28] LABS: BILIRUBIN,TOTAL 1.7 mg/dL (0.2-1)
[2023-02-27 17:29] LABS: ALK PHOS 106 U/L (45-117)
[2023-02-27] MEDS ORDERED: morphine CARPU-JECT 4 MG/1 ML DISP.SYRIN IVPUSH ONE ×2 (17:56→20:05)
[2023-02-27] MEDS ORDERED: morphine SULFATE 4 MG/ML VIAL ONE ×2 (18:03→20:42)
[2023-02-27 18:12] LABS: EPI CELLS 34 /uL (0-25.1); HYALINE CASTS 1 /uL (0-3.1); URINE APPEARANCE Error; URINE BACTERIA 706 /uL (0-1359); URINE BILIRUBIN NEGATIVE (NEGATIVE); URINE COLOR YELLOW; URINE GLUCOSE (UA) NEGATIVE (NEGATIVE); URINE KETONE NEGATIVE (NEGATIVE); URINE LEUK ESTERASE 1+ (NEGATIVE); URINE NITRITE NEGATIVE (NEGATIVE); URINE PROTEIN NEGATIVE (NEGATIVE); URINE RBC 94.9 /uL (0-23.9); URINE WBC 45 /uL (0-25.8)
[2023-02-27] MEDS ORDERED: CEFTRIAXONE 1 GM in DEXTROSE 5%-WATER - 50 ML IVPB ONE (18:19)
[2023-02-27] MEDS ORDERED: CEFTRIAXONE 1 GM/50 ML BAG ONE (18:22)
[2023-02-27] MEDS ORDERED: AZITHROMYCIN IVPB 500 MG in DEXTROSE 5%-WATER - 250 ML IVPB ONE (20:05)
[2023-02-27 21:17] LABS: CHLORIDE 103 mmol/L (98-107); POTASSIUM 3.5 mmol/L (3.5-5.1); SODIUM 138 mmol/L (136-145)
[2023-02-27 21:18] LABS: CALCIUM 8.5 mg/dL (8.5-10.1)
[2023-02-27 21:19] LABS: ANION GAP 8 mmol/L (4-13); BLOOD UREA NITROGEN 11.2 mg/dL (7-18); CO2 27 mmol/L (21-32); GLUCOSE,RANDOM 160 mg/dL (74-106); MAGNESIUM 1.8 mg/dL (1.8-2.4)
[2023-02-27 21:22] LABS: CREATININE 1.2 mg/dL (0.55-1.3)
[2023-02-27] MEDS ORDERED: AZITHROMYCIN IVPB 500 MG/250 ML BAG IVPB ONE (21:39)
[2023-02-27 22:49] VITALS: BMI 39.0
[2023-02-28] MEDS ORDERED: ACETAMINOPHEN 1000 MG/100 ML BAG IVPB PRN (06:30)
[2023-02-28] MEDS: DEXTROSE 5%-0.45% SALINE 1,000 ML IV SCH (07:15)
[2023-02-28] MEDS: ALBUTEROL SO4 2.5/IPRATROPIUM 0.5 INH SOL 3 ML VIAL.NEB. NEB PRN ×3 (08:30→21:01)
[2023-02-28] MEDS: GABAPENTIN 300 MG CAPSULE PO SCH (09:17)
[2023-02-28] MEDS: METOPROLOL TARTRATE 50 MG TABLET (FP) PO SCH ×2 (09:17→21:53)
[2023-02-28] MEDS: CLOPIDOGREL BISULFATE 75 MG TABLET (FP) PO SCH (09:17)
[2023-02-28] MEDS: ENOXAPARIN NA (PORCINE) 40 MG/0.4 ML DISP.SYRIN SQ SCH (09:17)
[2023-02-28] MEDS: CEFTRIAXONE 1 GM in DEXTROSE 5%-WATER - 50 ML IVPB SCH (09:18)
[2023-02-28] MEDS: FLUTICASONE/UMECLIDIN/VILANTER(200-62.5-25 TRELEGY ELLIPTA) INAHLER IH SCH (09:19)
[2023-02-28 09:28] LABS: BASO % 0.2 % (0-2.0); HEMATOCRIT 32.8 % (32.4-45.2); HEMOGLOBIN 10.3 GM/dL (10.7-15.3); LYMPH % 14.4 % (8-40); MCH 25.7 pg (25.7-33.7); MCHC 31.5 g/dl (32.0-36.0); MEAN CELL VOLUME 81.4 fl (80-96); MEAN PLT VOLUME 9.4 fl (7.5-11.1); MONO % 6.6 % (3.8-10.2); NEUT % 77.8 % (42.8-82.8); PLATELET COUNT 182 10^3/uL (134-434); RBC 4.03 M/mm3 (3.60-5.2); RDW 14.8 % (11.6-15.6); WHITE BLOOD COUNT 14.8 K/mm3 (4.0-10.0)
[2023-02-28] MEDS ORDERED: LISDEXAMFETAMINE DIMESYLATE 40 MG PO SCH (10:00)
[2023-02-28 10:05] LABS: POTASSIUM 3.5 mmol/L (3.5-5.1)
[2023-02-28 10:11] LABS: CALCIUM 9.1 mg/dL (8.5-10.1)
[2023-02-28 10:12] LABS: ALBUMIN 3.3 g/dl (3.4-5.0); BLOOD UREA NITROGEN 7.8 mg/dL (7-18)
[2023-02-28 10:15] LABS: CREATININE 1.1 mg/dL (0.55-1.3)
[2023-02-28 10:16] LABS: BILIRUBIN,TOTAL 1.3 mg/dL (0.2-1); TOT PROT 7.5 g/dl (6.4-8.2)
[2023-02-28] MEDS: AZITHROMYCIN IVPB 250 MG in DEXTROSE 5%-WATER - 250 ML IVPB SCH (11:02)
[2023-02-28] MEDS: methylPREDNISolone NA SUCC 40 MG/1 ML VIAL IVPUSH SCH (17:16)
[2023-02-28] MEDS: QUEtiapine FUMARATE 200 MG TABLET PO SCH (21:53)
[2023-03-01 08:55] LABS: BASO % 0.6 % (0-2.0); EOS % 0.4 % (0-4.5); HEMATOCRIT 32.8 % (32.4-45.2); HEMOGLOBIN 10.4 GM/dL (10.7-15.3); LYMPH % 11.7 % (8-40); MCH 25.5 pg (25.7-33.7); MCHC 31.6 g/dl (32.0-36.0); MEAN CELL VOLUME 80.9 fl (80-96); MEAN PLT VOLUME 9.5 fl (7.5-11.1); MONO % 3.5 % (3.8-10.2); NEUT % 83.8 % (42.8-82.8); PLATELET COUNT 208 10^3/uL (134-434); RBC 4.05 M/mm3 (3.60-5.2); RDW 14.7 % (11.6-15.6); WHITE BLOOD COUNT 14.8 K/mm3 (4.0-10.0)
[2023-03-01 09:10] LABS: POTASSIUM 4.4 mmol/L (3.5-5.1)
[2023-03-01 09:15] LABS: BLOOD UREA NITROGEN 10.2 mg/dL (7-18)
[2023-03-01 09:18] LABS: CREATININE 0.7 mg/dL (0.55-1.3)
[2023-03-01 09:19] LABS: BILIRUBIN,TOTAL 0.8 mg/dL (0.2-1); TOT PROT 6.1 g/dl (6.4-8.2)
[2023-03-01 09:28] LABS: ALBUMIN 2.3 g/dl (3.4-5.0); CALCIUM 7.3 mg/dL (8.5-10.1)
[2023-03-01] MEDS: methylPREDNISolone NA SUCC 40 MG/1 ML VIAL IVPUSH SCH (09:32)
[2023-03-01] MEDS: CEFTRIAXONE 1 GM in DEXTROSE 5%-WATER - 50 ML IVPB SCH (09:32)
[2023-03-01] MEDS: METOPROLOL TARTRATE 50 MG TABLET (FP) PO SCH ×2 (09:33→21:01)
[2023-03-01] MEDS: ENOXAPARIN NA (PORCINE) 40 MG/0.4 ML DISP.SYRIN SQ SCH (09:33)
[2023-03-01] MEDS: DEXTROSE 5%-0.45% SALINE 1,000 ML IV SCH (09:33)
[2023-03-01] MEDS: GABAPENTIN 300 MG CAPSULE PO SCH (09:33)
[2023-03-01] MEDS: CLOPIDOGREL BISULFATE 75 MG TABLET (FP) PO SCH (09:33)
[2023-03-01] MEDS: FLUTICASONE/UMECLIDIN/VILANTER(200-62.5-25 TRELEGY ELLIPTA) INAHLER IH SCH (09:35)
[2023-03-01] MEDS: AZITHROMYCIN IVPB 250 MG in DEXTROSE 5%-WATER - 250 ML IVPB SCH (11:09)
[2023-03-01] MEDS: NYSTATIN 500,000 UNITS/5 ML SUSPENSION PO SCH ×2 (16:00→21:01)
[2023-03-01] MEDS: QUEtiapine FUMARATE 200 MG TABLET PO SCH (21:01)
[2023-03-02] MEDS: NYSTATIN 500,000 UNITS/5 ML SUSPENSION PO SCH ×4 (00:19→17:53)
[2023-03-02] MEDS ORDERED: cefTRIAXone SODIUM 1 GM VIAL ONE (09:56)
[2023-03-02] MEDS: CEFTRIAXONE 1 GM in DEXTROSE 5%-WATER - 50 ML IVPB SCH (10:13)
[2023-03-02] MEDS: methylPREDNISolone NA SUCC 40 MG/1 ML VIAL IVPUSH SCH (10:14)
[2023-03-02] MEDS: GABAPENTIN 300 MG CAPSULE PO SCH (10:14)
[2023-03-02] MEDS: METOPROLOL TARTRATE 50 MG TABLET (FP) PO SCH ×2 (10:14→21:28)
[2023-03-02] MEDS: ENOXAPARIN NA (PORCINE) 40 MG/0.4 ML DISP.SYRIN SQ SCH (10:15)
[2023-03-02] MEDS: CLOPIDOGREL BISULFATE 75 MG TABLET (FP) PO SCH (10:15)
[2023-03-02] MEDS: FLUTICASONE/UMECLIDIN/VILANTER(200-62.5-25 TRELEGY ELLIPTA) INAHLER IH SCH (10:16)
[2023-03-02 10:46] LABS: HEMATOCRIT 35.1 % (32.4-45.2); HEMOGLOBIN 11.1 GM/dL (10.7-15.3); MCH 25.7 pg (25.7-33.7); MCHC 31.5 g/dl (32.0-36.0); MEAN CELL VOLUME 81.5 fl (80-96); RDW 14.8 % (11.6-15.6)
[2023-03-02 10:47] LABS: WHITE BLOOD COUNT 20.4 K/mm3 (4.0-10.0)
[2023-03-02 10:56] LABS: POTASSIUM 4.4 mmol/L (3.5-5.1)
[2023-03-02 11:07] LABS: BILIRUBIN,TOTAL 0.6 mg/dL (0.2-1); TOT PROT 7.6 g/dl (6.4-8.2)
[2023-03-02 11:10] LABS: ALBUMIN 3.1 g/dl (3.4-5.0); CALCIUM 9.3 mg/dL (8.5-10.1)
[2023-03-02] MEDS: AZITHROMYCIN IVPB 250 MG in DEXTROSE 5%-WATER - 250 ML IVPB SCH (11:50)
[2023-03-02 12:40] LABS: ANISOCYTOSIS 0; HELMET CELLS 0; HOWELL-JOLLY BODIES 0; MACROCYTOSIS 0; OVALOCYTE 0; ROULEAU 0; SICKELED CELLS 0; TARGET CELLS 0; TEAR DROP CELLS 0; TOXIC GRANULATION 0
[2023-03-02] MEDS: DEXTROSE 5%-0.45% SALINE 1,000 ML IV SCH (17:52)
[2023-03-02] MEDS: QUEtiapine FUMARATE 200 MG TABLET PO SCH (21:28)
[2023-03-03] MEDS: NYSTATIN 500,000 UNITS/5 ML SUSPENSION PO SCH ×4 (00:50→17:27)
[2023-03-03] MEDS: DEXTROSE 5%-0.45% SALINE 1,000 ML IV SCH (05:42)
[2023-03-03 09:19] LABS: POTASSIUM 3.9 mmol/L (3.5-5.1)
[2023-03-03 09:22] LABS: ALBUMIN 3.2 g/dl (3.4-5.0); BLOOD UREA NITROGEN 15.8 mg/dL (7-18)
[2023-03-03 09:23] LABS: CALCIUM 9.1 mg/dL (8.5-10.1)
[2023-03-03 09:25] LABS: CREATININE 1.1 mg/dL (0.55-1.3)
[2023-03-03 09:26] LABS: BILIRUBIN,TOTAL 0.2 mg/dL (0.2-1); TOT PROT 7.5 g/dl (6.4-8.2)
[2023-03-03 09:27] LABS: HEMATOCRIT 36.5 % (32.4-45.2); HEMOGLOBIN 11.7 GM/dL (10.7-15.3); MCH 25.7 pg (25.7-33.7); MEAN CELL VOLUME 80.4 fl (80-96); MEAN PLT VOLUME 8.9 fl (7.5-11.1); PLATELET COUNT 259 10^3/uL (134-434); RBC 4.54 M/mm3 (3.60-5.2); RDW 14.8 % (11.6-15.6); WHITE BLOOD COUNT 10.5 K/mm3 (4.0-10.0)
[2023-03-03] MEDS ORDERED: cefTRIAXone SODIUM 1 GM VIAL ONE (10:31)
[2023-03-03] MEDS: CEFTRIAXONE 1 GM in DEXTROSE 5%-WATER - 50 ML IVPB SCH (10:39)
[2023-03-03] MEDS: methylPREDNISolone NA SUCC 40 MG/1 ML VIAL IVPUSH SCH (10:39)
[2023-03-03] MEDS: CLOPIDOGREL BISULFATE 75 MG TABLET (FP) PO SCH (10:39)
[2023-03-03] MEDS: ENOXAPARIN NA (PORCINE) 40 MG/0.4 ML DISP.SYRIN SQ SCH (10:40)
[2023-03-03] MEDS: METOPROLOL TARTRATE 50 MG TABLET (FP) PO SCH ×2 (10:40→21:20)
[2023-03-03] MEDS: GABAPENTIN 300 MG CAPSULE PO SCH (10:40)
[2023-03-03] MEDS: FLUTICASONE/UMECLIDIN/VILANTER(200-62.5-25 TRELEGY ELLIPTA) INAHLER IH SCH (10:41)
[2023-03-03 10:57] LABS: ANISOCYTOSIS 0; MACROCYTOSIS 0
[2023-03-03] MEDS: AZITHROMYCIN IVPB 250 MG in DEXTROSE 5%-WATER - 250 ML IVPB SCH (14:04)
[2023-03-03] MEDS: QUEtiapine FUMARATE 200 MG TABLET PO SCH (21:20)
[2023-03-04] MEDS: NYSTATIN 500,000 UNITS/5 ML SUSPENSION PO SCH ×4 (01:00→17:14)
[2023-03-04] MEDS: DEXTROSE 5%-0.45% SALINE 1,000 ML IV SCH (03:00)
[2023-03-04] MEDS: CEFTRIAXONE 1 GM in DEXTROSE 5%-WATER - 50 ML IVPB SCH (09:02)
[2023-03-04] MEDS: METOPROLOL TARTRATE 50 MG TABLET (FP) PO SCH ×2 (09:03→21:10)
[2023-03-04] MEDS: CLOPIDOGREL BISULFATE 75 MG TABLET (FP) PO SCH (09:03)
[2023-03-04] MEDS: methylPREDNISolone NA SUCC 40 MG/1 ML VIAL IVPUSH SCH (09:03)
[2023-03-04] MEDS: GABAPENTIN 300 MG CAPSULE PO SCH (09:03)
[2023-03-04] MEDS: ENOXAPARIN NA (PORCINE) 40 MG/0.4 ML DISP.SYRIN SQ SCH (09:03)
[2023-03-04] MEDS: AZITHROMYCIN 250 MG TABLET PO SCH (09:05)
[2023-03-04] MEDS: FLUTICASONE/UMECLIDIN/VILANTER(200-62.5-25 TRELEGY ELLIPTA) INAHLER IH SCH (09:08)
[2023-03-04 10:26] LABS: HEMATOCRIT 35.9 % (32.4-45.2); HEMOGLOBIN 11.5 GM/dL (10.7-15.3); MCH 25.6 pg (25.7-33.7); MCHC 32.1 g/dl (32.0-36.0); MEAN CELL VOLUME 79.8 fl (80-96); MEAN PLT VOLUME 8.8 fl (7.5-11.1); PLATELET COUNT 314 10^3/uL (134-434); RDW 14.6 % (11.6-15.6); WHITE BLOOD COUNT 11.8 K/mm3 (4.0-10.0)
[2023-03-04 10:41] LABS: POTASSIUM 3.7 mmol/L (3.5-5.1)
[2023-03-04 10:50] LABS: ALBUMIN 3.2 g/dl (3.4-5.0); ANISOCYTOSIS 0; BLOOD UREA NITROGEN 12.4 mg/dL (7-18); MACROCYTOSIS 0
[2023-03-04 10:56] LABS: BILIRUBIN,TOTAL 0.2 mg/dL (0.2-1); TOT PROT 7.5 g/dl (6.4-8.2)
[2023-03-04 11:12] VITALS: RESP 18
[2023-03-04] MEDS: QUEtiapine FUMARATE 200 MG TABLET PO SCH (21:10)
[2023-03-05] MEDS: NYSTATIN 500,000 UNITS/5 ML SUSPENSION PO SCH ×4 (01:08→17:04)
[2023-03-05] MEDS: ENOXAPARIN NA (PORCINE) 40 MG/0.4 ML DISP.SYRIN SQ SCH (09:55)
[2023-03-05] MEDS: CEFTRIAXONE 1 GM in DEXTROSE 5%-WATER - 50 ML IVPB SCH (09:55)
[2023-03-05] MEDS: methylPREDNISolone NA SUCC 40 MG/1 ML VIAL IVPUSH SCH (09:55)
[2023-03-05] MEDS: CLOPIDOGREL BISULFATE 75 MG TABLET (FP) PO SCH (09:55)
[2023-03-05] MEDS: METOPROLOL TARTRATE 50 MG TABLET (FP) PO SCH ×2 (09:55→21:17)
[2023-03-05] MEDS: AZITHROMYCIN 250 MG TABLET PO SCH (09:55)
[2023-03-05] MEDS: GABAPENTIN 300 MG CAPSULE PO SCH (09:55)
[2023-03-05] MEDS: FLUTICASONE/UMECLIDIN/VILANTER(200-62.5-25 TRELEGY ELLIPTA) INAHLER IH SCH (10:05)
[2023-03-05] MEDS: predniSONE 20 MG TABLET (UD) PO SCH (11:51)
[2023-03-05] MEDS: AMOX TR/POT CLAV 875MG/125MG TABLETS (FP) PO SCH ×2 (11:51→17:04)
[2023-03-05] MEDS: QUEtiapine FUMARATE 200 MG TABLET PO SCH (21:17)
[2023-03-06] MEDS: NYSTATIN 500,000 UNITS/5 ML SUSPENSION PO SCH ×3 (01:00→11:32)
[2023-03-06] MEDS: AMOX TR/POT CLAV 875MG/125MG TABLETS (FP) PO SCH (09:16)
[2023-03-06] MEDS: METOPROLOL TARTRATE 50 MG TABLET (FP) PO SCH (09:17)
[2023-03-06] MEDS: GABAPENTIN 300 MG CAPSULE PO SCH (09:17)
[2023-03-06] MEDS: CLOPIDOGREL BISULFATE 75 MG TABLET (FP) PO SCH (09:17)
[2023-03-06] MEDS: AZITHROMYCIN 250 MG TABLET PO SCH (09:17)
[2023-03-06] MEDS: predniSONE 20 MG TABLET (UD) PO SCH (09:17)
[2023-03-06] MEDS: ENOXAPARIN NA (PORCINE) 40 MG/0.4 ML DISP.SYRIN SQ SCH (09:17)
[2023-03-06] MEDS: FLUTICASONE/UMECLIDIN/VILANTER(200-62.5-25 TRELEGY ELLIPTA) INAHLER IH SCH (09:18)
[2023-03-06 14:13] VITALS: BP 155/69; PULSE 80; TEMP 98.1
== END 2023-03-06 15:45 | disposition home or self-care (01) | DRG 139 ==
LOC: JER 14:07 → JERBED 20:07 → J6S 22:24
PROVIDERS: ADMIT Internal Medicine; ATTEND Internal Medicine
DX: J18.9 Pneumonia, unspecified organism (principal); M79.7 Fibromyalgia; K21.9 Gastro-esophageal reflux disease without esophagitis; N39.0 Urinary tract infection, site not specified; R07.89 Other chest pain; J45.40 Moderate persistent asthma, uncomplicated; I48.91 Unspecified atrial fibrillation; M54.50 Low back pain, unspecified; J30.2 Other seasonal allergic rhinitis; I10 Essential (primary) hypertension; E66.9 Obesity, unspecified; Z68.39 Body mass index [BMI] 39.0-39.9, adult; Z86.73 Personal history of transient ischemic attack (TIA), and cerebral infarction without residual deficits; Z86.718 Personal history of other venous thrombosis and embolism
CPT/HCPCS: 0241U-QW; 36415; 71045-TC-FY; 71275-TC; 74177-TC; 80048; 80053; 81003; 82550; 82553; 83690; 83735; 83880; 84443; 84484; 85025; 85379; 87040; 87070; 87086; 87205; 87899; 93005; 93010; 93970-TC; 94010; 94640; 99285-25; Q9967

== ENCOUNTER 2023-04-01 15:15 | Emergency (ER) | payer OTHER ==
[2023-04-01 15:29] VITALS: BP 126/79; PULSE 91; RESP 18; TEMP 98.2; BMI 37.5
[2023-04-01 18:36] LABS: BASO % 0.5 % (0-2.0); HEMATOCRIT 39.6 % (32.4-45.2); HEMOGLOBIN 12.2 GM/dL (10.7-15.3); LYMPH % 42.8 % (8-40); MCH 25.3 pg (25.7-33.7); MCHC 30.7 g/dl (32.0-36.0); MEAN CELL VOLUME 82.5 fl (80-96); MEAN PLT VOLUME 8.5 fl (7.5-11.1); MONO % 6.5 % (3.8-10.2); NEUT % 46.2 % (42.8-82.8); PLATELET COUNT 235 10^3/uL (134-434); RDW 16.4 % (11.6-15.6); WHITE BLOOD COUNT 5.5 K/mm3 (4.0-10.0)
[2023-04-01 18:51] LABS: POTASSIUM 4.1 mmol/L (3.5-5.1)
[2023-04-01] MEDS ORDERED: SODIUM CHLORIDE 0.9% 500 ML INFUS.BAG IV ONE (21:03)
[2023-04-01 21:16] LABS: CALCIUM 9.8 mg/dL (8.5-10.1)
[2023-04-01 21:17] LABS: ALBUMIN 3.8 g/dl (3.4-5.0); BLOOD UREA NITROGEN 11.4 mg/dL (7-18)
[2023-04-01 21:20] LABS: CREATININE 1.1 mg/dL (0.55-1.3)
[2023-04-01 21:21] LABS: BILIRUBIN,TOTAL 0.2 mg/dL (0.2-1)
[2023-04-02] LABS: PH,URINE 5.5 (5.0-8.0); URINE APPEARANCE CLEAR; URINE BILIRUBIN NEGATIVE (NEGATIVE); URINE COLOR YELLOW; URINE GLUCOSE (UA) NEGATIVE (NEGATIVE); URINE KETONE NEGATIVE (NEGATIVE); URINE LEUK ESTERASE NEGATIVE (NEGATIVE); URINE NITRITE NEGATIVE (NEGATIVE); URINE PROTEIN NEGATIVE (NEGATIVE); URINE UROBILINOGEN 0.2 mg/dL (0.2-1.0)
== END 2023-04-02 01:16 | disposition home or self-care (01) ==
LOC: JER 15:15
DX: R06.02 Shortness of breath (principal); R07.9 Chest pain, unspecified; R32 Unspecified urinary incontinence; M54.50 Low back pain, unspecified; R31.9 Hematuria, unspecified; M54.6 Pain in thoracic spine; Z20.822 Contact with and (suspected) exposure to COVID-19
CPT/HCPCS: 0241U-QW; 36415; 70450-TC; 71046-TC-FY; 71275-TC; 80053; 81003; 84484; 84703; 85025; 85379; 87086; 93005; 93010; 99285-25

== ENCOUNTER 2024-01-02 19:17 | Observation (INO) | payer OTHER ==
[2024-01-02 19:24] VITALS: BMI 35.5
[2024-01-02] MEDS ORDERED: ACETAMINOPHEN INJECTION 100 ML ONE (21:16)
[2024-01-02] MEDS: ACETAMINOPHEN 1000 MG/100 ML BAG IVPB ONE (22:54)
[2024-01-02 23:02] LABS: BASO % 0.5 % (0-2.0); EOS % 4.3 % (0-4.5); HEMATOCRIT 40.4 % (32.4-45.2); HEMOGLOBIN 12.8 GM/dL (10.7-15.3); LYMPH % 42.6 % (8-40); MCH 26.1 pg (25.7-33.7); MCHC 31.8 g/dl (32.0-36.0); MEAN CELL VOLUME 82.1 fl (80-96); MONO % 4.4 % (3.8-10.2); NEUT % 48.2 % (42.8-82.8); PLATELET COUNT 231 10^3/uL (134-434); RBC 4.92 M/mm3 (3.60-5.2); RDW 15.3 % (11.6-15.6); WHITE BLOOD COUNT 5.2 K/mm3 (4.0-10.0)
[2024-01-02] MEDS: SODIUM CHLORIDE 0.9% 500 ML INFUS.BAG IV ONE (23:02)
[2024-01-02 23:15] LABS: INR 0.94 (0.83-1.09); PROTHROMBIN TIME (PATIENT) 10.6 SEC (9.7-13.0)
[2024-01-02 23:18] LABS: ACTIVATED PTT 33.3 SECONDS (25.2-36.5)
[2024-01-02 23:34] LABS: CHLORIDE 106 mmol/L (98-107); POTASSIUM 4.1 mmol/L (3.5-5.1); SODIUM 140 mmol/L (136-145)
[2024-01-02 23:37] LABS: ANION GAP 7 mmol/L (4-13); CALCIUM 9.6 mg/dL (8.5-10.1); CO2 28 mmol/L (21-32)
[2024-01-02 23:38] LABS: ALBUMIN 4.1 g/dl (3.4-5.0)
[2024-01-02 23:39] LABS: BLOOD UREA NITROGEN 8.1 mg/dL (7-18); GLUCOSE,RANDOM 81 mg/dL (74-106)
[2024-01-02 23:41] LABS: SGOT/AST 28 U/L (15-37); SGPT/ALT 48 U/L (13-61)
[2024-01-02 23:42] LABS: CHOLESTEROL 177 mg/dL (50-200); TOT PROT 8.2 g/dl (6.4-8.2)
[2024-01-02 23:43] LABS: LDL CHOLESTEROL (ONLY SJRH) 84 mg/dL (5-100)
[2024-01-02 23:44] LABS: BILIRUBIN,TOTAL 0.3 mg/dL (0.2-1)
[2024-01-02 23:45] LABS: ALK PHOS 118 U/L (45-117); HDL CHOLESTEROL 77 mg/dL (40-60)
[2024-01-03 00:40] LABS: HIV INTERPRETATION NEGATIVE (NEGATIVE)
[2024-01-03] MEDS: ALBUTEROL SO4 0.083% IH SOL 2.5 MG/3 ML VIAL.NEB. NEB PRN (05:57)
[2024-01-03 07:20] LABS: BASO % 0.6 % (0-2.0); HEMATOCRIT 38.8 % (32.4-45.2); HEMOGLOBIN 12.1 GM/dL (10.7-15.3); LYMPH % 52.4 % (8-40); MCH 26.2 pg (25.7-33.7); MCHC 31.2 g/dl (32.0-36.0); MEAN CELL VOLUME 84.1 fl (80-96); MEAN PLT VOLUME 9.7 fl (7.5-11.1); MONO % 5.2 % (3.8-10.2); NEUT % 36.8 % (42.8-82.8); PLATELET COUNT 207 10^3/uL (134-434); RBC 4.62 M/mm3 (3.60-5.2); RDW 14.9 % (11.6-15.6); WHITE BLOOD COUNT 5.4 K/mm3 (4.0-10.0)
[2024-01-03 07:30] LABS: POTASSIUM 4.2 mmol/L (3.5-5.1)
[2024-01-03 07:33] LABS: ALBUMIN 3.8 g/dl (3.4-5.0); CALCIUM 9.2 mg/dL (8.5-10.1)
[2024-01-03 07:34] LABS: BLOOD UREA NITROGEN 7.9 mg/dL (7-18)
[2024-01-03 07:37] LABS: CREATININE 0.9 mg/dL (0.55-1.3)
[2024-01-03 07:38] LABS: BILIRUBIN,TOTAL 0.3 mg/dL (0.2-1); TOT PROT 7.4 g/dl (6.4-8.2)
[2024-01-03] MEDS: CLOPIDOGREL BISULFATE 75 MG TABLET (FP) PO SCH (09:32)
[2024-01-03] MEDS: FLUTICASONE/UMECLIDIN/VILANTER(200-62.5-25 TRELEGY ELLIPTA) INAHLER IH SCH (09:32)
[2024-01-03] MEDS: PANTOPRAZOLE 40 MG TABLET PO SCH (09:32)
[2024-01-03] MEDS: methylPREDNISolone NA SUCC 40 MG/1 ML VIAL IVPUSH SCH ×2 (13:26→13:29)
[2024-01-03] MEDS: ALBUTEROL SO4 0.083% IH SOL 2.5 MG/3 ML VIAL.NEB. NEB SCH (15:03)
[2024-01-03] MEDS: QUEtiapine FUMARATE 200 MG TABLET PO SCH (21:49)
[2024-01-03] MEDS: GABAPENTIN 400 MG CAPSULE PO SCH (21:49)
[2024-01-04] MEDS: METOPROLOL TARTRATE 50 MG TABLET (FP) PO SCH ×2 (11:25→21:34)
[2024-01-04] MEDS: ACETAMINOPHEN/CAFFEINE/BUTALBITAL 1 TAB PO PRN (14:08)
[2024-01-04 15:00] LABS: EPI CELLS 25 /uL (0-25.1); HYALINE CASTS 3 /uL (0-3.1); URINE APPEARANCE CLEAR; URINE BACTERIA 211 /uL (0-1359); URINE BILIRUBIN NEGATIVE (NEGATIVE); URINE COLOR YELLOW; URINE GLUCOSE (UA) NEGATIVE (NEGATIVE); URINE KETONE NEGATIVE (NEGATIVE); URINE LEUK ESTERASE 1+ (NEGATIVE); URINE NITRITE NEGATIVE (NEGATIVE); URINE PROTEIN NEGATIVE (NEGATIVE); URINE RBC 28 /uL (0-23.9); URINE UROBILINOGEN 0.2 mg/dL (0.2-1.0); URINE WBC 31 /uL (0-25.8)
[2024-01-04] MEDS ORDERED: QUEtiapine FUMARATE 200 MG TABLET PO SCH (22:00)
[2024-01-05] MEDS: NYSTATIN 500,000 UNITS/5 ML SUSPENSION PO SCH (12:23)
[2024-01-05] MEDS: GABAPENTIN 300 MG CAPSULE PO SCH (12:24)
[2024-01-05 15:03] VITALS: RESP 18
[2024-01-05] MEDS ORDERED: ACETAMINOPHEN/CAFFEINE/BUTALBITAL 1 TAB PO PRN (15:37)
[2024-01-05] MEDS: METOPROLOL TARTRATE 50 MG TABLET (FP) PO SCH ×2 (16:25→21:19)
[2024-01-05] MEDS: ALBUTEROL SO4 0.083% IH SOL 2.5 MG/3 ML VIAL.NEB. NEB SCH (17:12)
[2024-01-05] MEDS: GABAPENTIN 400 MG CAPSULE PO SCH (21:19)
[2024-01-05] MEDS: QUEtiapine FUMARATE 200 MG TABLET PO SCH (21:19)
[2024-01-06] MEDS: GABAPENTIN 300 MG CAPSULE PO SCH (09:49)
[2024-01-06] MEDS: methylPREDNISolone NA SUCC 40 MG/1 ML VIAL IVPUSH SCH (09:49)
[2024-01-06] MEDS: PANTOPRAZOLE 40 MG TABLET PO SCH (09:49)
[2024-01-06] MEDS: CLOPIDOGREL BISULFATE 75 MG TABLET (FP) PO SCH (09:50)
[2024-01-06] MEDS: FLUTICASONE/UMECLIDIN/VILANTER(200-62.5-25 TRELEGY ELLIPTA) INAHLER IH SCH (10:08)
[2024-01-06 14:42] VITALS: BP 103/75; PULSE 83; TEMP 99
== END 2024-01-06 17:11 | disposition home or self-care (01) ==
LOC: JER 19:17 → JERBED 23:40 → J4S 01-03 04:28 → J6S 01-05 15:31
PROVIDERS: ADMIT Internal Medicine; ATTEND Internal Medicine
PROC: 3E033NZ Introduction of Analgesics, Hypnotics, Sedatives into Peripheral Vein, Percutaneous Approach (ICD-10-PCS; principal; 2024-01-02)
PROC: 3E0F7GC Introduction of Other Therapeutic Substance into Respiratory Tract, Via Natural or Artificial Opening (ICD-10-PCS; 2024-01-02)
PROC: 3E033GC Introduction of Other Therapeutic Substance into Peripheral Vein, Percutaneous Approach (ICD-10-PCS; 2024-01-02)
PROC: 3E0337Z Introduction of Electrolytic and Water Balance Substance into Peripheral Vein, Percutaneous Approach (ICD-10-PCS; 2024-01-02)
DX: R51.9 Headache, unspecified (principal); J45.21 Mild intermittent asthma with (acute) exacerbation; R26.2 Difficulty in walking, not elsewhere classified; M79.7 Fibromyalgia; R00.8 Other abnormalities of heart beat; R90.82 White matter disease, unspecified; I10 Essential (primary) hypertension; Z86.73 Personal history of transient ischemic attack (TIA), and cerebral infarction without residual deficits; I65.09 Occlusion and stenosis of unspecified vertebral artery; Z88.2 Allergy status to sulfonamides; Z88.8 Allergy status to other drugs, medicaments and biological substances
CPT/HCPCS: 0241U-QW; 36415; 70450-TC; 70551-TC; 73502-TC-RT-FY; 73552-TC-RT-FY; 73590-TC-RT-FY; 80053; 80061; 81003; 82550; 82553; 82962; 83036; 84443; 84484; 85025; 85610; 85730; 86803; 86850; 86900; 86901; 87389; 93005; 93010; 93306-TC; 94640; 96374; 96376; 97116-GP; 97161-GP; 99285-25; G0378; J0131